=== PATIENT | male | born 1970 | race Caucasian/White ===

== ENCOUNTER 2016-11-10 06:59 | Emergency (ER) | payer MEDICAID | END 2016-11-10 10:42 | disposition home or self-care (01) | DX: F32.9 Major depressive disorder, single episode, unspecified (principal); R45.851 Suicidal ideations; I10 Essential (primary) hypertension; E11.9 Type 2 diabetes mellitus without complications; Z79.4 Long term (current) use of insulin ==

== ENCOUNTER 2016-11-11 06:53 | Emergency (ER) | payer MEDICAID | END 2016-11-11 11:19 | disposition home or self-care (01) | DX: R45.851 Suicidal ideations (principal); F32.9 Major depressive disorder, single episode, unspecified; I10 Essential (primary) hypertension; E11.9 Type 2 diabetes mellitus without complications; Z79.4 Long term (current) use of insulin ==

== ENCOUNTER 2016-12-12 08:14 | Outpatient (CLI) | payer MEDICAID | END 2016-12-12 08:15 | disposition home or self-care (01) | DX: F32.9 Major depressive disorder, single episode, unspecified (principal); R35.8 Other polyuria ==

== ENCOUNTER 2017-04-01 08:27 | Outpatient (CLI) | payer MEDICAID | END 2017-04-01 08:28 | disposition EMS.NT | LOC: EMS 08:27 | PROVIDERS: ATTEND Surgery | DX: R45.851 Suicidal ideations (principal) ==

== ENCOUNTER 2017-04-01 08:59 | Emergency (ER) | payer MEDICAID ==
--- NOTE | 2017-04-01 10:21 | ED Physician Documentation ---
PD HPI MHE - Stated complaint Stated Complaint: SI - Chief complaint Chief Complaint: MHE - History obtained from History obtained from: Patient - History of Present Illness Primary symptom: Suicidal ideation Timing - onset: Today Contributing factors: Other (self) Similar symptoms before: Diagnosis (depression) Recently seen: Clinic (The patient has been started on humalog and he is adjusting his dosing.) Review of Systems Constitutional: denies: Fever Eyes: denies: Decreased vision Ears: denies: Ear pain Nose: denies: Rhinorrhea / runny nose, Congestion Throat: denies: Sore throat Cardiac: denies: Chest pain / pressure, Palpitations Respiratory: denies: Dyspnea, Cough GI: denies: Abdominal Pain, Nausea, Vomiting : denies: Dysuria, Frequency Skin: denies: Rash Musculoskeletal: denies: Neck pain, Back pain, Extremity pain Neurologic: denies: Generalized weakness, Focal weakness Psychiatric: reports: Depressed, Suicidal Endocrine: denies: Polydypsia, Polyuria PD PAST MEDICAL HISTORY - Past Medical History Past Medical History: Yes Cardiovascular: Hypertension, High cholesterol Respiratory: None Neuro: None Endocrine/Autoimmune: Type 2 diabetes GI: None : None HEENT: None Psych: Depression Musculoskeletal: None Derm: None - Past Surgical History Past Surgical History: Yes - Present Medications Home Medications: Ambulatory Orders Medication Instructions Recorded Confirmed Aripiprazole [Abilify] 2 mg PO DAILY 04/12/13 04/01/17 Clonazepam 1 mg PO DAILY PRN 04/12/13 04/01/17 Insulin Glargine,Hum.rec.anlog 30 unit SQ BID 03/07/14 04/01/17 [Lantus] Atorvastatin [Lipitor] 40 mg ORAL DAILY 03/06/15 04/01/17 DULoxetine [Cymbalta] 40 mg ORAL DAILY 11/10/16 04/01/17 metFORMIN [Glucophage] 1,000 mg ORAL BID 11/10/16 04/01/17 Cholecalciferol (Vitamin D3) 3,000 unit PO DAILY 03/08/17 04/01/17 [Vitamin D3] Ibuprofen [Advil] 200 mg PO BID PRN 03/08/17 04/01/17 Insulin Lispro [Humalog] 30 unit SQ TIDWM 03/08/17 04/01/17 - Allergies Allergies/Adverse Reactions: Allergies Allergy/AdvReac Type Severity Reaction Status Date / Time Penicillins Allergy Rash Verified 11/11/16 07:10 sertraline HCl * Allergy bladder Verified 11/11/16 07:10 [From Zoloft] infection lorazepam [From Ativan] AdvReac Anxiety Verified 11/11/16 07:10 - Social History Does the pt smoke?: No Smoking Status: Never smoker Does the pt drink ETOH?: No Does the pt have substance abuse?: No - Immunizations Immunizations are current?: Yes - POLST Patient has POLST: No PD ED PE NORMAL - Vitals Vital signs reviewed: Yes (hypertensive ) - General General: Alert and oriented X 3, No acute distress - HEENT HEENT: Atraumatic, PERRL, EOMI - Neck Neck: Supple, no meningeal sign, No bony TTP - Cardiac Cardiac: RRR, No murmur - Respiratory Respiratory: No respiratory distress, Clear bilaterally - Abdomen Abdomen: Soft, Non tender - Back Back: No CVA TTP, No spinal TTP - Derm Derm: Normal color, Warm and dry, No rash - Extremities Extremities: No deformity, No edema - Neuro Neuro: Alert and oriented X 3, No motor deficit, No sensory deficit, Normal speech - Psych Psych: Normal mood, Normal affect Results - Vitals Vitals: Vital Signs - 24 hr 04/01/17 04/01/17 09:04 13:14 Temperature 35.4 C L Heart Rate 76 65 Respiratory 16 14 Rate Blood Pressure 144/95 H 149/81 H O2 Saturation 100 100 Oxygen O2 Source Room air - Labs Labs: Laboratory Tests 04/01/17 04/01/17 04/01/17 09:10 09:10 10:40 WBC 7.8 RBC 5.06 Hgb 14.9 Hct 44.0 MCV 86.9 MCH 29.5 MCHC 34.0 RDW 14.8 Plt Count 225 MPV 8.2 Neut # 5.5 Lymph # 1.5 [place] # 0.5 Eos # 0.2 Baso # 0.1 Absolute Nucleated RBC 0.00 Nucleated RBCs 0.0 Sodium Potassium Chloride Carbon Dioxide Anion Gap BUN Creatinine Estimated GFR (MDRD) Glucose Calcium Total Bilirubin AST ALT Alkaline Phosphatase Total Protein Albumin Globulin Albumin/Globulin Ratio Lipase Urine Color YELLOW Urine Clarity CLEAR Urine pH 6.0 Ur Specific [place] <=1.005 Urine Protein NEGATIVE Urine Glucose (UA) NEGATIVE Urine Ketones NEGATIVE Urine Occult Blood NEGATIVE Urine Nitrite NEGATIVE Urine Bilirubin NEGATIVE Urine Urobilinogen 0.2 (NORMAL) Ur Leukocyte Esterase NEGATIVE Ur Microscopic Review NOT INDICATED Urine Culture Comments NOT INDICATED Urine Opiates Screen NEGATIVE Ur Oxycodone Screen NEGATIVE Urine Methadone Screen NEGATIVE Ur Propoxyphene Screen NEGATIVE Ur Barbiturates Screen NEGATIVE Ur Tricyclics Screen NEGATIVE Ur Phencyclidine Scrn NEGATIVE Ur Amphetamine Screen NEGATIVE U Methamphetamines Scrn NEGATIVE U Benzodiazepines Scrn NEGATIVE Urine Cocaine Screen NEGATIVE U Cannabinoids Screen NEGATIVE Ethyl Alcohol 04/01/17 04/01/17 10:40 12:55 WBC RBC Hgb Hct MCV MCH MCHC RDW Plt Count MPV Neut # Lymph # [place] # Eos # Baso # Absolute Nucleated RBC Nucleated RBCs Sodium 136 133 L Potassium 5.8 H 5.4 H Chloride 101 98 L Carbon Dioxide 25 26 Anion Gap 10.0 9.0 BUN 25 H 24 H Creatinine 1.0 1.0 Estimated GFR (MDRD) 80 L 80 L Glucose 113 H 140 H Calcium 10.1 9.6 Total Bilirubin 0.7 AST 23 ALT 40 Alkaline Phosphatase 83 Total Protein 8.4 H Albumin 4.9 Globulin 3.5 Albumin/Globulin Ratio 1.4 Lipase 37 Urine Color Urine Clarity Urine pH Ur Specific [place] Urine Protein Urine Glucose (UA) Urine Ketones Urine Occult Blood Urine Nitrite Urine Bilirubin Urine Urobilinogen Ur Leukocyte Esterase Ur Microscopic Review Urine Culture Comments Urine Opiates Screen Ur Oxycodone Screen Urine Methadone Screen Ur Propoxyphene Screen Ur Barbiturates Screen Ur Tricyclics Screen Ur Phencyclidine Scrn Ur Amphetamine Screen U Methamphetamines Scrn U Benzodiazepines Scrn Urine Cocaine Screen U Cannabinoids Screen Ethyl Alcohol < 5.0 PD MEDICAL DECISION MAKING - ED course Complexity details: reviewed results, re-evaluated patient, considered differential, d/w patient, d/w family ED course: 46 y/o male with a history of depression has developed acute SI that is now resolved. He has support and good insight and social media director is consulted in the case and have arranged next day follow up. Departure - Departure Disposition: 01 Home, Self Care Clinical Impression: Suicidal ideation Condition: Stable Instructions: ED Depression Follow-Up: Valencia Munroe ARNP [Primary Care Provider] - Comments: Today in the Emergency Department your blood pressure was elevated. This can happen from the stress of the visit itself, from a current illness or circumstance or from uncontrolled hypertension. If you take blood pressure medications take your usual mediations, have your blood pressure re-checked in an appropriate setting and follow up any elevation with your primary care doctor. Discharge Date/Time: 04/01/17 13:40
[2017-04-01 10:55] LABS: BASOPHILS # (AUTO) 0.1 10^3/uL (0.0-0.1); BASOPHILS % (AUTO) 0.9 %; EOSINOPHILS # (AUTO) 0.2 10^3/uL (0.0-0.7); EOSINOPHILS % (AUTO) 2.9 %; HGB - HEMOGLOBIN 14.9 g/dL (14.0-18.0); LYMPHOCYTES # (AUTO) 1.5 10^3/uL (1.5-3.5); LYMPHOCYTES % (AUTO) 18.9 %; MEAN CORPUSCULAR HEMOGLOBIN 29.5 pg (27.0-31.0); MEAN CORPUSCULAR VOLUME 86.9 fL (80.0-94.0); MEAN PLATELET VOLUME 8.2 fL (7.4-11.4); MONOCYTES # (AUTO) 0.5 10^3/uL (0.0-1.0); NEUTROPHILS # (AUTO) 5.5 10^3/uL (1.5-6.6); NEUTROPHILS % (AUTO) 70.3 %; RED BLOOD COUNT 5.06 10^6/uL (4.70-6.10); RED CELL DISTRIBUTION WIDTH 14.8 % (12.0-15.0); UNCORRECTED WHITE BLOOD COUNT 7.8 x10^3/uL; WHITE BLOOD COUNT 7.8 x10^3/uL (4.8-10.8)
[2017-04-01 10:55] LABS: BILIRUBIN,URINE NEGATIVE (NEGATIVE); UA CHARGE (STRIP ONLY) YES; UR CULTURE IF IND NOT INDICATED
[2017-04-01 11:05] LABS: ALBUMIN/GLOBULIN RATIO 1.4 (1.0-2.2); BILIRUBIN,TOTAL 0.7 mg/dL (0.2-1.0); BUN - BLOOD UREA NITROGEN 25 mg/dL (6-20); CALCIUM 10.1 mg/dL (8.5-10.3); CARBON DIOXIDE - CO2 25 mmol/L (21-32); CHLORIDE 101 mmol/L (101-111); GFR - MDRD 80 (>89); GLUCOSE 113 mg/dL (70-100); LIPASE 37 U/L (22-51); POTASSIUM 5.8 mmol/L (3.5-5.0); SODIUM 136 mmol/L (135-145); TOTAL PROTEIN 8.4 g/dL (6.7-8.2)
[2017-04-01 13:14] VITALS: BP 149/81
[2017-04-01 13:21] LABS: CALCIUM 9.6 mg/dL (8.5-10.3); POTASSIUM 5.4 mmol/L (3.5-5.0)
== END 2017-04-01 13:40 | disposition home or self-care (01) ==
LOC: ED 08:59
DX: F32.9 Major depressive disorder, single episode, unspecified (principal); R45.851 Suicidal ideations; I10 Essential (primary) hypertension; E78.00 Pure hypercholesterolemia, unspecified; E11.9 Type 2 diabetes mellitus without complications; Z79.4 Long term (current) use of insulin; Z79.84 Long term (current) use of oral hypoglycemic drugs
CPT/HCPCS: 36415; 80048; 80053; 80306; 80320; 81001; 81003; 83690; 85025; 87086; 99283

== ENCOUNTER 2017-04-22 07:27 | Outpatient (CLI) | payer MEDICAID ==
[2017-04-22 08:39] LABS: BASOPHILS % (AUTO) 0.5 %; EOSINOPHILS # (AUTO) 0.2 10^3/uL (0.0-0.7); EOSINOPHILS % (AUTO) 2.6 %; HCT - HEMATOCRIT 41.3 % (42.0-52.0); LYMPHOCYTES # (AUTO) 1.2 10^3/uL (1.5-3.5); LYMPHOCYTES % (AUTO) 16.7 %; MEAN CORPUSCULAR HEMOGLOBIN 29.5 pg (27.0-31.0); MEAN CORPUSCULAR HGB CONC 33.9 g/dL (32.0-36.0); MEAN CORPUSCULAR VOLUME 86.9 fL (80.0-94.0); MEAN PLATELET VOLUME 7.8 fL (7.4-11.4); MONOCYTES # (AUTO) 0.6 10^3/uL (0.0-1.0); NEUTROPHILS % (AUTO) 72.2 %; RED BLOOD COUNT 4.76 10^6/uL (4.70-6.10); RED CELL DISTRIBUTION WIDTH 14.4 % (12.0-15.0); UNCORRECTED WHITE BLOOD COUNT 6.9 x10^3/uL; WHITE BLOOD COUNT 6.9 x10^3/uL (4.8-10.8)
[2017-04-22 08:45] LABS: HEMOGLOBIN A1C 1.14 g/dL
[2017-04-22 08:48] LABS: CHOL/HDL RATIO 4.4 (<5.0); CHOLESTEROL 145 mg/dL; HDL CHOLESTEROL 33 mg/dL; LDL/HDL RATIO 2.4 (<3.6); TRIGLYCERIDES 168 mg/dL; VLDL CHOLESTEROL 34 mg/dL
== END 2017-04-22 07:28 | disposition home or self-care (01) ==
LOC: LAB 07:27
PROVIDERS: ATTEND Nurse Practitioner Family
DX: D64.9 Anemia, unspecified (principal)
CPT/HCPCS: 36415; 80061; 82043; 83036; 85025

== ENCOUNTER 2017-05-27 08:00 | Outpatient (CLI) | payer MEDICAID | END 2017-05-27 23:59 | disposition home or self-care (01) | LOC: LAB.R 08:00 | PROVIDERS: ATTEND Dentist Oral and Maxillofacial Surgery | DX: K12.2 Cellulitis and abscess of mouth (principal) | CPT/HCPCS: 87070; 87205 ==

== ENCOUNTER 2017-06-05 09:07 | Inpatient (IN) | payer MEDICAID ==
--- NOTE | 2017-06-05 09:23 | ED Physician Documentation ---
History of Present Illness - Stated complaint Stated Complaint: JAW PX - Chief complaint Chief Complaint: Heent - Additonal information Additional information: hx from pt an oral/maxillofacial surgeon 46 male type 2 DM seen by oral surgery for dental abscess had infected tooth #32 removed and also submandibular abscess drained and rachel drain placed on May 27 pt on clinda pt still with continued purulent drainage maxillofacial surgeon called to discuss with me and he rec pt be admitted for IV antibiotic and after discussion of services available / not available at he felt appropriate for as pt does not need any further surgical intervention as this was already managed in the surgical office pt states no fever no mouth dc just from submandibular incision states blood sugars have been OK Review of Systems Constitutional: denies: Fever Throat: reports: Dental pain / toothache Cardiac: denies: Chest pain / pressure Respiratory: denies: Dyspnea, Cough GI: denies: Abdominal Pain, Nausea, Vomiting Immunocompromised: denies: Immunocompromised PD PAST MEDICAL HISTORY - Past Medical History Cardiovascular: Hypertension, High cholesterol Respiratory: None Neuro: None Endocrine/Autoimmune: Type 2 diabetes GI: None : None HEENT: None Psych: Depression Musculoskeletal: None Derm: None - Past Surgical History Past Surgical History: Yes - Present Medications Home Medications: Ambulatory Orders Medication Instructions Recorded Confirmed Aripiprazole [Abilify] 2 mg PO DAILY 04/12/13 06/05/17 Clonazepam 1 mg PO DAILY PRN 04/12/13 06/05/17 Insulin Glargine,Hum.rec.anlog 30 unit SQ BID 03/07/14 06/05/17 [Lantus] Atorvastatin [Lipitor] 40 mg ORAL DAILY 03/06/15 06/05/17 DULoxetine [Cymbalta] 40 mg ORAL DAILY 11/10/16 06/05/17 metFORMIN [Glucophage] 1,000 mg ORAL BID 11/10/16 06/05/17 Cholecalciferol (Vitamin D3) 3,000 unit PO DAILY 03/08/17 06/05/17 [Vitamin D3] Ibuprofen [Advil] 200 mg PO BID PRN 03/08/17 06/05/17 Insulin Lispro [Humalog] 30 unit SQ TIDWM 03/08/17 06/05/17 Lisinopril 5 mg DAILY 06/05/17 06/05/17 - Allergies Allergies/Adverse Reactions: Allergies Allergy/AdvReac Type Severity Reaction Status Date / Time Penicillins Allergy Rash Verified 06/05/17 09:17 sertraline HCl * Allergy bladder Verified 06/05/17 09:17 [From Zoloft] infection lorazepam [From Ativan] AdvReac Anxiety Verified 06/05/17 09:17 - Social History Does the pt smoke?: No Smoking Status: Never smoker Does the pt drink ETOH?: No Does the pt have substance abuse?: No - Immunizations Immunizations are current?: Yes - POLST Patient has POLST: No PD ED PE NORMAL - Vitals Vital signs reviewed: Yes - General General: Alert and oriented X 3 - HEENT HEENT: Other (no trismus, nor swelling, no oral drainaage. Submandiblar and mandible swelling on the left, surgical incision still open and draining but the rachel is out, no ludwigs, no pain with tracheal manipulation) - Cardiac Cardiac: RRR - Respiratory Respiratory: No respiratory distress, Clear bilaterally - Derm Derm: Normal color - Extremities Extremities: Normal ROM s pain - Neuro Neuro: Alert and oriented X 3 Results - Vitals Vitals: Vital Signs - 24 hr 06/05/17 06/05/17 06/05/17 09:14 11:00 11:30 Temperature 36.9 C Heart Rate 94 94 95 Respiratory 20 20 20 Rate Blood Pressure 143/86 H 136/76 H O2 Saturation 100 06/05/17 13:40 Temperature Heart Rate 98 Respiratory 20 Rate Blood Pressure 148/78 H O2 Saturation Oxygen O2 Source Room air - EKG (time done) 1044 Rate: Rate (enter#) Rhythm: NSR [place]: Normal Intervals: Normal [place] Ischemia: Normal ST segments - Labs Labs: Microbiology 06/05/17 10:30 Wound Culture - Preliminary Abscess Laboratory Tests 06/05/17 06/05/17 06/05/17 09:45 09:45 11:37 WBC 12.1 H RBC 4.69 L Hgb 13.8 L Hct 41.6 L MCV 88.7 MCH 29.5 MCHC 33.3 RDW 14.0 Plt Count 288 MPV 7.8 Neut # 9.7 H Lymph # 1.2 L [place] # 1.0 Eos # 0.1 Baso # 0.1 Absolute Nucleated RBC 0.01 Nucleated RBCs 0.0 Sodium 126 L Potassium 6.4 H* Chloride 94 L Carbon Dioxide 20 L Anion Gap 12.0 BUN 52 H Creatinine 1.8 H Estimated GFR (MDRD) 40 L Glucose 470 H POC Whole Bld Glucose 483 H Calcium 9.9 06/05/17 06/05/17 12:35 13:44 WBC RBC Hgb Hct MCV MCH MCHC RDW Plt Count MPV Neut # Lymph # [place] # Eos # Baso # Absolute Nucleated RBC Nucleated RBCs Sodium Potassium 5.4 H Chloride Carbon Dioxide Anion Gap BUN Creatinine Estimated GFR (MDRD) Glucose POC Whole Bld Glucose 385 H Calcium - Rads (name of study) CT ST neck Radiology: See rad report (inflamamtory change posterior R buccal space extends inf and posteriorly and into R sublingual space into floor of mouth, no discreet fluid collection seen on non cont CT, tract from skin of neck to playsma could be surgical (it is), cellulitis of R lower face and neck, reactive lymph nodes, s/p molar extraction) PD MEDICAL DECISION MAKING - ED course ED course: dental abscess s/p surgical drainage but failing outpt oral clinda sent for IV ab but also out of control diabetes, new renal insuff with hyperkalemia K elev but no EKG changes - so gave IVF insulin albuterol and will recheck ( came down) ordered non con CT (2/2 GFR) to assess for extent of any residual pocket of abscess etiology of renal insuff unclear - rare but possible side effect of clinda, or pt could have had poor PO intake s/p extensive dental surgery, making urine so feel can keep at [facility] given clinda failed and also may have contributed to renal insuff, will change ab, pt pencillin allergy, will try cefoxitin, if does not tolerate that will have to go to cipro/flagyl discussed CT results with Dr Msoes and he feels all this is inflammatory tissue secondary to infection, no new focal abscess seen, he says he has seen pt QOD for > 1wk and swelling has not progressed and he does not feel airway is a concern at this time, he gave his cell phone for the hospitalist to call with any further questions or concerns spoke to hospitalist and they will admit Departure - Departure Disposition: 66 [facility] DC/Xfer Clinical Impression: Dental abscess, Hyperkalemia, Acute renal insufficiency Hyperglycemia due to type 2 diabetes mellitus 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
[2017-06-05 09:52] LABS: BASOPHILS # (AUTO) 0.1 10^3/uL (0.0-0.1); BASOPHILS % (AUTO) 0.7 %; EOSINOPHILS # (AUTO) 0.1 10^3/uL (0.0-0.7); EOSINOPHILS % (AUTO) 0.7 %; HCT - HEMATOCRIT 41.6 % (42.0-52.0); HGB - HEMOGLOBIN 13.8 g/dL (14.0-18.0); LYMPHOCYTES # (AUTO) 1.2 10^3/uL (1.5-3.5); LYMPHOCYTES % (AUTO) 9.7 %; MEAN CORPUSCULAR HEMOGLOBIN 29.5 pg (27.0-31.0); MEAN CORPUSCULAR HGB CONC 33.3 g/dL (32.0-36.0); MEAN CORPUSCULAR VOLUME 88.7 fL (80.0-94.0); MEAN PLATELET VOLUME 7.8 fL (7.4-11.4); MONOCYTES % (AUTO) 8.5 %; NEUTROPHILS # (AUTO) 9.7 10^3/uL (1.5-6.6); NEUTROPHILS % (AUTO) 80.4 %; RED BLOOD COUNT 4.69 10^6/uL (4.70-6.10); UNCORRECTED WHITE BLOOD COUNT 12.1 x10^3/uL; WHITE BLOOD COUNT 12.1 x10^3/uL (4.8-10.8)
[2017-06-05 10:06] LABS: CALCIUM 9.9 mg/dL (8.5-10.3); CREATININE 1.8 mg/dL (0.6-1.2)
[2017-06-05 10:07] LABS: POTASSIUM 6.4 mmol/L (3.5-5.0)
[2017-06-05] MEDS ORDERED: SODIUM CHLORIDE FLUSH 0.9% 10 ML SYRINGE IVP ONE ×3 (10:14→12:55)
[2017-06-05] MEDS ORDERED: INSULIN REGULAR HUMAN 100 UNIT/1 ML 10 ML MDV IVP STA ×2 (10:30→12:20)
[2017-06-05] MEDS ORDERED: ALBUTEROL NEB 2.5 MG/3 ML INH STA (10:30)
[2017-06-05] MEDS ORDERED: SODIUM CHLORIDE 0.9% 1,000 ML IV ONE ×3 (10:30→12:29)
[2017-06-05] MEDS ORDERED: INSULIN REGULAR HUMAN 100 UNIT/1 ML 10 ML MDV ONE ×2 (10:57→12:52)
[2017-06-05] MEDS ORDERED: ALBUTEROL NEB 2.5 MG/3 ML INH ONE (11:18)
[2017-06-05] MEDS ORDERED: cefOXitin 2 GM in SODIUM CHLORIDE 0.9% MINIBAG 100 ML IV STA (12:26)
--- NOTE | 2017-06-05 13:17 | CT Preliminary Report ---
Exam: CT Neck Soft Tissue W/O IMPRESSION: 1. There is inflammatory change seen in the posterior right lower buccal space. This extends inferior ly and posteriorly into the right submandibular space and into the right sublingual space into the fl oor of mouth. A discrete fluid collection is not identified by noncontrast CT. The lack of intravenou s contrast limits assessment for abscess. 2. There is a tract that extends from the skin of the right neck down to the platysma muscle. This co uld reflect a surgical tract or could reflect a fistula that has extended to the skin. 3. Cellulitis is seen involving the right lower face and upper neck. 4. Reactive lymph nodes are seen in the submandibular gland on the right. 5. Evidence of a molar extraction is seen involving the right lower mandible [facility] SITE ID: [id number]
--- NOTE | 2017-06-05 13:28 | CT Report ---
EXAM: CT SOFT TISSUE NECK EXAM DATE: 06/05/2017 12:23 PM. HISTORY: Right submandibular abscess. Recent right tooth removal and abscess drainage. COMPARISONS: None. TECHNIQUE: Routine soft tissue neck CT protocol. IV contrast: None. A noncontrast study was requested by the ER physician due to reported decreased renal function. Reconstructions: Coronal and sagittal. In accordance with CT protocol optimization, one or more of the following dose reduction techniques w ere utilized for this exam: automated exposure control, adjustment of mA and/or KV based on patient s ize, or use of iterative reconstructive technique. FINDINGS: There is a thickened appearance of the soft tissues of the posterior right lower buccal space. There is thickening of the overlying platysma muscle that down to the level of the cricoid. There is ill-de fined inflammatory change in the subcutaneous fat lateral to the right buccal space and inferior to t he right buccal space. These inflammatory changes extend into the anterior aspect of the submandibula r space. On the coronal images, these inflammatory changes extend into the sublingual space. There is mass effect on the anterior belly of the right digastric muscle. There is a linear focus of soft tis evens, which extends from the platysma muscle anterior to the inferior submandibular gland to the skin surface suspicious for a tract. Prominent lymph nodes are seen adjacent to the right submandibular gland. No calcifications are seen in the floor of mouth. No inflammatory changes seen in the right parapharyngeal fat. No inflammatory changes seen in the left submandibular space or in the left submental region. No mass is seen in the nasopharynx. Parapharyngeal fat is symmetric. No inflammatory change is presen t in the parapharyngeal fat. Epiglottis is not thickened. Aryepiglottic folds are not thickened Asymmetric soft tissue in the left breast might well reflect gynecomastia. This is seen on the edge o f the film on the last images of the exam. Atherosclerotic calcification is seen in the left and right coronary arterial tree. No bulky lymphadenopathy is seen in the upper mediastinum. The thyroid gland is not enlarged. No mass is present in either orbit. No suspicious lytic or blastic region is seen in the cervical vertebral bodies. There is leftward cur vature involving the lower cervical and upper thoracic spine. No suspicious spiculated mass is present in either lung apex. Lucency is seen in the posterior right mandible consistent with a recent molar extraction. IMPRESSION: 1. There is inflammatory change seen in the posterior right lower buccal space. This extends inferior ly and posteriorly into the right submandibular space and into the right sublingual space and the aaliyah or of mouth. A discrete fluid collection is not identified by noncontrast CT. The lack of intravenous contrast limits assessment for abscess. 2. There is a tract that extends from the skin of the right neck down to the platysma muscle. This co uld reflect a surgical tract or could reflect a fistula that has extended to the skin. 3. Cellulitis is seen involving the right lower face and upper neck. 4. Reactive lymph nodes are seen near the submandibular gland on the right. 5. Evidence of a molar extraction is seen involving the right lower mandible. Report phoned to Dr. Farias at roughly 1:15 PM on 06/05/2017 [facility] Referring Provider Line: [phone] SITE ID: [id number]
[2017-06-05] MEDS ORDERED: clonazePAM 0.5 MG TABLET PO PRN ×2 (15:17→16:34)
[2017-06-05] MEDS ORDERED: IBUPROFEN 400 MG TABLET PO PRN (15:19)
[2017-06-05] MEDS ORDERED: SODIUM CHLORIDE 0.9% 1,000 ML IV SCH (16:00)
[2017-06-05 16:12] LABS: HEMOGLOBIN A1C 1.22 g/dL
[2017-06-05 16:20] LABS: CALCIUM 9.3 mg/dL (8.5-10.3); CREATININE 1.6 mg/dL (0.6-1.2)
[2017-06-05 16:22] LABS: POTASSIUM 5.8 mmol/L (3.5-5.0)
[2017-06-05] MEDS ORDERED: INSULIN ASPART 300 UNIT/3 ML PEN SUBQ SCH (17:00)
[2017-06-05] MEDS ORDERED: INSULIN LISPRO 100 UNIT/1 ML 10 ML MDV SUBQ SCH (17:00)
[2017-06-05] MEDS ORDERED: metFORMIN 500 MG TABLET PO SCH (17:00)
[2017-06-05] MEDS: oxyCOD/ACETAMIN 5 MG/325 MG TABLET PO PRN (17:26)
[2017-06-05] MEDS: INSULIN ASPART 300 UNIT/3 ML PEN SUBQ SCH ×3 (17:35→21:03)
[2017-06-05] MEDS: metFORMIN 500 MG TABLET PO SCH (17:57)
--- NOTE | 2017-06-05 18:17 | HISTORY & PHYSICAL EXAMINATION ---
DATE OF ADMISSION: 06/05/2017 HISTORY OF THE PRESENT ILLNESS: This is a 46-year-old white male with a history of diabetes, requiring insulin, and psychiatric disorder, on Abilify. The patient developed a dental abscess that has been treated with oral antibiotics and most recently surgical care with an abscess drained and a Harjeet drain put in on May 27, 2017. The patient developed diarrhea 2 days ago and has had poor p.o. intake because of his dental abscess. He has been seen by his dental surgeon every other day and today was noted to have no improvement on over 1 week of daily antibiotic orally. The patient was advised admission for further IV treatment, continued drainage of the wound, and when he was found to have hyperkalemia and glucose elevation out of control, as well as new acute renal failure. The patient complains of fullness, mild pain in the right cheek area. There has not been a fever. He denies any shortness of breath or intraoral secretions that are not manageable. He has been compliant with his medications as described for this dental abscess. PAST MEDICAL HISTORY: Diabetes, hypertension, psychiatric disorder with mainly depression, congenital deformity with an imperforate anus at . PAST SURGERIES: Dental Stokes drain placed 2 weeks ago and rectal surgery as a . ALLERGIES 1. PENICILLIN, WHICH CAUSED A RASH. 2. ZOLOFT, WHICH CAUSED A BLADDER INFECTION. 3. ATIVAN, WHICH CAUSED ANXIETY. MEDICATIONS AT HOME 1. Abilify 2 mg p.o. daily. 2. Clonazepam 1 mg p.o. daily p.r.n. anxiety. 3. Lipitor 40 mg p.o. at bedtime. 4. Cymbalta 40 mg p.o. daily. 5. Vitamin D 3000 units p.o. daily. 6. Ibuprofen 200 mg p.o. b.i.d. p.r.n. pain. 7. Lisinopril 5 mg p.o. daily. 8. Lantus insulin 30 units subcutaneous b.i.d. 9. Humalog insulin 30 units subcu t.i.d. with meals. 10. Metformin 1000 mg p.o. b.i.d. REVIEW OF SYSTEMS: He denies any cardiac history, neurology complaints, respiratory problems, urologic problems or extremity trouble. He does describe a remote history of alcohol abuse and states he has not been an abuser for 3 years. He describes current loose stools for the last 48 hours, which he thinks is from his oral antibiotic of clindamycin. He does admit that he is poor about checking his fingerstick glucoses and does not follow a strict diabetic diet. SOCIAL HISTORY: He never smoked. He has stopped drinking alcohol 3 years ago. He denies any drug abuse. FAMILY HISTORY: Unremarkable. 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 He is alert and oriented and in no distress. There is a foul odor noted, coming from the wound site which covered with a gauze bandage which over the right cheek. HEAD, EYES, EARS, NOSE, AND THROAT: Shows the right cheek to be swollen out of proportion to the left and there is a wound covered by gauze bandage in the right mid cheek area. The oral mucosa is moist. The dentition was not examined. NECK: No JVD, carotid bruits or lymphadenopathy. LUNGS: Clear. HEART: Sounds are normal. There is no audible murmur. ABDOMEN: Obese, soft, nontender. EXTREMITIES: No clubbing, cyanosis or edema. NEUROLOGIC: Intact grossly. VITAL SIGNS: He has a low-grade temperature of 36.9, heart rate of 95 and sinus rhythm, respiratory rate 20, blood pressure 143/86. Oxygen saturation is not known. LABORATORY DATA: Sodium 126, potassium 6.4, BUN 52, creatinine 1.8, estimated GFR 40, glucose 470 and on repeat 483. White blood count 12.2 with a left shift , hemoglobin 13.8, hematocrit 41.6, platelet count normal. No INR was done. No magnesium was done. EKG: Normal sinus rhythm and within normal limits. There was a soft tissue imaging of the neck. CT scan showed inflammation in the posterior right lower buccal space, which extended inferiorly and posteriorly into the right submandibular space and into the right sublingual space and the floor of the mouth. There is no discrete air fluid level seen on noncontrast CT. There is a tract that extends from the skin of the right neck down to the platysma muscle. This is probably a surgical tract or fistula since it extends to the skin. There is cellulitis of the right lower face and upper neck. There are reactive lymph nodes seen near the submandibular gland on the right. There was evidence of a molar extraction in the right lower mandible. IMPRESSION/DIAGNOSES 1. Dental abscess with poss. soft tissue cellulitis. 2. Hyperkalemia. 3. Acute renal insufficiency. 4. Diabetes with hyperglycemia (diabetes out of control). 5. Tooth extraction. 6. Depression. 7. Remote history of alcohol abuse. PLAN: The patient will have sliding-scale insulin coverage for his diabetes and be kept on his long-acting insulin coverage. He will be put on a diabetic diet and have glucose fingersticks. IV antibiotics will be initiated using Mefoxin per recommendations of his dental surgeon, and the dose will be based on his renal function, which is depressed. Wound care to the external wound per the dental surgeon will include dressing changes daily. Pain control for the site will continue as he has been having at home or stronger narcotic pain control if needed. We will follow his CBC and differential and watch for fever spikes. Cultures have already been obtained of the wound and blood to watch for positive cultures. If these are identified, then antibiotics will be changed based on sensitivities. The oral surgeon also recommends Peridex mouth wash b.i.d. IV saline will be initiated for hydration as the patient has prerenal azotemia, which likely on the basis of fluid loss and diarrhea, as well as poor p.o. intake because of his mouth pain. His antipsychotic medications will be continued. JOB #: [id number] EXT JOB #:[id number] BROOKS
[2017-06-05] MEDS: SODIUM CHLORIDE 0.9% 1,000 ML IV SCH (19:30)
[2017-06-05] MEDS: IBUPROFEN 400 MG TABLET PO PRN (20:48)
[2017-06-05] MEDS: ATORVASTATIN 40 MG TABLET PO SCH (20:48)
[2017-06-05] MEDS: cefOXitin 2 GM in SODIUM CHLORIDE 0.9% MINIBAG 100 ML IV SCH (20:49)
[2017-06-05] MEDS ORDERED: ATORVASTATIN 10 MG TABLET PO SCH (21:00)
[2017-06-05] MEDS ORDERED: INSULIN GLARGINE 300 UNIT/3 ML PEN SUBQ SCH (21:00)
[2017-06-05] MEDS ORDERED: cefOXitin 2 GM in SODIUM CHLORIDE 0.9% MINIBAG 100 ML IV SCH (21:00)
[2017-06-05] MEDS ORDERED: CHLORHEXIDINE GLUCONATE 15 ML UDC PO SCH (21:00)
[2017-06-05] MEDS: INSULIN GLARGINE 300 UNIT/3 ML PEN SUBQ SCH (21:04)
[2017-06-05] MEDS: CHLORHEXIDINE GLUCONATE 15 ML UDC PO SCH (21:05)
[2017-06-06] MEDS: SODIUM CHLORIDE 0.9% 1,000 ML IV SCH ×3 (02:40→19:12)
[2017-06-06] MEDS: oxyCOD/ACETAMIN 5 MG/325 MG TABLET PO PRN ×3 (03:37→17:53)
[2017-06-06] MEDS: cefOXitin 2 GM in SODIUM CHLORIDE 0.9% MINIBAG 100 ML IV SCH ×3 (06:36→21:32)
[2017-06-06 06:48] LABS: BASOPHILS # (AUTO) 0.1 10^3/uL (0.0-0.1); BASOPHILS % (AUTO) 0.5 %; EOSINOPHILS # (AUTO) 0.1 10^3/uL (0.0-0.7); HCT - HEMATOCRIT 38.5 % (42.0-52.0); HGB - HEMOGLOBIN 12.6 g/dL (14.0-18.0); LYMPHOCYTES # (AUTO) 1.6 10^3/uL (1.5-3.5); LYMPHOCYTES % (AUTO) 14.3 %; MEAN CORPUSCULAR HEMOGLOBIN 29.9 pg (27.0-31.0); MEAN CORPUSCULAR HGB CONC 32.8 g/dL (32.0-36.0); MEAN CORPUSCULAR VOLUME 91.3 fL (80.0-94.0); MEAN PLATELET VOLUME 8.2 fL (7.4-11.4); MONOCYTES # (AUTO) 0.8 10^3/uL (0.0-1.0); MONOCYTES % (AUTO) 7.1 %; NEUTROPHILS # (AUTO) 8.4 10^3/uL (1.5-6.6); NEUTROPHILS % (AUTO) 77.1 %; NUCLEATED RED BLOOD CELLS AUTO 0.1 /100WBC; RED BLOOD COUNT 4.21 10^6/uL (4.70-6.10); RED CELL DISTRIBUTION WIDTH 14.2 % (12.0-15.0); UNCORRECTED WHITE BLOOD COUNT 11.7 x10^3/uL; WHITE BLOOD COUNT 10.9 x10^3/uL (4.8-10.8)
[2017-06-06 06:54] LABS: CALCIUM 8.9 mg/dL (8.5-10.3); CREATININE 1.3 mg/dL (0.6-1.2); MAGNESIUM 1.6 mg/dL (1.7-2.8); POTASSIUM 5.2 mmol/L (3.5-5.0)
[2017-06-06 07:02] LABS: CHOL/HDL RATIO 6.9 (<5.0); CHOLESTEROL 192 mg/dL; HDL CHOLESTEROL 28 mg/dL; LDL/HDL RATIO 3.8 (<3.6); TRIGLYCERIDES 294 mg/dL; VLDL CHOLESTEROL 59 mg/dL
[2017-06-06 07:36] LABS: HEMOGLOBIN A1C 1.14 g/dL
[2017-06-06] MEDS: INSULIN ASPART 300 UNIT/3 ML PEN SUBQ SCH ×7 (08:31→21:34)
[2017-06-06] MEDS: INSULIN GLARGINE 300 UNIT/3 ML PEN SUBQ SCH ×2 (08:31→21:34)
[2017-06-06] MEDS: metFORMIN 500 MG TABLET PO SCH ×2 (08:33→17:01)
[2017-06-06] MEDS: CHOLECALCIFEROL 1,000 UNIT TABLET PO SCH (08:34)
[2017-06-06] MEDS: DULoxetine 20 MG CAPSULE PO SCH (08:37)
[2017-06-06] MEDS: ARIPiprazole 5 MG TABLET PO SCH (08:38)
[2017-06-06] MEDS ORDERED: CHOLECALCIFEROL 1,000 UNIT TABLET PO SCH (09:00)
[2017-06-06] MEDS ORDERED: ARIPiprazole 5 MG TABLET PO SCH (09:00)
[2017-06-06] MEDS ORDERED: DULoxetine 20 MG CAPSULE PO SCH (09:00)
[2017-06-06] MEDS: CHLORHEXIDINE GLUCONATE 15 ML UDC PO SCH ×2 (09:36→21:29)
[2017-06-06] MEDS: IBUPROFEN 400 MG TABLET PO PRN ×2 (12:21→21:29)
--- NOTE | 2017-06-06 13:54 | PROVIDER PROGRESS NOTE ---
Assessment/Plan - Problem List (1) Dental abscess Assessment/Plan: WBC lower and no fever spikes. Pt notices less swelling, but still difficult to eat. Continue with iv Mefoxin, drainage via tube, bandage changes and mouth rinse. I will check with Dr Moses if he needs to do any further surgical management. (2) Hyperglycemia due to type 2 diabetes mellitus Qualifiers: Diabetes mellitus senior care insulin use: with senior care use Qualified Code( s): E11.65 - Type 2 diabetes mellitus with hyperglycemia; Z79.4 - [facility] ( current) use of insulin Assessment/Plan: Improved glu control slowly. Continue Insulin, diet and fingerstick monitoring. (3) Acute renal insufficiency Assessment/Plan: BUN/creat are improving with iv hydration Continue rehydration. (4) Hyperkalemia Assessment/Plan: minimally elvated today. Continue to monitor and should decline as glu is controlled (5) Depression Qualifiers: Depression Type: unspecified Qualified Code(s): F32.9 - Major depressive disorder, single episode, unspecified Assessment/Plan: Pt has normal affect and stable mood with present management. (6) Hyperlipidemia associated with type 2 diabetes mellitus Assessment/Plan: LDL goal is 100 and needs better Trig control. Will continue to treat hyperglycemia for improved Triglycerides, no Fenofibtrate or omega-3 treatment yet. - Current Meds Current Meds: Current Medications Generic Name Dose Route Start Last Admin Trade Name Freq PRN Reason Stop Dose Admin Aripiprazole 2.5 mg 06/06/17 09:00 06/06/17 08:38 Abilify PO 2.5 mg DAILY BONNIE Administration Atorvastatin Calcium 40 mg 06/05/17 21:00 06/05/17 20:48 Lipitor PO 40 mg QPM BONNIE Administration Chlorhexidine Gluconate 15 ml 06/05/17 21:00 06/06/17 09:36 Peridex PO 15 ml BID OBNNIE Administration Cholecalciferol 3,000 unit 06/06/17 09:00 06/06/17 08:34 Vitamin D3 PO 3,000 unit DAILY BONNIE Administration Clonazepam 1 mg 06/05/17 16:34 06/05/17 21:48 Klonopin PO 1 mg BID PRN Administration Anxiety Duloxetine HCl 40 mg 06/06/17 09:00 06/06/17 08:37 Cymbalta PO 40 mg DAILY BONNIE Administration Sodium Chloride 1,000 mls @ 125 mls/hr 06/05/17 18:00 06/06/17 11:23 Normal Saline 0.9% IV 125 mls/hr .Q8H BONNIE Administration Cefoxitin Sodium 2 gm/ Sodium 100 mls @ 200 mls/hr 06/05/17 21:00 06/06/17 06: 36 Chloride IV 200 mls/hr Q8H BONNIE Administration Ibuprofen 200 mg 06/05/17 16:34 06/06/17 12:21 Motrin PO 200 mg BID PRN Administration PAIN Insulin Aspart 1 - 9 unit 06/05/17 18:00 06/06/17 12:18 Novolog SUBQ 5 unit 0800,1200,1700,2100 BONNIE Administration Protocol Insulin Aspart 30 unit 06/05/17 18:00 06/06/17 12:19 Novolog SUBQ 30 unit TIDWM BONNIE Administration Insulin Glargine 30 unit 06/05/17 21:00 06/06/17 08:31 Lantus Solostar SUBQ 30 unit BID BONNIE Administration Metformin HCl 1,000 mg 06/05/17 18:00 06/06/17 08:33 Glucophage PO 1,000 mg BIDWM BONNIE Administration Oxycodone/Acetaminophen 1 tab 06/05/17 17:03 06/06/17 10:34 Percocet 5 Mg/325 Mg PO 1 tab Q6HR PRN Administration PAIN - Lab Result Fish Bone Diagrams: 06/06/17 06:36 06/06/17 06:36 - Additional Planning My Orders: My Active Orders 06/05/17 15:05 Initiate Hypoglycemia Protocol [RC] .protocol 06/05/17 15:10 Activity Orders [RC] QSHIFT 06/05/17 15:14 Blood Glucose Checks - Eating [RC] 0800,1200,1700,2100 Initiate Hypoglycemia Protocol [RC] .protocol 06/05/17 15:15 Blood Glucose Checks - Eating [RC] 0800,1200,1700,2100 Initiate Hypoglycemia Protocol [RC] .protocol 06/05/17 16:34 Ibuprofen [Motrin] 200 mg PO BID PRN clonazePAM [KlonoPIN] 1 mg PO BID PRN 06/05/17 17:03 oxyCODONE/ACET 5/325 [Percocet 5 mg/325 mg] 1 tab PO Q6HR PRN 06/05/17 18:00 Insulin Aspart [NovoLOG] 1 - 9 unit SUBQ 0800,1200,1700,2100 Insulin Aspart [NovoLOG] 30 unit SUBQ TIDWM Sodium Chloride 0.9% [Normal Saline 0.9%] 1,000 ml IV 125 mls/hr metFORMIN [Glucophage] 1,000 mg PO BIDWM 06/05/17 21:00 Atorvastatin [Lipitor] 40 mg PO QPM Chlorhexidine [Peridex] 15 ml PO BID Insulin Glargine [Lantus Solostar] 30 unit SUBQ BID cefOXitin [Mefoxin] 2 gm Sodium Chloride 0.9% Minibag [Normal Saline 0.9% Minibag] 100 ml IV Q8H 06/05/17 Dinner DIET [Carb-controlled Diet] [DIET] 06/06/17 Diabetes Outpatient Education MAC [MAC] Routine 06/06/17 09:00 ARIPiprazole [Abilify] 2.5 mg PO DAILY Cholecalciferol [Vitamin D3] 3,000 unit PO DAILY DULoxetine [Cymbalta] 40 mg PO DAILY Subjective - Subjective Patient Reports: Feeling Better ("Less swelling".) Objective Vital Signs: Vital Signs - 24 hr 06/05/17 06/05/17 06/06/17 15:30 21:39 00:06 Temperature 36.6 C 36.4 C L Heart Rate 90 Heart Rate [ 75 72 Brachial] Respiratory 18 22 20 Rate Blood Pressure 134/88 H Blood Pressure 141/74 H 125/64 [Right Brachial artery] O2 Saturation 97 94 06/06/17 06/06/17 04:32 08:07 Temperature 36.5 C 36.6 C Heart Rate Heart Rate [ 77 79 Brachial] Respiratory 18 20 Rate Blood Pressure Blood Pressure 139/77 H 156/79 H [Right Brachial artery] O2 Saturation 99 99 Oxygen O2 Source Room air I&O (Last 24 Hrs): Intake and Output Totals x24h 06/04/17 06/05/17 06/06/17 23:59 23:59 23:59 Intake Total 1607 2124 Balance 1607 2124 General: Alert, Other (Less gross swelling of left chhek. Large gauze bandage, draining yellow fould smelling discharge.) Neuro: Alert Cardiovascular: Regular rate Respiratory: No respiratory distress Abdomen: Soft Extremities: No edema - Results Results: Laboratory Results WBC 10.9 x10^3/uL (4.8-10.8) H 06/06/17 06:36 RBC 4.21 10^6/uL (4.70-6.10) L 06/06/17 06:36 Hgb 12.6 g/dL (14.0-18.0) L 06/06/17 06:36 Hct 38.5 % (42.0-52.0) L 06/06/17 06:36 MCV 91.3 fL (80.0-94.0) 06/06/17 06:36 MCH 29.9 pg (27.0-31.0) 06/06/17 06:36 MCHC 32.8 g/dL (32.0-36.0) 06/06/17 06:36 RDW 14.2 % (12.0-15.0) 06/06/17 06:36 Plt Count 261 10^3/uL (130-450) 06/06/17 06:36 MPV 8.2 fL (7.4-11.4) 06/06/17 06:36 Neut # 8.4 10^3/uL (1.5-6.6) H 06/06/17 06:36 Lymph # 1.6 10^3/uL (1.5-3.5) 06/06/17 06:36 [place] # 0.8 10^3/uL (0.0-1.0) 06/06/17 06:36 Eos # 0.1 10^3/uL (0.0-0.7) 06/06/17 06:36 Baso # 0.1 10^3/uL (0.0-0.1) 06/06/17 06:36 Absolute Nucleated RBC 0.01 x10^3/uL 06/06/17 06:36 Nucleated RBCs 0.1 /100WBC 06/06/17 06:36 Sodium 134 mmol/L (135-145) L 06/06/17 06:36 Potassium 5.2 mmol/L (3.5-5.0) H 06/06/17 06:36 Chloride 105 mmol/L (101-111) 06/06/17 06:36 Carbon Dioxide 20 mmol/L (21-32) L 06/06/17 06:36 Anion Gap 9.0 (6-13) 06/06/17 06:36 BUN 34 mg/dL (6-20) H 06/06/17 06:36 Creatinine 1.3 mg/dL (0.6-1.2) H 06/06/17 06:36 Estimated GFR (MDRD) 59 (>89) L 06/06/17 06:36 Glucose 238 mg/dL (70-100) H 06/06/17 06:36 POC Whole Bld Glucose 248 mg/dL (70 - 100) H 06/06/17 11:43 Glycated Hemoglobin 9.8 % (4.6-6.2) H 06/06/17 06:36 Estim Average Glucose 235 (70-100) H 06/06/17 06:36 Calcium 8.9 mg/dL (8.5-10.3) 06/06/17 06:36 Magnesium 1.6 mg/dL (1.7-2.8) L 06/06/17 06:36 Triglycerides 294 mg/dL (-149) H 06/06/17 06:36 Cholesterol 192 mg/dL (-199) 06/06/17 06:36 LDL Cholesterol, Calc 105 mg/dL (-129) 06/06/17 06:36 VLDL Cholesterol 59 mg/dL 06/06/17 06:36 HDL Cholesterol 28 mg/dL (60-) L 06/06/17 06:36 LDL/HDL Ratio 3.8 (<3.6) 06/06/17 06:36 Cholesterol/HDL Ratio 6.9 (<5.0) 06/06/17 06:36
[2017-06-06] MEDS: ATORVASTATIN 40 MG TABLET PO SCH (21:28)
[2017-06-07] MEDS: oxyCOD/ACETAMIN 5 MG/325 MG TABLET PO PRN ×2 (01:37→23:39)
[2017-06-07] MEDS: SODIUM CHLORIDE 0.9% 1,000 ML IV SCH ×3 (01:37→19:40)
[2017-06-07] MEDS: IBUPROFEN 400 MG TABLET PO PRN (03:43)
[2017-06-07] MEDS: cefOXitin 2 GM in SODIUM CHLORIDE 0.9% MINIBAG 100 ML IV SCH ×3 (05:32→21:23)
[2017-06-07] MEDS: INSULIN ASPART 300 UNIT/3 ML PEN SUBQ SCH ×7 (08:47→23:05)
[2017-06-07] MEDS: INSULIN GLARGINE 300 UNIT/3 ML PEN SUBQ SCH ×2 (08:48→23:06)
[2017-06-07] MEDS: metFORMIN 500 MG TABLET PO SCH ×2 (08:49→18:56)
[2017-06-07] MEDS: ARIPiprazole 5 MG TABLET PO SCH (08:49)
[2017-06-07] MEDS: DULoxetine 20 MG CAPSULE PO SCH (08:50)
[2017-06-07] MEDS: CHOLECALCIFEROL 1,000 UNIT TABLET PO SCH (08:50)
[2017-06-07] MEDS: CHLORHEXIDINE GLUCONATE 15 ML UDC PO SCH ×2 (08:50→21:26)
[2017-06-07 12:05] LABS: CALCIUM 8.5 mg/dL (8.5-10.3); POTASSIUM 4.1 mmol/L (3.5-5.0)
--- NOTE | 2017-06-07 15:32 | PROVIDER PROGRESS NOTE ---
Assessment/Plan - Problem List (1) Dental abscess Assessment/Plan: Pt continues to improve with less swelling, improved po intake Continue with iv Mefoxin, drainage via tube, bandage changes and mouth rinse. I have called Dr Moses twice and left messages, as to whether he needs to do any further surgical management. (2) Hyperglycemia due to type 2 diabetes mellitus Qualifiers: Diabetes mellitus instrument designer insulin use: with instrument designer use Qualified Code( s): E11.65 - Type 2 diabetes mellitus with hyperglycemia; Z79.4 - [facility] ( current) use of insulin Assessment/Plan: Improved glu control slowly. Continue Insulin, diet and fingerstick monitoring. (3) Acute renal insufficiency Assessment/Plan: Resolved with hydration. Will DC iv fluids (4) Hyperkalemia Assessment/Plan: Resolved with treatment (5) Depression Qualifiers: Depression Type: unspecified Qualified Code(s): F32.9 - Major depressive disorder, single episode, unspecified Assessment/Plan: Stable on current management (6) Hyperlipidemia associated with type 2 diabetes mellitus Assessment/Plan: On treatment - Current Meds Current Meds: Current Medications Generic Name Dose Route Start Last Admin Trade Name Freq PRN Reason Stop Dose Admin Aripiprazole 2.5 mg 06/06/17 09:00 06/07/17 08:49 Abilify PO 2.5 mg DAILY BONNIE Administration Atorvastatin Calcium 40 mg 06/05/17 21:00 06/06/17 21:28 Lipitor PO 40 mg QPM BONNIE Administration Chlorhexidine Gluconate 15 ml 06/05/17 21:00 06/07/17 08:50 Peridex PO 15 ml BID BONNIE Administration Cholecalciferol 3,000 unit 06/06/17 09:00 06/07/17 08:50 Vitamin D3 PO 3,000 unit DAILY BONNIE Administration Clonazepam 1 mg 06/05/17 16:34 06/05/17 21:48 Klonopin PO 1 mg BID PRN Administration Anxiety Duloxetine HCl 40 mg 06/06/17 09:00 06/07/17 08:50 Cymbalta PO 40 mg DAILY BONNIE Administration Sodium Chloride 1,000 mls @ 125 mls/hr 06/05/17 18:00 06/07/17 10:31 Normal Saline 0.9% IV 125 mls/hr .Q8H BONNIE Administration Cefoxitin Sodium 2 gm/ Sodium 100 mls @ 200 mls/hr 06/06/17 14:15 06/07/17 13: 16 Chloride IV 200 mls/hr Q8HR BONNIE Administration Ibuprofen 200 mg 06/05/17 16:34 06/07/17 03:43 Motrin PO 200 mg BID PRN Administration PAIN Insulin Aspart 1 - 9 unit 06/05/17 18:00 06/07/17 12:29 Novolog SUBQ Not Given 0800,1200,1700,2100 [facility] Protocol Insulin Aspart 30 unit 06/05/17 18:00 06/07/17 12:30 Novolog SUBQ 30 unit TIDWM BONNIE Administration Insulin Glargine 30 unit 06/05/17 21:00 06/07/17 08:48 Lantus Solostar SUBQ 30 unit BID BONNIE Administration Metformin HCl 1,000 mg 06/05/17 18:00 06/07/17 08:49 Glucophage PO 1,000 mg BIDWM BONNIE Administration Oxycodone/Acetaminophen 1 tab 06/05/17 17:03 06/07/17 01:37 Percocet 5 Mg/325 Mg PO 1 tab Q6HR PRN Administration PAIN - Lab Result Fish Bone Diagrams: 06/06/17 06:36 06/07/17 11:50 Subjective - Subjective Patient Reports: Feeling Better ("What other surgical management is planned by Dr Moses?") Nursing Reports: Other (Pt now eating 75% of each meal.) Objective Vital Signs: Vital Signs - 24 hr 06/06/17 06/06/17 06/07/17 16:38 20:43 00:59 Temperature 36.6 C 36.3 C L Heart Rate [ 81 70 70 Brachial] Respiratory 18 18 18 Rate Blood Pressure 147/83 H 155/87 H 132/75 H [Right Brachial artery] O2 Saturation 100 99 99 06/07/17 06/07/17 06/07/17 03:47 08:46 13:21 Temperature 36.2 C L 36.4 C L 36.6 C Heart Rate [ 63 64 74 Brachial] Respiratory 18 18 16 Rate Blood Pressure 149/77 H 135/66 H 159/79 H [Right Brachial artery] O2 Saturation 99 100 100 Oxygen O2 Source Room air I&O (Last 24 Hrs): Intake and Output Totals x24h 06/05/17 06/06/17 06/07/17 23:59 23:59 23:59 Intake Total 2844 8993 7324 Output Total 500 Balance 5391 2258 1159 General: Alert HEENT: Other (Less swollen R cheek, similar in size visually to L cheek.) - Results Results: Laboratory Results WBC 10.9 x10^3/uL (4.8-10.8) H 06/06/17 06:36 RBC 4.21 10^6/uL (4.70-6.10) L 06/06/17 06:36 Hgb 12.6 g/dL (14.0-18.0) L 06/06/17 06:36 Hct 38.5 % (42.0-52.0) L 06/06/17 06:36 MCV 91.3 fL (80.0-94.0) 06/06/17 06:36 MCH 29.9 pg (27.0-31.0) 06/06/17 06:36 MCHC 32.8 g/dL (32.0-36.0) 06/06/17 06:36 RDW 14.2 % (12.0-15.0) 06/06/17 06:36 Plt Count 261 10^3/uL (130-450) 06/06/17 06:36 MPV 8.2 fL (7.4-11.4) 06/06/17 06:36 Neut # 8.4 10^3/uL (1.5-6.6) H 06/06/17 06:36 Lymph # 1.6 10^3/uL (1.5-3.5) 06/06/17 06:36 [place] # 0.8 10^3/uL (0.0-1.0) 06/06/17 06:36 Eos # 0.1 10^3/uL (0.0-0.7) 06/06/17 06:36 Baso # 0.1 10^3/uL (0.0-0.1) 06/06/17 06:36 Absolute Nucleated RBC 0.01 x10^3/uL 06/06/17 06:36 Nucleated RBCs 0.1 /100WBC 06/06/17 06:36 Sodium 137 mmol/L (135-145) 06/07/17 11:50 Potassium 4.1 mmol/L (3.5-5.0) 06/07/17 11:50 Chloride 108 mmol/L (101-111) 06/07/17 11:50 Carbon Dioxide 21 mmol/L (21-32) 06/07/17 11:50 Anion Gap 8.0 (6-13) 06/07/17 11:50 BUN 19 mg/dL (6-20) 06/07/17 11:50 Creatinine 1.0 mg/dL (0.6-1.2) 06/07/17 11:50 Estimated GFR (MDRD) 80 (>89) L 06/07/17 11:50 Glucose 125 mg/dL (70-100) H 06/07/17 11:50 POC Whole Bld Glucose 126 mg/dL (70 - 100) H 06/07/17 11:50 Glycated Hemoglobin 9.8 % (4.6-6.2) H 06/06/17 06:36 Estim Average Glucose 235 (70-100) H 06/06/17 06:36 Calcium 8.5 mg/dL (8.5-10.3) 06/07/17 11:50 Magnesium 1.6 mg/dL (1.7-2.8) L 06/06/17 06:36 Triglycerides 294 mg/dL (-149) H 06/06/17 06:36 Cholesterol 192 mg/dL (-199) 06/06/17 06:36 LDL Cholesterol, Calc 105 mg/dL (-129) 06/06/17 06:36 VLDL Cholesterol 59 mg/dL 06/06/17 06:36 HDL Cholesterol 28 mg/dL (60-) L 06/06/17 06:36 LDL/HDL Ratio 3.8 (<3.6) 06/06/17 06:36 Cholesterol/HDL Ratio 6.9 (<5.0) 06/06/17 06:36
[2017-06-07] MEDS: ATORVASTATIN 40 MG TABLET PO SCH (21:23)
[2017-06-08] MEDS: SODIUM CHLORIDE 0.9% 1,000 ML IV SCH ×2 (01:41→03:59)
[2017-06-08] MEDS: cefOXitin 2 GM in SODIUM CHLORIDE 0.9% MINIBAG 100 ML IV SCH (05:41)
[2017-06-08] MEDS: INSULIN ASPART 300 UNIT/3 ML PEN SUBQ SCH ×3 (08:56→12:04)
[2017-06-08] MEDS: INSULIN GLARGINE 300 UNIT/3 ML PEN SUBQ SCH (09:08)
[2017-06-08] MEDS: DULoxetine 20 MG CAPSULE PO SCH (09:09)
[2017-06-08] MEDS: ARIPiprazole 5 MG TABLET PO SCH (09:09)
[2017-06-08] MEDS: CHOLECALCIFEROL 1,000 UNIT TABLET PO SCH (09:09)
[2017-06-08] MEDS: metFORMIN 500 MG TABLET PO SCH (09:10)
[2017-06-08] MEDS: CHLORHEXIDINE GLUCONATE 15 ML UDC PO SCH (09:11)
[2017-06-08] MEDS ORDERED: metFORMIN 500 MG TABLET PO SCH (11:15)
[2017-06-08] MEDS ORDERED: INSULIN ASPART 300 UNIT/3 ML PEN SUBQ SCH (11:16)
[2017-06-08] MEDS ORDERED: INSULIN GLARGINE 300 UNIT/3 ML PEN SUBQ SCH (11:18)
--- NOTE | 2017-06-08 12:16 | Discharge Plan ---
Discharge Plan Disposition: 01 Home, Self Care Diet: Diabetic Activity Restrictions: No Restrictions Shower Restrictions: No Driving Restrictions: No Weight Bearing: Full Weight No Smoking: If you smoke, Please STOP! Call for help.
[2017-06-08 14:06] VITALS: BP 165/80
--- NOTE | 2017-06-08 17:08 | DISCHARGE SUMMARY ---
DATE OF ADMISSION: 06/05/2017 DATE OF DISCHARGE: 06/08/2017 HISTORY: This is a 46-year-old white male with a history of diabetes on insulin, psychiatric disorde r on Abilify, and obesity. The patient presented after having developed a dental abscess that was not improving with p.o. antibiotics for several weeks. The patient had been seen by his dental surgeon e very other day. There was even insertion of a [place] drain put in on 05/27/2017 which was continuing to drain purulent foul odor fluid but his swelling and abscess were not improving. He had been takin g clindamycin and was developing diarrhea. He presented with complaints of pain and swelling over th e right cheek and drainage through the [place] drain in the cheek as well as poorly controlled diabet es. ALLERGIES: 1. PENICILLIN. 2. ZOLOFT. 3. ATIVAN. MEDICATIONS AT HOME: 1. Abilify. 2. Clonazepam. 3. Lipitor. 4. Cymbalta. 5. Vitamin D. 6. Ibuprofen. 7. Lisinopril. 8. Lantus insulin. 9. Humulog insulin. 10. Metformin. 11. Clindamycin. SOCIAL HISTORY: The patient stopped drinking alcohol 3 years ago and never smoked cigarettes. He christine ed drug abuse. FAMILY HISTORY: Not contributory. PHYSICAL EXAMINATION ON PRESENTATION: VITAL SIGNS: Showed a low-grade fever, fullness of the right lower mandibular area with a bandage ov er a draining wound, the [place] drain was visible. The rest of his physical exam was unremarkable. LABS: Sodium 126, potassium 6.4, BUN 52, creatinine 1.8. Glucose 470. White blood count 12.2 with a left shift, hemoglobin 13.8. IMAGING: Of the dental abscess area showed inflammation in the posterior right lower buccal space whi ch extended inferiorly and posteriorly into the right submandibular space and into the right sublingu al space and the floor of the mouth. There were no discrete air-fluid levels seen on noncontrast CT. There was a tract that extended from the skin over the right neck down to the platysma muscle. There was cellulitis of the right lower face and upper neck and reactive lymph nodes seen near the submandi bular gland on the right. HOSPITAL COURSE: The patient was started on IV Cefepime as well as daily or as-needed bandage change s for the draining wound and oral mouth rinses with Peridex b.i.d. The patient's pain and swelling de creased. His white blood count improved and left shift resolved. He was able to take increased nutrit ion every day with less discomfort as the treatment progressed. By day 3 he had nearly no drainage th rough the Harje[place] site and there was nearly no swelling visible. He received IV fluid hydration for the elevated sugar and elevated creatinine as well as sliding scal e insulin dose for the hypoglycemia. By day 2 he had 2 episodes of low sugar in the 50 to 80 range. B ecause of his diabetic control was decreased down on the 3rd day. Hyperkalemia resolved with fluids. The renal failure resolved with fluids. The elevated sugars resolved with treatment as described abo ve. DISCHARGE DIAGNOSIS: 1. Dental abscess treated with IV Cefepime for a 3-day course and a plan to continue with clindamyci n 450 mg p.o. t.i.d. for an additional 11 days to complete a 2-week course. Follow up with his prima care doctor as well as the dental surgeon regarding management of the wound. 2. Diabetes. He was discharged on lower doses of long-acting insulin from 30 units to 20 units daily and short-acting insulin from 30 units with meals to 20 units with meals, but his metformin dose of 1000 p.o. b.i.d. continued. 3. His psychiatric medications were unchanged and continued as before admission. All other medicatio ns were continued as before admission. JOB #: [id number] EXT JOB #:[id number]
== END 2017-06-08 13:20 | disposition home or self-care (01) | DRG 603 ==
LOC: ED 09:07 → MS2 15:01 → ED 15:44
PROVIDERS: ADMIT Internal Medicine; ATTEND Internal Medicine
DX: L03.211 Cellulitis of face (principal); N17.9 Acute kidney failure, unspecified; E87.5 Hyperkalemia; E11.65 Type 2 diabetes mellitus with hyperglycemia; I10 Essential (primary) hypertension; E78.5 Hyperlipidemia, unspecified; F32.9 Major depressive disorder, single episode, unspecified; E66.9 Obesity, unspecified; Z68.35 Body mass index [BMI] 35.0-35.9, adult; Z79.4 Long term (current) use of insulin; Z79.899 Other long term (current) drug therapy; Z87.898 Personal history of other specified conditions
CPT/HCPCS: 36415; 70490; 80048; 80061; 82947; 83036; 83735; 84132; 85025; 87040; 87070; 87205; 87640; 93005; 94640; 96361; 96374; 99284

== ENCOUNTER 2017-09-30 07:55 | Outpatient (CLI) | payer MEDICAID ==
[2017-09-30 08:47] LABS: BASOPHILS % (AUTO) 1.2 %; EOSINOPHILS % (AUTO) 2.4 %; HCT - HEMATOCRIT 39.4 % (42.0-52.0); HGB - HEMOGLOBIN 13.5 g/dL (14.0-18.0); MEAN CORPUSCULAR HEMOGLOBIN 30.1 pg (27.0-31.0); MEAN CORPUSCULAR HGB CONC 34.4 g/dL (32.0-36.0); MEAN CORPUSCULAR VOLUME 87.5 fL (80.0-94.0); MEAN PLATELET VOLUME 8.1 fL (7.4-11.4); MONOCYTES % (AUTO) 7.7 %; NEUTROPHILS % (AUTO) 72.7 %; RED CELL DISTRIBUTION WIDTH 13.8 % (12.0-15.0); UNCORRECTED WHITE BLOOD COUNT 7.5 x10^3/uL; WHITE BLOOD COUNT 7.5 x10^3/uL (4.8-10.8)
[2017-09-30 08:48] LABS: HEMOGLOBIN A1C 1.12 g/dL
[2017-09-30 08:51] LABS: ALBUMIN/GLOBULIN RATIO 1.3 (1.0-2.2); BILIRUBIN,TOTAL 0.4 mg/dL (0.2-1.0); BUN - BLOOD UREA NITROGEN 24 mg/dL (6-20); CALCIUM 9.5 mg/dL (8.5-10.3); CARBON DIOXIDE - CO2 25 mmol/L (21-32); CHLORIDE 99 mmol/L (101-111); CREATININE 1.2 mg/dL (0.6-1.2); GFR - MDRD 64 (>89); GLUCOSE 138 mg/dL (70-100); POTASSIUM 5.2 mmol/L (3.5-5.0); SODIUM 134 mmol/L (135-145); TOTAL PROTEIN 7.6 g/dL (6.7-8.2)
[2017-09-30 09:02] LABS: BAND NEUTROPHILS % (MANUAL) 0 %
[2017-09-30 09:35] LABS: THYROID STIMULATING HORMONE 3.43 uIU/mL (0.34-5.60)
[2017-09-30 09:51] LABS: EOSINOPHILS % (MANUAL) 3 %; LYMPHOCYTES % (MANUAL) 19 %; NEUTROPHILS % (MANUAL) 68 %; NP AUTO DIFFERENTIAL? YES; NP MAN DIFFERENTIAL? NO; TOTAL CELLS COUNTED 100
== END 2017-09-30 07:56 | disposition home or self-care (01) ==
LOC: LAB 07:55
PROVIDERS: ATTEND Nurse Practitioner Family
DX: E11.9 Type 2 diabetes mellitus without complications (principal); F32.9 Major depressive disorder, single episode, unspecified; G47.00 Insomnia, unspecified
CPT/HCPCS: 36415; 80050; 82043; 82607; 83036

== ENCOUNTER 2017-10-23 09:35 | Outpatient (CLI) | payer MEDICAID | END 2017-10-23 09:36 | disposition home or self-care (01) | LOC: LAB 09:35 | PROVIDERS: ATTEND Nurse Practitioner Family | DX: E87.5 Hyperkalemia (principal) | CPT/HCPCS: 36415; 84132 ==

== ENCOUNTER 2018-01-30 08:33 | Outpatient (CLI) | payer MEDICAID ==
[2018-01-30 09:01] LABS: BASOPHILS % (AUTO) 0.8 %; EOSINOPHILS # (AUTO) 0.2 10^3/uL (0.0-0.7); EOSINOPHILS % (AUTO) 2.7 %; HGB - HEMOGLOBIN 13.1 g/dL (14.0-18.0); LYMPHOCYTES # (AUTO) 0.9 10^3/uL (1.5-3.5); LYMPHOCYTES % (AUTO) 14.5 %; MEAN CORPUSCULAR HEMOGLOBIN 30.1 pg (27.0-31.0); MEAN CORPUSCULAR HGB CONC 34.3 g/dL (32.0-36.0); MEAN CORPUSCULAR VOLUME 87.8 fL (80.0-94.0); MEAN PLATELET VOLUME 7.5 fL (7.4-11.4); MONOCYTES # (AUTO) 0.4 10^3/uL (0.0-1.0); MONOCYTES % (AUTO) 6.6 %; NEUTROPHILS # (AUTO) 4.9 10^3/uL (1.5-6.6); NEUTROPHILS % (AUTO) 75.4 %; PLT - PLATELET COUNT 213 10^3/uL (130-450); RED BLOOD COUNT 4.34 10^6/uL (4.70-6.10); RED CELL DISTRIBUTION WIDTH 14.1 % (12.0-15.0); WHITE BLOOD COUNT 6.5 x10^3/uL (4.8-10.8)
[2018-01-30 09:21] LABS: ALBUMIN 4.3 g/dL (3.2-5.5); ALBUMIN/GLOBULIN RATIO 1.3 (1.0-2.2); BILIRUBIN,TOTAL 0.6 mg/dL (0.2-1.0); CALCIUM 9.2 mg/dL (8.5-10.3); CREATININE 1.1 mg/dL (0.6-1.2); TOTAL PROTEIN 7.5 g/dL (6.7-8.2)
[2018-01-30 09:26] LABS: HB2 TOTAL 14.1 g/dL; HEMOGLOBIN A1C 1.29 g/dL; HEMOGLOBIN A1C % 10.5 % (4.6-6.2)
== END 2018-01-30 08:34 | disposition home or self-care (01) ==
LOC: LAB 08:33
PROVIDERS: ATTEND Nurse Practitioner Family
DX: E11.9 Type 2 diabetes mellitus without complications (principal); D64.9 Anemia, unspecified
CPT/HCPCS: 36415; 80053; 83036; 85025

== ENCOUNTER 2018-05-26 04:55 | Emergency (ER) | payer MEDICAID ==
[2018-05-26 05:03] VITALS: BP 165/78
--- NOTE | 2018-05-26 05:15 | ED Physician Documentation ---
PD HPI HEENT - Stated complaint Stated Complaint: LT EAR PAIN - Chief complaint Chief Complaint: Heent - History obtained from History obtained from: Patient - History of Present Illness Timing - onset: Yesterday Timing - duration: Other (Continuous) Timing - details: Constant Severity Comments: Mild Location: Left ear Improves: Nothing Worsens: Other (nothing) Associated symptoms: No: Fever, Congestion, Rhinorrhea, Trismus Similar symptoms before: Has not had sx before Recently seen: Not recently seen Review of Systems Constitutional: denies: Chills Eyes: denies: Loss of vision Ears: reports: Ear pain. denies: Loss of hearing Nose: denies: Rhinorrhea / runny nose, Congestion Throat: reports: Dental pain / toothache. denies: Oral lesions / sores Skin: denies: Rash Musculoskeletal: denies: Neck pain Immunocompromised: denies: Chemotherapy PD PAST MEDICAL HISTORY - Past Medical History Cardiovascular: Hypertension, High cholesterol Respiratory: None Endocrine/Autoimmune: Type 2 diabetes GI: None : None HEENT: None Psych: Depression Musculoskeletal: None Derm: None - Past Surgical History Past Surgical History: Yes - Present Medications Home Medications: Ambulatory Orders Medication Instructions Recorded Confirmed Aripiprazole [Abilify] 2 mg PO DAILY 04/12/13 05/26/18 Clonazepam 1 mg PO DAILY PRN 04/12/13 05/26/18 Insulin Glargine,Hum.rec.anlog 65 unit SQ DAILY 03/07/14 05/26/18 [Lantus] metFORMIN [Glucophage] 1,000 mg ORAL BID 11/10/16 05/26/18 Cholecalciferol (Vitamin D3) 3,000 unit PO DAILY 03/08/17 05/26/18 [Vitamin D3] Ibuprofen [Advil] 200 mg PO BID PRN 03/08/17 05/26/18 Insulin Lispro [Humalog] 30 unit SQ TIDWM 03/08/17 05/26/18 Lisinopril 5 mg DAILY 06/05/17 05/26/18 Atorvastatin [Lipitor] 40 mg PO QPM tablet 06/08/17 05/26/18 DULoxetine [Cymbalta] 40 mg PO DAILY capsule 06/08/17 05/26/18 - Allergies Allergies/Adverse Reactions: Allergies Allergy/AdvReac Type Severity Reaction Status Date / Time Penicillins Allergy Rash Verified 05/26/18 05:03 sertraline HCl * Allergy bladder Verified 05/26/18 05:03 [From Zoloft] infection lorazepam [From Ativan] AdvReac Anxiety Verified 05/26/18 05:03 - Social History Does the pt smoke?: No Smoking Status: Never smoker Does the pt drink ETOH?: No Does the pt have substance abuse?: No - Immunizations Immunizations are current?: Yes - POLST Patient has POLST: No PD ED PE NORMAL - General General: Alert and oriented X 3, No acute distress - HEENT HEENT: Atraumatic, PERRL, EOMI, Ears normal, Other (The patient has no erythema or swelling of either mastoid, the external ears are normal bilaterally, the external canals are normal bilaterally, there is no evidence of middle ear effusion bilaterally, both tympanic membranes are normal.) - Neck Neck: Supple, no meningeal sign - Derm Derm: Normal color - Neuro Neuro: Alert and oriented X 3, Normal speech - Psych Psych: Normal mood Results - Vitals Vitals: Vital Signs - 24 hr 05/26/18 05:02 Temperature 36.4 C L Heart Rate 87 Respiratory 16 Rate Blood Pressure 165/78 H O2 Saturation 99 Oxygen O2 Source Room air PD MEDICAL DECISION MAKING - ED course ED course: The patient's ear shows no abnormality to explain his pain, on the dental exam there is no evidence of a dental abscess or injured tooth to explain the pain. Currently, on physical examination there is no evidence of abscess or acute infection that would necessitate urgent management. The patient appears appropriate for discharge in ongoing outpatient management. I discussed warning signs and recommended returning to the emergency department for any worsening or any concerns - Sepsis Event Vital Signs: Vital Signs - 24 hr 05/26/18 05:02 Temperature 36.4 C L Heart Rate 87 Respiratory 16 Rate Blood Pressure 165/78 H O2 Saturation 99 Oxygen O2 Source Room air Departure - Departure Disposition: 01 Home, Self Care Clinical Impression: Ear pain Qualifiers: Laterality: unspecified laterality Qualified Code(s): H92.09 - Otalgia, unspecified ear Condition: Good Instructions: ANTI-INFLAMMATORY, General, ED Acute Pain [facility] Follow-Up: Valencia Munroe ARNP [Primary Care Provider] - Within 1 week Comments: Please return to the ED for worsening symptoms or any concerns
[2018-05-26] MEDS: ACETAMINOPHEN 500 MG TABLET PO STA (05:26)
== END 2018-05-26 05:30 | disposition home or self-care (01) ==
LOC: ED 04:55
DX: H92.02 Otalgia, left ear (principal); K08.89 Other specified disorders of teeth and supporting structures; I10 Essential (primary) hypertension; E11.9 Type 2 diabetes mellitus without complications; Z79.4 Long term (current) use of insulin
CPT/HCPCS: 99282; A9270

== ENCOUNTER 2018-05-27 07:43 | Emergency (ER) | payer MEDICAID ==
[2018-05-27 07:55] VITALS: BP 156/87
[2018-05-27] MEDS ORDERED: SULFAMETH/TRIMETH DS 800/160 MG TABLET PO STA (08:01)
--- NOTE | 2018-05-27 08:04 | ED Physician Documentation ---
PD HPI HEENT - Stated complaint Stated Complaint: EAR PX - Chief complaint Chief Complaint: General - History obtained from History obtained from: Patient - History of Present Illness Timing - onset: Yesterday Timing - details: Still present Location: Left ear Associated symptoms: Headache (mild), Other (Chills last night.) Similar symptoms before: Diagnosis (History of MRSA ear infection in 2006.) Recently seen: Emergency Dept (Was seen here yesterday for same, and physical exam at that time was unremarkable.) - Additional information Additional information: The patient is a 47-year-old male who presents with left ear pain. The pain started yesterday morning and has continued today. He was seen here yesterday morning and his physical exam was reportedly normal at that time. He has been using Tylenol for discomfort. He noticed chills last night and reports very mild, low-grade frontal headache. He denies cough, sore throat, abdominal pain , or vomiting. He does report low energy. Past medical history is significant for MRSA ear infection in 2006. Review of Systems Constitutional: reports: Chills, Fatigue Eyes: denies: Irritation Ears: reports: Ear pain (left) Nose: denies: Congestion Throat: denies: Sore throat Cardiac: denies: Chest pain / pressure Respiratory: denies: Dyspnea, Cough GI: reports: Nausea. denies: Abdominal Pain, Vomiting : denies: Dysuria Skin: denies: Rash Musculoskeletal: denies: Neck pain Neurologic: reports: Headache (mild) PD PAST MEDICAL HISTORY - Past Medical History Cardiovascular: Hypertension, High cholesterol Respiratory: None Endocrine/Autoimmune: Type 2 diabetes GI: None : None HEENT: None Psych: Depression Musculoskeletal: None Derm: None - Past Surgical History Past Surgical History: Yes - Present Medications Home Medications: Ambulatory Orders Medication Instructions Recorded Confirmed Aripiprazole [Abilify] 2 mg PO DAILY 04/12/13 05/26/18 Clonazepam 1 mg PO DAILY PRN 04/12/13 05/26/18 Insulin Glargine,Hum.rec.anlog 65 unit SQ DAILY 03/07/14 05/26/18 [Lantus] metFORMIN [Glucophage] 1,000 mg ORAL BID 11/10/16 05/26/18 Cholecalciferol (Vitamin D3) 3,000 unit PO DAILY 03/08/17 05/26/18 [Vitamin D3] Ibuprofen [Advil] 200 mg PO BID PRN 03/08/17 05/26/18 Insulin Lispro [Humalog] 30 unit SQ TIDWM 03/08/17 05/26/18 Lisinopril 5 mg DAILY 06/05/17 05/26/18 Atorvastatin [Lipitor] 40 mg PO QPM tablet 06/08/17 05/26/18 DULoxetine [Cymbalta] 40 mg PO DAILY capsule 06/08/17 05/26/18 Sulfamethox/Trimeth 800/160 1 each PO BID #14 tablet 05/27/18 [Bactrim Ds 800/160] - Allergies Allergies/Adverse Reactions: Allergies Allergy/AdvReac Type Severity Reaction Status Date / Time Penicillins Allergy Rash Verified 05/27/18 07:47 sertraline HCl * Allergy bladder Verified 05/27/18 07:47 [From Zoloft] infection lorazepam [From Ativan] AdvReac Anxiety Verified 05/27/18 07:47 - Social History Does the pt smoke?: No Smoking Status: Never smoker Does the pt drink ETOH?: No Does the pt have substance abuse?: No - Immunizations Immunizations are current?: Yes - POLST Patient has POLST: No PD ED PE NORMAL - Vitals Vital signs reviewed: Yes (hypertensive) - General General: Alert and oriented X 3, Well developed/nourished - HEENT HEENT: Atraumatic, EOMI, Pharynx benign, Other (The left auricle is erythematous with soft tissue swelling, with minimal tenderness to palpation, and no evidence of abscess. Tympanic membranes are nonerythematous bilaterally. ) - Neck Neck: Supple, no meningeal sign, No adenopathy - Cardiac Cardiac: RRR, No murmur - Respiratory Respiratory: No respiratory distress, Clear bilaterally - Abdomen Abdomen: Soft, Non tender - Derm Derm: Other (Erythematous left auricle as stated above.) - Neuro Neuro: Alert and oriented X 3, No motor deficit, Normal speech Results - Vitals Vitals: Vital Signs - 24 hr 05/27/18 07:52 Temperature 36.9 C Heart Rate 96 Respiratory 18 Rate Blood Pressure 156/87 H O2 Saturation 98 Oxygen O2 Source Room air PD MEDICAL DECISION MAKING - ED course Complexity details: reviewed old records, considered differential, d/w patient ED course: The patient's presentation is most consistent with cellulitis of the left auricle. Given his past history of MRSA, antibiotic coverage will be geared toward treatment of potential MRSA infection. The examination does not suggest otitis media, meningitis, or mastoiditis. Treatment in the emergency department included administration of Bactrim DS 1 tablet orally. He is being discharged with prescription for Bactrim DS. I discussed with him the diagnosis, antibiotic treatment and outpatient follow-up , as well as potentially worrisome signs or symptoms that should prompt reevaluation in the emergency department. 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 Continue using Tylenol or ibuprofen if needed for fever, chills, or discomfort. Follow up with your primary physician within 1 week. Call to schedule appointment. Return to the emergency department if you develop increasing redness, swelling, pain, or otherwise worsening symptoms.
== END 2018-05-27 08:12 | disposition home or self-care (01) ==
LOC: ED 07:43
DX: L03.818 Cellulitis of other sites (principal); E11.628 Type 2 diabetes mellitus with other skin complications; I10 Essential (primary) hypertension; E78.00 Pure hypercholesterolemia, unspecified; Z79.4 Long term (current) use of insulin
CPT/HCPCS: 99283; A9270

== ENCOUNTER 2018-08-02 10:45 | Emergency (ER) | payer MEDICAID ==
--- NOTE | 2018-08-02 11:56 | ED Physician Documentation ---
PD HPI MHE - Stated complaint Stated Complaint: SI - Chief complaint Chief Complaint: MHE - History obtained from History obtained from: Patient - History of Present Illness Primary symptom: Suicidal ideation, Depression. No: Suicide attempt, Anxiety Timing - onset: How many days ago (few) Contributing factors: Work Similar symptoms before: Diagnosis (has suicidal ideation often and gets counseling weekly and has called Crisis lines in the past. No plan thought out.) Recently seen: Not recently seen Review of Systems Constitutional: denies: Fever, Chills Nose: denies: Rhinorrhea / runny nose, Congestion Throat: denies: Sore throat Cardiac: denies: Chest pain / pressure, Palpitations Respiratory: denies: Cough GI: reports: Diarrhea. denies: Abdominal Pain, Abdominal Swelling, Nausea, Vomiting Skin: denies: Rash, Lesions Neurologic: denies: Generalized weakness, Focal weakness, Numbness, Altered mental status, Headache, Head injury, LOC PD PAST MEDICAL HISTORY - Past Medical History Past Medical History: Yes Cardiovascular: Hypertension, High cholesterol Respiratory: None Endocrine/Autoimmune: Type 2 diabetes GI: None : None HEENT: None Psych: Depression Musculoskeletal: None Derm: None - Past Surgical History Past Surgical History: Yes - Present Medications Home Medications: Ambulatory Orders Medication Instructions Recorded Confirmed Aripiprazole [Abilify] 2 mg PO DAILY 04/12/13 05/26/18 Clonazepam 1 mg PO DAILY PRN 04/12/13 05/26/18 Insulin Glargine,Hum.rec.anlog 65 unit SQ DAILY 03/07/14 05/26/18 [Lantus] metFORMIN [Glucophage] 1,000 mg ORAL BID 11/10/16 05/26/18 Cholecalciferol (Vitamin D3) 3,000 unit PO DAILY 03/08/17 05/26/18 [Vitamin D3] Ibuprofen [Advil] 200 mg PO BID PRN 03/08/17 05/26/18 Insulin Lispro [Humalog] 30 unit SQ TIDWM 03/08/17 05/26/18 Lisinopril 5 mg DAILY 06/05/17 05/26/18 Atorvastatin [Lipitor] 40 mg PO QPM tablet 06/08/17 05/26/18 DULoxetine [Cymbalta] 40 mg PO DAILY capsule 06/08/17 05/26/18 - Allergies Allergies/Adverse Reactions: Allergies Allergy/AdvReac Type Severity Reaction Status Date / Time Penicillins Allergy Rash Verified 08/02/18 10:54 sertraline HCl * Allergy bladder Verified 08/02/18 10:54 [From Zoloft] infection lorazepam [From Ativan] AdvReac Anxiety Verified 08/02/18 10:54 - Social History Does the pt smoke?: No Smoking Status: Never smoker Does the pt drink ETOH?: No Does the pt have substance abuse?: No - Immunizations Immunizations are current?: Yes - POLST Patient has POLST: No PD ED PE NORMAL - Vitals Vital signs reviewed: Yes - General General: Alert and oriented X 3, No acute distress, Well developed/nourished - HEENT HEENT: Moist mucous membranes, Pharynx benign - Neck Neck: Supple, no meningeal sign, No adenopathy - Cardiac Cardiac: RRR, No murmur - Respiratory Respiratory: Clear bilaterally - Abdomen Abdomen: Soft, Non tender - Male Male : Medical Practice Manager present - Back Back: No CVA TTP - Derm Derm: Warm and dry - Extremities Extremities: No edema, No calf tenderness / cord - Neuro Neuro: Alert and oriented X 3, No motor deficit, Normal speech - Psych Psych: Normal mood, Normal affect (he is interacting well, talkative. Forward thinking with upcoming appts this week. ) Results - Vitals Vitals: Oxygen O2 Source Room air PD MEDICAL DECISION MAKING - ED course Complexity details: considered differential (he has forward thinking with appts this week, says he does not have plan on hurting self. ), d/w patient, d/w managed services consultant (manager forensic Ashely talked with him and felt he was not at risk of self harm at this time. I agree.) - Sepsis Event Vital Signs: Oxygen O2 Source Room air Departure - Departure Disposition: Home, Self Care Clinical Impression: Suicidal ideation Depressed Qualifiers: Depression Type: major depressive disorder Major depression recurrence: recurrent Active/Remission status: currently active Major depression episode severity: moderate Qualified Code(s): F33.1 - Major depressive disorder, recurrent, moderate Condition: Stable Record reviewed to determine appropriate education?: Yes Instructions: ED Depression Follow-Up: Valencia Munroe ARNP [Primary Care Provider] - Comments: The crisis line will call you later today at 4 and again tomorrow morning as arranged by the Planetarium Technician. Follow-up with your counseling Saturday as planned. Call the crisis line additionally as needed and return to the ER if needed. Discharge Date/Time: 08/02/18 13:12
[2018-08-02 13:13] VITALS: BP 155/94
== END 2018-08-02 13:12 | disposition home or self-care (01) ==
LOC: ED 10:45
DX: R45.851 Suicidal ideations (principal); F33.1 Major depressive disorder, recurrent, moderate; I10 Essential (primary) hypertension; E78.00 Pure hypercholesterolemia, unspecified; E11.9 Type 2 diabetes mellitus without complications; Z79.84 Long term (current) use of oral hypoglycemic drugs
CPT/HCPCS: 80053; 80307; 80320; 80329; 83690; 84443; 85025; 99283

== ENCOUNTER 2018-08-04 16:14 | Emergency (ER) | payer MEDICAID ==
[2018-08-04 16:33] LABS: MUDS CUTOFF CONCENTRATIONS CUTOFF CONC BELOW:
[2018-08-04 16:46] LABS: BASOPHILS % (AUTO) 1.1 %; EOSINOPHILS % (AUTO) 2.2 %; LYMPHOCYTES % (AUTO) 17.6 %; MEAN CORPUSCULAR HEMOGLOBIN 30.3 pg (27.0-31.0); MEAN CORPUSCULAR HGB CONC 35.1 g/dL (32.0-36.0); MEAN CORPUSCULAR VOLUME 86.2 fL (80.0-94.0); MEAN PLATELET VOLUME 7.6 fL (7.4-11.4); NEUTROPHILS % (AUTO) 73.1 %; PLT - PLATELET COUNT 311 10^3/uL (130-450); RED BLOOD COUNT 4.61 10^6/uL (4.70-6.10); RED CELL DISTRIBUTION WIDTH 14.9 % (12.0-15.0); WHITE BLOOD COUNT 8.5 x10^3/uL (4.8-10.8)
[2018-08-04 16:47] LABS: ABNORMAL LYMPHS % (MANUAL) 0 %
[2018-08-04 16:48] LABS: AMPHETAMINE SCREEN,URINE NEGATIVE (NEGATIVE); BENZODIAZEPINES SCREEN, URINE NEGATIVE (NEGATIVE); COCAINE SCREEN URINE NEGATIVE (NEGATIVE); METHADONE SCREEN, URINE NEGATIVE (NEGATIVE); METHAMPHETAMINES SCREEN, URINE NEGATIVE (NEGATIVE); OPIATE SCREEN, URINE NEGATIVE (NEGATIVE); OXYCODONE SCREEN, URINE NEGATIVE (NEGATIVE); PROPOXYPHENE SCREEN, URINE NEGATIVE (NEGATIVE); TRICYCLIC ANTIDEPRESSANT,URINE NEGATIVE (NEGATIVE)
[2018-08-04 16:48] LABS: BUN - BLOOD UREA NITROGEN 22 mg/dL (6-20); CALCIUM 9.4 mg/dL (8.5-10.3); CARBON DIOXIDE - CO2 25 mmol/L (21-32); CHLORIDE 99 mmol/L (101-111); CREATININE 1.3 mg/dL (0.6-1.2); GFR - MDRD 59 (>89); GLUCOSE 150 mg/dL (70-100); SODIUM 135 mmol/L (135-145)
[2018-08-04 17:00] LABS: BAND NEUTROPHILS % (MANUAL) 1 %; EOSINOPHILS # (MANUAL) 0.3 10^3/uL (0-0.7); LYMPHOCYTES # (MANUAL) 1.6 10^3/uL (1.5-3.5); LYMPHOCYTES % (MANUAL) 19 %; MONOCYTES # (MANUAL) 0.4 10^3/uL (0.0-1.0); NEUTROPHILS # (MANUAL) 6.2 10^3/uL (1.5-6.6); NEUTROPHILS % (MANUAL) 72 %; PLATELET ESTIMATE, MANUAL NORMAL (130-450,000) (NORMAL); PLATELET MORPHOLOGY NORMAL APPEARANCE (NORMAL); RBC MORPHOLOGY (MULTIPLE) NORMAL APPEARANCE (NORMAL)
[2018-08-04 17:01] LABS: DIFFERENTIAL COMMENT MANUAL DIFFERENTIAL
--- NOTE | 2018-08-04 17:03 | ED Physician Documentation ---
History of Present Illness - Stated complaint Stated Complaint: MHE - Chief complaint Chief Complaint: MHE - Additonal information Additional information: hx from pt 47 male hx depression to ED brought in vol by gauedncio with suicidal ideations no self harm no HI no hallucinations just wanted to "reach out" for help before got more serious no recent illness fever cough NVD Review of Systems Constitutional: denies: Fever Throat: denies: Sore throat Cardiac: denies: Chest pain / pressure Respiratory: denies: Dyspnea, Cough GI: denies: Nausea, Vomiting, Diarrhea Psychiatric: reports: Depressed. denies: Suicidal, Homicidal, Hallucinations Endocrine: denies: Easy bruising / bleeding Immunocompromised: denies: Immunocompromised PD PAST MEDICAL HISTORY - Past Medical History Past Medical History: Yes Cardiovascular: Hypertension, High cholesterol Respiratory: None Endocrine/Autoimmune: Type 2 diabetes GI: None : None HEENT: None Psych: Depression, Anxiety Musculoskeletal: None Derm: None - Past Surgical History Past Surgical History: Yes - Present Medications Home Medications: Ambulatory Orders Medication Instructions Recorded Confirmed Aripiprazole [Abilify] 2 mg PO DAILY 04/12/13 05/26/18 Clonazepam 1 mg PO DAILY PRN 04/12/13 05/26/18 Insulin Glargine,Hum.rec.anlog 65 unit SQ DAILY 03/07/14 05/26/18 [Lantus] metFORMIN [Glucophage] 1,000 mg ORAL BID 11/10/16 05/26/18 Cholecalciferol (Vitamin D3) 3,000 unit PO DAILY 03/08/17 05/26/18 [Vitamin D3] Ibuprofen [Advil] 200 mg PO BID PRN 03/08/17 05/26/18 Insulin Lispro [Humalog] 30 unit SQ TIDWM 03/08/17 05/26/18 Lisinopril 5 mg DAILY 06/05/17 05/26/18 Atorvastatin [Lipitor] 40 mg PO QPM tablet 06/08/17 05/26/18 DULoxetine [Cymbalta] 40 mg PO DAILY capsule 06/08/17 05/26/18 - Allergies Allergies/Adverse Reactions: Allergies Allergy/AdvReac Type Severity Reaction Status Date / Time Penicillins Allergy Rash Verified 08/02/18 10:54 sertraline HCl * Allergy bladder Verified 08/02/18 10:54 [From Zoloft] infection lorazepam [From Ativan] AdvReac Anxiety Verified 08/02/18 10:54 - Social History Does the pt smoke?: No Smoking Status: Never smoker Does the pt drink ETOH?: No Does the pt have substance abuse?: No - Immunizations Immunizations are current?: Yes - POLST Patient has POLST: No PD ED PE NORMAL - Vitals Vital signs reviewed: Yes - General General: Alert and oriented X 3 - HEENT HEENT: Atraumatic, PERRL - Cardiac Cardiac: RRR - Respiratory Respiratory: No respiratory distress - Psych Psych: Other (denie HI psychosis, admits SI) Results - Vitals Vitals: Vital Signs - 24 hr 08/04/18 16:15 Temperature 36.2 C L Heart Rate 89 Respiratory 16 Rate Blood Pressure 138/81 H O2 Saturation 99 Oxygen O2 Source Room air - Labs Labs: Laboratory Tests 08/04/18 08/04/18 08/04/18 16:25 16:35 16:35 WBC 8.5 RBC 4.61 L Hgb 14.0 Hct 39.7 L MCV 86.2 MCH 30.3 MCHC 35.1 RDW 14.9 Plt Count 311 MPV 7.6 Neut # (Auto) Not Reportable Lymph # (Auto) Not Reportable [place] # (Auto) Not Reportable Eos # (Auto) Not Reportable Baso # (Auto) Not Reportable Absolute Nucleated RBC Not Reportable Total Counted 100 Band Neuts % (Manual) 1 Abnorm Lymph % (Manual) 0 Nucleated RBC % Not Reportable Neutrophils # (Manual) 6.2 Lymphocytes # (Manual) 1.6 Monocytes # (Manual) 0.4 Eosinophils # (Manual) 0.3 Basophils # (Manual) 0.0 Differential Comment MANUAL DIFFERENTIAL Manual Slide Review Indicated WBC Morphology NORMAL APPEARANCE Platelet Estimate NORMAL (130-450,000) Platelet Morphology NORMAL APPEARANCE RBC Morph Micro Appear NORMAL APPEARANCE Sodium 135 Potassium 4.1 Chloride 99 L Carbon Dioxide 25 Anion Gap 11.0 BUN 22 H Creatinine 1.3 H Estimated GFR (MDRD) 59 L Glucose 150 H Calcium 9.4 Urine Opiates Screen NEGATIVE Ur Oxycodone Screen NEGATIVE Urine Methadone Screen NEGATIVE Ur Propoxyphene Screen NEGATIVE Ur Barbiturates Screen NEGATIVE Ur Tricyclics Screen NEGATIVE Ur Phencyclidine Scrn NEGATIVE Ur Amphetamine Screen NEGATIVE U Methamphetamines Scrn NEGATIVE U Benzodiazepines Scrn NEGATIVE Urine Cocaine Screen NEGATIVE U Cannabinoids Screen NEGATIVE Ethyl Alcohol < 5.0 PD MEDICAL DECISION MAKING - ED course ED course: seen by SW and felt safe for dc - see SW notes labs reviewed - renal insuff and DM not new - Sepsis Event Vital Signs: Vital Signs - 24 hr 08/04/18 16:15 Temperature 36.2 C L Heart Rate 89 Respiratory 16 Rate Blood Pressure 138/81 H O2 Saturation 99 Oxygen O2 Source Room air Departure - Departure Disposition: Home, Self Care Clinical Impression: Depression Qualifiers: Depression Type: unspecified Qualified Code(s): F32.9 - Major depressive disorder, single episode, unspecified Condition: Good Instructions: ED Depression Follow-Up: Valencia Munroe ARNP [Primary Care Provider] - Comments: You met with our social worker psychiatric for a mental health evaluation She feels it is safe for you to go home Please follow up with your counselor as scheduled Call crisis line or return if worse
[2018-08-04 17:59] VITALS: BP 134/81
== END 2018-08-04 18:15 | disposition home or self-care (01) ==
LOC: EDUNIT# → ED 16:14
DX: F32.9 Major depressive disorder, single episode, unspecified (principal); I10 Essential (primary) hypertension; E78.00 Pure hypercholesterolemia, unspecified; E11.9 Type 2 diabetes mellitus without complications; Z79.4 Long term (current) use of insulin
CPT/HCPCS: 36415; 80048; 80306; 80320; 85025; 99283

== ENCOUNTER 2018-08-14 07:56 | Outpatient (CLI) | payer MEDICAID ==
[2018-08-14 08:49] LABS: HEMOGLOBIN A1C 1.06 g/dL; HEMOGLOBIN A1C % 9.1 % (4.6-6.2)
[2018-08-14 08:52] LABS: CHOLESTEROL 159 mg/dL; HDL CHOLESTEROL 32 mg/dL; LDL CHOLESTEROL,CALCULATED 71 mg/dL; LDL/HDL RATIO 2.2 (<3.6); VLDL CHOLESTEROL 56 mg/dL
== END 2018-08-14 07:57 | disposition home or self-care (01) ==
LOC: LAB 07:56
PROVIDERS: ATTEND Nurse Practitioner Family
DX: E11.65 Type 2 diabetes mellitus with hyperglycemia (principal)
CPT/HCPCS: 36415; 80061; 82043; 83036; 83721; 84443

== ENCOUNTER 2018-09-22 08:40 | Emergency (ER) | payer MEDICAID ==
--- NOTE | 2018-09-22 09:23 | ED Physician Documentation ---
PD HPI URI - Stated complaint Stated Complaint: BOTH EARS PX - Chief complaint Chief Complaint: Heent - History obtained from History obtained from: Patient - History of Present Illness Timing - onset: How many weeks ago (1 week of URI symptoms and sinus pressure, now ears hurting, guy right.) Timing duration: Weeks (1) Timing details: Gradual onset, Still present (with ear pain now today) Associated symptoms: Ear pain (today), Nasal congestion, Rhinorrhea. No: Fever, Dry cough, Dyspnea, NVD Contributing factors: No: Sick contact, Travel, COPD / asthma Similar symptoms before: Has not had sx before Review of Systems Constitutional: reports: Myalgias. denies: Fever, Chills Ears: reports: Ear pain. denies: Loss of hearing, Drainage/discharge, Tinnitus/ringing Nose: reports: Rhinorrhea / runny nose, Congestion Throat: denies: Sore throat Respiratory: denies: Cough PD PAST MEDICAL HISTORY - Past Medical History Past Medical History: Yes Cardiovascular: Hypertension, High cholesterol Respiratory: None Endocrine/Autoimmune: Type 2 diabetes GI: None : None HEENT: None Psych: Depression, Anxiety Musculoskeletal: None Derm: None - Past Surgical History Past Surgical History: Yes - Present Medications Home Medications: Ambulatory Orders Medication Instructions Recorded Confirmed Aripiprazole [Abilify] 2 mg PO DAILY 04/12/13 09/22/18 Clonazepam 1 mg PO DAILY PRN 04/12/13 09/22/18 Insulin Glargine,Hum.rec.anlog 65 unit SQ DAILY 03/07/14 09/22/18 [Lantus] metFORMIN [Glucophage] 1,000 mg ORAL BID 11/10/16 09/22/18 Cholecalciferol (Vitamin D3) 3,000 unit PO DAILY 03/08/17 09/22/18 [Vitamin D3] Ibuprofen [Advil] 200 mg PO BID PRN 03/08/17 09/22/18 Insulin Lispro [Humalog] 30 unit SQ TIDWM 03/08/17 09/22/18 Lisinopril 5 mg DAILY 06/05/17 09/22/18 Atorvastatin [Lipitor] 40 mg PO QPM tablet 06/08/17 09/22/18 DULoxetine [Cymbalta] 40 mg PO DAILY capsule 06/08/17 09/22/18 Azithromycin [Zithromax] 0 mg PO DAILY #6 tablet 09/22/18 Cetirizine [ZyrTEC] 10 mg PO DAILY #15 tablet 09/22/18 Dexamethasone [Decadron] 4 mg PO DAILY #5 tablet 09/22/18 - Allergies Allergies/Adverse Reactions: Allergies Allergy/AdvReac Type Severity Reaction Status Date / Time Penicillins Allergy Rash Verified 08/02/18 10:54 sertraline HCl * Allergy bladder Verified 08/02/18 10:54 [From Zoloft] infection lorazepam [From Ativan] AdvReac Anxiety Verified 08/02/18 10:54 - Social History Does the pt smoke?: No Smoking Status: Never smoker Does the pt drink ETOH?: No Does the pt have substance abuse?: No - Immunizations Immunizations are current?: Yes - POLST Patient has POLST: No PD ED PE NORMAL - Vitals Vital signs reviewed: Yes - General General: Alert and oriented X 3, No acute distress, Well developed/nourished - HEENT HEENT: Pharynx benign. No: Ears normal (left is okay with just some fluid behind TM; right with redness of TM along with fluid. ) - Neck Neck: Supple, no meningeal sign, No adenopathy - Cardiac Cardiac: RRR, No murmur - Respiratory Respiratory: Clear bilaterally Results - Vitals Vitals: Oxygen O2 Source Room air PD MEDICAL DECISION MAKING - ED course Complexity details: considered differential, d/w patient Departure - Departure Disposition: 01 Home, Self Care Clinical Impression: Otitis media Qualifiers: Otitis media type: suppurative Chronicity: acute Laterality: right Recurrence: not specified as recurrent Spontaneous tympanic membrane rupture: without spontaneous rupture Qualified Code(s): H66.001 - Acute suppurative otitis media without spontaneous rupture of ear drum, right ear Upper respiratory infection Qualifiers: URI type: unspecified URI Qualified Code(s): J06.9 - Acute upper respiratory infection, unspecified Condition: Stable Record reviewed to determine appropriate education?: Yes Instructions: ED Otitis Media Acute Adult Follow-Up: Valencia Munroe ARNP [Primary Care Provider] - Prescriptions: Azithromycin [Zithromax] 0 mg PO DAILY #6 tablet Cetirizine [ZyrTEC] 10 mg PO DAILY #15 tablet Dexamethasone [Decadron] 4 mg PO DAILY #5 tablet Comments: Drink lots of fluids. Use the cetirizine antihistamine daily for the next week to 10 days. Decadron steroid for inflammation of the sinuses and eustachian tube and promote better drainage. Take that daily for 5 days. Zithromax antibiotic for potential bacterial component to the ear infection. Recheck if not improving over the next few days. Discharge Date/Time: 09/22/18 09:58
[2018-09-22] MEDS ORDERED: CHERRY SYRUP 10 ML UDC PO ONE (09:50)
[2018-09-22] MEDS: CETIRIZINE 10 MG TABLET PO STA (09:51)
[2018-09-22] MEDS: DEXAMETHASONE 10 MG/ML VIAL PO STA (09:51)
[2018-09-22 09:59] VITALS: BP 140/87
== END 2018-09-22 09:58 | disposition home or self-care (01) ==
LOC: ED 08:40
DX: J06.9 Acute upper respiratory infection, unspecified (principal); E11.9 Type 2 diabetes mellitus without complications; I10 Essential (primary) hypertension; E78.00 Pure hypercholesterolemia, unspecified; Z79.4 Long term (current) use of insulin
CPT/HCPCS: 99283

== ENCOUNTER 2018-12-24 08:09 | Outpatient (CLI) | payer MEDICAID ==
[2018-12-24 08:26] LABS: BASOPHILS # (AUTO) 0.1 10^3/uL (0.0-0.1); BASOPHILS % (AUTO) 0.8 %; EOSINOPHILS # (AUTO) 0.2 10^3/uL (0.0-0.7); EOSINOPHILS % (AUTO) 2.8 %; HGB - HEMOGLOBIN 13.8 g/dL (14.0-18.0); LYMPHOCYTES # (AUTO) 1.1 10^3/uL (1.5-3.5); LYMPHOCYTES % (AUTO) 15.4 %; MEAN CORPUSCULAR HEMOGLOBIN 29.7 pg (27.0-31.0); MEAN CORPUSCULAR HGB CONC 33.7 g/dL (32.0-36.0); MEAN CORPUSCULAR VOLUME 87.9 fL (80.0-94.0); MEAN PLATELET VOLUME 7.7 fL (7.4-11.4); MONOCYTES # (AUTO) 0.6 10^3/uL (0.0-1.0); MONOCYTES % (AUTO) 8.4 %; NEUTROPHILS # (AUTO) 5.3 10^3/uL (1.5-6.6); NEUTROPHILS % (AUTO) 72.6 %; PLT - PLATELET COUNT 220 10^3/uL (130-450); RED BLOOD COUNT 4.65 10^6/uL (4.70-6.10); RED CELL DISTRIBUTION WIDTH 14.5 % (12.0-15.0); WHITE BLOOD COUNT 7.3 x10^3/uL (4.8-10.8)
[2018-12-24 08:35] LABS: CALCIUM 9.3 mg/dL (8.5-10.3)
[2018-12-24 08:51] LABS: HB2 TOTAL 15.2 g/dL; HEMOGLOBIN A1C 1.14 g/dL
== END 2018-12-24 08:10 | disposition home or self-care (01) ==
LOC: LAB 08:09
PROVIDERS: ATTEND Nurse Practitioner Family
DX: E11.8 Type 2 diabetes mellitus with unspecified complications (principal); D64.9 Anemia, unspecified
CPT/HCPCS: 36415; 80048; 83036; 85025

== ENCOUNTER 2019-02-06 02:33 | Emergency (ER) | payer MEDICAID ==
[2019-02-06 02:43] VITALS: BP 161/86
--- NOTE | 2019-02-06 02:45 | ED Physician Documentation ---
History of Present Illness - Stated complaint Stated Complaint: L KNEE PAIN - Chief complaint Chief Complaint: Ext Problem - History obtained from History obtained from: Patient - History of Present Illness Timing: How many days ago (2-3 days) Pain level now: 5 Improved by: rest Worsened by: weight-bearing, ambulating - Additonal information Additional information: c/o gradual onset left knee swelling and pain. Symptoms began 2-3 days ago, and this was 1-2 days after taking a CPR class which involved periods of kneeling. Denies specific injury, denies fever. Review of Systems Constitutional: denies: Fever Skin: denies: Rash Musculoskeletal: reports: Joint pain, Joint swelling, Pain with weight bearing Neurologic: denies: Focal weakness, Numbness PD PAST MEDICAL HISTORY - Past Medical History Cardiovascular: Hypertension, High cholesterol Respiratory: None Endocrine/Autoimmune: Type 2 diabetes GI: None : None HEENT: None Psych: Depression, Anxiety Musculoskeletal: None Derm: None - Past Surgical History Past Surgical History: Yes - Present Medications Home Medications: Ambulatory Orders Medication Instructions Recorded Confirmed Aripiprazole [Abilify] 2 mg PO DAILY 04/12/13 02/06/19 Clonazepam 1 mg PO DAILY PRN 04/12/13 02/06/19 Insulin Glargine,Hum.rec.anlog 65 unit SQ DAILY 03/07/14 02/06/19 [Lantus] metFORMIN [Glucophage] 1,000 mg ORAL BID 11/10/16 02/06/19 Cholecalciferol (Vitamin D3) 3,000 unit PO DAILY 03/08/17 02/06/19 [Vitamin D3] Ibuprofen [Advil] 200 mg PO BID PRN 03/08/17 02/06/19 Insulin Lispro [Humalog] 30 unit SQ TIDWM 03/08/17 02/06/19 Lisinopril 5 mg DAILY 06/05/17 02/06/19 Atorvastatin [Lipitor] 40 mg PO QPM tablet 06/08/17 02/06/19 DULoxetine [Cymbalta] 40 mg PO DAILY capsule 06/08/17 02/06/19 Oxycodone HCl/Acetaminophen 1 - 2 each PO Q6H PRN #14 tablet 02/06/19 [Percocet 5-325 mg Tablet] - Allergies Allergies/Adverse Reactions: Allergies Allergy/AdvReac Type Severity Reaction Status Date / Time Penicillins Allergy Rash Verified 02/06/19 02:43 sertraline HCl * Allergy bladder Verified 02/06/19 02:43 [From Zoloft] infection lorazepam [From Ativan] AdvReac Anxiety Verified 02/06/19 02:43 - Social History Does the pt smoke?: No Smoking Status: Never smoker Does the pt drink ETOH?: No Does the pt have substance abuse?: No - Immunizations Immunizations are current?: Yes - POLST Patient has POLST: No PD ED PE NORMAL - Vitals Vital signs reviewed: Yes - General General: Alert and oriented X 3, No acute distress, Well developed/nourished - Derm Derm: Normal color, No rash PD ED PE EXPANDED - Extremities Extremities: Joint effusion (mild left knee effusion), Other (mild left knee joint effusion. no erythema. there is mild increased warmth to touch (compared t o other knee). ROM is intact, with increased pain in extreme of flexion). No: Tenderness, Red warm joint Results - Vitals Vitals: Vital Signs - 24 hr 02/06/19 02:35 Temperature 36.0 C L Heart Rate 82 Respiratory 18 Rate Blood Pressure 161/86 H O2 Saturation 100 Oxygen O2 Source Room air PD MEDICAL DECISION MAKING - ED course Complexity details: considered differential, d/w patient Departure - Departure Disposition: 01 Home, Self Care Clinical Impression: Knee effusion, left Condition: Good Instructions: ED Effusion Knee Follow-Up: Ana Maria Smith DNP [Primary Care Provider] - (3-5 days) Prescriptions: Oxycodone HCl/Acetaminophen [Percocet 5-325 mg Tablet] 1 - 2 each PO Q6H PRN #14 tablet PRN Reason: pain Discharge Date/Time: 02/06/19 03:15
[2019-02-06] MEDS ORDERED: oxyCODONE/ACET 5/325 Prepack 4 PO STA (03:07)
== END 2019-02-06 03:15 | disposition home or self-care (01) ==
LOC: ED 02:33
DX: M25.462 Effusion, left knee (principal); I10 Essential (primary) hypertension; E11.9 Type 2 diabetes mellitus without complications; Z79.84 Long term (current) use of oral hypoglycemic drugs
CPT/HCPCS: 99283

== ENCOUNTER 2019-04-23 09:14 | Outpatient (CLI) | payer MEDICAID ==
[2019-04-23 10:01] LABS: HB2 TOTAL 13.8 g/dL; HEMOGLOBIN A1C 1.3 g/dL; HEMOGLOBIN A1C % 10.8 % (4.6-6.2)
== END 2019-04-23 23:59 | disposition home or self-care (01) ==
LOC: LAB 09:14
PROVIDERS: ATTEND Nurse Practitioner
DX: E11.8 Type 2 diabetes mellitus with unspecified complications (principal)
CPT/HCPCS: 36415; 83036

== ENCOUNTER 2019-08-25 07:23 | Outpatient (CLI) | payer MEDICAID ==
[2019-08-25 07:38] LABS: BASOPHILS % (AUTO) 0.6 %; EOSINOPHILS # (AUTO) 0.2 10^3/uL (0.0-0.7); HGB - HEMOGLOBIN 12.2 g/dL (14.0-18.0); LYMPHOCYTES # (AUTO) 1.1 10^3/uL (1.5-3.5); LYMPHOCYTES % (AUTO) 15.5 %; MEAN CORPUSCULAR HEMOGLOBIN 29.3 pg (27.0-31.0); MEAN CORPUSCULAR HGB CONC 32.9 g/dL (32.0-36.0); MEAN CORPUSCULAR VOLUME 89.2 fL (80.0-94.0); MEAN PLATELET VOLUME 8.8 fL (7.4-11.4); MONOCYTES # (AUTO) 0.6 10^3/uL (0.0-1.0); MONOCYTES % (AUTO) 8.8 %; NEUTROPHILS % (AUTO) 71.4 %; PLT - PLATELET COUNT 243 10^3/uL (130-450); RED BLOOD COUNT 4.16 10^6/uL (4.70-6.10)
[2019-08-25 07:53] LABS: HEMOGLOBIN A1C 0.75 g/dL; HEMOGLOBIN A1C % 7.4 % (4.6-6.2)
[2019-08-25 08:19] LABS: ALBUMIN 4.1 g/dL (3.2-5.5); ALBUMIN/GLOBULIN RATIO 1.2 (1.0-2.2); ALKALINE PHOSPHATASE 81 IU/L (42-121); ALT ALANINE AMINOTRANSFERASE 23 IU/L (10-60); AST ASPARTATE AMINOTRANSFERASE 16 IU/L (10-42); BILIRUBIN,TOTAL 0.5 mg/dL (0.2-1.0); BUN - BLOOD UREA NITROGEN 19 mg/dL (6-20); CALCIUM 8.9 mg/dL (8.5-10.3); CARBON DIOXIDE - CO2 24 mmol/L (21-32); CHLORIDE 101 mmol/L (101-111); CHOL/HDL RATIO 4.1 (<5.0); CHOLESTEROL 139 mg/dL; GFR - MDRD 79 (>89); GLUCOSE 85 mg/dL (70-100); HDL CHOLESTEROL 34 mg/dL; LDL CHOLESTEROL,CALCULATED 78 mg/dL; LDL/HDL RATIO 2.3 (<3.6); SODIUM 136 mmol/L (135-145); TOTAL PROTEIN 7.4 g/dL (6.7-8.2); URIC ACID 9.6 mg/dL (2.6-7.2); VLDL CHOLESTEROL 27 mg/dL
== END 2019-08-25 07:24 | disposition home or self-care (01) ==
LOC: LAB 07:23
PROVIDERS: ATTEND Registered Nurse
DX: E66.9 Obesity, unspecified (principal); E11.65 Type 2 diabetes mellitus with hyperglycemia; E87.5 Hyperkalemia; I10 Essential (primary) hypertension; E78.1 Pure hyperglyceridemia; M10.9 Gout, unspecified; D64.9 Anemia, unspecified
CPT/HCPCS: 36415; 80050; 80061; 83036; 83721; 84550

== ENCOUNTER 2020-01-02 08:30 | Emergency (ER) | payer MEDICAID ==
--- NOTE | 2020-01-02 08:42 | ED Physician Documentation ---
PD HPI MHE - Stated complaint Stated Complaint: MHE - History obtained from History obtained from: Patient - History of Present Illness Primary symptom: Suicidal ideation, Depression. No: Suicide attempt, Homicidal ideation, Manic, Off meds Timing - onset: How many weeks ago (He has had a week or 2 of increasing depression. He sees a counselor weekly on Mondays. He does take an antidepressant. He denies any change in those. He is undergoing evaluation for chronic disability and as been having some delays or setbacks related to the legal system of that. He states he does go through cycles of worse depression over the years. Last episode was 2017. 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 He denies any drug use. He has been feeling more depressed with suicidal ideation but no particular plan but vague ideas of cutting his wrists. He had not made any gestures towards that. He called 911 for assistance being brought to the hospital. He has caused crisis lines in the past with lesser symptoms.) Contributing factors: Money, Legal. No: Substance abuse - ETOH, Substance abuse - drugs Similar symptoms before: Diagnosis (Chronic major depression) Recently seen: Clinic (Sees a counselor every Saturday. He saw his primary care for general health and his diabetes last in August. He has an appointment com ing up in the next week or so) Review of Systems Constitutional: denies: Fever, Chills Nose: denies: Rhinorrhea / runny nose, Congestion Throat: denies: Sore throat Cardiac: denies: Chest pain / pressure Respiratory: denies: Cough GI: denies: Nausea, Vomiting, Diarrhea Skin: denies: Rash Neurologic: denies: Generalized weakness, Altered mental status, Headache PD PAST MEDICAL HISTORY - Past Medical History Cardiovascular: Hypertension, High cholesterol Respiratory: None Endocrine/Autoimmune: Type 2 diabetes GI: None : None HEENT: None Psych: Depression, Anxiety Musculoskeletal: None Derm: None - Past Surgical History Past Surgical History: Yes - Present Medications Home Medications: Ambulatory Orders Medication Instructions Recorded Confirmed Aripiprazole [Abilify] 2 mg PO DAILY 04/12/13 10/20/19 Clonazepam 1 - 2 mg PO DAILY PRN 04/12/13 10/20/19 Insulin Glargine,Hum.rec.anlog 55 unit SQ DAILY 03/07/14 10/20/19 [Lantus] metFORMIN [Glucophage] 1,000 mg ORAL BID 11/10/16 10/20/19 Cholecalciferol (Vitamin D3) 6,000 unit PO DAILY 03/08/17 10/20/19 [Vitamin D3] Ibuprofen [Advil] 200 mg PO BID PRN 03/08/17 10/20/19 Insulin Lispro [Humalog] 30 unit SQ TIDWM 03/08/17 10/20/19 lisinopriL [Lisinopril] 5 mg DAILY 06/05/17 10/20/19 Atorvastatin [Lipitor] 40 mg PO QPM tablet 06/08/17 10/20/19 DULoxetine [Cymbalta] 40 mg PO DAILY capsule 06/08/17 10/20/19 allopurinoL [Allopurinol] 200 mg PO DAILY 10/20/19 10/20/19 - Allergies Allergies/Adverse Reactions: Allergies Allergy/AdvReac Type Severity Reaction Status Date / Time Penicillins Allergy Rash Verified 02/06/19 02:43 sertraline HCl * Allergy bladder Verified 02/06/19 02:43 [From Zoloft] infection lorazepam [From Ativan] AdvReac Anxiety Verified 02/06/19 02:43 - Living Situation Living Situation: reports: With family Living Arrangement: reports: At home - Social History Does the pt smoke?: No Smoking Status: Never smoker Does the pt drink ETOH?: No Does the pt have substance abuse?: No - Family History Family history: reports: Other (depression) - Immunizations Immunizations are current?: Yes - POLST Patient has POLST: No PD ED PE NORMAL - Vitals Vital signs reviewed: Yes - General General: Alert and oriented X 3, No acute distress, Well developed/nourished - HEENT HEENT: Moist mucous membranes, Pharynx benign - Neck Neck: Supple, no meningeal sign, No adenopathy - Cardiac Cardiac: RRR, No murmur - Respiratory Respiratory: Clear bilaterally - Abdomen Abdomen: Soft, Non tender - Derm Derm: Normal color, Warm and dry - Neuro Neuro: Alert and oriented X 3, No motor deficit, Normal speech Eye Opening: Spontaneous Motor: Obeys Commands Verbal: Oriented GCS Score: 15 Results - Vitals Vitals: Vital Signs - 24 hr 02/29/20 02/29/20 08:52 11:10 Temperature 36.5 C 36.6 C Heart Rate 79 72 Respiratory 20 16 Rate Blood Pressure 162/93 H 146/85 H O2 Saturation 100 978 H Oxygen O2 Source Room air - Labs Labs: Laboratory Tests 01/02/20 01/02/20 01/02/20 09:14 09:14 09:14 WBC 7.3 RBC 4.25 L Hgb 12.7 L Hct 38.3 L MCV 90.1 MCH 29.9 MCHC 33.2 RDW 13.1 Plt Count 236 MPV 8.8 Neut # (Auto) 5.2 Lymph # (Auto) 1.2 L [place] # (Auto) 0.5 Eos # (Auto) 0.3 Baso # (Auto) 0.0 Absolute Nucleated RBC 0.00 Nucleated RBC % 0.0 Sodium 133 L Potassium 4.8 Chloride 97 L Carbon Dioxide 25 Anion Gap 11.0 BUN 20 Creatinine 1.1 Estimated GFR (MDRD) 71 L Glucose 208 H Glycated Hemoglobin Estim Average Glucose Calcium 9.3 Magnesium 1.6 L Total Bilirubin 0.3 AST 16 ALT 25 Alkaline Phosphatase 94 Total Protein 8.0 Albumin 4.2 Globulin 3.8 Albumin/Globulin Ratio 1.1 Lipase 39 TSH 4.16 Urine Color Urine Clarity Urine pH Ur Specific [place] Urine Protein Urine Glucose (UA) Urine Ketones Urine Occult Blood Urine Nitrite Urine Bilirubin Urine Urobilinogen Ur Leukocyte Esterase Urine RBC Urine WBC Ur Squamous Epith Cells Urine Bacteria Urine Casts Ur Microscopic Review Urine Culture Comments Salicylates < 6.0 Urine Opiates Screen Ur Oxycodone Screen Urine Methadone Screen Ur Propoxyphene Screen Acetaminophen < 10 L Ur Barbiturates Screen Ur Tricyclics Screen Ur Phencyclidine Scrn Ur Amphetamine Screen U Methamphetamines Scrn U Benzodiazepines Scrn Urine Cocaine Screen U Cannabinoids Screen Ethyl Alcohol < 5.0 01/02/20 01/02/20 09:14 09:24 WBC RBC Hgb Hct MCV MCH MCHC RDW Plt Count MPV Neut # (Auto) Lymph # (Auto) [place] # (Auto) Eos # (Auto) Baso # (Auto) Absolute Nucleated RBC Nucleated RBC % Sodium Potassium Chloride Carbon Dioxide Anion Gap BUN Creatinine Estimated GFR (MDRD) Glucose Glycated Hemoglobin 9.0 H Estim Average Glucose 212 H Calcium Magnesium Total Bilirubin AST ALT Alkaline Phosphatase Total Protein Albumin Globulin Albumin/Globulin Ratio Lipase TSH Urine Color YELLOW Urine Clarity HAZY Urine pH 6.0 Ur Specific [place] 1.020 Urine Protein 100 H Urine Glucose (UA) NEGATIVE Urine Ketones NEGATIVE Urine Occult Blood NEGATIVE Urine Nitrite NEGATIVE Urine Bilirubin NEGATIVE Urine Urobilinogen 0.2 (NORMAL) Ur Leukocyte Esterase NEGATIVE Urine RBC 0-5 Urine WBC 0-3 Ur Squamous Epith Cells NONE SEEN Urine Bacteria Rare Urine Casts 0-2 Granular Casts Ur Microscopic Review INDICATED Urine Culture Comments NOT INDICATED Salicylates Urine Opiates Screen NEGATIVE Ur Oxycodone Screen NEGATIVE Urine Methadone Screen NEGATIVE Ur Propoxyphene Screen NEGATIVE Acetaminophen Ur Barbiturates Screen NEGATIVE Ur Tricyclics Screen NEGATIVE Ur Phencyclidine Scrn NEGATIVE Ur Amphetamine Screen NEGATIVE U Methamphetamines Scrn NEGATIVE U Benzodiazepines Scrn NEGATIVE Urine Cocaine Screen NEGATIVE U Cannabinoids Screen NEGATIVE Ethyl Alcohol PD MEDICAL DECISION MAKING - ED course Complexity details: considered differential (Depression with suicidal ideation. He may just need some extra counseling or some crisis line intervention over the weekend until his normal counseling on Saturday. Alternatives could be respite or crisis house. Less likely to need hospitalization but that could be a possibility based on his level of comfort for impulse control and any thought of medication adjustment. 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 She helped arrange appointments for phone counseling with the [facility]/crisis line at scheduled times this afternoon and tomorrow. He then has his counseling appointment on Saturday. 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 Little bit of exercise daily can be helpful. Eat well. You are scheduled for counseling by phone with the [facility]/crisis line later today and tomorrow. You would have your normal counseling on Saturday. Return to the ER if feeling worse and depression or suicidal ideation.
[2020-01-02 09:19] LABS: BASOPHILS % (AUTO) 0.4 %; EOSINOPHILS # (AUTO) 0.3 10^3/uL (0.0-0.7); EOSINOPHILS % (AUTO) 3.4 %; HGB - HEMOGLOBIN 12.7 g/dL (14.0-18.0); LYMPHOCYTES # (AUTO) 1.2 10^3/uL (1.5-3.5); MEAN CORPUSCULAR HEMOGLOBIN 29.9 pg (27.0-31.0); MEAN CORPUSCULAR HGB CONC 33.2 g/dL (32.0-36.0); MEAN CORPUSCULAR VOLUME 90.1 fL (80.0-94.0); MEAN PLATELET VOLUME 8.8 fL (7.4-11.4); MONOCYTES # (AUTO) 0.5 10^3/uL (0.0-1.0); MONOCYTES % (AUTO) 6.5 %; NEUTROPHILS # (AUTO) 5.2 10^3/uL (1.5-6.6); NEUTROPHILS % (AUTO) 72.3 %; PLT - PLATELET COUNT 236 10^3/uL (130-450); RED BLOOD COUNT 4.25 10^6/uL (4.70-6.10); RED CELL DISTRIBUTION WIDTH 13.1 % (12.0-15.0); WHITE BLOOD COUNT 7.3 x10^3/uL (4.8-10.8)
[2020-01-02 09:32] LABS: MUDS CUTOFF CONCENTRATIONS CUTOFF CONC BELOW:
[2020-01-02 09:34] LABS: BILIRUBIN,URINE NEGATIVE (NEGATIVE); GLUCOSE, URINE (UA) NEGATIVE (NEGATIVE); KETONES,URINE (UA) NEGATIVE (NEGATIVE); LEUKOCYTE ESTERASE, URINE NEGATIVE (NEGATIVE); NITRITE,URINE NEGATIVE (NEGATIVE); OCCULT BLOOD,URINE NEGATIVE (NEGATIVE); PROTEIN,URINE 100 mg/dL (NEGATIVE); UROBILINOGEN,URINE 0.2 (NORMAL) E.U./dL (NORMAL)
[2020-01-02 09:34] LABS: ACETAMINOPHEN < 10 ug/mL (10-30); ALBUMIN 4.2 g/dL (3.2-5.5); ALBUMIN/GLOBULIN RATIO 1.1 (1.0-2.2); ALKALINE PHOSPHATASE 94 IU/L (42-121); ALT ALANINE AMINOTRANSFERASE 25 IU/L (10-60); AST ASPARTATE AMINOTRANSFERASE 16 IU/L (10-42); BILIRUBIN,TOTAL 0.3 mg/dL (0.2-1.0); BUN - BLOOD UREA NITROGEN 20 mg/dL (6-20); CALCIUM 9.3 mg/dL (8.5-10.3); CARBON DIOXIDE - CO2 25 mmol/L (21-32); CHLORIDE 97 mmol/L (101-111); CREATININE 1.1 mg/dL (0.6-1.2); GFR - MDRD 71 (>89); GLUCOSE 208 mg/dL (70-100); LIPASE 39 U/L (22-51); MAGNESIUM 1.6 mg/dL (1.7-2.8); SALICYLATE < 6.0 mg/dL; SODIUM 133 mmol/L (135-145)
[2020-01-02 09:39] LABS: CLARITY,URINE HAZY (CLEAR)
[2020-01-02 09:50] LABS: HB2 TOTAL 13.4 g/dL; HEMOGLOBIN A1C 1.01 g/dL
[2020-01-02 09:54] LABS: AMPHETAMINE SCREEN,URINE NEGATIVE (NEGATIVE); BENZODIAZEPINES SCREEN, URINE NEGATIVE (NEGATIVE); COCAINE SCREEN URINE NEGATIVE (NEGATIVE); METHADONE SCREEN, URINE NEGATIVE (NEGATIVE); METHAMPHETAMINES SCREEN, URINE NEGATIVE (NEGATIVE); OPIATE SCREEN, URINE NEGATIVE (NEGATIVE); OXYCODONE SCREEN, URINE NEGATIVE (NEGATIVE); PROPOXYPHENE SCREEN, URINE NEGATIVE (NEGATIVE); TRICYCLIC ANTIDEPRESSANT,URINE NEGATIVE (NEGATIVE)
[2020-01-02 10:00] LABS: BACTERIA,URINE Rare /HPF (None Seen); CASTS, URINE 0-2 Granular Casts /LPF; RBC,URINE 0-5 /HPF (0-5); SQUAMOUS EPITHELIAL CELL,UR NONE SEEN (<= Few)
[2020-01-02 11:57] VITALS: BP 139/77
== END 2020-01-02 12:04 | disposition home or self-care (01) ==
LOC: ED 08:30
DX: F33.9 Major depressive disorder, recurrent, unspecified (principal); R45.851 Suicidal ideations; E11.65 Type 2 diabetes mellitus with hyperglycemia; Z79.4 Long term (current) use of insulin; I10 Essential (primary) hypertension
CPT/HCPCS: 36415; 80053; 80306; 80307; 80320; 80329; 81001; 81003; 83036; 83690; 83735; 84443; 85025; 87086; 99283; 99284

== ENCOUNTER 2020-03-26 10:12 | Emergency (ER) | payer MEDICAID ==
[2020-03-26 10:24] VITALS: BP 181/90
--- NOTE | 2020-03-26 10:32 | ED Physician Documentation ---
PD HPI MHE - Stated complaint Stated Complaint: SI - Chief complaint Chief Complaint: MHE - History obtained from History obtained from: Patient, Police - History of Present Illness Primary symptom: Suicidal ideation (This is a very sweet gentleman who lives with his parents and has long-term depression with intermittent exacerbations. He will get some suicidal ideation. He has never made an attempt. He had some ideas of cutting his wrist today. He had talked with the crisis line who called the police to have him evaluated. 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 denies: Delusions, Anxiety, Insomnia PD PAST MEDICAL HISTORY - Past Medical History Past Medical History: Yes Cardiovascular: Hypertension, High cholesterol Respiratory: None Neuro: None Endocrine/Autoimmune: Type 2 diabetes GI: None : None HEENT: None Psych: Depression, Anxiety Musculoskeletal: None Derm: None - Past Surgical History Past Surgical History: Yes - Present Medications Home Medications: Ambulatory Orders Medication Instructions Recorded Confirmed Aripiprazole [Abilify] 2 mg PO DAILY 04/12/13 10/20/19 Clonazepam 1 - 2 mg PO DAILY PRN 04/12/13 10/20/19 Insulin Glargine,Hum.rec.anlog 55 unit SQ DAILY 03/07/14 10/20/19 [Lantus] metFORMIN [Glucophage] 1,000 mg ORAL BID 11/10/16 10/20/19 Cholecalciferol (Vitamin D3) 6,000 unit PO DAILY 03/08/17 10/20/19 [Vitamin D3] Ibuprofen [Advil] 200 mg PO BID PRN 03/08/17 10/20/19 Insulin Lispro [Humalog] 30 unit SQ TIDWM 03/08/17 10/20/19 lisinopriL [Lisinopril] 5 mg DAILY 06/05/17 10/20/19 Atorvastatin [Lipitor] 40 mg PO QPM tablet 06/08/17 10/20/19 DULoxetine [Cymbalta] 40 mg PO DAILY capsule 06/08/17 10/20/19 allopurinoL [Allopurinol] 200 mg PO DAILY 10/20/19 10/20/19 - Allergies Allergies/Adverse Reactions: Allergies Allergy/AdvReac Type Severity Reaction Status Date / Time Penicillins Allergy Rash Verified 02/06/19 02:43 sertraline HCl * Allergy bladder Verified 02/06/19 02:43 [From Zoloft] infection lorazepam [From Ativan] AdvReac Anxiety Verified 02/06/19 02:43 - Living Situation Living Situation: reports: With family (lives with his 80 and 81 year old parents. ) Living Arrangement: reports: At home - Social History Does the pt smoke?: No Smoking Status: Never smoker Does the pt drink ETOH?: No Does the pt have substance abuse?: No - Immunizations Immunizations are current?: Yes - POLST Patient has POLST: No PD ED PE NORMAL - Vitals Vital signs reviewed: Yes - General General: Alert and oriented X 3, No acute distress, Well developed/nourished - HEENT HEENT: Pharynx benign - Neck Neck: Supple, no meningeal sign, No adenopathy - Cardiac Cardiac: RRR, No murmur - Respiratory Respiratory: Clear bilaterally - Derm Derm: Normal color, Warm and dry - Neuro Neuro: Alert and oriented X 3, No motor deficit, Normal speech - Psych Psych: Normal mood, Normal affect Results - Vitals Vitals: Vital Signs - 24 hr 03/26/20 10:13 Temperature 37.2 C Heart Rate 85 Respiratory 20 Rate Blood Pressure 181/90 H O2 Saturation 99 Oxygen O2 Source Room air - Labs Labs: Laboratory Tests 03/26/20 03/26/20 03/26/20 10:57 10:57 10:57 WBC 8.7 RBC 3.95 L Hgb 12.3 L Hct 36.6 L MCV 92.7 MCH 31.1 H MCHC 33.6 RDW 13.4 Plt Count 201 MPV 9.6 Neut # (Auto) 6.4 Lymph # (Auto) 1.3 L [place] # (Auto) 0.7 Eos # (Auto) 0.3 Baso # (Auto) 0.0 Absolute Nucleated RBC 0.00 Nucleated RBC % 0.0 Sodium 130 L Potassium 5.2 H Chloride 97 L Carbon Dioxide 21 Anion Gap 12.0 BUN 25 H Creatinine 1.2 Estimated GFR (MDRD) 64 L Glucose 296 H Calcium 8.6 Total Bilirubin 0.4 AST 19 ALT 26 Alkaline Phosphatase 77 Total Protein 7.0 Albumin 4.0 Globulin 3.0 Albumin/Globulin Ratio 1.3 Lipase 45 TSH 3.39 Urine Color Urine Clarity Urine pH Ur Specific [place] Urine Protein Urine Glucose (UA) Urine Ketones Urine Occult Blood Urine Nitrite Urine Bilirubin Urine Urobilinogen Ur Leukocyte Esterase Urine RBC Urine WBC Ur Squamous Epith Cells Urine Bacteria Ur Microscopic Review Urine Culture Comments Salicylates < 6.0 Urine Opiates Screen Ur Oxycodone Screen Urine Methadone Screen Ur Propoxyphene Screen Acetaminophen < 10 L Ur Barbiturates Screen Ur Tricyclics Screen Ur Phencyclidine Scrn Ur Amphetamine Screen U Methamphetamines Scrn U Benzodiazepines Scrn Urine Cocaine Screen U Cannabinoids Screen Ethyl Alcohol < 5.0 03/26/20 11:22 WBC RBC Hgb Hct MCV MCH MCHC RDW Plt Count MPV Neut # (Auto) Lymph # (Auto) [place] # (Auto) Eos # (Auto) Baso # (Auto) Absolute Nucleated RBC Nucleated RBC % Sodium Potassium Chloride Carbon Dioxide Anion Gap BUN Creatinine Estimated GFR (MDRD) Glucose Calcium Total Bilirubin AST ALT Alkaline Phosphatase Total Protein Albumin Globulin Albumin/Globulin Ratio Lipase TSH Urine Color YELLOW Urine Clarity CLEAR Urine pH 6.0 Ur Specific [place] 1.020 Urine Protein 100 H Urine Glucose (UA) 500 H Urine Ketones NEGATIVE Urine Occult Blood NEGATIVE Urine Nitrite NEGATIVE Urine Bilirubin NEGATIVE Urine Urobilinogen 0.2 (NORMAL) Ur Leukocyte Esterase NEGATIVE Urine RBC 0-5 Urine WBC 6-10 H Ur Squamous Epith Cells NONE SEEN Urine Bacteria Rare Ur Microscopic Review INDICATED Urine Culture Comments INDICATED Salicylates Urine Opiates Screen NEGATIVE Ur Oxycodone Screen NEGATIVE Urine Methadone Screen NEGATIVE Ur Propoxyphene Screen NEGATIVE Acetaminophen Ur Barbiturates Screen NEGATIVE Ur Tricyclics Screen NEGATIVE Ur Phencyclidine Scrn NEGATIVE Ur Amphetamine Screen NEGATIVE U Methamphetamines Scrn NEGATIVE U Benzodiazepines Scrn NEGATIVE Urine Cocaine Screen NEGATIVE U Cannabinoids Screen NEGATIVE Ethyl Alcohol PD MEDICAL DECISION MAKING - ED course Complexity details: considered differential, d/w patient, d/w natural remedy consultant (Social [employer], who met with him and talked with him and contracted a safety plan with him. ) Departure - Departure Disposition: 01 Home, Self Care Clinical Impression: Suicidal ideation Depression Qualifiers: Depression Type: major depressive disorder Major depression recurrence: recurrent Active/Remission status: currently active Major depression episode severity: moderate Qualified Code(s): F33.1 - Major depressive disorder, recurrent, moderate Condition: Stable Record reviewed to determine appropriate education?: Yes Instructions: ED Depression Follow-Up: Alysia Hernandez ARNP, [employer] [Primary Care Provider] - Comments: Continue usual medications. Stay well-hydrated. Call the crisis line if needed for someone to talk to regarding stress and depression. Follow-up with your counselor this coming week. Return if worsening symptoms. Discharge Date/Time: 03/26/20 12:52
[2020-03-26 11:02] LABS: BASOPHILS % (AUTO) 0.5 %; EOSINOPHILS # (AUTO) 0.3 10^3/uL (0.0-0.7); EOSINOPHILS % (AUTO) 3.9 %; HGB - HEMOGLOBIN 12.3 g/dL (14.0-18.0); LYMPHOCYTES # (AUTO) 1.3 10^3/uL (1.5-3.5); LYMPHOCYTES % (AUTO) 14.3 %; MEAN CORPUSCULAR HEMOGLOBIN 31.1 pg (27.0-31.0); MEAN CORPUSCULAR HGB CONC 33.6 g/dL (32.0-36.0); MEAN CORPUSCULAR VOLUME 92.7 fL (80.0-94.0); MEAN PLATELET VOLUME 9.6 fL (7.4-11.4); MONOCYTES # (AUTO) 0.7 10^3/uL (0.0-1.0); MONOCYTES % (AUTO) 7.8 %; NEUTROPHILS # (AUTO) 6.4 10^3/uL (1.5-6.6); NEUTROPHILS % (AUTO) 73.2 %; PLT - PLATELET COUNT 201 10^3/uL (130-450); RED BLOOD COUNT 3.95 10^6/uL (4.70-6.10); RED CELL DISTRIBUTION WIDTH 13.4 % (12.0-15.0); WHITE BLOOD COUNT 8.7 x10^3/uL (4.8-10.8)
[2020-03-26 11:26] LABS: MUDS CUTOFF CONCENTRATIONS CUTOFF CONC BELOW:
[2020-03-26 11:29] LABS: ACETAMINOPHEN < 10 ug/mL (10-30); ALBUMIN/GLOBULIN RATIO 1.3 (1.0-2.2); ALKALINE PHOSPHATASE 77 IU/L (42-121); ALT ALANINE AMINOTRANSFERASE 26 IU/L (10-60); AST ASPARTATE AMINOTRANSFERASE 19 IU/L (10-42); BILIRUBIN,TOTAL 0.4 mg/dL (0.2-1.0); BUN - BLOOD UREA NITROGEN 25 mg/dL (6-20); CALCIUM 8.6 mg/dL (8.5-10.3); CARBON DIOXIDE - CO2 21 mmol/L (21-32); CHLORIDE 97 mmol/L (101-111); CREATININE 1.2 mg/dL (0.6-1.2); GLUCOSE 296 mg/dL (70-100); LIPASE 45 U/L (22-51); SALICYLATE < 6.0 mg/dL; SODIUM 130 mmol/L (135-145)
[2020-03-26 11:39] LABS: BILIRUBIN,URINE NEGATIVE (NEGATIVE); GLUCOSE, URINE (UA) 500 mg/dL (NEGATIVE); KETONES,URINE (UA) NEGATIVE (NEGATIVE); LEUKOCYTE ESTERASE, URINE NEGATIVE (NEGATIVE); NITRITE,URINE NEGATIVE (NEGATIVE); OCCULT BLOOD,URINE NEGATIVE (NEGATIVE); PROTEIN,URINE 100 mg/dL (NEGATIVE); UROBILINOGEN,URINE 0.2 (NORMAL) E.U./dL (NORMAL)
[2020-03-26 11:49] LABS: AMPHETAMINE SCREEN,URINE NEGATIVE (NEGATIVE); BENZODIAZEPINES SCREEN, URINE NEGATIVE (NEGATIVE); CLARITY,URINE CLEAR (CLEAR); COCAINE SCREEN URINE NEGATIVE (NEGATIVE); METHADONE SCREEN, URINE NEGATIVE (NEGATIVE); METHAMPHETAMINES SCREEN, URINE NEGATIVE (NEGATIVE); OPIATE SCREEN, URINE NEGATIVE (NEGATIVE); OXYCODONE SCREEN, URINE NEGATIVE (NEGATIVE); PROPOXYPHENE SCREEN, URINE NEGATIVE (NEGATIVE); TRICYCLIC ANTIDEPRESSANT,URINE NEGATIVE (NEGATIVE)
[2020-03-26 12:09] LABS: BACTERIA,URINE Rare /HPF (None Seen); RBC,URINE 0-5 /HPF (0-5); SQUAMOUS EPITHELIAL CELL,UR NONE SEEN (<= Few)
== END 2020-03-26 12:52 | disposition home or self-care (01) ==
LOC: ED 10:12
DX: R45.851 Suicidal ideations (principal); F33.1 Major depressive disorder, recurrent, moderate; I10 Essential (primary) hypertension; E11.9 Type 2 diabetes mellitus without complications; Z79.4 Long term (current) use of insulin
CPT/HCPCS: 36415; 80053; 80306; 80307; 80320; 80329; 81001; 81003; 83690; 84443; 85025; 87086; 87181; 99283; 99284

== ENCOUNTER 2020-04-19 07:55 | Outpatient (CLI) | payer MEDICAID ==
[2020-04-19 08:25] LABS: ALBUMIN/GLOBULIN RATIO 1.3 (1.0-2.2); BILIRUBIN,TOTAL 0.6 mg/dL (0.2-1.0); CALCIUM 8.9 mg/dL (8.5-10.3); TOTAL PROTEIN 7.1 g/dL (6.7-8.2)
[2020-04-19 08:30] LABS: HB2 TOTAL 12.7 g/dL; HEMOGLOBIN A1C 1.02 g/dL; HEMOGLOBIN A1C % 9.5 % (4.6-6.2)
== END 2020-04-19 07:56 | disposition home or self-care (01) ==
LOC: LAB 07:55
PROVIDERS: ATTEND Nurse Practitioner
DX: E11.9 Type 2 diabetes mellitus without complications (principal)
CPT/HCPCS: 36415; 80053; 82043; 82570; 83036

== ENCOUNTER 2020-05-10 09:30 | Outpatient (CLI) | payer MEDICAID | END 2020-05-10 23:59 | disposition home or self-care (01) | LOC: LAB.R 09:30 | PROVIDERS: ATTEND Nurse Practitioner Family | DX: R19.7 Diarrhea, unspecified (principal) | CPT/HCPCS: 82270 ==

== ENCOUNTER 2020-06-25 12:47 | Emergency (ER) | payer MEDICAID ==
--- NOTE | 2020-06-25 13:08 | ED Physician Documentation ---
PD HPI FOCAL NEURO - Stated complaint Stated Complaint: POSSIBLE STROKE - Chief complaint Chief Complaint: Neuro - History obtained from History obtained from: Patient - Additional information Additional information: 49-year-old gentleman with history of diabetes, mild hypertension, hypercholesterolemia has had right-sided arm numbness for the last 2 days. Also may be some right facial numbness. It spares the leg. No associated headache. No weakness. No trouble walking. No history of stroke. Does not take aspirin at baseline. Review of Systems Ten Systems: 10 systems reviewed and negative Constitutional: reports: Reviewed and negative Throat: reports: Reviewed and negative Cardiac: reports: Reviewed and negative PD PAST MEDICAL HISTORY - Past Medical History Past Medical History: Yes Cardiovascular: Hypertension, High cholesterol Respiratory: None Neuro: None Endocrine/Autoimmune: Type 2 diabetes GI: None : None HEENT: None Psych: Depression, Anxiety Musculoskeletal: None Derm: None - Past Surgical History Past Surgical History: Yes - Present Medications Home Medications: Ambulatory Orders Medication Instructions Recorded Confirmed Aripiprazole [Abilify] 2 mg PO DAILY 04/12/13 10/20/19 Clonazepam 1 - 2 mg PO DAILY PRN 04/12/13 10/20/19 Insulin Glargine,Hum.rec.anlog 55 unit SQ DAILY 03/07/14 10/20/19 [Lantus] metFORMIN [Glucophage] 1,000 mg ORAL BID 11/10/16 10/20/19 Cholecalciferol (Vitamin D3) 6,000 unit PO DAILY 03/08/17 10/20/19 [Vitamin D3] Ibuprofen [Advil] 200 mg PO BID PRN 03/08/17 10/20/19 Insulin Lispro [Humalog] 30 unit SQ TIDWM 03/08/17 10/20/19 lisinopriL [Lisinopril] 5 mg DAILY 06/05/17 10/20/19 Atorvastatin [Lipitor] 40 mg PO QPM tablet 06/08/17 10/20/19 DULoxetine [Cymbalta] 40 mg PO DAILY capsule 06/08/17 10/20/19 allopurinoL [Allopurinol] 200 mg PO DAILY 10/20/19 10/20/19 - Allergies Allergies/Adverse Reactions: Allergies Allergy/AdvReac Type Severity Reaction Status Date / Time Penicillins Allergy Rash Verified 05/05/20 16:40 sertraline HCl * Allergy bladder Verified 05/05/20 16:40 [From Zoloft] infection lorazepam [From Ativan] AdvReac Anxiety Verified 05/05/20 16:40 - Social History Does the pt smoke?: No Smoking Status: Never smoker Does the pt drink ETOH?: No Does the pt have substance abuse?: No - Family History Family history: reports: Non contributory - Immunizations Immunizations are current?: Yes - POLST Patient has POLST: No PD ED PE NORMAL - Vitals Vital signs reviewed: Yes - General General: Alert and oriented X 3, No acute distress - HEENT HEENT: PERRL, EOMI - Neck Neck: Supple, no meningeal sign, No bony TTP - Cardiac Cardiac: RRR, No murmur - Respiratory Respiratory: No respiratory distress, Clear bilaterally - Abdomen Abdomen: Soft, Non tender - Back Back: No CVA TTP, No spinal TTP - Derm Derm: Normal color, Warm and dry - Extremities Extremities: No edema, No calf tenderness / cord - Neuro Neuro: Alert and oriented X 3, Normal speech NIHSS - Time Time: 13:02 - Level of Consciousness Level of consciousness: (0) Alert, Keenly responsive LOC Questions: (0) Answers both Q's correct LOC Commands: (0) Performs both correctly - Gaze Best Gaze: (0) Normal - Visual Visual: (0) No loss - Facial Palsy Facial Palsy: (0) Normal, symmetrical movement - Motor Arms (both separate) Motor Arm (right): (0) No drift Motor Arm (left): (0) No drift - Motor Legs (both separate) Motor Leg (right): (0) No drift Motor Leg (left): (0) No drift - Limb Ataxia Limb Ataxia: (0) Absent - Sensory Sensory: (1) [id number] loss (Right arm, right face, not the right leg) - Best Language Best Language: (0) No aphasia - Dysarthria Dysarthria: (0) Normal - Extinction and Inattention (formally neg Extinction and inattention: (0) No abnormality - Total Score/Results Total Score/Result: 1 Results - Vitals Vitals: Vital Signs - 24 hr 06/25/20 06/25/20 06/25/20 12:51 13:21 13:30 Temperature 37.2 C Heart Rate 83 86 80 Respiratory 18 24 16 Rate Blood Pressure 176/84 H 180/103 H 177/96 H O2 Saturation 99 100 95 06/25/20 06/25/20 06/25/20 14:00 14:30 15:00 Temperature Heart Rate 79 81 77 Respiratory 16 16 16 Rate Blood Pressure 182/93 H 165/85 H 165/85 H O2 Saturation 99 100 100 06/25/20 06/25/20 06/25/20 15:30 16:00 16:21 Temperature Heart Rate 80 92 99 Respiratory 17 24 18 Rate Blood Pressure 160/79 H 166/84 H 166/84 H O2 Saturation 100 97 99 06/25/20 06/25/20 16:30 18:30 Temperature 36.9 C Heart Rate 84 72 Respiratory 18 16 Rate Blood Pressure 155/86 H 145/88 H O2 Saturation 99 67 L Oxygen O2 Source Room air - EKG (time done) 1313 Rate: Rate (enter#) (77) Rhythm: NSR [place]: Normal Intervals: Normal [place] QRS: Normal Ischemia: Normal ST segments Computer interpretation: Agree with computer - Labs Labs: Laboratory Tests 06/25/20 06/25/20 13:23 13:23 WBC 7.8 RBC 4.19 L Hgb 12.6 L Hct 38.8 L MCV 92.6 MCH 30.1 MCHC 32.5 RDW 13.4 Plt Count 227 MPV 9.6 Neut # (Auto) 5.5 Lymph # (Auto) 1.4 L [place] # (Auto) 0.6 Eos # (Auto) 0.2 Baso # (Auto) 0.1 Absolute Nucleated RBC 0.00 Nucleated RBC % 0.0 Sodium 131 L Potassium 4.5 Chloride 95 L Carbon Dioxide 25 Anion Gap 11.0 BUN 24 H Creatinine 1.1 Estimated GFR (MDRD) 71 L Glucose 236 H Calcium 9.6 Total Bilirubin 0.6 AST 19 ALT 27 Alkaline Phosphatase 110 Total Protein 7.7 Albumin 4.2 Globulin 3.5 Albumin/Globulin Ratio 1.2 Lipase 44 - Rads (name of study) MRI of the brain Radiology: Final report received (No acute findings) Carotid Dopplers Radiology: EMP read contemporaneously (Atherosclerosis but no stenosis) Procedures - General procedure General procedure: He was difficult for IV access, I personally placed a long 22-gauge IV in the right antecubital fossa using real-time ultrasound guidance and blood was drawn. PD MEDICAL DECISION MAKING - ED course ED course: 49-year-old gentleman with multiple comorbidities presents with 2 days of right- sided numbness without weakness or other neurologic symptoms or findings. MRI was done without acute finding and carotid Doppler was without significant stenosis. Advised to start baby aspirin pending follow-up. Departure - Departure Disposition: Home, Self Care Clinical Impression: Hyperlipidemia associated with type 2 diabetes mellitus, Stroke-like episode Type II diabetes mellitus Qualifiers: Diabetes mellitus terminal supervisor insulin use: with terminal supervisor use Diabetes mellitus complication status: with hyperglycemia Qualified Code(s): E11.65 - Type 2 diabetes mellitus with hyperglycemia Condition: Good Record reviewed to determine appropriate education?: Yes Instructions: ED Paraesthesias Comments: No evidence of stroke on your MRI. I would start taking a baby aspirin a day, return for new or worsening symptoms. Follow-up with your primary care physician, next available appointment. Discharge Date/Time: 06/25/20 18:34
[2020-06-25 13:37] LABS: BASOPHILS # (AUTO) 0.1 10^3/uL (0.0-0.1); BASOPHILS % (AUTO) 0.6 %; EOSINOPHILS # (AUTO) 0.2 10^3/uL (0.0-0.7); EOSINOPHILS % (AUTO) 2.4 %; HGB - HEMOGLOBIN 12.6 g/dL (14.0-18.0); LYMPHOCYTES # (AUTO) 1.4 10^3/uL (1.5-3.5); MEAN CORPUSCULAR HEMOGLOBIN 30.1 pg (27.0-31.0); MEAN CORPUSCULAR HGB CONC 32.5 g/dL (32.0-36.0); MEAN CORPUSCULAR VOLUME 92.6 fL (80.0-94.0); MEAN PLATELET VOLUME 9.6 fL (7.4-11.4); MONOCYTES # (AUTO) 0.6 10^3/uL (0.0-1.0); MONOCYTES % (AUTO) 7.3 %; NEUTROPHILS # (AUTO) 5.5 10^3/uL (1.5-6.6); NEUTROPHILS % (AUTO) 71.3 %; PLT - PLATELET COUNT 227 10^3/uL (130-450); RED BLOOD COUNT 4.19 10^6/uL (4.70-6.10); RED CELL DISTRIBUTION WIDTH 13.4 % (12.0-15.0); WHITE BLOOD COUNT 7.8 x10^3/uL (4.8-10.8)
[2020-06-25 13:50] LABS: ALBUMIN 4.2 g/dL (3.2-5.5); ALBUMIN/GLOBULIN RATIO 1.2 (1.0-2.2); BILIRUBIN,TOTAL 0.6 mg/dL (0.2-1.0); CALCIUM 9.6 mg/dL (8.5-10.3); CREATININE 1.1 mg/dL (0.6-1.2); TOTAL PROTEIN 7.7 g/dL (6.7-8.2)
--- NOTE | 2020-06-25 14:45 | Ultrasound Report ---
PROCEDURE: Carotid Doppler Complete INDICATIONS: R hand/face numb TECHNIQUE: Color and pulse Doppler interrogation was performed of both carotid systems, with image documentation and velocity measurements. COMPARISON: None available at the time of this dictation. FINDINGS: The common carotid arteries are patent and demonstrate normal flow velocities. By velocity criteria, no hemodynamically significant stenosis can be seen within the internal carotid arteries. Normal appearing waveforms are seen. Atherosclerotic change can be seen. Antegrade flow seen within both vertebral arteries. IMPRESSION: No hemodynamically significant stenosis is seen. Atherosclerotic changes are noted. The estimate of stenosis included in the report of the imaging study was calculated using the NASCET method Reviewed by: Omi Munoz MD on 06/25/2020 1:44 PM [facility] Approved by: Omi Munoz MD on 06/25/2020 1:44 PM [facility]NOR Station ID: [id number]
--- NOTE | 2020-06-25 18:04 | MRI Report ---
PROCEDURE: Brain W/O INDICATIONS: R hand/face numb TECHNIQUE: Noncontrast axial T1 spin echo, axial T2 fast spin echo, sagittal and axial FLAIR, coronal T2 fast sp in echo, axial gradient echo, axial diffusion and ADC through the brain. COMPARISON: Correlation is made with carotid Doppler ultrasound, 06/25/2020 FINDINGS: Image quality: Excellent. CSF Spaces: Basal cisterns are patent. No extra-axial fluid collections. The ventricles demonstrate symmetric prominence. No findings of acute hydrocephalus can be seen. Brain: Brain parenchymal volume loss is seen. Minimal T2 hyperintense subependymal nodularity can be seen, as on series 601 image 16. No intracranial hemorrhage. Diamond/white matter interface is normal . Brainstem appears normal. Diffusion-weighted images demonstrate no acute ischemic insult. No chr onic ischemic insults. Normal intravascular flow voids are present. Skull and face: Calvarium has normal marrow signal. Orbits appear normal. Sinuses: Sinuses and mastoids are clear. IMPRESSION: No findings of acute or subacute infarction are seen. No significant, acute intracranial abnormality is seen. Brain parenchymal volume loss is seen and there is symmetric prominence of the ventricles. This is mo re prominent than would be expected for a patient of this age. Please correlate with known patient hi story, including toxic exposures (including ethanol). Minimal subependymal nodularity is seen. Although nonspecific, please consider tuberous sclerosis. Reviewed by: Omi Munoz MD on 06/25/2020 5:03 PM [facility] Approved by: Omi Munoz MD on 06/25/2020 5:03 PM OHHARRIETT Station ID: [id number]
[2020-06-25 18:34] VITALS: BP 145/88
== END 2020-06-25 18:34 | disposition home or self-care (01) ==
LOC: ED 12:47
DX: R20.0 Anesthesia of skin (principal); E11.65 Type 2 diabetes mellitus with hyperglycemia; E78.5 Hyperlipidemia, unspecified; I10 Essential (primary) hypertension; Z79.4 Long term (current) use of insulin
CPT/HCPCS: 36415; 70551; 80053; 83690; 85025; 93005; 93880; 99284; 99285

== ENCOUNTER 2020-06-30 11:20 | Outpatient (CLI) | payer MEDICAID ==
[2020-06-30 12:27] LABS: FOLATE 18.9 ng/mL (5.90 - >24.8)
== END 2020-06-30 11:21 | disposition home or self-care (01) ==
LOC: LAB 11:20
PROVIDERS: ATTEND Family Medicine
DX: R20.2 Paresthesia of skin (principal)
CPT/HCPCS: 36415; 82306; 82607; 82746

== ENCOUNTER 2020-08-27 14:45 | Emergency (ER) | payer MEDICAID ==
[2020-08-27 15:11] LABS: MUDS CUTOFF CONCENTRATIONS CUTOFF CONC BELOW:
[2020-08-27 15:15] LABS: BASOPHILS % (AUTO) 0.4 %; EOSINOPHILS # (AUTO) 0.1 10^3/uL (0.0-0.7); EOSINOPHILS % (AUTO) 1.2 %; HGB - HEMOGLOBIN 12.9 g/dL (14.0-18.0); LYMPHOCYTES # (AUTO) 1.4 10^3/uL (1.5-3.5); LYMPHOCYTES % (AUTO) 15.7 %; MEAN CORPUSCULAR HEMOGLOBIN 30.2 pg (27.0-31.0); MEAN CORPUSCULAR HGB CONC 33.5 g/dL (32.0-36.0); MEAN CORPUSCULAR VOLUME 90.2 fL (80.0-94.0); MEAN PLATELET VOLUME 9.3 fL (7.4-11.4); MONOCYTES # (AUTO) 0.6 10^3/uL (0.0-1.0); MONOCYTES % (AUTO) 6.4 %; NEUTROPHILS # (AUTO) 6.8 10^3/uL (1.5-6.6); NEUTROPHILS % (AUTO) 75.9 %; PLT - PLATELET COUNT 273 10^3/uL (130-450); RED BLOOD COUNT 4.27 10^6/uL (4.70-6.10); RED CELL DISTRIBUTION WIDTH 13.2 % (12.0-15.0); WHITE BLOOD COUNT 8.9 x10^3/uL (4.8-10.8)
[2020-08-27 15:19] LABS: BILIRUBIN,URINE NEGATIVE (NEGATIVE); GLUCOSE, URINE (UA) 500 mg/dL (NEGATIVE); KETONES,URINE (UA) NEGATIVE (NEGATIVE); LEUKOCYTE ESTERASE, URINE NEGATIVE (NEGATIVE); NITRITE,URINE NEGATIVE (NEGATIVE); OCCULT BLOOD,URINE TRACE-LYSE (NEGATIVE); PROTEIN,URINE 100 mg/dL (NEGATIVE); UROBILINOGEN,URINE 0.2 (NORMAL) E.U./dL (NORMAL)
[2020-08-27 15:21] LABS: CLARITY,URINE CLEAR (CLEAR)
--- NOTE | 2020-08-27 15:26 | ED Physician Documentation ---
PD HPI MHE - Stated complaint Stated Complaint: SI - Chief complaint Chief Complaint: MHE - History obtained from History obtained from: Patient - History of Present Illness Primary symptom: Suicidal ideation Timing - onset: Chronic Pain level max: 0 Pain level now: 0 Contributing factors: Other (states started online dating and the other person "flattened me") Similar symptoms before: Diagnosis (depression, SI) Recently seen: Not recently seen Review of Systems Constitutional: denies: Fever, Chills GI: denies: Vomiting, Diarrhea Skin: denies: Rash Musculoskeletal: denies: Neck pain, Back pain Neurologic: denies: Headache PD PAST MEDICAL HISTORY - Past Medical History Past Medical History: Yes Cardiovascular: Hypertension, High cholesterol Respiratory: None Neuro: None Endocrine/Autoimmune: Type 2 diabetes GI: None : None HEENT: None Psych: Depression, Anxiety Musculoskeletal: None Derm: None - Past Surgical History Past Surgical History: Yes - Present Medications Home Medications: Ambulatory Orders Medication Instructions Recorded Confirmed Aripiprazole [Abilify] 2 mg PO DAILY 04/12/13 10/20/19 Clonazepam 1 - 2 mg PO DAILY PRN 04/12/13 10/20/19 Insulin Glargine,Hum.rec.anlog 55 unit SQ DAILY 03/07/14 10/20/19 [Lantus] metFORMIN [Glucophage] 1,000 mg ORAL BID 11/10/16 10/20/19 Cholecalciferol (Vitamin D3) 6,000 unit PO DAILY 03/08/17 10/20/19 [Vitamin D3] Ibuprofen [Advil] 200 mg PO BID PRN 03/08/17 10/20/19 Insulin Lispro [Humalog] 30 unit SQ TIDWM 03/08/17 10/20/19 lisinopriL [Lisinopril] 5 mg DAILY 06/05/17 10/20/19 Atorvastatin [Lipitor] 40 mg PO QPM tablet 06/08/17 10/20/19 DULoxetine [Cymbalta] 40 mg PO DAILY capsule 06/08/17 10/20/19 allopurinoL [Allopurinol] 200 mg PO DAILY 10/20/19 10/20/19 - Allergies Allergies/Adverse Reactions: Allergies Allergy/AdvReac Type Severity Reaction Status Date / Time Penicillins Allergy Rash Verified 08/27/20 14:54 sertraline HCl * Allergy bladder Verified 08/27/20 14:54 [From Zoloft] infection lorazepam [From Ativan] AdvReac Anxiety Verified 08/27/20 14:54 - Social History Does the pt smoke?: No Smoking Status: Never smoker Does the pt drink ETOH?: No Does the pt have substance abuse?: No - Immunizations Immunizations are current?: Yes - POLST Patient has POLST: No PD ED PE NORMAL - Vitals Vital signs reviewed: Yes - General General: Alert and oriented X 3, No acute distress, Well developed/nourished - HEENT HEENT: Moist mucous membranes - Neck Neck: Supple, no meningeal sign - Cardiac Cardiac: RRR, Strong equal pulses - Respiratory Respiratory: No respiratory distress, Clear bilaterally - Abdomen Abdomen: Soft, Non tender, Non distended - Derm Derm: Warm and dry - Extremities Extremities: No edema - Neuro Neuro: Alert and oriented X 3 - Psych Psych: Normal mood, Normal affect Results - Vitals Vitals: Vital Signs - 24 hr 08/27/20 08/27/20 14:47 15:12 Temperature 37.1 C 37.1 C Heart Rate 92 92 Respiratory 20 20 Rate Blood Pressure 168/99 H 168/99 H O2 Saturation 99 99 Oxygen O2 Source Room air - Labs Labs: Laboratory Tests 08/27/20 08/27/20 08/27/20 15:02 15:09 15:09 WBC 8.9 RBC 4.27 L Hgb 12.9 L Hct 38.5 L MCV 90.2 MCH 30.2 MCHC 33.5 RDW 13.2 Plt Count 273 MPV 9.3 Neut # (Auto) 6.8 H Lymph # (Auto) 1.4 L [place] # (Auto) 0.6 Eos # (Auto) 0.1 Baso # (Auto) 0.0 Absolute Nucleated RBC 0.00 Nucleated RBC % 0.0 Sodium 131 L Potassium 4.8 Chloride 96 L Carbon Dioxide 21 Anion Gap 14.0 H BUN 19 Creatinine 1.1 Estimated GFR (MDRD) 70 L Glucose 191 H Calcium 9.9 Total Bilirubin 0.5 AST 18 ALT 26 Alkaline Phosphatase 86 Total Protein 7.6 Albumin 4.2 Globulin 3.4 Albumin/Globulin Ratio 1.2 Lipase 39 TSH Urine Color YELLOW Urine Clarity CLEAR Urine pH 6.0 Ur Specific [place] 1.010 Urine Protein 100 H Urine Glucose (UA) 500 H Urine Ketones NEGATIVE Urine Occult Blood TRACE-LYSE Urine Nitrite NEGATIVE Urine Bilirubin NEGATIVE Urine Urobilinogen 0.2 (NORMAL) Ur Leukocyte Esterase NEGATIVE Urine RBC 0-5 Urine WBC 0-3 Ur Squamous Epith Cells RARE Squamous Urine Bacteria None Seen Ur Microscopic Review INDICATED Urine Culture Comments NOT INDICATED Salicylates < 6.0 Urine Opiates Screen NEGATIVE Ur Oxycodone Screen NEGATIVE Urine Methadone Screen NEGATIVE Ur Propoxyphene Screen NEGATIVE Acetaminophen < 10 L Ur Barbiturates Screen NEGATIVE Ur Tricyclics Screen NEGATIVE Ur Phencyclidine Scrn NEGATIVE Ur Amphetamine Screen NEGATIVE U Methamphetamines Scrn NEGATIVE U Benzodiazepines Scrn NEGATIVE Urine Cocaine Screen NEGATIVE U Cannabinoids Screen NEGATIVE Ethyl Alcohol < 5.0 08/27/20 15:09 WBC RBC Hgb Hct MCV MCH MCHC RDW Plt Count MPV Neut # (Auto) Lymph # (Auto) [place] # (Auto) Eos # (Auto) Baso # (Auto) Absolute Nucleated RBC Nucleated RBC % Sodium Potassium Chloride Carbon Dioxide Anion Gap BUN Creatinine Estimated GFR (MDRD) Glucose Calcium Total Bilirubin AST ALT Alkaline Phosphatase Total Protein Albumin Globulin Albumin/Globulin Ratio Lipase TSH 6.27 H Urine Color Urine Clarity Urine pH Ur Specific [place] Urine Protein Urine Glucose (UA) Urine Ketones Urine Occult Blood Urine Nitrite Urine Bilirubin Urine Urobilinogen Ur Leukocyte Esterase Urine RBC Urine WBC Ur Squamous Epith Cells Urine Bacteria Ur Microscopic Review Urine Culture Comments Salicylates Urine Opiates Screen Ur Oxycodone Screen Urine Methadone Screen Ur Propoxyphene Screen Acetaminophen Ur Barbiturates Screen Ur Tricyclics Screen Ur Phencyclidine Scrn Ur Amphetamine Screen U Methamphetamines Scrn U Benzodiazepines Scrn Urine Cocaine Screen U Cannabinoids Screen Ethyl Alcohol PD MEDICAL DECISION MAKING - ED course Complexity details: reviewed old records, reviewed results, considered differential, d/w patient, d/w gift consultant ED course: Patient with chronic depression, feeling increasing suicidal thoughts today. Medically clear for psychiatric care. Social work consulted. Social work was able to safety plan with the patient. He is able to contract for safety. He has an appointment with his counselor on Saturday. He will return if he worsens. Patient counseled regarding signs and symptoms for which I believe and urgent re-evaluation would be necessary. Patient with good understanding of and agreement to plan and is comfortable going home at this time This document was made in part using voice recognition software. While efforts are made to proofread this document, sound alike and grammatical errors may occur. Departure - Departure Disposition: Home, Self Care Clinical Impression: Depression Qualifiers: Depression Type: unspecified Qualified Code(s): F32.9 - Major depressive disorder, single episode, unspecified Condition: Good Instructions: ED Depression Follow-Up: Alysia Hernandez ARNP, RV REPAIR TECHNICIAN-C [Primary Care Provider] - Within 1 week Comments: Follow-up with your counselor on Saturday. Return if you worsen. Crisis Line and is available to talk to someone [email or web address] is also available to chat with someone online if you prefer. There are also many resources on this website and apps for your phone to help with your mental health You can also text the word START to [phone] to chat with someome via text.
[2020-08-27 15:30] LABS: ACETAMINOPHEN < 10 ug/mL (10-30); ALBUMIN 4.2 g/dL (3.2-5.5); ALBUMIN/GLOBULIN RATIO 1.2 (1.0-2.2); ALKALINE PHOSPHATASE 86 IU/L (42-121); ALT ALANINE AMINOTRANSFERASE 26 IU/L (10-60); AST ASPARTATE AMINOTRANSFERASE 18 IU/L (10-42); BILIRUBIN,TOTAL 0.5 mg/dL (0.2-1.0); BUN - BLOOD UREA NITROGEN 19 mg/dL (6-20); CALCIUM 9.9 mg/dL (8.5-10.3); CARBON DIOXIDE - CO2 21 mmol/L (21-32); CHLORIDE 96 mmol/L (101-111); CREATININE 1.1 mg/dL (0.6-1.2); GLUCOSE 191 mg/dL (70-100); LIPASE 39 U/L (22-51); SALICYLATE < 6.0 mg/dL; SODIUM 131 mmol/L (135-145); TOTAL PROTEIN 7.6 g/dL (6.7-8.2)
[2020-08-27 15:37] LABS: AMPHETAMINE SCREEN,URINE NEGATIVE (NEGATIVE); BACTERIA,URINE None Seen /HPF (None Seen); BENZODIAZEPINES SCREEN, URINE NEGATIVE (NEGATIVE); COCAINE SCREEN URINE NEGATIVE (NEGATIVE); METHADONE SCREEN, URINE NEGATIVE (NEGATIVE); METHAMPHETAMINES SCREEN, URINE NEGATIVE (NEGATIVE); OXYCODONE SCREEN, URINE NEGATIVE (NEGATIVE); PROPOXYPHENE SCREEN, URINE NEGATIVE (NEGATIVE); RBC,URINE 0-5 /HPF (0-5); SQUAMOUS EPITHELIAL CELL,UR RARE Squamous (<= Few); TRICYCLIC ANTIDEPRESSANT,URINE NEGATIVE (NEGATIVE)
[2020-08-27 15:38] LABS: OPIATE SCREEN, URINE NEGATIVE (NEGATIVE)
[2020-08-27 16:37] VITALS: BP 150/88
== END 2020-08-27 17:01 | disposition home or self-care (01) ==
LOC: ED 14:45
DX: F32.9 Major depressive disorder, single episode, unspecified (principal); R45.851 Suicidal ideations; I10 Essential (primary) hypertension; E11.9 Type 2 diabetes mellitus without complications; Z79.4 Long term (current) use of insulin
CPT/HCPCS: 36415; 80053; 80306; 80307; 80320; 80329; 81001; 81003; 83690; 84443; 85025; 87086; 99283; 99284

== ENCOUNTER 2020-09-10 02:58 | Outpatient (CLI) | payer MEDICAID | END 2020-09-10 02:59 | disposition critical access hospital (66) | LOC: EMS 02:58 | PROVIDERS: ATTEND Surgery | DX: R45.851 Suicidal ideations (principal) | CPT/HCPCS: A0425; A0429; A0999 ==

== ENCOUNTER 2020-09-10 03:07 | Emergency (ER) | payer MEDICAID ==
[2020-09-10 03:49] LABS: BASOPHILS % (AUTO) 0.5 %; EOSINOPHILS # (AUTO) 0.2 10^3/uL (0.0-0.7); EOSINOPHILS % (AUTO) 2.2 %; HGB - HEMOGLOBIN 12.6 g/dL (14.0-18.0); LYMPHOCYTES # (AUTO) 1.2 10^3/uL (1.5-3.5); LYMPHOCYTES % (AUTO) 15.3 %; MEAN CORPUSCULAR HEMOGLOBIN 30.6 pg (27.0-31.0); MEAN CORPUSCULAR HGB CONC 33.3 g/dL (32.0-36.0); MEAN CORPUSCULAR VOLUME 91.7 fL (80.0-94.0); MEAN PLATELET VOLUME 9.6 fL (7.4-11.4); MONOCYTES # (AUTO) 0.5 10^3/uL (0.0-1.0); MONOCYTES % (AUTO) 6.7 %; NEUTROPHILS # (AUTO) 5.7 10^3/uL (1.5-6.6); NEUTROPHILS % (AUTO) 74.9 %; PLT - PLATELET COUNT 213 10^3/uL (130-450); RED BLOOD COUNT 4.12 10^6/uL (4.70-6.10); WHITE BLOOD COUNT 7.6 x10^3/uL (4.8-10.8)
[2020-09-10 04:03] LABS: MUDS CUTOFF CONCENTRATIONS CUTOFF CONC BELOW:
[2020-09-10 04:03] LABS: ACETAMINOPHEN < 10 ug/mL (10-30); ALBUMIN/GLOBULIN RATIO 1.3 (1.0-2.2); ALKALINE PHOSPHATASE 80 IU/L (42-121); ALT ALANINE AMINOTRANSFERASE 25 IU/L (10-60); AST ASPARTATE AMINOTRANSFERASE 17 IU/L (10-42); BILIRUBIN,TOTAL 0.4 mg/dL (0.2-1.0); BUN - BLOOD UREA NITROGEN 24 mg/dL (6-20); CARBON DIOXIDE - CO2 21 mmol/L (21-32); CHLORIDE 101 mmol/L (101-111); CREATININE 1.1 mg/dL (0.6-1.2); GLUCOSE 314 mg/dL (70-100); LIPASE 37 U/L (22-51); SALICYLATE < 6.0 mg/dL; SODIUM 132 mmol/L (135-145); TOTAL PROTEIN 7.2 g/dL (6.7-8.2)
[2020-09-10 04:06] LABS: BILIRUBIN,URINE NEGATIVE (NEGATIVE); GLUCOSE, URINE (UA) >=1000 mg/dL (NEGATIVE); KETONES,URINE (UA) NEGATIVE (NEGATIVE); LEUKOCYTE ESTERASE, URINE NEGATIVE (NEGATIVE); NITRITE,URINE NEGATIVE (NEGATIVE); OCCULT BLOOD,URINE TRACE-INTA (NEGATIVE); PROTEIN,URINE 100 mg/dL (NEGATIVE); UROBILINOGEN,URINE 0.2 (NORMAL) E.U./dL (NORMAL)
[2020-09-10 04:07] LABS: CLARITY,URINE CLEAR (CLEAR)
[2020-09-10 04:14] LABS: BACTERIA,URINE None Seen /HPF (None Seen); RBC,URINE 0-5 /HPF (0-5); SQUAMOUS EPITHELIAL CELL,UR NONE SEEN (<= Few)
[2020-09-10 04:16] LABS: AMPHETAMINE SCREEN,URINE NEGATIVE (NEGATIVE); BENZODIAZEPINES SCREEN, URINE NEGATIVE (NEGATIVE); COCAINE SCREEN URINE NEGATIVE (NEGATIVE); METHADONE SCREEN, URINE NEGATIVE (NEGATIVE); METHAMPHETAMINES SCREEN, URINE NEGATIVE (NEGATIVE); OPIATE SCREEN, URINE NEGATIVE (NEGATIVE); OXYCODONE SCREEN, URINE NEGATIVE (NEGATIVE); PROPOXYPHENE SCREEN, URINE NEGATIVE (NEGATIVE); TRICYCLIC ANTIDEPRESSANT,URINE NEGATIVE (NEGATIVE)
--- NOTE | 2020-09-10 09:12 | ED Physician Documentation ---
PD HPI MHE - Stated complaint Stated Complaint: SI - Chief complaint Chief Complaint: MHE - History obtained from History obtained from: Patient - Additional information Additional information: 50-year-old man with past medical history of depression on duloxetine, aripiprazole, clonazepam, also with diabetes type 2 presents with depression over the past several months, worsening today. Patient denies SI HI AVH at this time. Review of Systems Ten Systems: 10 systems reviewed and negative Constitutional: denies: Fever, Chills Psychiatric: reports: Depressed, Insomnia. denies: Suicidal, Homicidal, Hallucinations PD PAST MEDICAL HISTORY - Past Medical History Cardiovascular: Hypertension, High cholesterol Respiratory: None Neuro: None Endocrine/Autoimmune: Type 2 diabetes GI: None : None HEENT: None Psych: Depression, Anxiety Musculoskeletal: None Derm: None - Past Surgical History Past Surgical History: Yes - Present Medications Home Medications: Ambulatory Orders Medication Instructions Recorded Confirmed Aripiprazole [Abilify] 2 mg PO DAILY 04/12/13 10/20/19 Clonazepam 1 - 2 mg PO DAILY PRN 04/12/13 10/20/19 Insulin Glargine,Hum.rec.anlog 55 unit SQ DAILY 03/07/14 10/20/19 [Lantus] metFORMIN [Glucophage] 1,000 mg ORAL BID 11/10/16 10/20/19 Cholecalciferol (Vitamin D3) 6,000 unit PO DAILY 03/08/17 10/20/19 [Vitamin D3] Ibuprofen [Advil] 200 mg PO BID PRN 03/08/17 10/20/19 Insulin Lispro [Humalog] 30 unit SQ TIDWM 03/08/17 10/20/19 lisinopriL [Lisinopril] 5 mg DAILY 06/05/17 10/20/19 Atorvastatin [Lipitor] 40 mg PO QPM tablet 06/08/17 10/20/19 DULoxetine [Cymbalta] 40 mg PO DAILY capsule 06/08/17 10/20/19 allopurinoL [Allopurinol] 200 mg PO DAILY 10/20/19 10/20/19 - Allergies Allergies/Adverse Reactions: Allergies Allergy/AdvReac Type Severity Reaction Status Date / Time Penicillins Allergy Rash Verified 09/10/20 03:22 sertraline HCl * Allergy bladder Verified 09/10/20 03:22 [From Zoloft] infection lorazepam [From Ativan] AdvReac Anxiety Verified 09/10/20 03:22 - Social History Does the pt smoke?: No Smoking Status: Never smoker Does the pt drink ETOH?: No Does the pt have substance abuse?: No - Immunizations Immunizations are current?: Yes - POLST Patient has POLST: No PD ED PE NORMAL - Vitals Vital signs reviewed: Yes - General General: Alert and oriented X 3 - HEENT HEENT: Atraumatic - Neck Neck: Supple, no meningeal sign - Cardiac Cardiac: RRR - Respiratory Respiratory: No respiratory distress - Abdomen Abdomen: Non tender, Non distended - Male Male : Deferred - Rectal Rectal: Deferred - Back Back: No CVA TTP - Derm Derm: Normal color - Extremities Extremities: No deformity - Neuro Neuro: Alert and oriented X 3 - Psych Psych: Other (depressed mood and affect) Results - Vitals Vitals: Vital Signs - 24 hr 09/10/20 09/10/20 09/10/20 03:15 03:25 09:01 Temperature 36.6 C 36.6 C 36.9 C Heart Rate 81 81 84 Respiratory 18 18 16 Rate Blood Pressure 186/91 H 186/91 H 163/88 H O2 Saturation 100 100 97 Oxygen O2 Source Room air - Labs Labs: Laboratory Tests 09/10/20 09/10/20 09/10/20 03:35 03:35 03:35 WBC 7.6 RBC 4.12 L Hgb 12.6 L Hct 37.8 L MCV 91.7 MCH 30.6 MCHC 33.3 RDW 13.0 Plt Count 213 MPV 9.6 Neut # (Auto) 5.7 Lymph # (Auto) 1.2 L Person # (Auto) 0.5 Eos # (Auto) 0.2 Baso # (Auto) 0.0 Absolute Nucleated RBC 0.00 Nucleated RBC % 0.0 Sodium 132 L Potassium 4.5 Chloride 101 Carbon Dioxide 21 Anion Gap 10.0 BUN 24 H Creatinine 1.1 Estimated GFR (MDRD) 70 L Glucose 314 H Calcium 9.0 Total Bilirubin 0.4 AST 17 ALT 25 Alkaline Phosphatase 80 Total Protein 7.2 Albumin 4.0 Globulin 3.2 Albumin/Globulin Ratio 1.3 Lipase 37 TSH 4.24 Urine Color Urine Clarity Urine pH Ur Specific [place] Urine Protein Urine Glucose (UA) Urine Ketones Urine Occult Blood Urine Nitrite Urine Bilirubin Urine Urobilinogen Ur Leukocyte Esterase Urine RBC Urine WBC Ur Squamous Epith Cells Urine Bacteria Ur Microscopic Review Urine Culture Comments Salicylates < 6.0 Urine Opiates Screen Ur Oxycodone Screen Urine Methadone Screen Ur Propoxyphene Screen Acetaminophen < 10 L Ur Barbiturates Screen Ur Tricyclics Screen Ur Phencyclidine Scrn Ur Amphetamine Screen U Methamphetamines Scrn U Benzodiazepines Scrn Urine Cocaine Screen U Cannabinoids Screen Ethyl Alcohol < 5.0 09/10/20 04:00 WBC RBC Hgb Hct MCV MCH MCHC RDW Plt Count MPV Neut # (Auto) Lymph # (Auto) Person # (Auto) Eos # (Auto) Baso # (Auto) Absolute Nucleated RBC Nucleated RBC % Sodium Potassium Chloride Carbon Dioxide Anion Gap BUN Creatinine Estimated GFR (MDRD) Glucose Calcium Total Bilirubin AST ALT Alkaline Phosphatase Total Protein Albumin Globulin Albumin/Globulin Ratio Lipase TSH Urine Color YELLOW Urine Clarity CLEAR Urine pH 6.0 Ur Specific [place] 1.015 Urine Protein 100 H Urine Glucose (UA) >=1000 H Urine Ketones NEGATIVE Urine Occult Blood TRACE-INTA Urine Nitrite NEGATIVE Urine Bilirubin NEGATIVE Urine Urobilinogen 0.2 (NORMAL) Ur Leukocyte Esterase NEGATIVE Urine RBC 0-5 Urine WBC 0-3 Ur Squamous Epith Cells NONE SEEN Urine Bacteria None Seen Ur Microscopic Review INDICATED Urine Culture Comments NOT INDICATED Salicylates Urine Opiates Screen NEGATIVE Ur Oxycodone Screen NEGATIVE Urine Methadone Screen NEGATIVE Ur Propoxyphene Screen NEGATIVE Acetaminophen Ur Barbiturates Screen NEGATIVE Ur Tricyclics Screen NEGATIVE Ur Phencyclidine Scrn NEGATIVE Ur Amphetamine Screen NEGATIVE U Methamphetamines Scrn NEGATIVE U Benzodiazepines Scrn NEGATIVE Urine Cocaine Screen NEGATIVE U Cannabinoids Screen NEGATIVE Ethyl Alcohol PD MEDICAL DECISION MAKING - ED course ED course: 50-year-old man presents voluntarily with depression for the past several months. Initial work-up ordered in the emergency department. Patient signed out to Dr. Alas for further evaluation.
--- NOTE | 2020-09-10 11:44 | ED Physician Documentation ---
ED Addendum - Addendum Addendum: 09/10/20 11:44 Patient with ongoing depression. Social work was consulted and spoke with the patient at length. Patient would like to go home. He feels safe doing so. Given crisis line and crisis bed information. Patient counseled regarding signs and symptoms for which I believe and urgent re-evaluation would be necessary. Patient with good understanding of and agreement to plan and is comfortable going home at this time This document was made in part using voice recognition software. While efforts are made to proofread this document, sound alike and grammatical errors may occur. Departure - Departure Disposition: Home, Self Care Clinical Impression: Depression Qualifiers: Depression Type: unspecified Qualified Code(s): F32.9 - Major depressive disorder, single episode, unspecified Condition: Good Instructions: ED Depression Follow-Up: Alysia Hernandez ARNP, OUT PATIENT THERAPIST-C [Primary Care Provider] - Within 1 week Comments: Return if you worsen. Follow-up as directed by social work today. Crisis Line and is available to talk to someone [email or web address] is also available to chat with someone online if you prefer. There are also many resources on this website and apps for your phone to help with your mental health You can also text the word START to [phone] to chat with someome via text.
[2020-09-10 11:50] VITALS: BP 172/87
== END 2020-09-10 12:02 | disposition home or self-care (01) ==
LOC: EDUNIT# → ED 03:07
DX: F32.9 Major depressive disorder, single episode, unspecified (principal); I10 Essential (primary) hypertension; E11.9 Type 2 diabetes mellitus without complications; Z79.4 Long term (current) use of insulin
CPT/HCPCS: 36415; 80053; 80306; 80307; 80320; 80329; 81001; 81003; 83690; 84443; 85025; 87086; 99283

== ENCOUNTER 2021-01-18 08:00 | Outpatient (CLI) | payer MEDICARE, MEDICAID ==
[2021-01-18 18:13] LABS: BASOPHILS % (AUTO) 0.6 %; EOSINOPHILS # (AUTO) 0.1 10^3/uL (0.0-0.7); EOSINOPHILS % (AUTO) 1.9 %; HCT - HEMATOCRIT 39.3 % (42.0-52.0); HGB - HEMOGLOBIN 12.9 g/dL (14.0-18.0); LYMPHOCYTES # (AUTO) 1.3 10^3/uL (1.5-3.5); LYMPHOCYTES % (AUTO) 18.1 %; MEAN CORPUSCULAR HEMOGLOBIN 30.5 pg (27.0-31.0); MEAN CORPUSCULAR HGB CONC 32.8 g/dL (32.0-36.0); MEAN CORPUSCULAR VOLUME 92.9 fL (80.0-94.0); MEAN PLATELET VOLUME 10.3 fL (7.4-11.4); MONOCYTES # (AUTO) 0.4 10^3/uL (0.0-1.0); MONOCYTES % (AUTO) 6.4 %; NEUTROPHILS % (AUTO) 72.6 %; PLT - PLATELET COUNT 235 10^3/uL (130-450); RED BLOOD COUNT 4.23 10^6/uL (4.70-6.10); RED CELL DISTRIBUTION WIDTH 13.2 % (12.0-15.0); WHITE BLOOD COUNT 6.9 x10^3/uL (4.8-10.8)
[2021-01-18 18:46] LABS: ALBUMIN 4.4 g/dL (3.2-5.5); ALBUMIN/GLOBULIN RATIO 1.3 (1.0-2.2); ALKALINE PHOSPHATASE 88 IU/L (42-121); ALT ALANINE AMINOTRANSFERASE 35 IU/L (10-60); AST ASPARTATE AMINOTRANSFERASE 22 IU/L (10-42); BILIRUBIN,TOTAL 0.5 mg/dL (0.2-1.0); BUN - BLOOD UREA NITROGEN 23 mg/dL (6-20); CALCIUM 9.2 mg/dL (8.5-10.3); CARBON DIOXIDE - CO2 21 mmol/L (21-32); CHLORIDE 101 mmol/L (101-111); CHOLESTEROL 206 mg/dL; CREATININE 1.3 mg/dL (0.6-1.2); GFR - MDRD 58 (>89); GLUCOSE 286 mg/dL (70-100); HDL CHOLESTEROL 41 mg/dL; POTASSIUM 5.2 mmol/L (3.5-5.0); SODIUM 131 mmol/L (135-145); TOTAL PROTEIN 7.8 g/dL (6.7-8.2); TRIGLYCERIDES 403 mg/dL
[2021-01-18 18:47] LABS: THYROID STIMULATING HORMONE 6.16 uIU/mL (0.34-5.60)
[2021-01-18 19:41] LABS: LDL CHOLESTEROL,DIRECT 110 mg/dL; LDLD/HDL RATIO 2.7 (<3.6)
[2021-01-18 19:44] LABS: FREE T4 (FREE THYROXINE) 0.83 ng/dL (0.58-1.64)
[2021-01-18 19:52] LABS: ESTIMATED AVERAGE GLUCOSE 278 mg/dL (70-100); HEMOGLOBIN A1c% 11.3 % (4.27-6.07)
== END 2021-01-18 23:59 | disposition home or self-care (01) ==
LOC: LAB.WCP 08:00
PROVIDERS: ATTEND Nurse Practitioner Family
DX: E11.9 Type 2 diabetes mellitus without complications (principal)
CPT/HCPCS: 36415; 80050; 80061; 83036; 83721; 84439

== ENCOUNTER 2021-04-05 18:09 | Emergency (ER) | payer MEDICARE, MEDICAID ==
--- NOTE | 2021-04-05 18:28 | ED Physician Documentation ---
History of Present Illness - Stated complaint Stated Complaint: low blood sugar, vomiting - Chief complaint Chief Complaint: Neuro - History obtained from History obtained from: Patient - History of Present Illness Pain level now: 1 (mild generalized headache) Improved by: rest Worsened by: ambulation - Additonal information Additional information: c/o generalized weakness, lightheadedness, difficulty focussing thoughts, generalized HUMPHREYS. Symptoms began 3:30 PM today, gradual onset. intermittent nausea, vomiting. thought he might have low blood sugar, but at home his FS was in the mid 80s and in ED it is 115. Review of Systems Constitutional: reports: Fatigue. denies: Fever, Chills, Sweats Eyes: denies: Loss of vision, Decreased vision, Photophobia Cardiac: reports: Reviewed and negative Respiratory: reports: Reviewed and negative GI: reports: Nausea, Vomiting. denies: Abdominal Pain, Constipation, Diarrhea : denies: Dysuria, Frequency Skin: denies: Rash Musculoskeletal: reports: Reviewed and negative Neurologic: reports: Generalized weakness, Headache. denies: Focal weakness, Numbness, Confused, Altered mental status PD PAST MEDICAL HISTORY - Past Medical History Cardiovascular: Hypertension, High cholesterol Respiratory: None Neuro: None Endocrine/Autoimmune: Type 2 diabetes GI: None : None HEENT: None Psych: Depression, Anxiety Musculoskeletal: None Derm: None - Past Surgical History Past Surgical History: Yes - Present Medications Home Medications: Ambulatory Orders Medication Instructions Recorded Confirmed Aripiprazole [Abilify] 2 mg PO DAILY 04/12/13 10/20/19 Clonazepam 1 - 2 mg PO DAILY PRN 04/12/13 10/20/19 Insulin Glargine,Hum.rec.anlog 55 unit SQ DAILY 03/07/14 10/20/19 [Lantus] metFORMIN [Glucophage] 1,000 mg ORAL BID 11/10/16 10/20/19 Cholecalciferol (Vitamin D3) 6,000 unit PO DAILY 03/08/17 10/20/19 [Vitamin D3] Ibuprofen [Advil] 200 mg PO BID PRN 03/08/17 10/20/19 Insulin Lispro [Humalog] 30 unit SQ TIDWM 03/08/17 10/20/19 lisinopriL [Lisinopril] 5 mg DAILY 06/05/17 10/20/19 Atorvastatin [Lipitor] 40 mg PO QPM tablet 06/08/17 10/20/19 DULoxetine [Cymbalta] 40 mg PO DAILY capsule 06/08/17 10/20/19 allopurinoL [Allopurinol] 200 mg PO DAILY 10/20/19 10/20/19 - Allergies Allergies/Adverse Reactions: Allergies Allergy/AdvReac Type Severity Reaction Status Date / Time Penicillins Allergy Rash Verified 04/05/21 18:18 sertraline HCl * Allergy bladder Verified 04/05/21 18:18 [From Zoloft] infection lorazepam [From Ativan] AdvReac Anxiety Verified 04/05/21 18:18 - Social History Does the pt smoke?: No Smoking Status: Never smoker Does the pt drink ETOH?: No Does the pt have substance abuse?: No - Immunizations Immunizations are current?: Yes - POLST Patient has POLST: No PD ED PE NORMAL - Vitals Vital signs reviewed: Yes - General General: Alert and oriented X 3, No acute distress, Well developed/nourished - HEENT HEENT: Atraumatic, PERRL, EOMI, Moist mucous membranes - Neck Neck: Supple, no meningeal sign - Cardiac Cardiac: RRR, No murmur, No gallop, No rub - Respiratory Respiratory: No respiratory distress, Clear bilaterally - Abdomen Abdomen: Soft, Non tender - Back Back: No CVA TTP - Derm Derm: Normal color, Warm and dry - Extremities Extremities: No edema - Neuro Neuro: Alert and oriented X 3, editor publications 2-12 intact, No motor deficit, No sensory deficit, Normal speech Eye Opening: Spontaneous Motor: Obeys Commands Verbal: Oriented GCS Score: 15 - Psych Psych: Normal mood, Normal affect Results - Vitals Vitals: Vital Signs - 24 hr 04/05/21 04/05/21 04/05/21 18:13 20:14 21:55 Temperature 97.5 C H 36.1 C L 36.8 C Heart Rate 86 72 75 Respiratory 14 21 24 Rate Blood Pressure 195/99 H 160/85 H 160/97 H O2 Saturation 95 96 97 Oxygen O2 Source Room air - EKG (time done) No standard instances Rate: Rate (enter#) (80) Rhythm: NSR [place]: Normal Intervals: Normal NE QRS: Normal Ischemia: ST elevation c/w repol Compare to prior EKG: Unchanged from prior EKG - Labs Labs: Laboratory Tests 04/05/21 04/05/21 04/05/21 18:22 18:52 18:52 WBC 12.2 H RBC 3.97 L Hgb 12.1 L Hct 35.8 L MCV 90.2 MCH 30.5 MCHC 33.8 RDW 12.8 Plt Count 255 MPV 9.4 Neut # (Auto) 10.0 H Lymph # (Auto) 1.2 L [place] # (Auto) 0.7 Eos # (Auto) 0.2 Baso # (Auto) 0.1 Absolute Nucleated RBC 0.00 Nucleated RBC % 0.0 Sodium 131 L Potassium 4.0 Chloride 98 L Carbon Dioxide 21 Anion Gap 12.0 BUN 19 Creatinine 1.2 Estimated GFR (MDRD) 64 L Glucose 133 H POC Whole Bld Glucose 115 H Calcium 8.8 Total Bilirubin 0.5 AST 29 ALT 36 Alkaline Phosphatase 103 Total Protein 7.5 Albumin 4.1 Globulin 3.4 Albumin/Globulin Ratio 1.2 Lipase 30 TSH 04/05/21 18:52 WBC RBC Hgb Hct MCV MCH MCHC RDW Plt Count MPV Neut # (Auto) Lymph # (Auto) [place] # (Auto) Eos # (Auto) Baso # (Auto) Absolute Nucleated RBC Nucleated RBC % Sodium Potassium Chloride Carbon Dioxide Anion Gap BUN Creatinine Estimated GFR (MDRD) Glucose POC Whole Bld Glucose Calcium Total Bilirubin AST ALT Alkaline Phosphatase Total Protein Albumin Globulin Albumin/Globulin Ratio Lipase TSH 5.13 PD MEDICAL DECISION MAKING - ED course Complexity details: reviewed results, re-evaluated patient, considered differential, d/w patient ED course: reassuring blood test results without diagnostic findings. On reevaluation after IV fluids and IV zofran, patient reports feeling much better Results d/w patient and he is comfortable with d/c home. Departure - Departure Disposition: 01 Home, Self Care Clinical Impression: Dizziness Condition: Good Instructions: ED Dizziness [facility] Follow-Up: Dalton Adam MD [Primary Care Provider] - Within 3 Days Discharge Date/Time: 04/05/21 22:22
[2021-04-05] MEDS ORDERED: ONDANSETRON 4 MG/2 ML VIAL IVP STA (18:55)
[2021-04-05] MEDS ORDERED: SODIUM CHLORIDE 0.9% 1,000 ML IV STA (18:55)
[2021-04-05 19:01] LABS: BASOPHILS # (AUTO) 0.1 10^3/uL (0.0-0.1); BASOPHILS % (AUTO) 0.5 %; EOSINOPHILS # (AUTO) 0.2 10^3/uL (0.0-0.7); EOSINOPHILS % (AUTO) 1.3 %; HCT - HEMATOCRIT 35.8 % (42.0-52.0); HGB - HEMOGLOBIN 12.1 g/dL (14.0-18.0); LYMPHOCYTES # (AUTO) 1.2 10^3/uL (1.5-3.5); LYMPHOCYTES % (AUTO) 9.7 %; MEAN CORPUSCULAR HEMOGLOBIN 30.5 pg (27.0-31.0); MEAN CORPUSCULAR HGB CONC 33.8 g/dL (32.0-36.0); MEAN CORPUSCULAR VOLUME 90.2 fL (80.0-94.0); MEAN PLATELET VOLUME 9.4 fL (7.4-11.4); MONOCYTES # (AUTO) 0.7 10^3/uL (0.0-1.0); MONOCYTES % (AUTO) 5.9 %; NEUTROPHILS % (AUTO) 82.1 %; PLT - PLATELET COUNT 255 10^3/uL (130-450); RED BLOOD COUNT 3.97 10^6/uL (4.70-6.10); RED CELL DISTRIBUTION WIDTH 12.8 % (12.0-15.0); WHITE BLOOD COUNT 12.2 x10^3/uL (4.8-10.8)
[2021-04-05 19:19] LABS: ALBUMIN 4.1 g/dL (3.2-5.5); ALBUMIN/GLOBULIN RATIO 1.2 (1.0-2.2); BILIRUBIN,TOTAL 0.5 mg/dL (0.2-1.0); CALCIUM 8.8 mg/dL (8.5-10.3); CREATININE 1.2 mg/dL (0.6-1.2); TOTAL PROTEIN 7.5 g/dL (6.7-8.2)
[2021-04-05 21:56] VITALS: BP 160/97
== END 2021-04-05 22:22 | disposition home or self-care (01) ==
LOC: ED 18:09
DX: R42 Dizziness and giddiness (principal); I10 Essential (primary) hypertension; E11.9 Type 2 diabetes mellitus without complications; Z79.4 Long term (current) use of insulin
CPT/HCPCS: 36415; 80053; 83690; 84443; 85025; 93005; 96374; 99284

== ENCOUNTER 2021-04-13 14:03 | Emergency (ER) | payer MEDICAID, MEDICARE ==
[2021-04-13 14:52] LABS: ACETAMINOPHEN < 10 ug/mL (10-30); ALBUMIN/GLOBULIN RATIO 1.1 (1.0-2.2); ALKALINE PHOSPHATASE 97 IU/L (42-121); ALT ALANINE AMINOTRANSFERASE 30 IU/L (10-60); AST ASPARTATE AMINOTRANSFERASE 19 IU/L (10-42); BASOPHILS % (AUTO) 0.5 %; BILIRUBIN,TOTAL 0.4 mg/dL (0.2-1.0); BUN - BLOOD UREA NITROGEN 17 mg/dL (6-20); CALCIUM 9.2 mg/dL (8.5-10.3); CARBON DIOXIDE - CO2 23 mmol/L (21-32); CHLORIDE 102 mmol/L (101-111); CREATININE 1.2 mg/dL (0.6-1.2); EOSINOPHILS # (AUTO) 0.2 10^3/uL (0.0-0.7); EOSINOPHILS % (AUTO) 2.8 %; ETOH - ETHANOL < 5.0 mg/dL; GFR - MDRD 64 (>89); GLUCOSE 192 mg/dL (70-100); HCT - HEMATOCRIT 37.5 % (42.0-52.0); HGB - HEMOGLOBIN 12.4 g/dL (14.0-18.0); LIPASE 67 U/L (22-51); LYMPHOCYTES # (AUTO) 1.5 10^3/uL (1.5-3.5); LYMPHOCYTES % (AUTO) 17.5 %; MEAN CORPUSCULAR HEMOGLOBIN 30.2 pg (27.0-31.0); MEAN CORPUSCULAR HGB CONC 33.1 g/dL (32.0-36.0); MEAN CORPUSCULAR VOLUME 91.2 fL (80.0-94.0); MEAN PLATELET VOLUME 9.3 fL (7.4-11.4); MONOCYTES # (AUTO) 0.6 10^3/uL (0.0-1.0); MONOCYTES % (AUTO) 7.1 %; NEUTROPHILS # (AUTO) 6.2 10^3/uL (1.5-6.6); NEUTROPHILS % (AUTO) 71.6 %; PLT - PLATELET COUNT 259 10^3/uL (130-450); POTASSIUM 4.4 mmol/L (3.5-5.0); RED BLOOD COUNT 4.11 10^6/uL (4.70-6.10); RED CELL DISTRIBUTION WIDTH 12.8 % (12.0-15.0); SALICYLATE < 6.0 mg/dL; SODIUM 136 mmol/L (135-145); TOTAL PROTEIN 7.5 g/dL (6.7-8.2); WHITE BLOOD COUNT 8.6 x10^3/uL (4.8-10.8)
[2021-04-13 15:11] LABS: MUDS CUTOFF CONCENTRATIONS CUTOFF CONC BELOW:
--- NOTE | 2021-04-13 15:12 | ED Physician Documentation ---
PD HPI MHE - Stated complaint Stated Complaint: MHE - Chief complaint Chief Complaint: MHE - History obtained from History obtained from: Patient - History of Present Illness Primary symptom: Depression Timing - onset: Chronic Pain level max: 0 Pain level now: 0 - Additional information Additional information: 50-year-old male presents to the emergency department the longstanding history of depression. He states that he was having "a rough day today". He does not feel actively suicidal at this point but he wanted to be somewhere safe and talk to someone. He states that he is on Cymbalta and was recently increased and was feeling well, he is wondering if he may need another increase and will talk to his psychiatrist about this. He also states his blood pressure has been higher than usual for the past few weeks and this was causing him anxiety as well. No chest pain. No shortness of breath. No visual changes. No numbness or tingling. Nothing makes it better or worse. He is currently on lisinopril for hypertension. He states that his doctor has been considering adding a second medication. Review of Systems Constitutional: denies: Fever, Chills Throat: denies: Sore throat Cardiac: denies: Chest pain / pressure, Palpitations Respiratory: denies: Dyspnea, Cough GI: denies: Abdominal Pain, Nausea, Vomiting Skin: denies: Rash Musculoskeletal: denies: Neck pain, Back pain Neurologic: denies: Focal weakness, Numbness, Headache PD PAST MEDICAL HISTORY - Past Medical History Past Medical History: Yes Cardiovascular: Hypertension, High cholesterol Respiratory: None Neuro: None Endocrine/Autoimmune: Type 2 diabetes GI: None : None HEENT: None Psych: Depression, Anxiety Musculoskeletal: None Derm: None - Past Surgical History Past Surgical History: Yes - Present Medications Home Medications: Ambulatory Orders Medication Instructions Recorded Confirmed Aripiprazole [Abilify] 2 mg PO DAILY 04/12/13 10/20/19 Clonazepam 1 - 2 mg PO DAILY PRN 04/12/13 10/20/19 Insulin Glargine,Hum.rec.anlog 55 unit SQ DAILY 03/07/14 10/20/19 [Lantus] metFORMIN [Glucophage] 1,000 mg ORAL BID 11/10/16 10/20/19 Cholecalciferol (Vitamin D3) 6,000 unit PO DAILY 03/08/17 10/20/19 [Vitamin D3] Ibuprofen [Advil] 200 mg PO BID PRN 03/08/17 10/20/19 Insulin Lispro [Humalog] 30 unit SQ TIDWM 03/08/17 10/20/19 lisinopriL [Lisinopril] 5 mg DAILY 06/05/17 10/20/19 Atorvastatin [Lipitor] 40 mg PO QPM tablet 06/08/17 10/20/19 DULoxetine [Cymbalta] 40 mg PO DAILY capsule 06/08/17 10/20/19 allopurinoL [Allopurinol] 200 mg PO DAILY 10/20/19 10/20/19 - Allergies Allergies/Adverse Reactions: Allergies Allergy/AdvReac Type Severity Reaction Status Date / Time Penicillins Allergy Rash Verified 04/05/21 18:18 sertraline HCl * Allergy bladder Verified 04/05/21 18:18 [From Zoloft] infection lorazepam [From Ativan] AdvReac Anxiety Verified 04/05/21 18:18 - Social History Does the pt smoke?: No Smoking Status: Never smoker Does the pt drink ETOH?: No Does the pt have substance abuse?: No - Immunizations Immunizations are current?: Yes - POLST Patient has POLST: No PD ED PE NORMAL - Vitals Vital signs reviewed: Yes - General General: Alert and oriented X 3, No acute distress, Well developed/nourished - HEENT HEENT: PERRL, Moist mucous membranes - Neck Neck: Supple, no meningeal sign - Cardiac Cardiac: RRR, Strong equal pulses - Respiratory Respiratory: No respiratory distress, Clear bilaterally - Abdomen Abdomen: Soft, Non tender, Non distended - Derm Derm: Warm and dry - Extremities Extremities: No edema, No calf tenderness / cord - Neuro Neuro: Alert and oriented X 3 - Psych Psych: Normal mood, Normal affect Results - Vitals Vitals: Vital Signs - 24 hr 04/13/21 04/13/21 14:05 16:35 Temperature 36.9 C 37.2 C Heart Rate 88 85 Respiratory 16 16 Rate Blood Pressure 186/97 H 158/86 H O2 Saturation 100 99 Oxygen O2 Source Room air - Labs Labs: Laboratory Tests 04/13/21 04/13/21 04/13/21 14:27 14:27 14:27 WBC 8.6 RBC 4.11 L Hgb 12.4 L Hct 37.5 L MCV 91.2 MCH 30.2 MCHC 33.1 RDW 12.8 Plt Count 259 MPV 9.3 Neut # (Auto) 6.2 Lymph # (Auto) 1.5 [place] # (Auto) 0.6 Eos # (Auto) 0.2 Baso # (Auto) 0.0 Absolute Nucleated RBC 0.00 Nucleated RBC % 0.0 Sodium 136 Potassium 4.4 Chloride 102 Carbon Dioxide 23 Anion Gap 11.0 BUN 17 Creatinine 1.2 Estimated GFR (MDRD) 64 L Glucose 192 H Calcium 9.2 Total Bilirubin 0.4 AST 19 ALT 30 Alkaline Phosphatase 97 Total Protein 7.5 Albumin 4.0 Globulin 3.5 Albumin/Globulin Ratio 1.1 Lipase 67 H TSH 5.75 H Urine Color Urine Clarity Urine pH Ur Specific [place] Urine Protein Urine Glucose (UA) Urine Ketones Urine Occult Blood Urine Nitrite Urine Bilirubin Urine Urobilinogen Ur Leukocyte Esterase Urine RBC Urine WBC Ur Squamous Epith Cells Urine Bacteria Ur Microscopic Review Urine Culture Comments Salicylates < 6.0 Urine Opiates Screen Ur Oxycodone Screen Urine Methadone Screen Ur Propoxyphene Screen Acetaminophen < 10 L Ur Barbiturates Screen Ur Tricyclics Screen Ur Phencyclidine Scrn Ur Amphetamine Screen U Methamphetamines Scrn U Benzodiazepines Scrn Urine Cocaine Screen U Cannabinoids Screen Ethyl Alcohol < 5.0 04/13/21 14:55 WBC RBC Hgb Hct MCV MCH MCHC RDW Plt Count MPV Neut # (Auto) Lymph # (Auto) [place] # (Auto) Eos # (Auto) Baso # (Auto) Absolute Nucleated RBC Nucleated RBC % Sodium Potassium Chloride Carbon Dioxide Anion Gap BUN Creatinine Estimated GFR (MDRD) Glucose Calcium Total Bilirubin AST ALT Alkaline Phosphatase Total Protein Albumin Globulin Albumin/Globulin Ratio Lipase TSH Urine Color YELLOW Urine Clarity CLEAR Urine pH 6.0 Ur Specific [place] 1.020 Urine Protein >=300 H Urine Glucose (UA) 100 H Urine Ketones NEGATIVE Urine Occult Blood TRACE-INTA Urine Nitrite NEGATIVE Urine Bilirubin NEGATIVE Urine Urobilinogen 0.2 (NORMAL) Ur Leukocyte Esterase NEGATIVE Urine RBC 0-5 Urine WBC 0-3 Ur Squamous Epith Cells NONE SEEN Urine Bacteria Rare Ur Microscopic Review INDICATED Urine Culture Comments NOT INDICATED Salicylates Urine Opiates Screen NEGATIVE Ur Oxycodone Screen NEGATIVE Urine Methadone Screen NEGATIVE Ur Propoxyphene Screen NEGATIVE Acetaminophen Ur Barbiturates Screen NEGATIVE Ur Tricyclics Screen NEGATIVE Ur Phencyclidine Scrn NEGATIVE Ur Amphetamine Screen NEGATIVE U Methamphetamines Scrn NEGATIVE U Benzodiazepines Scrn NEGATIVE Urine Cocaine Screen NEGATIVE U Cannabinoids Screen NEGATIVE Ethyl Alcohol PD MEDICAL DECISION MAKING - ED course Complexity details: reviewed results, re-evaluated patient, considered differential, d/w patient, d/w [employer] ax consultant ED course: Social work was consulted. Patient feels much better after speaking with social work and request to go home. I think this is reasonable. He contracts for safety. Patient counseled regarding signs and symptoms for which I believe and urgent re-evaluation would be necessary. Patient with good understanding of and agreement to plan and is comfortable going home at this time This document was made in part using voice recognition software. While efforts are made to proofread this document, sound alike and grammatical errors may occur. Departure - Departure Disposition: 01 Home, Self Care Clinical Impression: Depression Qualifiers: Depression Type: major depressive disorder Major depression recurrence: recurrent Active/Remission status: currently active Major depression episode severity: unspecified Qualified Code(s): F33.9 - Major depressive disorder, recurrent, unspecified Hypertension Qualifiers: Hypertension type: unspecified Qualified Code(s): I10 - Essential (primary) hypertension Condition: Good Instructions: ED Depression, ED HTN Established Follow-Up: Dalton Adam MD [Primary Care Provider] - Within 1 week Comments: Continue your current medications at home. Please follow-up with your doctor for adjustment of your blood pressure medications. Follow-up with your psychiatrist to see if your medications need to be adjusted for your depression as well. Return if you worsen Discharge Date/Time: 04/13/21 16:32
[2021-04-13 15:13] LABS: BILIRUBIN,URINE NEGATIVE (NEGATIVE); GLUCOSE, URINE (UA) 100 mg/dL (NEGATIVE); KETONES,URINE (UA) NEGATIVE (NEGATIVE); LEUKOCYTE ESTERASE, URINE NEGATIVE (NEGATIVE); NITRITE,URINE NEGATIVE (NEGATIVE); OCCULT BLOOD,URINE TRACE-INTA (NEGATIVE); PROTEIN,URINE >=300 mg/dL (NEGATIVE); UROBILINOGEN,URINE 0.2 (NORMAL) E.U./dL (NORMAL)
[2021-04-13 15:14] LABS: CLARITY,URINE CLEAR (CLEAR)
[2021-04-13 15:29] LABS: WBC,URINE 0-3 /HPF (0-3)
[2021-04-13 15:30] LABS: AMPHETAMINE SCREEN,URINE NEGATIVE (NEGATIVE); BACTERIA,URINE Rare /HPF (None Seen); BARBITURATE SCREEN,UR NEGATIVE (NEGATIVE); BENZODIAZEPINES SCREEN, URINE NEGATIVE (NEGATIVE); COCAINE SCREEN URINE NEGATIVE (NEGATIVE); METHADONE SCREEN, URINE NEGATIVE (NEGATIVE); METHAMPHETAMINES SCREEN, URINE NEGATIVE (NEGATIVE); OPIATE SCREEN, URINE NEGATIVE (NEGATIVE); OXYCODONE SCREEN, URINE NEGATIVE (NEGATIVE); PROPOXYPHENE SCREEN, URINE NEGATIVE (NEGATIVE); RBC,URINE 0-5 /HPF (0-5); SQUAMOUS EPITHELIAL CELL,UR NONE SEEN (<= Few); THC CANNABINOID SCREEN, URINE NEGATIVE (NEGATIVE); TRICYCLIC ANTIDEPRESSANT,URINE NEGATIVE (NEGATIVE)
[2021-04-13 16:35] VITALS: BP 158/86
== END 2021-04-13 16:32 | disposition home or self-care (01) ==
LOC: ED 14:03
DX: F33.9 Major depressive disorder, recurrent, unspecified (principal); F41.9 Anxiety disorder, unspecified; I10 Essential (primary) hypertension; E11.9 Type 2 diabetes mellitus without complications; Z79.4 Long term (current) use of insulin
CPT/HCPCS: 36415; 80053; 80306; 80307; 81001; 83690; 84443; 85025; 99283; G0480; 80320; 80329; 81003; 87086

== ENCOUNTER 2021-04-18 04:04 | Outpatient (CLI) | payer MEDICAID, MEDICARE | END 2021-04-18 04:05 | disposition critical access hospital (66) | LOC: EMS 04:04 | DX: R45.851 Suicidal ideations (principal) | CPT/HCPCS: A0425; A0429 ==

== ENCOUNTER 2021-04-18 04:18 | Emergency (ER) | payer MEDICARE ==
[2021-04-18 05:06] LABS: MUDS CUTOFF CONCENTRATIONS CUTOFF CONC BELOW:
[2021-04-18 05:10] LABS: BILIRUBIN,URINE NEGATIVE (NEGATIVE); GLUCOSE, URINE (UA) 500 mg/dL (NEGATIVE); KETONES,URINE (UA) NEGATIVE (NEGATIVE); LEUKOCYTE ESTERASE, URINE NEGATIVE (NEGATIVE); NITRITE,URINE NEGATIVE (NEGATIVE); OCCULT BLOOD,URINE NEGATIVE (NEGATIVE); PROTEIN,URINE >=300 mg/dL (NEGATIVE); UROBILINOGEN,URINE 0.2 (NORMAL) E.U./dL (NORMAL)
[2021-04-18 05:11] LABS: CLARITY,URINE CLEAR (CLEAR)
[2021-04-18 05:13] LABS: BASOPHILS % (AUTO) 0.5 %; EOSINOPHILS # (AUTO) 0.2 10^3/uL (0.0-0.7); HCT - HEMATOCRIT 38.2 % (42.0-52.0); HGB - HEMOGLOBIN 12.9 g/dL (14.0-18.0); LYMPHOCYTES # (AUTO) 1.2 10^3/uL (1.5-3.5); LYMPHOCYTES % (AUTO) 16.2 %; MEAN CORPUSCULAR HEMOGLOBIN 30.9 pg (27.0-31.0); MEAN CORPUSCULAR HGB CONC 33.8 g/dL (32.0-36.0); MEAN CORPUSCULAR VOLUME 91.4 fL (80.0-94.0); MEAN PLATELET VOLUME 9.4 fL (7.4-11.4); MONOCYTES # (AUTO) 0.6 10^3/uL (0.0-1.0); MONOCYTES % (AUTO) 7.9 %; NEUTROPHILS # (AUTO) 5.3 10^3/uL (1.5-6.6); PLT - PLATELET COUNT 256 10^3/uL (130-450); RED BLOOD COUNT 4.18 10^6/uL (4.70-6.10); RED CELL DISTRIBUTION WIDTH 12.8 % (12.0-15.0); WHITE BLOOD COUNT 7.4 x10^3/uL (4.8-10.8)
[2021-04-18 05:17] LABS: BACTERIA,URINE Rare /HPF (None Seen); MUCUS,URINE Moderate Strands; RBC,URINE None Seen /HPF (0-5); SQUAMOUS EPITHELIAL CELL,UR MOD Squamous (<= Few); WBC,URINE 0-3 /HPF (0-3)
[2021-04-18 05:18] LABS: AMPHETAMINE SCREEN,URINE NEGATIVE (NEGATIVE); BARBITURATE SCREEN,UR NEGATIVE (NEGATIVE); BENZODIAZEPINES SCREEN, URINE NEGATIVE (NEGATIVE); COCAINE SCREEN URINE NEGATIVE (NEGATIVE); METHADONE SCREEN, URINE NEGATIVE (NEGATIVE); METHAMPHETAMINES SCREEN, URINE NEGATIVE (NEGATIVE); OPIATE SCREEN, URINE NEGATIVE (NEGATIVE); OXYCODONE SCREEN, URINE NEGATIVE (NEGATIVE); PROPOXYPHENE SCREEN, URINE NEGATIVE (NEGATIVE); THC CANNABINOID SCREEN, URINE NEGATIVE (NEGATIVE); TRICYCLIC ANTIDEPRESSANT,URINE NEGATIVE (NEGATIVE)
--- NOTE | 2021-04-18 05:21 | ED Physician Documentation ---
PD HPI MHE - Stated complaint Stated Complaint: MHE - Chief complaint Chief Complaint: MHE - History obtained from History obtained from: Patient - History of Present Illness Primary symptom: Suicidal ideation, Depression Timing - onset: How many weeks ago (3) Contributing factors: Family Similar symptoms before: Diagnosis (depression) Recently seen: Emergency Dept - Additional information Additional information: 50-year-old male who suffers from depression has developed suicidal ideation again and he indicates that as soon as he arrived to the emergency department he began to feel improved and no longer feels suicidal. He has been having issues with increased depression he is not sleeping well at night and he is having intrusive thoughts of suicide. He has a plan to slit his wrist and states that he believes this would be messy and would leave the other people in his life at a loss. He would not like that to happen and he is even acknowledging that he would not like us to experience that if he were to do something. He did have good luck with psychiatric caregiving at the [facility]. He would consider going back to the [place] for psychiatric inpatient care and he would like to try to have his psychiatrist increase his d ose of his Cymbalta or make some other recommendation for medication. He feels that he will be able to contract for a safety plan. Review of Systems Constitutional: denies: Fever Eyes: denies: Decreased vision Ears: denies: Ear pain Nose: denies: Congestion Throat: denies: Sore throat Cardiac: denies: Chest pain / pressure, Palpitations Respiratory: denies: Dyspnea, Cough GI: denies: Abdominal Pain, Nausea, Vomiting, Constipation, Diarrhea : denies: Dysuria, Frequency Skin: denies: Rash Musculoskeletal: denies: Neck pain, Back pain, Extremity pain Neurologic: denies: Generalized weakness, Focal weakness, Numbness, Difficulty speaking Psychiatric: reports: Depressed, Suicidal, Insomnia PD PAST MEDICAL HISTORY - Past Medical History Past Medical History: Yes Cardiovascular: Hypertension, High cholesterol Respiratory: None Neuro: None Endocrine/Autoimmune: Type 2 diabetes GI: None : None HEENT: None Psych: Depression, Anxiety Musculoskeletal: None Derm: None - Past Surgical History Past Surgical History: Yes - Present Medications Home Medications: Ambulatory Orders Medication Instructions Recorded Confirmed Aripiprazole [Abilify] 2 mg PO DAILY 04/12/13 04/18/21 Clonazepam 1 - 2 mg PO DAILY PRN 04/12/13 04/18/21 Insulin Glargine,Hum.rec.anlog 55 unit SQ DAILY 03/07/14 04/18/21 [Lantus] metFORMIN [Glucophage] 1,000 mg ORAL BID 11/10/16 04/18/21 Cholecalciferol (Vitamin D3) 6,000 unit PO DAILY 03/08/17 04/18/21 [Vitamin D3] Ibuprofen [Advil] 200 mg PO BID PRN 03/08/17 04/18/21 Insulin Lispro [Humalog] 30 unit SQ TIDWM 03/08/17 04/18/21 lisinopriL [Lisinopril] 5 mg DAILY 06/05/17 04/18/21 Atorvastatin [Lipitor] 40 mg PO QPM tablet 06/08/17 04/18/21 DULoxetine [Cymbalta] 40 mg PO DAILY capsule 06/08/17 04/18/21 allopurinoL [Allopurinol] 200 mg PO DAILY 10/20/19 04/18/21 - Allergies Allergies/Adverse Reactions: Allergies Allergy/AdvReac Type Severity Reaction Status Date / Time Penicillins Allergy Rash Verified 04/18/21 04:26 sertraline HCl * Allergy bladder Verified 04/18/21 04:26 [From Zoloft] infection lorazepam [From Ativan] AdvReac Anxiety Verified 04/18/21 04:26 - Social History Does the pt smoke?: No Smoking Status: Never smoker Does the pt drink ETOH?: No Does the pt have substance abuse?: No - Immunizations Immunizations are current?: Yes - POLST Patient has POLST: No PD ED PE NORMAL - Vitals Vital signs reviewed: Yes (hypertensive ) - General General: Alert and oriented X 3, No acute distress, Well developed/nourished - HEENT HEENT: Atraumatic, PERRL, EOMI - Neck Neck: Supple, no meningeal sign, No bony TTP - Cardiac Cardiac: RRR, No murmur - Respiratory Respiratory: No respiratory distress, Clear bilaterally - Abdomen Abdomen: Soft, Non tender - Back Back: No CVA TTP, No spinal TTP - Derm Derm: Normal color, Warm and dry, No rash - Extremities Extremities: No deformity, No edema - Neuro Neuro: Alert and oriented X 3, 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, No motor deficit, No sensory deficit, Normal speech Eye Opening: Spontaneous Motor: Obeys Commands Verbal: Oriented GCS Score: 15 - Psych Psych: Normal mood, Normal affect Results - Vitals Vitals: Vital Signs - 24 hr 04/18/21 04/18/21 04:26 04:33 Temperature 36.8 C 36.8 C Heart Rate 78 78 Respiratory 15 16 Rate Blood Pressure 170/90 H 158/88 H O2 Saturation 98 99 Oxygen O2 Source Room air - Labs Labs: Laboratory Tests 04/18/21 04/18/21 04/18/21 05:00 05:04 05:04 WBC 7.4 RBC 4.18 L Hgb 12.9 L Hct 38.2 L MCV 91.4 MCH 30.9 MCHC 33.8 RDW 12.8 Plt Count 256 MPV 9.4 Neut # (Auto) 5.3 Lymph # (Auto) 1.2 L [place] # (Auto) 0.6 Eos # (Auto) 0.2 Baso # (Auto) 0.0 Absolute Nucleated RBC 0.00 Nucleated RBC % 0.0 Sodium 136 Potassium 4.1 Chloride 104 Carbon Dioxide 21 Anion Gap 11.0 BUN 20 Creatinine 1.2 Estimated GFR (MDRD) 64 L Glucose 179 H Calcium 9.4 Total Bilirubin 0.3 AST 18 ALT 29 Alkaline Phosphatase 102 Total Protein 7.4 Albumin 4.2 Globulin 3.2 Albumin/Globulin Ratio 1.3 Lipase 48 TSH Urine Color YELLOW Urine Clarity CLEAR Urine pH 6.0 Ur Specific [place] 1.025 Urine Protein >=300 H Urine Glucose (UA) 500 H Urine Ketones NEGATIVE Urine Occult Blood NEGATIVE Urine Nitrite NEGATIVE Urine Bilirubin NEGATIVE Urine Urobilinogen 0.2 (NORMAL) Ur Leukocyte Esterase NEGATIVE Urine RBC None Seen Urine WBC 0-3 Ur Squamous Epith Cells MOD Squamous H Urine Bacteria Rare Urine Mucus Moderate Strands Ur Microscopic Review INDICATED Urine Culture Comments NOT INDICATED Salicylates < 6.0 Urine Opiates Screen NEGATIVE Ur Oxycodone Screen NEGATIVE Urine Methadone Screen NEGATIVE Ur Propoxyphene Screen NEGATIVE Acetaminophen < 10 L Ur Barbiturates Screen NEGATIVE Ur Tricyclics Screen NEGATIVE Ur Phencyclidine Scrn NEGATIVE Ur Amphetamine Screen NEGATIVE U Methamphetamines Scrn NEGATIVE U Benzodiazepines Scrn NEGATIVE Urine Cocaine Screen NEGATIVE U Cannabinoids Screen NEGATIVE Ethyl Alcohol < 5.0 04/18/21 05:04 WBC RBC Hgb Hct MCV MCH MCHC RDW Plt Count MPV Neut # (Auto) Lymph # (Auto) [place] # (Auto) Eos # (Auto) Baso # (Auto) Absolute Nucleated RBC Nucleated RBC % Sodium Potassium Chloride Carbon Dioxide Anion Gap BUN Creatinine Estimated GFR (MDRD) Glucose Calcium Total Bilirubin AST ALT Alkaline Phosphatase Total Protein Albumin Globulin Albumin/Globulin Ratio Lipase TSH 6.14 H Urine Color Urine Clarity Urine pH Ur Specific [place] Urine Protein Urine Glucose (UA) Urine Ketones Urine Occult Blood Urine Nitrite Urine Bilirubin Urine Urobilinogen Ur Leukocyte Esterase Urine RBC Urine WBC Ur Squamous Epith Cells Urine Bacteria Urine Mucus Ur Microscopic Review Urine Culture Comments Salicylates Urine Opiates Screen Ur Oxycodone Screen Urine Methadone Screen Ur Propoxyphene Screen Acetaminophen Ur Barbiturates Screen Ur Tricyclics Screen Ur Phencyclidine Scrn Ur Amphetamine Screen U Methamphetamines Scrn U Benzodiazepines Scrn Urine Cocaine Screen U Cannabinoids Screen Ethyl Alcohol PD MEDICAL DECISION MAKING - ED course Complexity details: reviewed results, re-evaluated patient, considered differential, d/w patient ED course: 50-year-old male presents to the emergency department with suicidal ideation that improves on arrival and he would like to talk to social media community manager to consider ruslan for safety and he would like to talk to a psychiatrist to consider medication changes. He feels safe in the emergency department currently. Jacki edwin is cleared for evaluation by social work and at shift change care is turned over to Dr. Shahab Hampton.
[2021-04-18 05:28] LABS: ACETAMINOPHEN < 10 ug/mL (10-30); ALBUMIN 4.2 g/dL (3.2-5.5); ALBUMIN/GLOBULIN RATIO 1.3 (1.0-2.2); ALKALINE PHOSPHATASE 102 IU/L (42-121); ALT ALANINE AMINOTRANSFERASE 29 IU/L (10-60); AST ASPARTATE AMINOTRANSFERASE 18 IU/L (10-42); BILIRUBIN,TOTAL 0.3 mg/dL (0.2-1.0); BUN - BLOOD UREA NITROGEN 20 mg/dL (6-20); CALCIUM 9.4 mg/dL (8.5-10.3); CARBON DIOXIDE - CO2 21 mmol/L (21-32); CHLORIDE 104 mmol/L (101-111); CREATININE 1.2 mg/dL (0.6-1.2); ETOH - ETHANOL < 5.0 mg/dL; GFR - MDRD 64 (>89); GLUCOSE 179 mg/dL (70-100); LIPASE 48 U/L (22-51); POTASSIUM 4.1 mmol/L (3.5-5.0); SALICYLATE < 6.0 mg/dL; SODIUM 136 mmol/L (135-145); TOTAL PROTEIN 7.4 g/dL (6.7-8.2)
[2021-04-18 11:52] VITALS: BP 160/95
--- NOTE | 2021-04-23 10:16 | ED Physician Documentation ---
ED Addendum - Addendum Addendum: Care from Dr Rosas on change of shift. Patient talked with social services designee and also was connected with his counselor, with whome he spoke in ER. Patient feeling that he can contract for safety. Has counseling appt for tomorrow. He feels okay with going home. Diagnosis: depression, suicical ideation Disposition: discharged home in stable condition 04/23/21 10:14
== END 2021-04-18 11:51 | disposition home or self-care (01) ==
LOC: ED 04:18
DX: R45.851 Suicidal ideations (principal); F32.9 Major depressive disorder, single episode, unspecified; I10 Essential (primary) hypertension; E11.9 Type 2 diabetes mellitus without complications; Z79.4 Long term (current) use of insulin
CPT/HCPCS: 36415; 80053; 80306; 80307; 81001; 83690; 84443; 85025; 99283; G0480; 80320; 80329; 81003; 87086

== ENCOUNTER 2021-04-25 08:08 | Outpatient (CLI) | payer MEDICAID, MEDICARE ==
[2021-04-25 08:47] LABS: ALBUMIN 3.9 g/dL (3.2-5.5); ALBUMIN/GLOBULIN RATIO 1.2 (1.0-2.2); BILIRUBIN,TOTAL 0.7 mg/dL (0.2-1.0); CALCIUM 9.3 mg/dL (8.5-10.3); CREATININE 1.2 mg/dL (0.6-1.2); POTASSIUM 4.6 mmol/L (3.5-5.0); TOTAL PROTEIN 7.2 g/dL (6.7-8.2)
== END 2021-04-25 08:09 | disposition home or self-care (01) ==
LOC: LAB 08:08
PROVIDERS: ATTEND Internal Medicine
DX: E87.5 Hyperkalemia (principal); E11.8 Type 2 diabetes mellitus with unspecified complications
CPT/HCPCS: 36415; 80053; 82985

== ENCOUNTER 2021-08-08 08:03 | Outpatient (CLI) | payer MEDICARE ==
[2021-08-08 08:25] LABS: BILIRUBIN,URINE NEGATIVE (NEGATIVE); GLUCOSE, URINE (UA) NEGATIVE (NEGATIVE); KETONES,URINE (UA) NEGATIVE (NEGATIVE); LEUKOCYTE ESTERASE, URINE NEGATIVE (NEGATIVE); NITRITE,URINE NEGATIVE (NEGATIVE); OCCULT BLOOD,URINE TRACE-INTA (NEGATIVE); PROTEIN,URINE 100 mg/dL (NEGATIVE); UROBILINOGEN,URINE 0.2 (NORMAL) E.U./dL (NORMAL)
[2021-08-08 08:35] LABS: ALBUMIN 4.1 g/dL (3.2-5.5); ALBUMIN/GLOBULIN RATIO 1.4 (1.0-2.2); BILIRUBIN,TOTAL 0.4 mg/dL (0.2-1.0); CREATININE 1.3 mg/dL (0.6-1.2); POTASSIUM 4.6 mmol/L (3.5-5.0); TOTAL PROTEIN 7.1 g/dL (6.7-8.2)
[2021-08-08 08:36] LABS: BACTERIA,URINE None Seen /HPF (None Seen); CLARITY,URINE CLEAR (CLEAR); RBC,URINE None Seen /HPF (0-5); SQUAMOUS EPITHELIAL CELL,UR NONE SEEN (<= Few); WBC,URINE 0-3 /HPF (0-3)
[2021-08-08 08:37] LABS: ESTIMATED AVERAGE GLUCOSE 183 mg/dL (70-100)
== END 2021-08-08 08:04 | disposition home or self-care (01) ==
LOC: LAB 08:03
PROVIDERS: ATTEND Internal Medicine
DX: E87.1 Hypo-osmolality and hyponatremia (principal); R80.9 Proteinuria, unspecified; E11.8 Type 2 diabetes mellitus with unspecified complications
CPT/HCPCS: 36415; 80053; 81001; 82985; 83036

== ENCOUNTER 2021-09-08 11:59 | Outpatient (CLI) | payer MEDICARE | END 2021-09-08 12:00 | disposition EMS.NT | LOC: EMS 11:59 | DX: R29.898 Other symptoms and signs involving the musculoskeletal system (principal) ==

== ENCOUNTER 2021-09-08 12:06 | Emergency (ER) | payer MEDICARE ==
--- NOTE | 2021-09-08 13:34 | XRAY Report ---
PROCEDURE: Chest 1 View X-Ray INDICATIONS: Chest Pain TECHNIQUE: One view of the chest was acquired. COMPARISON: Chest x-ray report 04/12/2013, images are not available for comparison. FINDINGS: Surgical changes and devices: None. Lungs and pleura: No pleural effusions or pneumothorax. Lungs are clear. Mediastinum: Mediastinal contours appear normal. Heart size is normal. Bones and chest wall: No suspicious bony lesions. Overlying soft tissues appear unremarkable. IMPRESSION: No acute pulmonary process. Reviewed by: Gayle Jason MD on 09/08/2021 1:32 PM PDT Approved by: Gayle Jason MD on 09/08/2021 1:32 PM PDT Station ID: [id number]
[2021-09-08 13:45] LABS: BASOPHILS % (AUTO) 0.4 %; EOSINOPHILS # (AUTO) 0.2 10^3/uL (0.0-0.7); EOSINOPHILS % (AUTO) 2.4 %; HCT - HEMATOCRIT 36.8 % (42.0-52.0); HGB - HEMOGLOBIN 12.6 g/dL (14.0-18.0); LYMPHOCYTES # (AUTO) 1.7 10^3/uL (1.5-3.5); LYMPHOCYTES % (AUTO) 17.9 %; MEAN CORPUSCULAR HEMOGLOBIN 31.5 pg (27.0-31.0); MEAN CORPUSCULAR HGB CONC 34.2 g/dL (32.0-36.0); MEAN PLATELET VOLUME 9.8 fL (7.4-11.4); MONOCYTES # (AUTO) 0.8 10^3/uL (0.0-1.0); MONOCYTES % (AUTO) 8.5 %; NEUTROPHILS # (AUTO) 6.6 10^3/uL (1.5-6.6); NEUTROPHILS % (AUTO) 70.5 %; PLT - PLATELET COUNT 259 10^3/uL (130-450); RED CELL DISTRIBUTION WIDTH 13.4 % (12.0-15.0); WHITE BLOOD COUNT 9.3 x10^3/uL (4.8-10.8)
[2021-09-08 14:03] LABS: ALBUMIN 4.2 g/dL (3.2-5.5); ALBUMIN/GLOBULIN RATIO 1.3 (1.0-2.2); BILIRUBIN,TOTAL 0.5 mg/dL (0.2-1.0); CALCIUM 9.2 mg/dL (8.5-10.3); CREATININE 1.4 mg/dL (0.6-1.2); POTASSIUM 4.5 mmol/L (3.5-5.0); TOTAL PROTEIN 7.4 g/dL (6.7-8.2)
[2021-09-08] MEDS ORDERED: SODIUM CHLORIDE 0.9% 1,000 ML IV STA (16:59)
[2021-09-08] MEDS ORDERED: IOVERSOL 320 100 ML VIAL IVP ONE (17:10)
--- NOTE | 2021-09-08 17:35 | ED Physician Documentation ---
History of Present Illness - Stated complaint Stated Complaint: FACIAL/ARM NUMBNESS - Chief complaint Chief Complaint: Neuro - Additonal information Additional information: 51-year-old male who is a diabetic presents to the emergency department for evaluation of tingling in his lips and tongue as well as tingling in his right arm. He reports that the symptoms began about 1 week ago. He has constant tingling in his right arm but the tingling in his lips and tongue is intermittent. He denies any fevers. No neck pain. No falls or trauma. No slurred speech or focal weakness. He reports his last A1c of 8. He is insulin-dependent. Review of Systems Constitutional: denies: Fever Eyes: reports: Reviewed and negative Nose: reports: Reviewed and negative Throat: reports: Reviewed and negative Cardiac: reports: Reviewed and negative Respiratory: reports: Reviewed and negative GI: reports: Reviewed and negative : reports: Reviewed and negative Skin: reports: Reviewed and negative Musculoskeletal: denies: Neck pain Neurologic: reports: Other (Perioral tingling as well as right arm numbness and tingling.) PD PAST MEDICAL HISTORY - Past Medical History Cardiovascular: Hypertension, High cholesterol Respiratory: None Neuro: None Endocrine/Autoimmune: Type 2 diabetes GI: None : None HEENT: None Psych: Depression, Anxiety Musculoskeletal: None Derm: None - Past Surgical History Past Surgical History: Yes - Present Medications Home Medications: Ambulatory Orders Medication Instructions Recorded Confirmed Aripiprazole [Abilify] 2 mg PO DAILY 04/12/13 04/18/21 Clonazepam 1 - 2 mg PO DAILY PRN 04/12/13 04/18/21 Insulin Glargine,Hum.rec.anlog 55 unit SQ DAILY 03/07/14 04/18/21 [Lantus] metFORMIN [Glucophage] 1,000 mg ORAL BID 11/10/16 04/18/21 Cholecalciferol (Vitamin D3) 6,000 unit PO DAILY 03/08/17 04/18/21 [Vitamin D3] Ibuprofen [Advil] 200 mg PO BID PRN 03/08/17 04/18/21 Insulin Lispro [Humalog] 30 unit SQ TIDWM 03/08/17 04/18/21 lisinopriL [Lisinopril] 5 mg DAILY 06/05/17 04/18/21 Atorvastatin [Lipitor] 40 mg PO QPM tablet 06/08/17 04/18/21 DULoxetine [Cymbalta] 40 mg PO DAILY capsule 06/08/17 04/18/21 allopurinoL [Allopurinol] 200 mg PO DAILY 10/20/19 04/18/21 - Allergies Allergies/Adverse Reactions: Allergies Allergy/AdvReac Type Severity Reaction Status Date / Time Penicillins Allergy Rash Verified 09/08/21 12:17 sertraline HCl * Allergy bladder Verified 09/08/21 12:17 [From Zoloft] infection lorazepam [From Ativan] AdvReac Anxiety Verified 09/08/21 12:17 - Social History Does the pt smoke?: No Smoking Status: Never smoker Does the pt drink ETOH?: No Does the pt have substance abuse?: No - Immunizations Immunizations are current?: Yes - POLST Patient has POLST: No PD ED PE NORMAL - General General: Alert and oriented X 3, No acute distress - HEENT HEENT: PERRL - Neck Neck: Supple, no meningeal sign - Cardiac Cardiac: RRR, No murmur - Respiratory Respiratory: Clear bilaterally - Abdomen Abdomen: Normal bowel sounds, Soft, Non tender, Non distended - Back Back: No CVA TTP - Derm Derm: Normal color, Warm and dry, No rash - Extremities Extremities: No deformity, No tenderness to palpate, Normal ROM s pain - Neuro Neuro: Alert and oriented X 3, 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, No motor deficit, No sensory deficit, Normal speech, Other Eye Opening: Spontaneous Motor: Obeys Commands Verbal: Oriented GCS Score: 15 Results - Vitals Vitals: Vital Signs - 24 hr 09/08/21 09/08/21 09/08/21 12:12 15:45 20:03 Temperature 36.6 C 36.3 C L Heart Rate 79 76 72 Respiratory 16 16 17 Rate Blood Pressure 159/81 H 149/81 H 158/88 H O2 Saturation 96 99 98 Oxygen O2 Source Room air - EKG (time done) 2007 Rate: Rate (enter#) (65) Rhythm: NSR [place]: Normal Intervals: Normal IA QRS: Normal Ischemia: Normal ST segments Compare to prior EKG: Old EKG unavailable Computer interpretation: Agree with computer - Labs Labs: Laboratory Tests 09/08/21 09/08/21 09/08/21 13:39 13:39 13:39 WBC 9.3 RBC 4.00 L Hgb 12.6 L Hct 36.8 L MCV 92.0 MCH 31.5 H MCHC 34.2 RDW 13.4 Plt Count 259 MPV 9.8 Neut # (Auto) 6.6 Lymph # (Auto) 1.7 [place] # (Auto) 0.8 Eos # (Auto) 0.2 Baso # (Auto) 0.0 Absolute Nucleated RBC 0.00 Nucleated RBC % 0.0 Sodium 137 Potassium 4.5 Chloride 104 Carbon Dioxide 23 Anion Gap 10.0 BUN 30 H Creatinine 1.4 H Estimated GFR (MDRD) 53 L Glucose 172 H Calcium 9.2 Total Bilirubin 0.5 AST 20 ALT 28 Alkaline Phosphatase 100 Troponin I High Sens 6.1 Total Protein 7.4 Albumin 4.2 Globulin 3.2 Albumin/Globulin Ratio 1.3 Lipase 69 H - Rads (name of study) CT head Radiology: Final report received (No evidence of acute intracranial abnormality. Prominence of the ventricles likely refract central cerebral volume loss the differential includes possible normal pressure hydrocephalus.) PD MEDICAL DECISION MAKING - ED course Complexity details: reviewed results, re-evaluated patient, d/w patient ED course: 51-year-old male presents emergency department for evaluation of intermittent perioral tingling and numbness that began about 1 week ago. He also has associated symptoms in the right arm and left leg. However his neurological exam is unremarkable. Negative fast NIHSS score of 0. He is a type I diabetic with a last A1c of 8. Screening labs today show a likely mild dehydrated with a BUN and creatinine that are just mildly elevated. EKG is nonischemic. High-sensitivity troponin is negative. We did do a noncontrast CT that suggest cerebral volume loss however ventricle size may also be seen in setting such as normal pressure hydrocephalus. This finding was discussed with the patient at the bedside. He follows up with his PCP next week. I did recommend neurology evaluation or an MRI. Emergent worrisome return precautions were discussed. Departure - Departure Disposition: 01 Home, Self Care Clinical Impression: Perioral numbness, Ventricular enlargement due to brain atrophy Condition: Stable Record reviewed to determine appropriate education?: Yes Comments: James you were seen in the emergency department today for intermittent numbness and tingling in your mouth and lip area. You also had some similar symptoms in your right arm and left leg. Your neuro and cerebellar exam are normal today. Your screening labs also did not show any worrisome findings. You may be somewhat dehydrated I encourage you to drink more water over the next few days. We did do a noncontrast CT of the head. It does suggest that the ventricles may be mildly large. This could be due to a condition called normal pressure hydrocephalus or can be due to a shrinking brain. Would like you to discuss this finding with your primary care provider. Further evaluation with an MRI may be indicated. You may also benefit from referral to a neurologist. There are other things that can cause numbness and tingling in the extremities besides problems with the brain such as vitamin deficiencies. Discussed this with your primary care provider as well.
--- NOTE | 2021-09-08 19:46 | CT Report ---
PROCEDURE: HEAD WO INDICATIONS: perioral tingling TECHNIQUE: Noncontrast 4.5 mm thick angled axial sections acquired from the foramen magnum to the vertex. For r adiation dose reduction, the following was used: automated exposure control, adjustment of mA and/or kV according to patient size. COMPARISON: MR brain. FINDINGS: Image quality: Excellent. CSF spaces: Basal cisterns are patent. No extra-axial fluid collections. Ventricles are mildly pro minent in size suggestive of central cerebral volume loss. Brain: No definite intracranial hemorrhage, mass, or mass effect. Slight linear cortical hyperattenua tion along the bilateral frontal lobes as seen on series 4 images 16 and 17 likely represent beam radhika dening artifact. Diamond-white matter interface appears preserved. Skull and face: Calvarium and visualized facial bones are intact, without suspicious lesions. Sinuses: Visualized sinuses and mastoids are clear. IMPRESSION: 1. No definite acute intracranial abnormality. 2. Prominence of the ventricles likely reflect central cerebral volume loss. The differential include s possible normal pressure hydrocephalus. Correlation is recommended clinically. 3. Bilateral linear areas of cortical high attenuation along the frontal lobes are likely artifactual . Reviewed by: Anish Montiel MD on 09/08/2021 7:45 PM PDT Approved by: Anish Montiel MD on 09/08/2021 7:45 PM PDT Station ID: [id number]
[2021-09-08 20:03] VITALS: BP 158/88
== END 2021-09-08 20:34 | disposition home or self-care (01) ==
LOC: ED 12:06
DX: R19.8 Other specified symptoms and signs involving the digestive system and abdomen (principal); R20.0 Anesthesia of skin; R20.2 Paresthesia of skin; G31.9 Degenerative disease of nervous system, unspecified; G93.89 Other specified disorders of brain; E10.9 Type 1 diabetes mellitus without complications; Z79.4 Long term (current) use of insulin; Z79.84 Long term (current) use of oral hypoglycemic drugs; I10 Essential (primary) hypertension
CPT/HCPCS: 36415; 80053; 83690; 84484; 85025; 93005; 99284

== ENCOUNTER 2021-09-18 07:10 | Outpatient (CLI) | payer MEDICARE ==
--- NOTE | 2021-09-18 09:23 | MRI Report ---
PROCEDURE: Brain W/O INDICATIONS: RIGHT FACE AND ARM TINGLING, HYDROCEPHALUS TECHNIQUE: Noncontrast axial T1 spin echo, axial T2 fast spin echo, sagittal and axial FLAIR, coronal T2 fast sp in echo, axial gradient echo, axial diffusion and ADC through the brain. COMPARISON: Head CT dated 09/08/2021 FINDINGS: Image quality: Excellent. CSF Spaces: Basal cisterns are patent. No extra-axial fluid collections. Ventricles are normal in size and shape. Brain: No intracranial masses or hemorrhage. There is moderate diffuse cerebral volume loss. There i s a mild degree of patchy high FLAIR signal within the periventricular and subcortical white matter, as well as the an, consistent with small vessel ischemic disease. Diamond/white matter interface is no rmal. Brainstem otherwise appears normal. Diffusion-weighted images demonstrate no acute ischemic i nsult. No chronic ischemic insults. Normal intravascular flow voids are present. Skull and face: Calvarium has normal marrow signal. Orbits appear normal. Sinuses: Sinuses and mastoids are clear. IMPRESSION: 1. Volume loss and small vessel ischemic disease. 2. No acute process. No recent infarct. Reviewed by: Marti Wilson MD on 09/18/2021 9:22 AM PST Approved by: Marti Wilson MD on 09/18/2021 9:22 AM PST Station ID: [id number]
== END 2021-09-18 07:11 | disposition home or self-care (01) ==
LOC: DI 07:10
PROVIDERS: ATTEND Internal Medicine
DX: R20.2 Paresthesia of skin (principal); I67.82 Cerebral ischemia

== ENCOUNTER 2021-09-25 07:42 | Outpatient (CLI) | payer MEDICARE ==
[2021-09-25 08:03] LABS: BASOPHILS % (AUTO) 0.5 %; EOSINOPHILS # (AUTO) 0.2 10^3/uL (0.0-0.7); EOSINOPHILS % (AUTO) 2.6 %; HCT - HEMATOCRIT 36.3 % (42.0-52.0); HGB - HEMOGLOBIN 12.4 g/dL (14.0-18.0); LYMPHOCYTES # (AUTO) 1.2 10^3/uL (1.5-3.5); LYMPHOCYTES % (AUTO) 14.9 %; MEAN CORPUSCULAR HEMOGLOBIN 31.2 pg (27.0-31.0); MEAN CORPUSCULAR HGB CONC 34.2 g/dL (32.0-36.0); MEAN CORPUSCULAR VOLUME 91.4 fL (80.0-94.0); MEAN PLATELET VOLUME 9.6 fL (7.4-11.4); MONOCYTES # (AUTO) 0.5 10^3/uL (0.0-1.0); MONOCYTES % (AUTO) 6.7 %; NEUTROPHILS # (AUTO) 5.8 10^3/uL (1.5-6.6); NEUTROPHILS % (AUTO) 74.9 %; PLT - PLATELET COUNT 218 10^3/uL (130-450); RED BLOOD COUNT 3.97 10^6/uL (4.70-6.10); RED CELL DISTRIBUTION WIDTH 13.2 % (12.0-15.0); WHITE BLOOD COUNT 7.7 x10^3/uL (4.8-10.8)
[2021-09-25 08:18] LABS: ALBUMIN 4.1 g/dL (3.2-5.5); ALBUMIN/GLOBULIN RATIO 1.3 (1.0-2.2); BILIRUBIN,TOTAL 0.6 mg/dL (0.2-1.0); CREATININE 1.5 mg/dL (0.6-1.2); POTASSIUM 4.7 mmol/L (3.5-5.0); TOTAL PROTEIN 7.3 g/dL (6.7-8.2)
[2021-09-25 08:35] LABS: THYROID STIMULATING HORMONE 3.49 uIU/mL (0.34-5.60)
[2021-09-25 10:51] LABS: ESTIMATED AVERAGE GLUCOSE 180 mg/dL (70-100); HEMOGLOBIN A1c% 7.9 % (4.27-6.07)
== END 2021-09-25 07:43 | disposition home or self-care (01) ==
LOC: LAB 07:42
PROVIDERS: ATTEND Internal Medicine
DX: E11.9 Type 2 diabetes mellitus without complications (principal); R53.83 Other fatigue; R20.2 Paresthesia of skin
CPT/HCPCS: 36415; 80053; 82043; 82570; 82607; 83036; 84443; 85025

== ENCOUNTER 2021-11-29 06:14 | Day surgery (SDC) | payer MEDICAID, MEDICARE ==
[2021-11-29] MEDS ORDERED: LACTATED RINGERS 1,000 ML IV ONE ×2 (06:23→08:25)
[2021-11-29] MEDS ORDERED: MIDAZOLAM 2 MG/2 ML VIAL ONE (07:01)
[2021-11-29] MEDS ORDERED: PROPOFOL 500 MG/50 ML 500 MG/50 ML VIAL ONE (07:02)
--- NOTE | 2021-11-29 07:25 | ANESTHESIA ---
Pre-Anesthesia VS, & Labs - Diagnosis screening - Procedure colonoscopy Vital Signs: Temp Pulse Resp BP Pulse Ox 36 C L 95 16 166/95 H 98 11/29/21 06:30 11/29/21 06:30 11/29/21 06:30 11/29/21 06:30 11/29/21 06:30 Height: 5 ft 6 in Weight (kg): 103 kg Body Mass Index: 36.6 BMI Classification: Obese - NPO >8 hours - Lab Results Current Lab Results: Laboratory Tests 11/29/21 06:34: POC Whole Bld Glucose 214 H Home Medications and Allergies Aripiprazole [Abilify] 2 mg PO DAILY 04/12/13 Clonazepam 1 - 2 mg PO DAILY PRN 04/12/13 Insulin Glargine,Hum.rec.anlog [Lantus] 55 unit SQ DAILY 03/07/14 metFORMIN [Glucophage] 1,000 mg ORAL BID 11/10/16 Cholecalciferol (Vitamin D3) [Vitamin D3] 6,000 unit PO DAILY 03/08/17 Ibuprofen [Advil] 200 mg PO BID PRN 03/08/17 Insulin Lispro [Humalog] 30 unit SQ TIDWM 03/08/17 lisinopriL [Lisinopril] 5 mg DAILY 06/05/17 allopurinoL [Allopurinol] 200 mg PO DAILY 10/20/19 Allergies/Adverse Reactions: Allergies Allergy/AdvReac Type Severity Reaction Status Date / Time Penicillins Allergy Rash Verified 09/08/21 12:17 sertraline HCl * Allergy bladder Verified 09/08/21 12:17 [From Zoloft] infection lorazepam [From Ativan] AdvReac Anxiety Verified 09/08/21 12:17 Anes History & Medical History - Anesthetic History Anesthesia Complications: reports: No previous complications Family history of Anesthesia Complications: Denies Family history of Malignant Hyperthermia: Denies - Medical History Cardiovascular: reports: Hypertension, High cholesterol Pulmonary: reports: None Gastrointestinal: reports: None Urinary: reports: None Neuro: reports: None Musculoskeletal: reports: None Endocrine/Autoimmune: reports: Type 2 diabetes Blood Disorders: reports: None Skin: reports: None Smoking Status: Never smoker Exam General: Alert, Oriented x3, Cooperative Dental: WNL Mouth Openin Fingerbreadth Neck Mobility: Normal Mallampati classification: II Thyromental Distance: 4-6 cm Respiratory: Lungs clear, Normal breath sounds, No respiratory distress Cardiovascular: Regular rate Neurological: Normal speech Mental/Cognitive Status: Alert/Oriented X3, Normal for patient Cognitive Status: Within normal limits Plan Anesthesia Type: Total IV Consent for Procedure(s) Verified and Reviewed: Yes Code Status: Attempt Resuscitation ASA classification: 2-Mild systemic disease Is this case an emergency?: No
[2021-11-29] MEDS ORDERED: PROPOFOL 200 MG/20 ML VIAL IVP ONE ×2 (07:56→08:12)
[2021-11-29 08:47] VITALS: BP 160/93
--- NOTE | 2021-11-29 13:05 | ANESTHESIA POST OP EVALUATION ---
Anesthesia Post Eval - Post Anesthesia Eval Vitals: Last Vital Signs Temp 36.8 C 11/29/21 08:25 Pulse 82 11/29/21 08:45 Resp 24 11/29/21 08:45 BP 160/93 H 11/29/21 08:45 Pulse Ox 99 11/29/21 08:45 CV Function Including HR & BP: Stable Pain Control: Satisfactory Nausea & Vomiting: Negative Mental Status: Baseline Respiratory Status: Airway Patent Hydration Status: Satisfactory Anesthesia Complications: None
== END 2021-11-29 06:15 | disposition home or self-care (01) ==
LOC: SDS 06:14
PROVIDERS: ATTEND Surgery
DX: Z12.11 Encounter for screening for malignant neoplasm of colon (principal); K57.30 Diverticulosis of large intestine without perforation or abscess without bleeding; E66.9 Obesity, unspecified; I10 Essential (primary) hypertension; E11.22 Type 2 diabetes mellitus with diabetic chronic kidney disease; N18.31 Chronic kidney disease, stage 3a; Z68.39 Body mass index [BMI] 39.0-39.9, adult; Z79.4 Long term (current) use of insulin; Z79.84 Long term (current) use of oral hypoglycemic drugs; Z79.899 Other long term (current) drug therapy; Z90.49 Acquired absence of other specified parts of digestive tract
CPT/HCPCS: G0121; J7120

== ENCOUNTER 2022-01-19 03:59 | Outpatient (CLI) | payer MEDICARE | END 2022-01-19 04:00 | disposition critical access hospital (66) | LOC: EMS 03:59 | DX: R45.851 Suicidal ideations (principal) | CPT/HCPCS: A0425; A0429 ==

== ENCOUNTER 2022-01-19 04:06 | Emergency (ER) | payer MEDICARE ==
--- NOTE | 2022-01-19 04:06 | ED Physician Documentation ---
PD HPI MHE - Stated complaint Stated Complaint: SI/ANXIETY - History obtained from History obtained from: Patient - History of Present Illness Primary symptom: Suicidal ideation Timing - onset: Enter time (01:00), Today Pain level now: 0 Contributing factors: Other (no specific inciting event) Similar symptoms before: Diagnosis (depression) - Additional information Additional information: c/o vague suicidal thoughts without specific plan. He says he has been dealing with depression for many years and has developed a sense for when his depression and feelings of guilt and worthlessness can wait until one of his mental health providers can evaluate him versus when he needs to come to the ED due to feeling overwhelmed by these feelings. He has no recent changes in his medication regimen nor missed doses. Denies HI/AH/VH. Does not want inpatient treatment Review of Systems Cardiac: reports: Reviewed and negative Respiratory: reports: Reviewed and negative GI: reports: Reviewed and negative Psychiatric: reports: Depressed, Suicidal (vague thoughts of self-harm without specific plan). denies: Homicidal, Hallucinations, Delusions PD PAST MEDICAL HISTORY - Past Medical History Past Medical History: Yes Psych: Depression - Present Medications Home Medications: Ambulatory Orders Medication Instructions Recorded Confirmed Aripiprazole [Abilify] 2 mg PO DAILY 04/12/13 01/19/22 Clonazepam 1 - 2 mg PO DAILY PRN 04/12/13 01/19/22 Insulin Glargine,Hum.rec.anlog 80 unit SQ DAILY 03/07/14 01/19/22 [Lantus] metFORMIN [Glucophage] 1,000 mg ORAL BID 11/10/16 01/19/22 Cholecalciferol (Vitamin D3) 6,000 unit PO DAILY 03/08/17 01/19/22 [Vitamin D3] Insulin Lispro [Humalog] 30 unit SQ TIDWM 03/08/17 01/19/22 lisinopriL [Lisinopril] 5 mg DAILY 06/05/17 01/19/22 Atorvastatin [Lipitor] 40 mg PO QPM tablet 06/08/17 01/19/22 DULoxetine [Cymbalta] 40 mg PO DAILY capsule 06/08/17 01/19/22 allopurinoL [Allopurinol] 200 mg PO DAILY 10/20/19 01/19/22 Aspirin [[place] Aspirin] 81 mg PO DAILY 01/19/22 01/19/22 Cholecalciferol (Vitamin D3) 1,250 mcg PO DAILY 01/19/22 01/19/22 [Vitamin D3] - Allergies Allergies/Adverse Reactions: Allergies Allergy/AdvReac Type Severity Reaction Status Date / Time Penicillins Allergy Rash Verified 01/19/22 04:31 sertraline HCl * Allergy bladder Verified 01/19/22 04:31 [From Zoloft] infection lorazepam [From Ativan] AdvReac Anxiety Verified 01/19/22 04:31 PD ED PE NORMAL - Vitals Vital signs reviewed: Yes - General General: Alert and oriented X 3, No acute distress, Well developed/nourished - Cardiac Cardiac: RRR, No murmur - Respiratory Respiratory: No respiratory distress, Clear bilaterally - Abdomen Abdomen: Soft, Non tender - Neuro Neuro: Alert and oriented X 3, Normal speech Eye Opening: Spontaneous Motor: Obeys Commands Verbal: Oriented GCS Score: 15 - Psych Psych: Normal mood, Normal affect Results - Vitals Vitals: Oxygen O2 Source Room air - Labs Labs: Laboratory Tests 01/19/22 01/19/22 01/19/22 04:30 04:55 04:55 WBC 8.1 RBC 3.81 L Hgb 11.9 L Hct 35.1 L MCV 92.1 MCH 31.2 H MCHC 33.9 RDW 13.4 Plt Count 224 MPV 9.3 Neut # (Auto) 5.7 Lymph # (Auto) 1.4 L [place] # (Auto) 0.7 Eos # (Auto) 0.3 Baso # (Auto) 0.0 Absolute Nucleated RBC 0.00 Nucleated RBC % 0.0 Sodium 135 Potassium 5.1 H Chloride 102 Carbon Dioxide 21 Anion Gap 12.0 BUN 26 H Creatinine 1.4 H Estimated GFR (MDRD) 53 L Glucose 143 H Calcium 9.0 Total Bilirubin 0.2 AST 17 ALT 20 Alkaline Phosphatase 95 Total Protein 6.8 Albumin 3.9 Globulin 2.9 Albumin/Globulin Ratio 1.3 Lipase 78 H TSH Urine Color YELLOW Urine Clarity CLEAR Urine pH 6.0 Ur Specific [place] 1.025 Urine Protein >=300 H Urine Glucose (UA) 100 H Urine Ketones NEGATIVE Urine Occult Blood TRACE-INTA Urine Nitrite NEGATIVE Urine Bilirubin NEGATIVE Urine Urobilinogen 0.2 (NORMAL) Ur Leukocyte Esterase NEGATIVE Urine RBC 0-5 Urine WBC 4-5 Ur Squamous Epith Cells RARE Squamous Urine Bacteria Rare Urine Casts 0-2 Hyaline Casts Ur Microscopic Review INDICATED Urine Culture Comments NOT INDICATED Salicylates < 6.0 Urine Opiates Screen NEGATIVE Ur Oxycodone Screen NEGATIVE Urine Methadone Screen NEGATIVE Ur Propoxyphene Screen NEGATIVE Acetaminophen < 10 L Ur Barbiturates Screen NEGATIVE Ur Tricyclics Screen NEGATIVE Ur Phencyclidine Scrn NEGATIVE Ur Amphetamine Screen NEGATIVE U Methamphetamines Scrn NEGATIVE U Benzodiazepines Scrn NEGATIVE Urine Cocaine Screen NEGATIVE U Cannabinoids Screen NEGATIVE Ethyl Alcohol < 5.0 01/19/22 04:55 WBC RBC Hgb Hct MCV MCH MCHC RDW Plt Count MPV Neut # (Auto) Lymph # (Auto) [place] # (Auto) Eos # (Auto) Baso # (Auto) Absolute Nucleated RBC Nucleated RBC % Sodium Potassium Chloride Carbon Dioxide Anion Gap BUN Creatinine Estimated GFR (MDRD) Glucose Calcium Total Bilirubin AST ALT Alkaline Phosphatase Total Protein Albumin Globulin Albumin/Globulin Ratio Lipase TSH 8.08 H Urine Color Urine Clarity Urine pH Ur Specific [place] Urine Protein Urine Glucose (UA) Urine Ketones Urine Occult Blood Urine Nitrite Urine Bilirubin Urine Urobilinogen Ur Leukocyte Esterase Urine RBC Urine WBC Ur Squamous Epith Cells Urine Bacteria Urine Casts Ur Microscopic Review Urine Culture Comments Salicylates Urine Opiates Screen Ur Oxycodone Screen Urine Methadone Screen Ur Propoxyphene Screen Acetaminophen Ur Barbiturates Screen Ur Tricyclics Screen Ur Phencyclidine Scrn Ur Amphetamine Screen U Methamphetamines Scrn U Benzodiazepines Scrn Urine Cocaine Screen U Cannabinoids Screen Ethyl Alcohol PD MEDICAL DECISION MAKING - ED course Complexity details: reviewed old records, re-evaluated patient, considered differential, d/w patient ED course: Held until AM pending evaluation. He endorses feeling more depressed than his baseline with vague thoughts of suicide without specific plan. Does not describe any intent to self-harm but he says he tries to seek help when he feels he is heading towards darker thoughts before he gets to a point when he would be more likely to act on thought of these thoughts rather than seek help for them. Care of patient turned over to Dr. Rosas pending consult in AM Departure - Departure Disposition: 01 Home, Self Care Clinical Impression: Depressive disorder Condition: Stable Instructions: ED Stress React, ED Depression Follow-Up: Dalton Adam MD [Credentialed Staff Provider] - Comments: James, today it looks like you have an episode of depression again, and it looks like we have been able to make contact with your psychiatrist for an urgent appointment. Follow your safety plan as you always have in the past. We are here 24 hours a day. Discharge Date/Time: 01/19/22 11:19
[2022-01-19 04:34] LABS: MUDS CUTOFF CONCENTRATIONS CUTOFF CONC BELOW:
[2022-01-19 04:35] LABS: BILIRUBIN,URINE NEGATIVE (NEGATIVE); GLUCOSE, URINE (UA) 100 mg/dL (NEGATIVE); KETONES,URINE (UA) NEGATIVE (NEGATIVE); LEUKOCYTE ESTERASE, URINE NEGATIVE (NEGATIVE); NITRITE,URINE NEGATIVE (NEGATIVE); OCCULT BLOOD,URINE TRACE-INTA (NEGATIVE); PROTEIN,URINE >=300 mg/dL (NEGATIVE); UROBILINOGEN,URINE 0.2 (NORMAL) E.U./dL (NORMAL)
[2022-01-19 04:36] LABS: CLARITY,URINE CLEAR (CLEAR)
[2022-01-19 04:44] LABS: BACTERIA,URINE Rare /HPF (None Seen); RBC,URINE 0-5 /HPF (0-5); SQUAMOUS EPITHELIAL CELL,UR RARE Squamous (<= Few)
[2022-01-19 04:45] LABS: CASTS, URINE 0-2 Hyaline Casts /LPF
[2022-01-19 04:46] LABS: AMPHETAMINE SCREEN,URINE NEGATIVE (NEGATIVE); BARBITURATE SCREEN,UR NEGATIVE (NEGATIVE); BENZODIAZEPINES SCREEN, URINE NEGATIVE (NEGATIVE); COCAINE SCREEN URINE NEGATIVE (NEGATIVE); METHADONE SCREEN, URINE NEGATIVE (NEGATIVE); METHAMPHETAMINES SCREEN, URINE NEGATIVE (NEGATIVE); OPIATE SCREEN, URINE NEGATIVE (NEGATIVE); OXYCODONE SCREEN, URINE NEGATIVE (NEGATIVE); PROPOXYPHENE SCREEN, URINE NEGATIVE (NEGATIVE); THC CANNABINOID SCREEN, URINE NEGATIVE (NEGATIVE); TRICYCLIC ANTIDEPRESSANT,URINE NEGATIVE (NEGATIVE)
[2022-01-19 04:59] LABS: BASOPHILS % (AUTO) 0.5 %; EOSINOPHILS # (AUTO) 0.3 10^3/uL (0.0-0.7); EOSINOPHILS % (AUTO) 3.4 %; HCT - HEMATOCRIT 35.1 % (42.0-52.0); HGB - HEMOGLOBIN 11.9 g/dL (14.0-18.0); LYMPHOCYTES # (AUTO) 1.4 10^3/uL (1.5-3.5); LYMPHOCYTES % (AUTO) 17.1 %; MEAN CORPUSCULAR HEMOGLOBIN 31.2 pg (27.0-31.0); MEAN CORPUSCULAR HGB CONC 33.9 g/dL (32.0-36.0); MEAN CORPUSCULAR VOLUME 92.1 fL (80.0-94.0); MEAN PLATELET VOLUME 9.3 fL (7.4-11.4); MONOCYTES # (AUTO) 0.7 10^3/uL (0.0-1.0); MONOCYTES % (AUTO) 8.9 %; NEUTROPHILS # (AUTO) 5.7 10^3/uL (1.5-6.6); NEUTROPHILS % (AUTO) 69.9 %; PLT - PLATELET COUNT 224 10^3/uL (130-450); RED BLOOD COUNT 3.81 10^6/uL (4.70-6.10); RED CELL DISTRIBUTION WIDTH 13.4 % (12.0-15.0); WHITE BLOOD COUNT 8.1 x10^3/uL (4.8-10.8)
[2022-01-19 05:18] LABS: ACETAMINOPHEN < 10 ug/mL (10-30); ALBUMIN 3.9 g/dL (3.2-5.5); ALBUMIN/GLOBULIN RATIO 1.3 (1.0-2.2); ALKALINE PHOSPHATASE 95 IU/L (42-121); ALT ALANINE AMINOTRANSFERASE 20 IU/L (10-60); AST ASPARTATE AMINOTRANSFERASE 17 IU/L (10-42); BILIRUBIN,TOTAL 0.2 mg/dL (0.2-1.0); BUN - BLOOD UREA NITROGEN 26 mg/dL (6-20); CARBON DIOXIDE - CO2 21 mmol/L (21-32); CHLORIDE 102 mmol/L (101-111); CREATININE 1.4 mg/dL (0.6-1.2); ETOH - ETHANOL < 5.0 mg/dL; GFR - MDRD 53 (>89); GLUCOSE 143 mg/dL (70-100); LIPASE 78 U/L (22-51); POTASSIUM 5.1 mmol/L (3.5-5.0); SALICYLATE < 6.0 mg/dL; SODIUM 135 mmol/L (135-145); TOTAL PROTEIN 6.8 g/dL (6.7-8.2)
--- NOTE | 2022-01-19 10:59 | ED Physician Documentation ---
ED Addendum - Addendum Addendum: 01/19/22 10:59 51-year-old male with a history of depression and anxiety was feeling anxious and suicidal last night he is coming to the emergency department as he has a number of times previously as part of his safety plan. He does have an appointment to see his counselor and psychiatrist acutely tomorrow morning and he has made contact today. Our aids social worker was able to assist in the evaluation of the patient and he currently feels she is ready to go home. 01/19/22 15:57 Impression: depression with anxiety and SI Disposition: Home with followup with counsellor tomorrow.
[2022-01-19 11:15] VITALS: BP 158/83
== END 2022-01-19 11:19 | disposition home or self-care (01) ==
LOC: EDUNIT# → ED 04:06
DX: F32.A Depression, unspecified (principal)
CPT/HCPCS: 36415; 80053; 80306; 80307; 81001; 83690; 84443; 85025; 99283; G0480; 80320; 80329; 81003; 87086

== ENCOUNTER 2022-01-20 18:20 | Outpatient (CLI) | payer MEDICARE | END 2022-01-20 18:21 | disposition critical access hospital (66) | LOC: EMS 18:20 | DX: F32.A Depression, unspecified (principal) | CPT/HCPCS: A0425; A0429 ==

== ENCOUNTER 2022-01-20 18:40 | Emergency (ER) | payer MEDICARE ==
[2022-01-20 19:17] LABS: BASOPHILS % (AUTO) 0.5 %; EOSINOPHILS # (AUTO) 0.2 10^3/uL (0.0-0.7); EOSINOPHILS % (AUTO) 2.8 %; HCT - HEMATOCRIT 33.8 % (42.0-52.0); HGB - HEMOGLOBIN 11.3 g/dL (14.0-18.0); LYMPHOCYTES # (AUTO) 1.6 10^3/uL (1.5-3.5); LYMPHOCYTES % (AUTO) 20.3 %; MEAN CORPUSCULAR HEMOGLOBIN 30.9 pg (27.0-31.0); MEAN CORPUSCULAR HGB CONC 33.4 g/dL (32.0-36.0); MEAN CORPUSCULAR VOLUME 92.3 fL (80.0-94.0); MEAN PLATELET VOLUME 9.7 fL (7.4-11.4); MONOCYTES # (AUTO) 0.6 10^3/uL (0.0-1.0); MONOCYTES % (AUTO) 8.1 %; NEUTROPHILS # (AUTO) 5.3 10^3/uL (1.5-6.6); PLT - PLATELET COUNT 224 10^3/uL (130-450); RED BLOOD COUNT 3.66 10^6/uL (4.70-6.10); RED CELL DISTRIBUTION WIDTH 13.4 % (12.0-15.0); WHITE BLOOD COUNT 7.8 x10^3/uL (4.8-10.8)
[2022-01-20] MEDS ORDERED: KETAMINE 40 MG in SODIUM CHLORIDE 0.9% 100ML 100 ML IV STA (19:19)
[2022-01-20 19:36] LABS: ACETAMINOPHEN < 10 ug/mL (10-30); BUN - BLOOD UREA NITROGEN 32 mg/dL (6-20); CARBON DIOXIDE - CO2 23 mmol/L (21-32); CHLORIDE 106 mmol/L (101-111); CREATININE 1.5 mg/dL (0.6-1.2); ETOH - ETHANOL < 5.0 mg/dL; GFR - MDRD 49 (>89); GLUCOSE 105 mg/dL (70-100); POTASSIUM 4.6 mmol/L (3.5-5.0); SALICYLATE < 6.0 mg/dL; SODIUM 140 mmol/L (135-145)
[2022-01-20] MEDS ORDERED: KETAMINE 500 MG/10 ML VIAL ONE (19:46)
--- NOTE | 2022-01-20 20:48 | ED Physician Documentation ---
PD HPI MHE - Stated complaint Stated Complaint: SI, DEPRESSION - Chief complaint Chief Complaint: MHE - History obtained from History obtained from: Patient - History of Present Illness Primary symptom: Depression Timing - onset: How many days ago (5) Contributing factors: Other Similar symptoms before: Diagnosis (depression) Recently seen: Emergency Dept - Additional information Additional information: 51-year-old male with chronic depression has a worsening of his depression symptoms and he was seen in the emerge department yesterday evaluated and had an appointment today with his psychiatrist. He indicates that today things did not go quite well with his psychiatrist and that they were butting heads and he feels his symptoms again.He does not have plans for suicide he is here for help. Review of Systems Constitutional: denies: Fever Eyes: denies: Decreased vision Ears: denies: Ear pain Nose: denies: Congestion Throat: denies: Sore throat Cardiac: denies: Chest pain / pressure, Palpitations Respiratory: denies: Dyspnea, Cough GI: denies: Abdominal Pain, Nausea, Vomiting, Constipation, Diarrhea : denies: Dysuria, Frequency Skin: denies: Rash Musculoskeletal: denies: Neck pain, Back pain, Extremity pain Neurologic: denies: Generalized weakness, Focal weakness, Numbness Psychiatric: reports: Depressed, Anxiety, Insomnia. denies: Suicidal PD PAST MEDICAL HISTORY - Past Medical History Cardiovascular: Hypertension, High cholesterol Respiratory: None Neuro: None Endocrine/Autoimmune: Type 2 diabetes GI: None : None HEENT: None Psych: Depression, Anxiety Musculoskeletal: None, Gout Derm: None - Past Surgical History Past Surgical History: Yes - Present Medications Home Medications: Ambulatory Orders Medication Instructions Recorded Confirmed Aripiprazole [Abilify] 2 mg PO DAILY 04/12/13 01/19/22 Clonazepam 1 - 2 mg PO DAILY PRN 04/12/13 01/19/22 Insulin Glargine,Hum.rec.anlog 80 unit SQ DAILY 03/07/14 01/19/22 [Lantus] metFORMIN [Glucophage] 1,000 mg ORAL BID 11/10/16 01/19/22 Cholecalciferol (Vitamin D3) 6,000 unit PO DAILY 03/08/17 01/19/22 [Vitamin D3] Insulin Lispro [Humalog] 30 unit SQ TIDWM 03/08/17 01/19/22 lisinopriL [Lisinopril] 5 mg DAILY 06/05/17 01/19/22 Atorvastatin [Lipitor] 40 mg PO QPM tablet 06/08/17 01/19/22 DULoxetine [Cymbalta] 40 mg PO DAILY capsule 06/08/17 01/19/22 allopurinoL [Allopurinol] 200 mg PO DAILY 10/20/19 01/19/22 Aspirin [[place] Aspirin] 81 mg PO DAILY 01/19/22 01/19/22 Cholecalciferol (Vitamin D3) 1,250 mcg PO DAILY 01/19/22 01/19/22 [Vitamin D3] - Allergies Allergies/Adverse Reactions: Allergies Allergy/AdvReac Type Severity Reaction Status Date / Time Penicillins Allergy Rash Verified 01/19/22 04:31 sertraline HCl * Allergy bladder Verified 01/19/22 04:31 [From Zoloft] infection lorazepam [From Ativan] AdvReac Anxiety Verified 01/19/22 04:31 - Social History Does the pt smoke?: No Smoking Status: Never smoker Does the pt drink ETOH?: No Does the pt have substance abuse?: No - Immunizations Immunizations are current?: Yes - POLST Patient has POLST: No PD ED PE NORMAL - Vitals Vital signs reviewed: Yes (hypertensive) - General General: Alert and oriented X 3, No acute distress, Well developed/nourished - HEENT HEENT: Atraumatic, PERRL, EOMI - Neck Neck: Supple, no meningeal sign, No bony TTP - Cardiac Cardiac: RRR, No murmur - Respiratory Respiratory: No respiratory distress, Clear bilaterally - Abdomen Abdomen: Normal bowel sounds, Soft, Non tender, Non distended, No organomegaly - Back Back: No CVA TTP, No spinal TTP - Derm Derm: Normal color, Warm and dry, No rash - Extremities Extremities: No deformity, No edema - Neuro Neuro: Alert and oriented X 3, nuclear officer 2-12 intact, No motor deficit, No sensory deficit, Normal speech Eye Opening: Spontaneous Motor: Obeys Commands Verbal: Oriented GCS Score: 15 - Psych Psych: Normal mood, Normal affect Results - Vitals Vitals: Vital Signs - 24 hr 01/20/22 01/20/22 01/20/22 18:46 19:50 19:55 Temperature 36.6 C Heart Rate 76 60 64 Respiratory 16 18 16 Rate Blood Pressure 166/78 H 152/80 H 147/79 H O2 Saturation 98 98 98 01/20/22 01/20/22 01/20/22 20:00 20:15 20:28 Temperature Heart Rate 61 64 67 Respiratory 18 16 18 Rate Blood Pressure 150/81 H 145/80 H 156/82 H O2 Saturation 97 100 96 01/20/22 21:24 Temperature Heart Rate 64 Respiratory 16 Rate Blood Pressure 150/80 H O2 Saturation 98 Oxygen O2 Source Room air - Labs Labs: Laboratory Tests 01/20/22 01/20/22 19:06 19:06 WBC 7.8 RBC 3.66 L Hgb 11.3 L Hct 33.8 L MCV 92.3 MCH 30.9 MCHC 33.4 RDW 13.4 Plt Count 224 MPV 9.7 Neut # (Auto) 5.3 Lymph # (Auto) 1.6 [place] # (Auto) 0.6 Eos # (Auto) 0.2 Baso # (Auto) 0.0 Absolute Nucleated RBC 0.00 Nucleated RBC % 0.0 Sodium 140 Potassium 4.6 Chloride 106 Carbon Dioxide 23 Anion Gap 11.0 BUN 32 H Creatinine 1.5 H Estimated GFR (MDRD) 49 L Glucose 105 H Calcium 9.0 Salicylates < 6.0 Acetaminophen < 10 L Ethyl Alcohol < 5.0 PD MEDICAL DECISION MAKING - ED course Complexity details: reviewed old records, reviewed results, re-evaluated patient, considered differential, d/w patient ED course: 51-year-old male with history of chronic depression presents to the emergency department again tonight with depressive symptoms. Despite talking to his psychiatrist today he did not get relief of his symptoms as he usually does. I have offered the patient a ketamine infusion which he readily accepted after discussion. He was administered an infusion of 40 mg over 40 minutes. The patient described the infusion as bringing hope and he feels so much better. He is very excited about this treatment and he has an appointment to see his psychiatrist again in 4 days. He would like to go home now and I believe this is the correct disposition for this patient. Departure - Departure Disposition: Home, Self Care Clinical Impression: Depressive disorder Condition: Stable Instructions: ED Stress React, ED Depression Follow-Up: Dalton Adam MD [Primary Care Provider] - Comments: James, today you were given an infusion of ketamine. We gave you 40 mg over 40 minutes. This appears to have been successful and this often leads to improvement for 1 to 3 weeks. Sometimes longer. Follow-up with your p sychiatrist. We did find that you had very little side effect at this dose and it appeared to be quite effective.
[2022-01-20 21:32] VITALS: BP 150/80
== END 2022-01-20 21:41 | disposition home or self-care (01) ==
LOC: EDUNIT# → ED 18:40
DX: F32.A Depression, unspecified (principal)
CPT/HCPCS: 36415; 80048; 80307; 85025; 96365; 99282; 99284; G0480; 80320; 80329

== ENCOUNTER 2022-04-19 08:14 | Outpatient (CLI) | payer MEDICARE | END 2022-04-19 08:15 | disposition home or self-care (01) | LOC: LAB.S 08:14 | PROVIDERS: ATTEND Nurse Practitioner Family | DX: E11.9 Type 2 diabetes mellitus without complications (principal); D64.9 Anemia, unspecified; E03.9 Hypothyroidism, unspecified | CPT/HCPCS: 36415; 82043; 82570; 82728; 83036; 83540; 84443; 84466; 85025 ==

== ENCOUNTER 2022-04-20 07:58 | Outpatient (CLI) | payer MEDICARE ==
[2022-04-20 08:18] LABS: BASOPHILS % (AUTO) 0.5 %; EOSINOPHILS # (AUTO) 0.2 10^3/uL (0.0-0.7); EOSINOPHILS % (AUTO) 2.3 %; HCT - HEMATOCRIT 35.8 % (42.0-52.0); HGB - HEMOGLOBIN 11.8 g/dL (14.0-18.0); LYMPHOCYTES % (AUTO) 13.7 %; MEAN CORPUSCULAR HEMOGLOBIN 30.8 pg (27.0-31.0); MEAN CORPUSCULAR VOLUME 93.5 fL (80.0-94.0); MEAN PLATELET VOLUME 9.5 fL (7.4-11.4); MONOCYTES # (AUTO) 0.4 10^3/uL (0.0-1.0); MONOCYTES % (AUTO) 5.9 %; NEUTROPHILS # (AUTO) 5.7 10^3/uL (1.5-6.6); NEUTROPHILS % (AUTO) 77.2 %; PLT - PLATELET COUNT 250 10^3/uL (130-450); RED BLOOD COUNT 3.83 10^6/uL (4.70-6.10); RED CELL DISTRIBUTION WIDTH 13.2 % (12.0-15.0); WHITE BLOOD COUNT 7.4 x10^3/uL (4.8-10.8)
[2022-04-20 08:41] LABS: % IRON SATURATION 21 % (20-50); IRON 76 ug/dL (45-182); TOTAL IRON BINDING CAPACITY 356 ug/dL (250-450); TRANSFERRIN 254 mg/dL (180-329)
[2022-04-20 08:49] LABS: THYROID STIMULATING HORMONE 4.51 uIU/mL (0.34-5.60)
[2022-04-20 08:54] LABS: FERRITIN 122.1 ng/mL (23.9-336.2)
[2022-04-20 08:59] LABS: CREATININE,URINE 89.9 mg/dL; MICROALBUM/CREATININE RATIO,UR 2493.9 ug/mg (<30.0); MICROALBUMIN,URINE 224.2 mg/dL (0-300.0)
[2022-04-20 11:56] LABS: ESTIMATED AVERAGE GLUCOSE 180 mg/dL (70-100); HEMOGLOBIN A1c% 7.9 % (4.27-6.07)
== END 2022-04-20 07:59 | disposition home or self-care (01) ==
LOC: LAB 07:58
PROVIDERS: ATTEND Nurse Practitioner Family
DX: E11.9 Type 2 diabetes mellitus without complications (principal); D64.9 Anemia, unspecified; E03.9 Hypothyroidism, unspecified
CPT/HCPCS: 36415; 82043; 82570; 82728; 83036; 83540; 84443; 84466; 85025

== ENCOUNTER 2022-04-22 05:07 | Emergency (ER) | payer MEDICARE ==
[2022-04-22] MEDS ORDERED: SODIUM CHLORIDE 0.9% 1,000 ML IV STA (06:42)
[2022-04-22] MEDS ORDERED: KETAMINE 40 MG in SODIUM CHLORIDE 0.9% 100ML 100 ML IV STA (06:42)
--- NOTE | 2022-04-22 06:45 | ED Physician Documentation ---
PD HPI MHE - Stated complaint Stated Complaint: HBP/DEPRESSION - Chief complaint Chief Complaint: General - History obtained from History obtained from: Patient - History of Present Illness Primary symptom: Depression, Anxiety, Other (also noted his BP has been elevated recently with new job. Blood sugar has been lower.). No: Suicidal ideation, Suicide attempt Timing - onset: How many days ago (He does have history of chronic depression. No current suicidal ideation. He started a new job and states its been physically exhausting for him. This has made him feel little bit more depressed. He had good benefit from a ketamine infusion 3 months ago and requests that again.) Contributing factors: Work. No: Substance abuse - ETOH, Substance abuse - drugs Similar symptoms before: Diagnosis (depression and anxiety in the past.) Recently seen: Clinic (3 days ago regarding fatigue. Had labs done 2 days ago: CBC, A1C, TSH.) Review of Systems Constitutional: denies: Fever, Chills Nose: denies: Rhinorrhea / runny nose, Congestion Throat: denies: Sore throat Respiratory: denies: Cough GI: denies: Nausea, Vomiting, Diarrhea Endocrine: denies: Weight loss, Weight gain PD PAST MEDICAL HISTORY - Past Medical History Past Medical History: Yes Cardiovascular: Hypertension, High cholesterol Respiratory: None Neuro: None Endocrine/Autoimmune: Type 2 diabetes GI: None : None HEENT: None Psych: Depression, Anxiety Musculoskeletal: None, Gout Derm: None - Past Surgical History Past Surgical History: Yes - Present Medications Home Medications: Ambulatory Orders Medication Instructions Recorded Confirmed Aripiprazole [Abilify] 2 mg PO DAILY 04/12/13 01/19/22 Clonazepam 1 - 2 mg PO DAILY PRN 04/12/13 01/19/22 Insulin Glargine,Hum.rec.anlog 80 unit SQ DAILY 03/07/14 01/19/22 [Lantus] metFORMIN [Glucophage] 1,000 mg ORAL BID 11/10/16 01/19/22 Cholecalciferol (Vitamin D3) 6,000 unit PO DAILY 03/08/17 01/19/22 [Vitamin D3] Insulin Lispro [Humalog] 30 unit SQ TIDWM 03/08/17 01/19/22 lisinopriL [Lisinopril] 5 mg DAILY 06/05/17 01/19/22 Atorvastatin [Lipitor] 40 mg PO QPM tablet 06/08/17 01/19/22 DULoxetine [Cymbalta] 40 mg PO DAILY capsule 06/08/17 01/19/22 allopurinoL [Allopurinol] 200 mg PO DAILY 10/20/19 01/19/22 Aspirin [[place] Aspirin] 81 mg PO DAILY 01/19/22 01/19/22 Cholecalciferol (Vitamin D3) 1,250 mcg PO DAILY 01/19/22 01/19/22 [Vitamin D3] - Allergies Allergies/Adverse Reactions: Allergies Allergy/AdvReac Type Severity Reaction Status Date / Time Penicillins Allergy Rash Verified 04/22/22 05:25 sertraline HCl * Allergy bladder Verified 04/22/22 05:25 [From Zoloft] infection lorazepam [From Ativan] AdvReac Anxiety Verified 04/22/22 05:25 - Social History Does the pt smoke?: No Smoking Status: Never smoker Does the pt drink ETOH?: No Does the pt have substance abuse?: No - Immunizations Immunizations are current?: Yes - POLST Patient has POLST: No PD ED PE NORMAL - Vitals Vital signs reviewed: Yes - General General: Alert and oriented X 3, No acute distress, Well developed/nourished - Neck Neck: Supple, no meningeal sign, No adenopathy, Thyroid normal - Cardiac Cardiac: RRR, No murmur - Respiratory Respiratory: Clear bilaterally - Derm Derm: Normal color, Warm and dry - Extremities Extremities: Normal ROM s pain, No edema - Neuro Neuro: Alert and oriented X 3, No motor deficit, Normal speech Results - Vitals Vitals: Vital Signs - 24 hr 04/22/22 04/22/22 04/22/22 05:25 05:27 07:45 Temperature 36.5 C 36.5 C Heart Rate 68 68 65 Respiratory 16 16 18 Rate Blood Pressure 150/80 H 150/80 H 165/82 H O2 Saturation 98 98 99 04/22/22 04/22/22 04/22/22 08:21 08:42 09:49 Temperature Heart Rate 64 62 70 Respiratory 24 16 14 Rate Blood Pressure 162/86 H 163/84 H 154/88 H O2 Saturation 99 100 97 Oxygen O2 Source Room air - Labs Labs: Laboratory Tests 04/22/22 07:20 Sodium 136 Potassium 5.0 Chloride 106 Carbon Dioxide 21 Anion Gap 9.0 BUN 33 H Creatinine 1.5 H Estimated GFR (MDRD) 49 L Glucose 188 H Calcium 8.9 PD MEDICAL DECISION MAKING - ED course Complexity details: considered differential (He states blood sugar and blood pressure have been a little off with her new job recently. Mostly concerned of some increased depression and is requesting a IV dose of ketamine like he had 3 months ago that gave him improvement in his depression for over 2 months.), d/w patient Departure - Departure Disposition: 01 Home, Self Care Clinical Impression: Anxiety Depression Qualifiers: Depression Type: unspecified Qualified Code(s): F32.A - Depression, unspecified Condition: Stable Record reviewed to determine appropriate education?: Yes Follow-Up: Edna Edwards ARNP [Primary Care Provider] - Comments: Continue with usual medications. Eat well. Light exercise daily. Follow-up with your primary care. Return to the ER if worsening symptoms or any suicidal ideation with a plan. Discharge Date/Time: 04/22/22 09:56
[2022-04-22 07:38] LABS: CALCIUM 8.9 mg/dL (8.5-10.3); CREATININE 1.5 mg/dL (0.6-1.2)
[2022-04-22 09:50] VITALS: BP 154/88
== END 2022-04-22 09:56 | disposition home or self-care (01) ==
LOC: ED 05:07
DX: F32.A Depression, unspecified (principal); F41.9 Anxiety disorder, unspecified; I10 Essential (primary) hypertension; E11.9 Type 2 diabetes mellitus without complications; Z79.4 Long term (current) use of insulin
CPT/HCPCS: 36415; 80048; 96365; 99283

== ENCOUNTER 2022-07-15 18:21 | Outpatient (CLI) | payer MEDICARE | END 2022-07-15 18:22 | disposition critical access hospital (66) | LOC: EMS 18:21 | DX: R45.851 Suicidal ideations (principal); F32.A Depression, unspecified | CPT/HCPCS: A0425; A0429 ==

== ENCOUNTER 2022-07-15 18:33 | Emergency (ER) | payer MEDICARE ==
[2022-07-15] MEDS ORDERED: KETAMINE 40 MG in SODIUM CHLORIDE 0.9% 100ML 100 ML IV STA (20:03)
--- NOTE | 2022-07-15 20:03 | ED Physician Documentation ---
PD HPI MHE - Stated complaint Stated Complaint: SI - Chief complaint Chief Complaint: MHE - History obtained from History obtained from: Patient - Additional information Additional information: 51-year-old gentleman with chronic depression requests ketamine infusion. States that he has had increased and suicidal ideation over the last week or so which was exacerbated by a large crowd today. He has had thoughts of cutting himself but has never attempted suicide. He is on duloxetine and Abilify currently. He states that the ketamine infusions in the past of been quite helpful and give him several months of relief from his depression and hopelessness. Review of Systems Ten Systems: 10 systems reviewed and negative Constitutional: reports: Reviewed and negative Cardiac: reports: Reviewed and negative Respiratory: reports: Reviewed and negative PD PAST MEDICAL HISTORY - Past Medical History Cardiovascular: Hypertension, High cholesterol Respiratory: None Neuro: None Endocrine/Autoimmune: Type 2 diabetes GI: None : None HEENT: None Psych: Depression, Anxiety Musculoskeletal: None, Gout Derm: None - Past Surgical History Past Surgical History: Yes - Present Medications Home Medications: Ambulatory Orders Medication Instructions Recorded Confirmed Aripiprazole [Abilify] 2 mg PO DAILY 04/12/13 01/19/22 Clonazepam 1 - 2 mg PO DAILY PRN 04/12/13 01/19/22 Insulin Glargine,Hum.rec.anlog 80 unit SQ DAILY 03/07/14 01/19/22 [Lantus] metFORMIN [Glucophage] 1,000 mg ORAL BID 11/10/16 01/19/22 Cholecalciferol (Vitamin D3) 6,000 unit PO DAILY 03/08/17 01/19/22 [Vitamin D3] Insulin Lispro [Humalog] 30 unit SQ TIDWM 03/08/17 01/19/22 lisinopriL [Lisinopril] 5 mg DAILY 06/05/17 01/19/22 Atorvastatin [Lipitor] 40 mg PO QPM tablet 06/08/17 01/19/22 DULoxetine [Cymbalta] 40 mg PO DAILY capsule 06/08/17 01/19/22 allopurinoL [Allopurinol] 200 mg PO DAILY 10/20/19 01/19/22 Aspirin [[place] Aspirin] 81 mg PO DAILY 01/19/22 01/19/22 Cholecalciferol (Vitamin D3) 1,250 mcg PO DAILY 01/19/22 01/19/22 [Vitamin D3] - Allergies Allergies/Adverse Reactions: Allergies Allergy/AdvReac Type Severity Reaction Status Date / Time Penicillins Allergy Rash Verified 07/15/22 18:52 sertraline HCl * Allergy bladder Verified 07/15/22 18:52 [From Zoloft] infection lorazepam [From Ativan] AdvReac Anxiety Verified 07/15/22 18:52 - Social History Does the pt smoke?: No Smoking Status: Never smoker Does the pt drink ETOH?: No Does the pt have substance abuse?: No - Immunizations Immunizations are current?: Yes - POLST Patient has POLST: No PD ED PE NORMAL - Vitals Vital signs reviewed: Yes - General General: Alert and oriented X 3, No acute distress - Abdomen Abdomen: Normal bowel sounds, Soft, Non tender - Neuro Neuro: Alert and oriented X 3, Normal speech - Psych Psych: Normal mood, Normal affect Results - Vitals Vitals: Vital Signs - 24 hr 07/15/22 07/15/22 18:47 21:59 Temperature 36 C L 36.3 C L Heart Rate 63 62 Respiratory 14 15 Rate Blood Pressure 177/90 H 144/81 H O2 Saturation 97 98 Oxygen O2 Source Room air - EKG (time done) 1917 Rate: Rate (enter#) (63) Rhythm: NSR [place]: Normal Intervals: Normal [place] QRS: Normal Ischemia: Normal ST segments - Labs Labs: Laboratory Tests 07/15/22 07/15/22 07/15/22 19:06 20:30 20:30 WBC 8.2 RBC 4.02 L Hgb 12.3 L Hct 36.7 L MCV 91.3 MCH 30.6 MCHC 33.5 RDW 13.2 Plt Count 231 MPV 9.6 Neut # (Auto) 5.6 Lymph # (Auto) 1.7 [place] # (Auto) 0.6 Eos # (Auto) 0.3 Baso # (Auto) 0.0 Absolute Nucleated RBC 0.00 Nucleated RBC % 0.0 Sodium 133 L Potassium 5.7 H Chloride 107 Carbon Dioxide 19 L Anion Gap 7.0 BUN 32 H Creatinine 1.6 H Estimated GFR (MDRD) 45 L Glucose 118 H Calcium 8.8 Total Bilirubin 0.4 AST 16 ALT 20 Alkaline Phosphatase 100 Total Protein 7.1 Albumin 3.9 Globulin 3.2 Albumin/Globulin Ratio 1.2 Lipase 43 TSH Urine Color Urine Clarity Urine pH Ur Specific [place] Urine Protein Urine Glucose (UA) Urine Ketones Urine Occult Blood Urine Nitrite Urine Bilirubin Urine Urobilinogen Ur Leukocyte Esterase Urine RBC Urine WBC Ur Squamous Epith Cells Urine Bacteria Ur Microscopic Review Urine Culture Comments Salicylates < 6.0 Urine Opiates Screen Ur Oxycodone Screen Urine Methadone Screen Ur Propoxyphene Screen Acetaminophen < 10 L Ur Barbiturates Screen Ur Tricyclics Screen Ur Phencyclidine Scrn Ur Amphetamine Screen U Methamphetamines Scrn U Benzodiazepines Scrn Urine Cocaine Screen U Cannabinoids Screen Ethyl Alcohol < 5.0 SARS-CoV-2 (PCR) NOT DETECTED 07/15/22 07/15/22 20:30 20:46 WBC RBC Hgb Hct MCV MCH MCHC RDW Plt Count MPV Neut # (Auto) Lymph # (Auto) Stevens # (Auto) Eos # (Auto) Baso # (Auto) Absolute Nucleated RBC Nucleated RBC % Sodium Potassium Chloride Carbon Dioxide Anion Gap BUN Creatinine Estimated GFR (MDRD) Glucose Calcium Total Bilirubin AST ALT Alkaline Phosphatase Total Protein Albumin Globulin Albumin/Globulin Ratio Lipase TSH 5.59 Urine Color YELLOW Urine Clarity CLEAR Urine pH 6.0 Ur Specific [place] >=1.030 H Urine Protein 100 H Urine Glucose (UA) NEGATIVE Urine Ketones NEGATIVE Urine Occult Blood TRACE-INTA Urine Nitrite NEGATIVE Urine Bilirubin NEGATIVE Urine Urobilinogen 0.2 (NORMAL) Ur Leukocyte Esterase NEGATIVE Urine RBC 0-5 Urine WBC 0-3 Ur Squamous Epith Cells RARE Squamous Urine Bacteria None Seen Ur Microscopic Review INDICATED Urine Culture Comments NOT INDICATED Salicylates Urine Opiates Screen NEGATIVE Ur Oxycodone Screen NEGATIVE Urine Methadone Screen NEGATIVE Ur Propoxyphene Screen NEGATIVE Acetaminophen Ur Barbiturates Screen NEGATIVE Ur Tricyclics Screen NEGATIVE Ur Phencyclidine Scrn NEGATIVE Ur Amphetamine Screen NEGATIVE U Methamphetamines Scrn NEGATIVE U Benzodiazepines Scrn NEGATIVE Urine Cocaine Screen NEGATIVE U Cannabinoids Screen NEGATIVE Ethyl Alcohol SARS-CoV-2 (PCR) PD MEDICAL DECISION MAKING - ED course ED course: Ketamine infusion done as req by pt, 40mg over 40 min. On reeval after that feeling much better. SI was gone. Departure - Departure Disposition: 01 Home, Self Care Clinical Impression: Depression Qualifiers: Depression Type: major depressive disorder Major depression recurrence: recurrent Active/Remission status: currently active Major depression episode severity: moderate Qualified Code(s): F33.1 - Major depressive disorder, recurrent, moderate Condition: Good Record reviewed to determine appropriate education?: Yes Instructions: ED Depression Comments: You were seen tonight for depression and requested a shot of ketamine. You were given ketamine 40 mg over 40 minutes as we have done in the past and you have had good relief of your depressive symptoms with this. Do not drink or drive tonight. Return if you worsen, Follow-up with your psychiatrist, next available appointment. Discharge Date/Time: 07/15/22 22:09
[2022-07-15 20:35] LABS: BASOPHILS % (AUTO) 0.5 %; EOSINOPHILS # (AUTO) 0.3 10^3/uL (0.0-0.7); EOSINOPHILS % (AUTO) 3.2 %; HCT - HEMATOCRIT 36.7 % (42.0-52.0); HGB - HEMOGLOBIN 12.3 g/dL (14.0-18.0); LYMPHOCYTES # (AUTO) 1.7 10^3/uL (1.5-3.5); LYMPHOCYTES % (AUTO) 20.8 %; MEAN CORPUSCULAR HEMOGLOBIN 30.6 pg (27.0-31.0); MEAN CORPUSCULAR HGB CONC 33.5 g/dL (32.0-36.0); MEAN CORPUSCULAR VOLUME 91.3 fL (80.0-94.0); MEAN PLATELET VOLUME 9.6 fL (7.4-11.4); MONOCYTES # (AUTO) 0.6 10^3/uL (0.0-1.0); MONOCYTES % (AUTO) 6.7 %; NEUTROPHILS # (AUTO) 5.6 10^3/uL (1.5-6.6); NEUTROPHILS % (AUTO) 68.6 %; PLT - PLATELET COUNT 231 10^3/uL (130-450); RED BLOOD COUNT 4.02 10^6/uL (4.70-6.10); RED CELL DISTRIBUTION WIDTH 13.2 % (12.0-15.0); WHITE BLOOD COUNT 8.2 x10^3/uL (4.8-10.8)
[2022-07-15] MEDS ORDERED: KETAMINE 500 MG/10 ML VIAL ONE (20:48)
[2022-07-15 20:49] LABS: MUDS CUTOFF CONCENTRATIONS CUTOFF CONC BELOW:
[2022-07-15 20:49] LABS: ACETAMINOPHEN < 10 ug/mL (10-30); ALBUMIN 3.9 g/dL (3.2-5.5); ALBUMIN/GLOBULIN RATIO 1.2 (1.0-2.2); ALKALINE PHOSPHATASE 100 IU/L (42-121); ALT ALANINE AMINOTRANSFERASE 20 IU/L (10-60); AST ASPARTATE AMINOTRANSFERASE 16 IU/L (10-42); BILIRUBIN,TOTAL 0.4 mg/dL (0.2-1.0); BUN - BLOOD UREA NITROGEN 32 mg/dL (6-20); CALCIUM 8.8 mg/dL (8.5-10.3); CARBON DIOXIDE - CO2 19 mmol/L (21-32); CHLORIDE 107 mmol/L (101-111); CREATININE 1.6 mg/dL (0.6-1.2); ETOH - ETHANOL < 5.0 mg/dL; GFR - MDRD 45 (>89); GLUCOSE 118 mg/dL (70-100); LIPASE 43 U/L (22-51); POTASSIUM 5.7 mmol/L (3.5-5.0); SALICYLATE < 6.0 mg/dL; SODIUM 133 mmol/L (135-145); TOTAL PROTEIN 7.1 g/dL (6.7-8.2)
[2022-07-15 20:53] LABS: BILIRUBIN,URINE NEGATIVE (NEGATIVE); GLUCOSE, URINE (UA) NEGATIVE (NEGATIVE); KETONES,URINE (UA) NEGATIVE (NEGATIVE); LEUKOCYTE ESTERASE, URINE NEGATIVE (NEGATIVE); NITRITE,URINE NEGATIVE (NEGATIVE); OCCULT BLOOD,URINE TRACE-INTA (NEGATIVE); PROTEIN,URINE 100 mg/dL (NEGATIVE); UROBILINOGEN,URINE 0.2 (NORMAL) E.U./dL (NORMAL)
[2022-07-15 21:06] LABS: CLARITY,URINE CLEAR (CLEAR)
[2022-07-15 21:07] LABS: AMPHETAMINE SCREEN,URINE NEGATIVE (NEGATIVE); BARBITURATE SCREEN,UR NEGATIVE (NEGATIVE); BENZODIAZEPINES SCREEN, URINE NEGATIVE (NEGATIVE); COCAINE SCREEN URINE NEGATIVE (NEGATIVE); METHADONE SCREEN, URINE NEGATIVE (NEGATIVE); METHAMPHETAMINES SCREEN, URINE NEGATIVE (NEGATIVE); OPIATE SCREEN, URINE NEGATIVE (NEGATIVE); OXYCODONE SCREEN, URINE NEGATIVE (NEGATIVE); PROPOXYPHENE SCREEN, URINE NEGATIVE (NEGATIVE); THC CANNABINOID SCREEN, URINE NEGATIVE (NEGATIVE); TRICYCLIC ANTIDEPRESSANT,URINE NEGATIVE (NEGATIVE)
[2022-07-15 21:11] LABS: BACTERIA,URINE None Seen /HPF (None Seen); RBC,URINE 0-5 /HPF (0-5); SQUAMOUS EPITHELIAL CELL,UR RARE Squamous (<= Few); WBC,URINE 0-3 /HPF (0-3)
[2022-07-15 22:00] VITALS: BP 144/81
== END 2022-07-15 22:09 | disposition home or self-care (01) ==
LOC: EDUNIT# → ED 18:33
DX: F33.1 Major depressive disorder, recurrent, moderate (principal); Z20.822 Contact with and (suspected) exposure to COVID-19
CPT/HCPCS: 36415; 80053; 80306; 80307; 81001; 83690; 84443; 85025; 87635; 93005; 96365; 99283; 99284; G0480; 80320; 80329; 81003; 87086

== ENCOUNTER 2022-11-10 13:29 | Emergency (ER) | payer MEDICARE ==
[2022-11-10 14:17] LABS: MUDS CUTOFF CONCENTRATIONS CUTOFF CONC BELOW:
[2022-11-10 14:19] LABS: BILIRUBIN,URINE NEGATIVE (NEGATIVE); GLUCOSE, URINE (UA) 100 mg/dL (NEGATIVE); KETONES,URINE (UA) NEGATIVE (NEGATIVE); LEUKOCYTE ESTERASE, URINE NEGATIVE (NEGATIVE); NITRITE,URINE NEGATIVE (NEGATIVE); OCCULT BLOOD,URINE TRACE-INTA (NEGATIVE); PROTEIN,URINE 100 mg/dL (NEGATIVE); UROBILINOGEN,URINE 0.2 (NORMAL) E.U./dL (NORMAL)
[2022-11-10 14:21] LABS: CLARITY,URINE CLEAR (CLEAR)
[2022-11-10 14:26] LABS: BASOPHILS # (AUTO) 0.1 10^3/uL (0.0-0.1); BASOPHILS % (AUTO) 0.5 %; EOSINOPHILS # (AUTO) 0.2 10^3/uL (0.0-0.7); EOSINOPHILS % (AUTO) 2.2 %; HCT - HEMATOCRIT 36.9 % (42.0-52.0); HGB - HEMOGLOBIN 12.2 g/dL (14.0-18.0); LYMPHOCYTES # (AUTO) 1.7 10^3/uL (1.5-3.5); MEAN CORPUSCULAR HEMOGLOBIN 30.5 pg (27.0-31.0); MEAN CORPUSCULAR HGB CONC 33.1 g/dL (32.0-36.0); MEAN CORPUSCULAR VOLUME 92.3 fL (80.0-94.0); MEAN PLATELET VOLUME 9.2 fL (7.4-11.4); MONOCYTES # (AUTO) 0.7 10^3/uL (0.0-1.0); MONOCYTES % (AUTO) 7.1 %; NEUTROPHILS # (AUTO) 7.1 10^3/uL (1.5-6.6); NEUTROPHILS % (AUTO) 72.8 %; PLT - PLATELET COUNT 266 10^3/uL (130-450); RED CELL DISTRIBUTION WIDTH 13.6 % (12.0-15.0); WHITE BLOOD COUNT 9.7 x10^3/uL (4.8-10.8)
[2022-11-10 14:35] LABS: AMPHETAMINE SCREEN,URINE NEGATIVE (NEGATIVE); BACTERIA,URINE None Seen /HPF (None Seen); BARBITURATE SCREEN,UR NEGATIVE (NEGATIVE); BENZODIAZEPINES SCREEN, URINE NEGATIVE (NEGATIVE); COCAINE SCREEN URINE NEGATIVE (NEGATIVE); METHADONE SCREEN, URINE NEGATIVE (NEGATIVE); METHAMPHETAMINES SCREEN, URINE NEGATIVE (NEGATIVE); OPIATE SCREEN, URINE NEGATIVE (NEGATIVE); OXYCODONE SCREEN, URINE NEGATIVE (NEGATIVE); PROPOXYPHENE SCREEN, URINE NEGATIVE (NEGATIVE); RBC,URINE None Seen /HPF (0-5); SQUAMOUS EPITHELIAL CELL,UR NONE SEEN (<= Few); THC CANNABINOID SCREEN, URINE NEGATIVE (NEGATIVE); TRICYCLIC ANTIDEPRESSANT,URINE NEGATIVE (NEGATIVE); WBC,URINE 0-3 /HPF (0-3)
[2022-11-10 14:41] LABS: ACETAMINOPHEN < 10 ug/mL (10-30); ALBUMIN 3.6 g/dL (3.2-5.5); ALKALINE PHOSPHATASE 98 IU/L (42-121); ALT ALANINE AMINOTRANSFERASE 19 IU/L (10-60); AST ASPARTATE AMINOTRANSFERASE 20 IU/L (10-42); BILIRUBIN,TOTAL 0.3 mg/dL (0.2-1.0); BUN - BLOOD UREA NITROGEN 35 mg/dL (6-20); CALCIUM 9.4 mg/dL (8.5-10.3); CARBON DIOXIDE - CO2 21 mmol/L (21-32); CHLORIDE 103 mmol/L (101-111); CREATININE 1.8 mg/dL (0.6-1.2); ETOH - ETHANOL < 5.0 mg/dL; GFR - MDRD 40 (>89); GLUCOSE 77 mg/dL (70-100); LIPASE 54 U/L (22-51); POTASSIUM 4.6 mmol/L (3.5-5.0); SALICYLATE < 6.0 mg/dL; SODIUM 135 mmol/L (135-145); TOTAL PROTEIN 7.3 g/dL (6.7-8.2)
--- NOTE | 2022-11-10 14:42 | ED Physician Documentation ---
History of Present Illness - Stated complaint Stated Complaint: MHE - Chief complaint Chief Complaint: MHE - Additonal information Additional information: History obtained from patient. Reliable historian. Additional history obtained by chart review through medical records here 52-year-old male who has a longstanding history of depression presents to the emergency department requesting a tuneup and an injection of ketamine. He states he is received this in the ER 3 or 4 times previously. He has had depression since his early 20s currently maintained on duloxetine and Abilify. He does use as needed clonazepam. Denies any illicit drug use. He does have fleeting passive thoughts of suicide but no active plan or intent. He states is often a night and day difference between his symptoms when he receives the ketamine and after. He has started the search with his primary provider looking for an outside ketamine clinic as he finds this most useful to help with his symptoms. Review of Systems Constitutional: reports: Reviewed and negative Cardiac: reports: Reviewed and negative Respiratory: reports: Reviewed and negative GI: reports: Reviewed and negative Neurologic: reports: Reviewed and negative Psychiatric: reports: Depressed, Anxiety. denies: Suicidal, Homicidal, Hallucinations, Delusions, Insomnia, Reviewed and negative PD PAST MEDICAL HISTORY - Past Medical History Cardiovascular: Hypertension, High cholesterol Respiratory: None Neuro: None Endocrine/Autoimmune: Type 2 diabetes GI: None : None HEENT: None Psych: Depression, Anxiety Musculoskeletal: None, Gout Derm: None - Past Surgical History Past Surgical History: Yes - Present Medications Home Medications: Ambulatory Orders Medication Instructions Recorded Confirmed Aripiprazole [Abilify] 2 mg PO DAILY 04/12/13 11/10/22 Clonazepam 1 - 2 mg PO DAILY PRN 04/12/13 11/10/22 Insulin Glargine,Hum.rec.anlog 80 unit SQ DAILY 03/07/14 11/10/22 [Lantus] metFORMIN [Glucophage] 1,000 mg ORAL BID 11/10/16 11/10/22 Insulin Lispro [Humalog] 30 unit SQ TIDWM 03/08/17 11/10/22 lisinopriL [Lisinopril] 20 mg DAILY 06/05/17 11/10/22 Atorvastatin [Lipitor] 40 mg PO QPM tablet 06/08/17 11/10/22 DULoxetine [Cymbalta] 40 mg PO DAILY capsule 06/08/17 11/10/22 allopurinoL [Allopurinol] 200 mg PO DAILY 10/20/19 11/10/22 Aspirin [[place] Aspirin] 81 mg PO DAILY 01/19/22 11/10/22 Cholecalciferol (Vitamin D3) 1,250 mcg PO DAILY 01/19/22 11/10/22 [Vitamin D3] Levothyroxine [Synthroid] 50 mcg PO QPM 11/10/22 11/10/22 - Allergies Allergies/Adverse Reactions: Allergies Allergy/AdvReac Type Severity Reaction Status Date / Time Penicillins Allergy Rash Verified 07/15/22 18:52 sertraline HCl * Allergy bladder Verified 07/15/22 18:52 [From Zoloft] infection lorazepam [From Ativan] AdvReac Anxiety Verified 07/15/22 18:52 - Social History Does the pt smoke?: No Smoking Status: Never smoker Does the pt drink ETOH?: No Does the pt have substance abuse?: No - Immunizations Immunizations are current?: Yes - POLST Patient has POLST: No PD ED PE NORMAL - General General: Alert and oriented X 3, No acute distress - HEENT HEENT: PERRL - Cardiac Cardiac: RRR, No murmur - Neuro Neuro: Alert and oriented X 3 Eye Opening: Spontaneous Motor: Obeys Commands Verbal: Oriented GCS Score: 15 - Psych Psych: Normal affect (Well-groomed pleasant gentleman. Normal affect. Denies SI SD, VH.) Results - Vitals Vitals: Vital Signs - 24 hr 11/10/22 13:35 Temperature 37.1 C Heart Rate 83 Respiratory 18 Rate Blood Pressure 174/81 H O2 Saturation 99 Oxygen O2 Source Room air - Labs Labs: Laboratory Tests 11/10/22 11/10/22 11/10/22 14:11 14:22 14:22 WBC 9.7 RBC 4.00 L Hgb 12.2 L Hct 36.9 L MCV 92.3 MCH 30.5 MCHC 33.1 RDW 13.6 Plt Count 266 MPV 9.2 Neut # (Auto) 7.1 H Lymph # (Auto) 1.7 [place] # (Auto) 0.7 Eos # (Auto) 0.2 Baso # (Auto) 0.1 Absolute Nucleated RBC 0.00 Nucleated RBC % 0.0 Sodium 135 Potassium 4.6 Chloride 103 Carbon Dioxide 21 Anion Gap 11.0 BUN 35 H Creatinine 1.8 H Estimated GFR (MDRD) 40 L Glucose 77 Calcium 9.4 Total Bilirubin 0.3 AST 20 ALT 19 Alkaline Phosphatase 98 Total Protein 7.3 Albumin 3.6 Globulin 3.7 Albumin/Globulin Ratio 1.0 Lipase 54 H TSH Urine Color YELLOW Urine Clarity CLEAR Urine pH 6.0 Ur Specific [place] 1.020 Urine Protein 100 H Urine Glucose (UA) 100 H Urine Ketones NEGATIVE Urine Occult Blood TRACE-INTA Urine Nitrite NEGATIVE Urine Bilirubin NEGATIVE Urine Urobilinogen 0.2 (NORMAL) Ur Leukocyte Esterase NEGATIVE Urine RBC None Seen Urine WBC 0-3 Ur Squamous Epith Cells NONE SEEN Urine Bacteria None Seen Ur Microscopic Review INDICATED Urine Culture Comments NOT INDICATED Salicylates < 6.0 Urine Opiates Screen NEGATIVE Ur Oxycodone Screen NEGATIVE Urine Methadone Screen NEGATIVE Ur Propoxyphene Screen NEGATIVE Acetaminophen < 10 L Ur Barbiturates Screen NEGATIVE Ur Tricyclics Screen NEGATIVE Ur Phencyclidine Scrn NEGATIVE Ur Amphetamine Screen NEGATIVE U Methamphetamines Scrn NEGATIVE U Benzodiazepines Scrn NEGATIVE Urine Cocaine Screen NEGATIVE U Cannabinoids Screen NEGATIVE Ethyl Alcohol < 5.0 11/10/22 14:22 WBC RBC Hgb Hct MCV MCH MCHC RDW Plt Count MPV Neut # (Auto) Lymph # (Auto) [place] # (Auto) Eos # (Auto) Baso # (Auto) Absolute Nucleated RBC Nucleated RBC % Sodium Potassium Chloride Carbon Dioxide Anion Gap BUN Creatinine Estimated GFR (MDRD) Glucose Calcium Total Bilirubin AST ALT Alkaline Phosphatase Total Protein Albumin Globulin Albumin/Globulin Ratio Lipase TSH 8.97 H Urine Color Urine Clarity Urine pH Ur Specific [place] Urine Protein Urine Glucose (UA) Urine Ketones Urine Occult Blood Urine Nitrite Urine Bilirubin Urine Urobilinogen Ur Leukocyte Esterase Urine RBC Urine WBC Ur Squamous Epith Cells Urine Bacteria Ur Microscopic Review Urine Culture Comments Salicylates Urine Opiates Screen Ur Oxycodone Screen Urine Methadone Screen Ur Propoxyphene Screen Acetaminophen Ur Barbiturates Screen Ur Tricyclics Screen Ur Phencyclidine Scrn Ur Amphetamine Screen U Methamphetamines Scrn U Benzodiazepines Scrn Urine Cocaine Screen U Cannabinoids Screen Ethyl Alcohol PD Medical Decision Making - ED course Complexity details: reviewed results, considered differential, d/w patient ED course: This is a 52-year-old gentleman who has a longstanding history of depression but no SI HI who presents to the emergency department with depression requesting a ketamine infusion. He is received this in the ER previously 3-4 times in the p ast. He finds a marked difference in his symptoms shortly after receiving ketamine. We did obtain routine mental health screening labs today including a CBC, electrolytes and urine drug screen with no acute worrisome findings. I do note modest BUN Cr elevation of 35 and 1.8. not markedly different from baseline however. Given pmh of htn/diabetes, I have asked pt to f/u closely with pcp, may benefit from nephrology referral. This patient was administered 40 mg of ketamine over 40 minutes and on reevaluation he felt markedly better. Other than feeling "loopy" he felt he had no more depression in the moment. I have encouraged the patient to follow closely with his primary care provider in order to determine if he would benefit from referral to an outpatient ketamine infusion clinic for management of his chronic depression. We also discussed the usual return precautions for suicidality. Departure - Departure Disposition: 01 Home, Self Care Clinical Impression: History of hypertension, History of diabetes mellitus Depression Qualifiers: Depression Type: persistent depressive disorder Qualified Code(s): F34.1 - Dysthymic disorder CKD (chronic kidney disease) stage 3, GFR 30-59 ml/min Qualifiers: Chronic kidney disease stage 3 subtype: stage 3b (GFR 30-44) Qualified Code(s): N18.32 - Chronic kidney disease, stage 3b Condition: Stable Comments: James you came to the emergency department today for ketamine infusion as its been about 4 months and you felt your depressive symptoms were worsening. We did administer you 40 mg of ketamine over 40 minutes today in the ER and you are feeling better. I do encourage you to follow up to see if an outpatient ketamine infusion clinic could accept you in treatment. We do note today that you have a modestly elevated blood pressure but this is consistent with other ED visits. We also see that you have an elevated BUN and creatinine. These are markers of kidney function. They are essentially the same as they have been with previous ED visits. However with your history of hypertension and diabetes I encourage you to follow closely with your primary care doctor as further evaluation may be warranted with a nurse midwife or kidney doctor. If at any point you are ever feeling unsafe, have thoughts of self-harm or harm to others please do not hesitate to return immediately to the emergency department for repeat evaluation.
[2022-11-10] MEDS ORDERED: KETAMINE 40 MG in SODIUM CHLORIDE 0.9% 100ML 100 ML IV STA (14:43)
[2022-11-10 16:44] VITALS: BP 161/79
== END 2022-11-10 16:42 | disposition home or self-care (01) ==
LOC: ED 13:29
DX: F34.1 Dysthymic disorder (principal); E11.22 Type 2 diabetes mellitus with diabetic chronic kidney disease; I12.9 Hypertensive chronic kidney disease with stage 1 through stage 4 chronic kidney disease, or unspecified chronic kidney disease; N18.32 Chronic kidney disease, stage 3b; Z79.4 Long term (current) use of insulin; Z79.84 Long term (current) use of oral hypoglycemic drugs
CPT/HCPCS: 36415; 80053; 80306; 80307; 81001; 83690; 84443; 85025; 96365; 99284; G0480; 80320; 80329; 81003; 87086

== ENCOUNTER 2022-11-13 08:25 | Outpatient (CLI) | payer MEDICARE | END 2022-11-13 08:26 | disposition critical access hospital (66) | LOC: EMS 08:25 | DX: R45.851 Suicidal ideations (principal) | CPT/HCPCS: A0425; A0429 ==

== ENCOUNTER 2022-11-13 08:35 | Emergency (ER) | payer MEDICARE ==
[2022-11-13 08:47] VITALS: BP 200/95
--- NOTE | 2022-11-13 08:55 | ED Physician Documentation ---
PD HPI MHE - Stated complaint Stated Complaint: SI - Chief complaint Chief Complaint: MHE - History obtained from History obtained from: Patient - History of Present Illness Primary symptom: Suicidal ideation, Anxiety (about his blood pressure being elevated.) Review of Systems Eyes: denies: Decreased vision Cardiac: denies: Chest pain / pressure, Palpitations, Pedal edema, Calf pain Musculoskeletal: denies: Extremity swelling Neurologic: denies: Focal weakness, Numbness, Headache PD PAST MEDICAL HISTORY - Past Medical History Cardiovascular: Hypertension, High cholesterol Respiratory: None Neuro: None Endocrine/Autoimmune: Type 2 diabetes GI: None : None HEENT: None Psych: Depression, Anxiety Musculoskeletal: None, Gout Derm: None - Past Surgical History Past Surgical History: Yes - Present Medications Home Medications: Ambulatory Orders Medication Instructions Recorded Confirmed Aripiprazole [Abilify] 2 mg PO DAILY 04/12/13 11/10/22 Clonazepam 1 - 2 mg PO DAILY PRN 04/12/13 11/10/22 Insulin Glargine,Hum.rec.anlog 80 unit SQ DAILY 03/07/14 11/10/22 [Lantus] metFORMIN [Glucophage] 1,000 mg ORAL BID 11/10/16 11/10/22 Insulin Lispro [Humalog] 30 unit SQ TIDWM 03/08/17 11/10/22 lisinopriL [Lisinopril] 20 mg DAILY 06/05/17 11/10/22 Atorvastatin [Lipitor] 40 mg PO QPM tablet 06/08/17 11/10/22 DULoxetine [Cymbalta] 40 mg PO DAILY capsule 06/08/17 11/10/22 allopurinoL [Allopurinol] 200 mg PO DAILY 10/20/19 11/10/22 Aspirin [[place] Aspirin] 81 mg PO DAILY 01/19/22 11/10/22 Cholecalciferol (Vitamin D3) 1,250 mcg PO DAILY 01/19/22 11/10/22 [Vitamin D3] Levothyroxine [Synthroid] 50 mcg PO QPM 11/10/22 11/10/22 - Allergies Allergies/Adverse Reactions: Allergies Allergy/AdvReac Type Severity Reaction Status Date / Time Penicillins Allergy Rash Verified 07/15/22 18:52 sertraline HCl * Allergy bladder Verified 07/15/22 18:52 [From Zoloft] infection lorazepam [From Ativan] AdvReac Anxiety Verified 07/15/22 18:52 - Social History Does the pt smoke?: No Smoking Status: Never smoker Does the pt drink ETOH?: No Does the pt have substance abuse?: No - Immunizations Immunizations are current?: Yes - POLST Patient has POLST: No PD ED PE NORMAL - Vitals Vital signs reviewed: Yes (BP elevated here and noted to be high on prior visits lately. ) - General General: Alert and oriented X 3, No acute distress (somewhat anxious and talkative. Pleasant and denies sucidal plan and has not taken any actions. ), Well developed/nourished - Neck Neck: Supple, no meningeal sign, No adenopathy - Cardiac Cardiac: RRR, No murmur - Respiratory Respiratory: Clear bilaterally - Derm Derm: Normal color, Warm and dry - Extremities Extremities: No edema, No calf tenderness / cord - Neuro Neuro: Alert and oriented X 3, No motor deficit, Normal speech Results - Vitals Vitals: Vital Signs - 24 hr 11/13/22 08:42 Temperature 36.9 C Heart Rate 78 Respiratory 18 Rate Blood Pressure 200/95 H O2 Saturation 99 Oxygen O2 Source Room air PD Medical Decision Making - ED course Complexity details: reviewed old records (review of lab results from several days ago showed normal electrolytes. Elevated creatinine of 1.7, showing a gradual trend higher over past several years reviewing prior lab results. As such, I would opt for raising metoprolol dose rather than lisinopril. ), considered differential, d/w patient, d/w technology sales consultant (Social Work Moni talked with the patient and he is feeling more relaxed. Opinion is the patient does not seem at risk for self harm, with just passive ideations, chronic for him. ), other (review of pharmacy records online show he got 90 days supply of metoprolol in mid september, so he would have enough to double dose for the next 1-2 weeks until able to follow up with PCP. ) Social Determinants of Health: chronic suicidal ideation and anxiety. He says his BP has been borderline high for months, and was higher in ER few days ago. He is concerned about that. Wonders if meds need to be adjusted. ED course: reviewed external [facility] report showing multiple visits for similar. Departure - Departure Disposition: Home, Self Care Clinical Impression: Hypertension, Anxiety, Suicidal ideation Condition: Stable Record reviewed to determine appropriate education?: Yes Comments: Continue with your current lisinopril dose. I would increase your metoprolol from 25 mg once daily to twice daily. Continue with your other usual medications. See how your blood pressure and heart rate trend over the next week. Contact your primary care to see if your medications need further adjusting for blood pressure. Discharge Date/Time: 11/13/22 11:58
[2022-11-13] MEDS ORDERED: lisinopriL 5 MG TABLET PO STA (09:13)
[2022-11-13] MEDS ORDERED: clonazePAM 0.5 MG TABLET PO STA (09:14)
[2022-11-13] MEDS ORDERED: METOPROLOL SUCCINATE 50 MG TABLET PO STA (09:17)
== END 2022-11-13 11:58 | disposition home or self-care (01) ==
LOC: EDUNIT# → ED 08:35
DX: R45.851 Suicidal ideations (principal); R41.9 Unspecified symptoms and signs involving cognitive functions and awareness; I10 Essential (primary) hypertension
CPT/HCPCS: 99283; 99284; A9270; 80053; 80307; 80320; 80329; 83690; 84443; 85025

== ENCOUNTER 2022-11-24 13:15 | Outpatient (CLI) | payer MEDICARE | END 2022-11-24 13:16 | disposition critical access hospital (66) | LOC: EMS 13:15 | DX: R45.851 Suicidal ideations (principal) | CPT/HCPCS: A0425; A0429 ==

== ENCOUNTER 2023-01-14 07:33 | Outpatient (CLI) | payer MEDICARE ==
[2023-01-14 07:52] LABS: BASOPHILS % (AUTO) 0.5 %; EOSINOPHILS # (AUTO) 0.3 10^3/uL (0.0-0.7); EOSINOPHILS % (AUTO) 3.6 %; HCT - HEMATOCRIT 36.3 % (42.0-52.0); HGB - HEMOGLOBIN 12.2 g/dL (14.0-18.0); LYMPHOCYTES # (AUTO) 1.1 10^3/uL (1.5-3.5); LYMPHOCYTES % (AUTO) 13.1 %; MEAN CORPUSCULAR HEMOGLOBIN 31.2 pg (27.0-31.0); MEAN CORPUSCULAR HGB CONC 33.6 g/dL (32.0-36.0); MEAN CORPUSCULAR VOLUME 92.8 fL (80.0-94.0); MEAN PLATELET VOLUME 9.6 fL (7.4-11.4); MONOCYTES # (AUTO) 0.5 10^3/uL (0.0-1.0); MONOCYTES % (AUTO) 6.7 %; NEUTROPHILS # (AUTO) 6.1 10^3/uL (1.5-6.6); PLT - PLATELET COUNT 242 10^3/uL (130-450); RED BLOOD COUNT 3.91 10^6/uL (4.70-6.10); RED CELL DISTRIBUTION WIDTH 13.3 % (12.0-15.0)
[2023-01-14 08:10] LABS: ALBUMIN 3.7 g/dL (3.2-5.5); ALBUMIN/GLOBULIN RATIO 1.1 (1.0-2.2); ALKALINE PHOSPHATASE 82 IU/L (42-121); ALT ALANINE AMINOTRANSFERASE 17 IU/L (10-60); AST ASPARTATE AMINOTRANSFERASE 18 IU/L (10-42); BILIRUBIN,TOTAL 0.4 mg/dL (0.2-1.0); BUN - BLOOD UREA NITROGEN 35 mg/dL (6-20); CALCIUM 8.6 mg/dL (8.5-10.3); CARBON DIOXIDE - CO2 19 mmol/L (21-32); CHLORIDE 109 mmol/L (101-111); CHOL/HDL RATIO 5.4 (<5.0); CHOLESTEROL 232 mg/dL; CREATININE 1.9 mg/dL (0.6-1.2); GFR - MDRD 37 (>89); GLUCOSE 183 mg/dL (70-100); HDL CHOLESTEROL 43 mg/dL; LDL CHOLESTEROL,CALCULATED 130 mg/dL; POTASSIUM 5.9 mmol/L (3.5-5.0); SODIUM 135 mmol/L (135-145); TRIGLYCERIDES 296 mg/dL; URIC ACID 6.7 mg/dL (2.6-7.2); VLDL CHOLESTEROL 59 mg/dL
[2023-01-14 08:23] LABS: THYROID STIMULATING HORMONE 6.13 uIU/mL (0.34-5.60)
[2023-01-14 08:28] LABS: CREATININE,URINE 90.7 mg/dL; MICROALBUMIN,URINE 188.2 mg/dL (0-300.0)
[2023-01-14 08:59] LABS: FREE T4 (FREE THYROXINE) 0.69 ng/dL (0.58-1.64)
[2023-01-14 09:34] LABS: ESTIMATED AVERAGE GLUCOSE 174 mg/dL (70-100); HEMOGLOBIN A1c% 7.7 % (4.27-6.07)
== END 2023-01-14 07:34 | disposition home or self-care (01) ==
LOC: LAB 07:33
PROVIDERS: ATTEND Nurse Practitioner Family
DX: E11.8 Type 2 diabetes mellitus with unspecified complications (principal); E78.5 Hyperlipidemia, unspecified; M10.9 Gout, unspecified
CPT/HCPCS: 36415; 80053; 80061; 82043; 82570; 83036; 83721; 84439; 84443; 84550; 85025

== ENCOUNTER 2023-02-11 10:15 | Outpatient (CLI) | payer MEDICARE | END 2023-02-11 10:16 | disposition home or self-care (01) | LOC: LAB 10:15 | PROVIDERS: ATTEND Nurse Practitioner Acute Care | DX: E87.5 Hyperkalemia (principal) | CPT/HCPCS: 36415; 84132 ==

== ENCOUNTER 2023-03-01 04:08 | Outpatient (CLI) | payer MEDICARE | END 2023-03-01 23:59 | disposition critical access hospital (66) | LOC: EMS 04:08 | DX: R45.851 Suicidal ideations (principal) | CPT/HCPCS: A0425; A0429 ==

== ENCOUNTER 2023-03-01 04:16 | Emergency (ER) | payer MEDICARE ==
--- NOTE | 2023-03-01 04:15 | ED Physician Documentation ---
PD HPI MHE - Stated complaint Stated Complaint: SI - History obtained from History obtained from: Patient, EMS - Additional information Additional information: Patient called 911 due to thoughts of self-harm. He says he has no specific plan. This patient has many previous visits to this emergency department for similar issues; specifically, he has longstanding depression and he calls 911 when he feels his thoughts are becoming dark and might lead to acting on his thoughts of self-harm. He denies HI, AH, VH. He says that exacerbating factors include recently being told by his primary care provider that his kidney tests are increasingly abnormal, as well as unsuccessful attempts in trying to reconnect with his sister over the past several months. Review of Systems Neurologic: denies: Confused, Altered mental status, Headache Psychiatric: reports: Depressed. denies: Homicidal, Hallucinations, Delusions PD PAST MEDICAL HISTORY - Past Medical History Past Medical History: Yes Cardiovascular: Hypertension Endocrine/Autoimmune: Type 1 diabetes Psych: Depression - Present Medications Home Medications: Ambulatory Orders Medication Instructions Recorded Confirmed Aripiprazole [Abilify] 2 mg PO DAILY 04/12/13 03/01/23 Clonazepam 1 - 2 mg PO DAILY PRN 04/12/13 03/01/23 Insulin Glargine,Hum.rec.anlog 80 unit SQ DAILY 03/07/14 03/01/23 [Lantus] metFORMIN [Glucophage] 1,000 mg ORAL DAILY 11/10/16 03/01/23 Insulin Lispro [Humalog] 30 unit SQ TIDWM 03/08/17 03/01/23 lisinopriL [Lisinopril] 20 mg DAILY 06/05/17 03/01/23 allopurinoL [Allopurinol] 200 mg PO DAILY 10/20/19 03/01/23 Aspirin [[place] Aspirin] 81 mg PO DAILY 01/19/22 03/01/23 Cholecalciferol (Vitamin D3) 1,250 mcg PO DAILY 01/19/22 03/01/23 [Vitamin D3] Levothyroxine [Synthroid] 50 mcg PO QPM 11/10/22 03/01/23 DULoxetine [Cymbalta] 80 mg PO DAILY 03/01/23 03/01/23 Fenofibrate 54 mg PO DAILY 03/01/23 03/01/23 Ferrous Sulfate [Feosol] 65 mg PO DAILY 03/01/23 03/01/23 Levomefolate/Algal Oil 15 mg PO DAILY 03/01/23 03/01/23 [[place]-Algal Oil 7.5 mg Cap] Linagliptin [Tradjenta] 5 mg PO DAILY 03/01/23 03/01/23 Metoprolol Succinate 100 mg PO DAILY 03/01/23 03/01/23 amLODIPine [Norvasc] 5 mg PO DAILY 03/01/23 03/01/23 - Allergies Allergies/Adverse Reactions: Allergies Allergy/AdvReac Type Severity Reaction Status Date / Time Penicillins Allergy Rash Verified 11/24/22 13:41 sertraline HCl * Allergy bladder Verified 11/24/22 13:41 [From Zoloft] infection alprazolam [From Xanax] AdvReac Unknown Verified 03/01/23 04:30 lorazepam [From Ativan] AdvReac Anxiety Verified 11/24/22 13:41 PD ED PE NORMAL - Vitals Vital signs reviewed: Yes - General General: Alert and oriented X 3, No acute distress, Well developed/nourished - HEENT HEENT: PERRL - Cardiac Cardiac: RRR, No murmur - Respiratory Respiratory: No respiratory distress, Clear bilaterally - Abdomen Abdomen: Soft, Non tender - Neuro Neuro: Alert and oriented X 3 Eye Opening: Spontaneous Motor: Obeys Commands Verbal: Oriented GCS Score: 15 - Psych Psych: Normal mood, Normal affect Results - Vitals Vitals: Vital Signs - 24 hr 03/01/23 11:56 Heart Rate 96 Respiratory 16 Rate Blood Pressure 171/93 H O2 Saturation 98 Oxygen O2 Source Room air - Labs Labs: Laboratory Tests 03/01/23 03/01/23 03/01/23 04:39 04:39 04:39 WBC 6.7 RBC 3.76 L Hgb 11.6 L Hct 35.2 L MCV 93.6 MCH 30.9 MCHC 33.0 RDW 13.7 Plt Count 240 MPV 9.4 Neut # (Auto) 5.4 Lymph # (Auto) 0.7 L [place] # (Auto) 0.5 Eos # (Auto) 0.1 Baso # (Auto) 0.0 Absolute Nucleated RBC 0.00 Nucleated RBC % 0.0 Sodium 138 Potassium 3.9 Chloride 108 Carbon Dioxide 16 L Anion Gap 14.0 H BUN 27 H Creatinine 2.0 H Estimated GFR (MDRD) 35 L Glucose 138 H Calcium 8.4 L Total Bilirubin 1.9 H AST 120 H ALT 173 H Alkaline Phosphatase 122 H Total Protein 7.3 Albumin 3.7 Globulin 3.6 Albumin/Globulin Ratio 1.0 Lipase 73 H TSH 1.70 Urine Color Urine Clarity Urine pH Ur Specific [place] Urine Protein Urine Glucose (UA) Urine Ketones Urine Occult Blood Urine Nitrite Urine Bilirubin Urine Urobilinogen Ur Leukocyte Esterase Urine RBC Urine WBC Ur Squamous Epith Cells Urine Bacteria Urine Mucus Ur Microscopic Review Urine Culture Comments Salicylates < 6.0 Urine Opiates Screen Ur Oxycodone Screen Urine Methadone Screen Ur Propoxyphene Screen Acetaminophen < 10 L Ur Barbiturates Screen Ur Tricyclics Screen Ur Phencyclidine Scrn Ur Amphetamine Screen U Methamphetamines Scrn U Benzodiazepines Scrn Urine Cocaine Screen U Cannabinoids Screen Ethyl Alcohol < 5.0 03/01/23 04:44 WBC RBC Hgb Hct MCV MCH MCHC RDW Plt Count MPV Neut # (Auto) Lymph # (Auto) [place] # (Auto) Eos # (Auto) Baso # (Auto) Absolute Nucleated RBC Nucleated RBC % Sodium Potassium Chloride Carbon Dioxide Anion Gap BUN Creatinine Estimated GFR (MDRD) Glucose Calcium Total Bilirubin AST ALT Alkaline Phosphatase Total Protein Albumin Globulin Albumin/Globulin Ratio Lipase TSH Urine Color YELLOW Urine Clarity CLEAR Urine pH 6.0 Ur Specific [place] 1.020 Urine Protein >=300 H Urine Glucose (UA) 100 H Urine Ketones NEGATIVE Urine Occult Blood SMALL H Urine Nitrite NEGATIVE Urine Bilirubin NEGATIVE Urine Urobilinogen 0.2 (NORMAL) Ur Leukocyte Esterase NEGATIVE Urine RBC 0-5 Urine WBC 0-3 Ur Squamous Epith Cells NONE SEEN Urine Bacteria None Seen Urine Mucus Few Strands Ur Microscopic Review INDICATED Urine Culture Comments NOT INDICATED Salicylates Urine Opiates Screen NEGATIVE Ur Oxycodone Screen NEGATIVE Urine Methadone Screen NEGATIVE Ur Propoxyphene Screen NEGATIVE Acetaminophen Ur Barbiturates Screen NEGATIVE Ur Tricyclics Screen NEGATIVE Ur Phencyclidine Scrn NEGATIVE Ur Amphetamine Screen NEGATIVE U Methamphetamines Scrn NEGATIVE U Benzodiazepines Scrn NEGATIVE Urine Cocaine Screen NEGATIVE U Cannabinoids Screen NEGATIVE Ethyl Alcohol PD Medical Decision Making - ED course Complexity details: reviewed results, re-evaluated patient, considered differential, d/w patient ED course: Patient is brought in by ambulance having called 911 himself for thoughts of self-harm. He does not have a specific plan. I ask him what his desired goal of today's ED visit is, and he expresses interest in talking to a healthcare social worker. Care of patient turned over to oncoming ED physician at end of my shift pending SW consult. Departure - Departure Disposition: Home, Self Care Clinical Impression: Depression Qualifiers: Depression Type: unspecified Qualified Code(s): F32.A - Depression, unspecified Instructions: ED Stress React, ED Depression Comments: Thank you for allowing us to care for you today [facility]. Please continue to follow-up with your primary care doctor and outpatient mental health team. If it anytime you have new or worsening symptoms, thoughts of self-harm or feel unsafe at home please not hesitate to return. Discharge Date/Time: 03/01/23 11:58
[2023-03-01] MEDS ORDERED: amLODIPine 5 MG TABLET PO STA (04:26)
[2023-03-01 04:43] LABS: BASOPHILS % (AUTO) 0.4 %; EOSINOPHILS # (AUTO) 0.1 10^3/uL (0.0-0.7); EOSINOPHILS % (AUTO) 2.1 %; HCT - HEMATOCRIT 35.2 % (42.0-52.0); HGB - HEMOGLOBIN 11.6 g/dL (14.0-18.0); LYMPHOCYTES # (AUTO) 0.7 10^3/uL (1.5-3.5); LYMPHOCYTES % (AUTO) 9.7 %; MEAN CORPUSCULAR HEMOGLOBIN 30.9 pg (27.0-31.0); MEAN CORPUSCULAR VOLUME 93.6 fL (80.0-94.0); MEAN PLATELET VOLUME 9.4 fL (7.4-11.4); MONOCYTES # (AUTO) 0.5 10^3/uL (0.0-1.0); MONOCYTES % (AUTO) 7.4 %; NEUTROPHILS # (AUTO) 5.4 10^3/uL (1.5-6.6); PLT - PLATELET COUNT 240 10^3/uL (130-450); RED BLOOD COUNT 3.76 10^6/uL (4.70-6.10); RED CELL DISTRIBUTION WIDTH 13.7 % (12.0-15.0); WHITE BLOOD COUNT 6.7 x10^3/uL (4.8-10.8)
[2023-03-01 04:57] LABS: ACETAMINOPHEN < 10 ug/mL (10-30); ALBUMIN 3.7 g/dL (3.2-5.5); ALKALINE PHOSPHATASE 122 IU/L (42-121); ALT ALANINE AMINOTRANSFERASE 173 IU/L (10-60); AST ASPARTATE AMINOTRANSFERASE 120 IU/L (10-42); BILIRUBIN,TOTAL 1.9 mg/dL (0.2-1.0); BUN - BLOOD UREA NITROGEN 27 mg/dL (6-20); CALCIUM 8.4 mg/dL (8.5-10.3); CARBON DIOXIDE - CO2 16 mmol/L (21-32); CHLORIDE 108 mmol/L (101-111); ETOH - ETHANOL < 5.0 mg/dL; GFR - MDRD 35 (>89); GLUCOSE 138 mg/dL (70-100); LIPASE 73 U/L (22-51); POTASSIUM 3.9 mmol/L (3.5-5.0); SALICYLATE < 6.0 mg/dL; SODIUM 138 mmol/L (135-145); TOTAL PROTEIN 7.3 g/dL (6.7-8.2)
[2023-03-01 05:01] LABS: MUDS CUTOFF CONCENTRATIONS CUTOFF CONC BELOW:
[2023-03-01 05:06] LABS: BILIRUBIN,URINE NEGATIVE (NEGATIVE); GLUCOSE, URINE (UA) 100 mg/dL (NEGATIVE); KETONES,URINE (UA) NEGATIVE (NEGATIVE); LEUKOCYTE ESTERASE, URINE NEGATIVE (NEGATIVE); NITRITE,URINE NEGATIVE (NEGATIVE); OCCULT BLOOD,URINE SMALL (NEGATIVE); PROTEIN,URINE >=300 mg/dL (NEGATIVE); UROBILINOGEN,URINE 0.2 (NORMAL) E.U./dL (NORMAL)
[2023-03-01 05:07] LABS: CLARITY,URINE CLEAR (CLEAR)
[2023-03-01 05:14] LABS: WBC,URINE 0-3 /HPF (0-3)
[2023-03-01 05:15] LABS: AMPHETAMINE SCREEN,URINE NEGATIVE (NEGATIVE); BACTERIA,URINE None Seen /HPF (None Seen); BARBITURATE SCREEN,UR NEGATIVE (NEGATIVE); BENZODIAZEPINES SCREEN, URINE NEGATIVE (NEGATIVE); COCAINE SCREEN URINE NEGATIVE (NEGATIVE); METHADONE SCREEN, URINE NEGATIVE (NEGATIVE); METHAMPHETAMINES SCREEN, URINE NEGATIVE (NEGATIVE); MUCUS,URINE Few Strands; OPIATE SCREEN, URINE NEGATIVE (NEGATIVE); OXYCODONE SCREEN, URINE NEGATIVE (NEGATIVE); PROPOXYPHENE SCREEN, URINE NEGATIVE (NEGATIVE); RBC,URINE 0-5 /HPF (0-5); SQUAMOUS EPITHELIAL CELL,UR NONE SEEN (<= Few); THC CANNABINOID SCREEN, URINE NEGATIVE (NEGATIVE); TRICYCLIC ANTIDEPRESSANT,URINE NEGATIVE (NEGATIVE)
--- NOTE | 2023-03-01 07:06 | ED Physician Documentation ---
ED Addendum - Addendum Addendum: Patient received as signout from off going physician, please see their documentation for further detail. Patient evaluated independently at bedside, found to be resting comfortably. Reports feeling somewhat better but continues to request evaluation with social work. Was independently evaluated by social work. At this time patient feels comfortable returning home to follow-up with his existing outpatient resources. He denies any thoughts or plan for self-harm or harm to others. He is demonstrating forward thinking and feels safe with the current plan. Clear return precautions given prior to discharge. 03/01/23 07:06 03/01/23 11:40
[2023-03-01 11:58] VITALS: BP 171/93
== END 2023-03-01 11:58 | disposition home or self-care (01) ==
LOC: ED 04:16
DX: F32.A Depression, unspecified (principal); I10 Essential (primary) hypertension; E10.9 Type 1 diabetes mellitus without complications; Z79.899 Other long term (current) drug therapy; Z79.84 Long term (current) use of oral hypoglycemic drugs; Z79.82 Long term (current) use of aspirin
CPT/HCPCS: 36415; 80053; 80306; 80307; 81001; 83690; 84443; 85025; 99283; 99284; A9270; G0480; 80320; 80329; 81003; 87086

== ENCOUNTER 2023-04-25 03:23 | Emergency (ER) | payer MEDICARE ==
[2023-04-25] MEDS ORDERED: hydrOXYzine PAMOATE 25 MG CAPSULE PO STA (03:47)
--- NOTE | 2023-04-25 03:48 | ED Physician Documentation ---
History of Present Illness - Stated complaint Stated Complaint: MHE - Chief complaint Chief Complaint: General - History obtained from History obtained from: Patient - Additonal information Additional information: 52-year-old presents with depressed mood without SI/HI/AVH as well as concerns about his high blood pressure and the fact that he is running out of lisinopril pills. Patient has an appointment with his primary care provider in 8 days. Review of Systems Constitutional: denies: Fever Throat: denies: Sore throat Cardiac: denies: Chest pain / pressure Respiratory: denies: Dyspnea GI: denies: Abdominal Pain, Nausea : denies: Dysuria, Hematuria Musculoskeletal: denies: Back pain Psychiatric: reports: Depressed, Insomnia. denies: Suicidal, Homicidal PD PAST MEDICAL HISTORY - Past Medical History Cardiovascular: Hypertension Respiratory: None Neuro: None Endocrine/Autoimmune: Type 1 diabetes GI: None : None HEENT: None Psych: Depression Musculoskeletal: None, Gout Derm: None - Past Surgical History Past Surgical History: Yes - Present Medications Home Medications: Ambulatory Orders Medication Instructions Recorded Confirmed Aripiprazole [Abilify] 2 mg PO DAILY 04/12/13 03/01/23 Clonazepam 1 - 2 mg PO DAILY PRN 04/12/13 03/01/23 Insulin Glargine,Hum.rec.anlog 80 unit SQ DAILY 03/07/14 03/01/23 [Lantus] metFORMIN [Glucophage] 1,000 mg ORAL DAILY 11/10/16 03/01/23 Insulin Lispro [Humalog] 30 unit SQ TIDWM 03/08/17 03/01/23 lisinopriL [Lisinopril] 20 mg DAILY 06/05/17 03/01/23 allopurinoL [Allopurinol] 200 mg PO DAILY 10/20/19 03/01/23 Aspirin [[place] Aspirin] 81 mg PO DAILY 01/19/22 03/01/23 Cholecalciferol (Vitamin D3) 1,250 mcg PO DAILY 01/19/22 03/01/23 [Vitamin D3] Levothyroxine [Synthroid] 50 mcg PO QPM 11/10/22 03/01/23 DULoxetine [Cymbalta] 80 mg PO DAILY 03/01/23 03/01/23 Fenofibrate 54 mg PO DAILY 03/01/23 03/01/23 Ferrous Sulfate [Feosol] 65 mg PO DAILY 03/01/23 03/01/23 Levomefolate/Algal Oil 15 mg PO DAILY 03/01/23 03/01/23 [[place]-Algal Oil 7.5 mg Cap] Linagliptin [Tradjenta] 5 mg PO DAILY 03/01/23 03/01/23 Metoprolol Succinate 100 mg PO DAILY 03/01/23 03/01/23 amLODIPine [Norvasc] 5 mg PO DAILY 03/01/23 03/01/23 Lisinopril [Zestril] 20 mg PO QDAC #15 tablet 04/25/23 hydrOXYzine pamoate [Hydroxyzine 25 mg PO QPM PRN #10 cap 04/25/23 Pamoate] - Allergies Allergies/Adverse Reactions: Allergies Allergy/AdvReac Type Severity Reaction Status Date / Time Penicillins Allergy Rash Verified 04/25/23 03:35 sertraline HCl * Allergy bladder Verified 04/25/23 03:35 [From Zoloft] infection alprazolam [From Xanax] AdvReac Unknown Verified 04/25/23 03:35 lorazepam [From Ativan] AdvReac Anxiety Verified 04/25/23 03:35 - Social History Does the pt smoke?: No Smoking Status: Never smoker Does the pt drink ETOH?: No Does the pt have substance abuse?: No - Immunizations Immunizations are current?: Yes - POLST Patient has POLST: No PD ED PE NORMAL - Vitals Vital signs reviewed: Yes - General General: Alert and oriented X 3, No acute distress, Well developed/nourished - HEENT HEENT: Atraumatic, PERRL, EOMI - Neck Neck: Supple, no meningeal sign - Cardiac Cardiac: RRR - Respiratory Respiratory: No respiratory distress, Clear bilaterally - Abdomen Abdomen: Non tender, Non distended - Derm Derm: Normal color, Warm and dry - Extremities Extremities: No deformity - Neuro Neuro: Alert and oriented X 3 - Psych Psych: Normal mood, Normal affect Results - Vitals Vitals: Vital Signs - 24 hr 04/25/23 03:31 Temperature 35.4 C L Heart Rate 67 Respiratory 17 Rate Blood Pressure 157/90 H O2 Saturation 100 Oxygen O2 Source Room air PD Medical Decision Making - ED course ED course: 52-year-old man presented to the ED with feelings of depression and insomnia. Also concerned because he's running out of his BP meds and needs refill. Patient states he has had kidney issues in the past as well but still makes normal urine, is not having urinary sx, back pain, abd pain or other concerns. He can f/u routinely for labwork as needed with his PCP in [place] for his appointment in 8 days. return precautions given. Departure - Departure Disposition: Home, Self Care Clinical Impression: Insomnia, Depression Condition: Stable Instructions: ED Depression Prescriptions: hydrOXYzine pamoate [Hydroxyzine Pamoate] 25 mg PO QPM PRN #10 cap PRN Reason: Insomnia Lisinopril [Zestril] 20 mg PO QDAC #15 tablet Comments: You are seen in the emergency department for medical evaluation. Your vital signs were normal aside from mildly high blood pressure. I printed a prescription for your lisinopril until you can see your doctor next week. I also provided hydroxyzine (atarax), an anti-anxiety medicine and sleep aid. For insomnia, you can also try out the melatonin gummies called "ZZZ quill Pure ZZZs", available over the counter. Return to the ED if you have other concerns.
[2023-04-25 04:00] VITALS: BP 148/82
== END 2023-04-25 03:58 | disposition home or self-care (01) ==
LOC: ED 03:23
DX: I10 Essential (primary) hypertension (principal); G47.00 Insomnia, unspecified; F32.A Depression, unspecified; Z76.0 Encounter for issue of repeat prescription
CPT/HCPCS: 99282; 99283; A9270

== ENCOUNTER 2023-06-08 08:33 | Emergency (ER) | payer MEDICARE, OTHER ==
--- NOTE | 2023-06-08 08:33 | ED Physician Documentation ---
PD HPI MHE - Stated complaint Stated Complaint: MHE - History obtained from History obtained from: Patient PD PAST MEDICAL HISTORY - Present Medications Home Medications: Ambulatory Orders Medication Instructions Recorded Confirmed Aripiprazole [Abilify] 2 mg PO DAILY 04/12/13 03/01/23 Clonazepam 1 - 2 mg PO DAILY PRN 04/12/13 03/01/23 Insulin Glargine,Hum.rec.anlog 80 unit SQ DAILY 03/07/14 03/01/23 [Lantus] metFORMIN [Glucophage] 1,000 mg ORAL DAILY 11/10/16 03/01/23 Insulin Lispro [Humalog] 30 unit SQ TIDWM 03/08/17 03/01/23 lisinopriL [Lisinopril] 20 mg DAILY 06/05/17 03/01/23 allopurinoL [Allopurinol] 200 mg PO DAILY 10/20/19 03/01/23 Aspirin [[place] Aspirin] 81 mg PO DAILY 01/19/22 03/01/23 Cholecalciferol (Vitamin D3) 1,250 mcg PO DAILY 01/19/22 03/01/23 [Vitamin D3] Levothyroxine [Synthroid] 50 mcg PO QPM 11/10/22 03/01/23 DULoxetine [Cymbalta] 80 mg PO DAILY 03/01/23 03/01/23 Fenofibrate 54 mg PO DAILY 03/01/23 03/01/23 Ferrous Sulfate [Feosol] 65 mg PO DAILY 03/01/23 03/01/23 Levomefolate/Algal Oil 15 mg PO DAILY 03/01/23 03/01/23 [[place]-Algal Oil 7.5 mg Cap] Linagliptin [Tradjenta] 5 mg PO DAILY 03/01/23 03/01/23 Metoprolol Succinate 100 mg PO DAILY 03/01/23 03/01/23 amLODIPine [Norvasc] 5 mg PO DAILY 03/01/23 03/01/23 Lisinopril [Zestril] 20 mg PO QDAC #15 tablet 04/25/23 hydrOXYzine pamoate [Hydroxyzine 25 mg PO QPM PRN #10 cap 04/25/23 Pamoate] - Allergies Allergies/Adverse Reactions: Allergies Allergy/AdvReac Type Severity Reaction Status Date / Time Penicillins Allergy Rash Verified 04/25/23 03:35 sertraline HCl * Allergy bladder Verified 04/25/23 03:35 [From Zoloft] infection alprazolam [From Xanax] AdvReac Unknown Verified 04/25/23 03:35 lorazepam [From Ativan] AdvReac Anxiety Verified 04/25/23 03:35 Results - Vitals Vitals: Vital Signs - 24 hr 06/08/23 06/08/23 06/08/23 08:34 08:43 12:08 Temperature 36 C L Heart Rate 82 72 73 Respiratory 20 20 20 Rate Blood Pressure 168/76 H 153/75 H 148/70 H O2 Saturation 98 96 97 Oxygen O2 Source Room air - Labs Labs: Laboratory Tests 06/08/23 09:03 Sodium 134 L Potassium 5.4 H Chloride 111 Carbon Dioxide 17 L Anion Gap 6.0 BUN 42 H Creatinine 3.1 H Estimated GFR (MDRD) 21 L Glucose 193 H Calcium 8.6 Total Bilirubin 0.3 AST 17 ALT 15 Alkaline Phosphatase 61 Total Protein 7.0 Albumin 4.1 Globulin 2.9 Albumin/Globulin Ratio 1.4 Lipase 102 H PD Medical Decision Making - ED course Complexity details: reviewed results (apparent acute renal injury presume due to hydration lately and recnetly increased lisinopril. He does not take regular NSAIDs. He has been on allopurinol technician terminal and repeater. No other notable renal toxic meds on his list. ), considered differential (here for depression and requesting Ketamine infusion as that had worked well in past and good effect for many months. I checked some basic chemistry lab and fortunately happened to discover new renal insufficiency. He had had increased BP meds recently of increased lisinopril.), d/w patient ED course: He had IV fluids given for concurrent administration of the Ketamine. He says he felt much better mood and not feeling suicidal at all after the infusion over 1 hour. I talked with him about the elevated creatinine. he says his PMD was getting referral to nephrology already due to persistent creatinine in range of 1.3-2.0. However current is 3.1, with last on record here from just February. He appears well though. I feel we are catching the DEBRA at a time that should be reasonably easily reversed off meds and with hydration. I do not feel he needs hospitalization acutely. However want to ensure improving and so would want repeat labs in just 3-4 days. I would think the recently increased Lisiniopril fromw few weeks ago would be a large part of the effect. Chronis allopurinol use likely as well as is renal toxic potentially. I reviewed his other meds on med list and not obvious other ones with review in [facility] reference at Adverse Effects section. Departure - Departure Disposition: Home, Self Care Clinical Impression: Depression, Passive suicidal ideations, Acute renal injury Condition: Stable Record reviewed to determine appropriate education?: Yes Follow-Up: MARYCRUZ MCKINNEY MD [Primary Care Provider] - Comments: You did receive the ketamine infusion here hopefully this will be helpful and last for a while as it has in the past. Continue with any antidepressant type medicines. Your kidney function is significantly worse than it has been in the recent past. I presume is having or being affected by some of the medication changes. It could also relate to hydration level. Be sure to stay well-hydrated through the day. You are in couple of medications that can be injury to the kidneys. 1 of which is lisinopril that was recently increased. Some of your other longer-term medicines have an effect as well. I would have you hold your lisinopril completely until further discussion with your primary care. I would hold your allopurinol for now as well until your kidney function is improved back to baseline and then discuss with your primary care about restarting it. Call your primary care Saturday and update on these findings. He will presumably want to have your chemistry panel (electrolytes and kidney function) rechecked over the next several days, likely Saturday or Saturday to ensure its improving or not worsening at least. The summary action points: 1. Hold your lisinopril 2. Hold your allopurinol 3. Stay well-hydrated 4. Contact your primary care Saturday to update 5. Get repeat blood tests early this coming week. Forms: PCP List Discharge Date/Time: 06/08/23 12:13
[2023-06-08] MEDS ORDERED: KETAMINE (50MG/ML) 40 MG in SODIUM CHLORIDE 0.9% 100ML 100 ML IV STA (08:39)
[2023-06-08] MEDS ORDERED: SODIUM CHLORIDE 0.9% 1,000 ML IV STA ×2 (08:41→10:29)
[2023-06-08 09:29] LABS: ALBUMIN 4.1 g/dL (3.2-5.5); ALBUMIN/GLOBULIN RATIO 1.4 (1.0-2.2); BILIRUBIN,TOTAL 0.3 mg/dL (0.2-1.0); CALCIUM 8.6 mg/dL (8.5-10.3); CREATININE 3.1 mg/dL (0.6-1.3); POTASSIUM 5.4 mmol/L (3.5-4.5)
[2023-06-08 12:13] VITALS: BP 148/70; O2SAT 97
== END 2023-06-08 12:13 | disposition home or self-care (01) ==
LOC: EDUNIT# → EDBD → ED 08:33
DX: F32.A Depression, unspecified (principal); R45.851 Suicidal ideations; N17.9 Acute kidney failure, unspecified; Z79.899 Other long term (current) drug therapy
CPT/HCPCS: 36415; 80053; 83690; 96365; 99284

== ENCOUNTER 2023-06-22 04:02 | Emergency (ER) | payer MEDICARE, OTHER ==
[2023-06-22 04:14] VITALS: BP 145/71; O2SAT 100
--- NOTE | 2023-06-22 04:32 | ED Physician Documentation ---
History of Present Illness - Stated complaint Stated Complaint: BACK PX - Chief complaint Chief Complaint: MHE - History obtained from History obtained from: Patient - Additonal information Additional information: 52yM with pmh mental illness, recent ed visit with debra, p/w concerns about worsening kidney function and questions about his medications. endorses anxiety, depressed mood, insomnia. denies si/hi/avh. PD PAST MEDICAL HISTORY - Past Medical History Past Medical History: Yes Cardiovascular: Hypertension Respiratory: None Neuro: None Endocrine/Autoimmune: Type 1 diabetes GI: None : None HEENT: None Psych: Depression, Anxiety Musculoskeletal: None, Gout Derm: None - Past Surgical History Past Surgical History: Yes - Present Medications Home Medications: Ambulatory Orders Medication Instructions Recorded Confirmed Aripiprazole [Abilify] 2 mg PO DAILY 04/12/13 06/22/23 Clonazepam 1 - 2 mg PO DAILY PRN 04/12/13 06/22/23 Insulin Glargine,Hum.rec.anlog 80 unit SQ DAILY 03/07/14 06/22/23 [Lantus] metFORMIN [Glucophage] 1,000 mg ORAL DAILY 11/10/16 06/22/23 Insulin Lispro [Humalog] 30 unit SQ TIDWM 03/08/17 06/22/23 lisinopriL [Lisinopril] 20 mg DAILY 06/05/17 06/22/23 allopurinoL [Allopurinol] 200 mg PO DAILY 10/20/19 06/22/23 Aspirin [[place] Aspirin] 81 mg PO DAILY 01/19/22 06/22/23 Cholecalciferol (Vitamin D3) 1,250 mcg PO DAILY 01/19/22 06/22/23 [Vitamin D3] Levothyroxine [Synthroid] 50 mcg PO QPM 11/10/22 06/22/23 DULoxetine [Cymbalta] 80 mg PO DAILY 03/01/23 06/22/23 Fenofibrate 54 mg PO DAILY 03/01/23 06/22/23 Ferrous Sulfate [Feosol] 65 mg PO DAILY 03/01/23 06/22/23 Levomefolate/Algal Oil 15 mg PO DAILY 03/01/23 06/22/23 [[place]-Algal Oil 7.5 mg Cap] Linagliptin [Tradjenta] 5 mg PO DAILY 03/01/23 06/22/23 Metoprolol Succinate 100 mg PO DAILY 03/01/23 06/22/23 amLODIPine [Norvasc] 5 mg PO DAILY 03/01/23 06/22/23 Lisinopril [Zestril] 20 mg PO QDAC #15 tablet 04/25/23 06/22/23 hydrOXYzine pamoate [Hydroxyzine 25 mg PO QPM PRN #10 cap 04/25/23 06/22/23 Pamoate] - Allergies Allergies/Adverse Reactions: Allergies Allergy/AdvReac Type Severity Reaction Status Date / Time Penicillins Allergy Rash Verified 06/22/23 04:14 sertraline HCl * Allergy bladder Verified 06/22/23 04:14 [From Zoloft] infection alprazolam [From Xanax] AdvReac Unknown Verified 06/22/23 04:14 lorazepam [From Ativan] AdvReac Anxiety Verified 06/22/23 04:14 - Social History Does the pt smoke?: No Smoking Status: Never smoker Does the pt drink ETOH?: No Does the pt have substance abuse?: No - Immunizations Immunizations are current?: Yes - POLST Patient has POLST: No PD ED PE NORMAL - Vitals Vital signs reviewed: Yes - General General: Alert and oriented X 3, No acute distress, Well developed/nourished - HEENT HEENT: Atraumatic, PERRL, EOMI - Neck Neck: Supple, no meningeal sign - Derm Derm: Normal color, Warm and dry - Neuro Neuro: Alert and oriented X 3 - Psych Psych: Other (depressed mood and affect) Results - Vitals Vitals: Vital Signs - 24 hr 06/22/23 04:09 Temperature 36.3 C L Heart Rate 90 Respiratory 69 H Rate Blood Pressure 145/71 H O2 Saturation 100 Oxygen O2 Source Room air PD Medical Decision Making - ED course ED course: 52yM presents to the ED with concerns about recent bloodwork showing decreasing kidney function. Patient just had bloodwork 5 days ago with eGFR 29 and states he can't sleep and is worried about his kidney function. He states one of his doctor notes suggested he may need to stop metformin. On review of the literature, since his GFR is <30m recommendaton is to dc metformin. I advised him to follow up with his primary care provider to review alternative antidiabetic medication that is not as nephrotoxic. Patient is agreeable. return precautions given. Departure - Departure Disposition: 01 Home, Self Care Clinical Impression: DEBRA (acute kidney injury), Insomnia Condition: Stable Instructions: ED Insomnia Comments: You were seen in the ED for review of your labwork which showed an eGFR of 29. Since it is <30, you should go ahead and stop metformin. Please follow up with your primary care provider to review a new antidiabetic medication that will not be as toxic on the kidneys. Return to the ED if you have any other concerns.
== END 2023-06-22 04:48 | disposition home or self-care (01) ==
LOC: ED 04:02
DX: N17.9 Acute kidney failure, unspecified (principal); G47.00 Insomnia, unspecified; E10.29 Type 1 diabetes mellitus with other diabetic kidney complication; Z79.4 Long term (current) use of insulin; Z79.84 Long term (current) use of oral hypoglycemic drugs
CPT/HCPCS: 99281; 99283

== ENCOUNTER 2023-07-15 04:45 | Emergency (ER) | payer MEDICARE ==
--- NOTE | 2023-07-15 05:09 | ED Physician Documentation ---
History of Present Illness - Stated complaint Stated Complaint: DEHYDRATION,FATIGUE - Chief complaint Chief Complaint: General - History obtained from History obtained from: Patient - Additonal information Additional information: 52-year-old male with history of CKD stage IV, hypertension, hyperlipidemia, insulin-dependent diabetes, anxiety presents by private vehicle for "not feeling well". Patient states that he recently was diagnosed by nephrology with stage IV CKD and he has a follow up in 2 weeks. 2 days ago he was seen by for a general unwell feeling, and evaluation at that time was unremarkable. Patient states he's still not feeling well and is having shortness of breath with exertion, which he is concerned is a side effect of his CKD. He was told that creatinine can fluctuate with hydration and he is concerned he may possibly be dehydrated. Review of Systems Constitutional: reports: Fatigue. denies: Fever, Chills, Myalgias Cardiac: denies: Chest pain / pressure, Palpitations, Calf pain Respiratory: reports: Dyspnea. denies: Cough, Wheezing GI: denies: Abdominal Pain, Nausea, Vomiting Neurologic: denies: Generalized weakness, Focal weakness, Numbness, Difficulty speaking, Near syncope PD PAST MEDICAL HISTORY - Past Medical History Cardiovascular: Hypertension Respiratory: None Neuro: None Endocrine/Autoimmune: Type 1 diabetes GI: None : None HEENT: None Psych: Depression, Anxiety Musculoskeletal: None, Gout Derm: None - Past Surgical History Past Surgical History: Yes - Present Medications Home Medications: Ambulatory Orders Medication Instructions Recorded Confirmed Aripiprazole [Abilify] 2 mg PO DAILY 04/12/13 07/15/23 Clonazepam 1 - 2 mg PO DAILY PRN 04/12/13 07/15/23 Insulin Glargine,Hum.rec.anlog 80 unit SQ DAILY 03/07/14 07/15/23 [Lantus] metFORMIN [Glucophage] 1,000 mg ORAL DAILY 11/10/16 07/15/23 Insulin Lispro [Humalog] 30 unit SQ TIDWM 03/08/17 07/15/23 allopurinoL [Allopurinol] 200 mg PO DAILY 10/20/19 06/22/23 Aspirin [[place] Aspirin] 81 mg PO DAILY 01/19/22 07/15/23 Cholecalciferol (Vitamin D3) 125 mcg PO DAILY 01/19/22 07/15/23 [Vitamin D3] Levothyroxine [Synthroid] 75 mcg PO QPM 11/10/22 07/15/23 DULoxetine [Cymbalta] 40 mg PO DAILY 03/01/23 07/15/23 Fenofibrate 54 mg PO DAILY 03/01/23 07/15/23 Ferrous Sulfate [Feosol] 325 mg PO DAILY 03/01/23 07/15/23 Levomefolate/Algal Oil 15 mg PO DAILY 03/01/23 06/22/23 [[place]-Algal Oil 7.5 mg Cap] Linagliptin [Tradjenta] 5 mg PO DAILY 03/01/23 07/15/23 Metoprolol Succinate 100 mg PO DAILY 03/01/23 07/15/23 amLODIPine [Norvasc] 10 mg PO DAILY 03/01/23 06/22/23 Lisinopril [Zestril] 20 mg PO QDAC #15 tablet 04/25/23 06/22/23 hydrOXYzine pamoate [Hydroxyzine 25 mg PO QPM PRN #10 cap 04/25/23 06/22/23 Pamoate] Rosuvastatin Calcium [Crestor] 40 mg 07/15/23 glipiZIDE [Glipizide ER] 2.5 mg 07/15/23 - Allergies Allergies/Adverse Reactions: Allergies Allergy/AdvReac Type Severity Reaction Status Date / Time Penicillins Allergy Rash Verified 07/15/23 04:55 sertraline HCl * Allergy bladder Verified 07/15/23 04:55 [From Zoloft] infection alprazolam [From Xanax] AdvReac Unknown Verified 07/15/23 04:55 lorazepam [From Ativan] AdvReac Anxiety Verified 07/15/23 04:55 - Social History Does the pt smoke?: No Smoking Status: Never smoker Does the pt drink ETOH?: No Does the pt have substance abuse?: No - Immunizations Immunizations are current?: Yes - POLST Patient has POLST: No PD ED PE NORMAL - Vitals Vital signs reviewed: Yes - General General: Alert and oriented X 3, No acute distress, Well developed/nourished - HEENT HEENT: Atraumatic - Neck Neck: Supple, no meningeal sign - Cardiac Cardiac: RRR, No murmur, Strong equal pulses - Respiratory Respiratory: No respiratory distress, Clear bilaterally - Abdomen Abdomen: Soft, Non tender, Non distended - Back Back: No CVA TTP, No spinal TTP - Derm Derm: Normal color, Warm and dry, No rash - Extremities Extremities: No deformity, No tenderness to palpate, Normal ROM s pain, No edema - Neuro Neuro: Alert and oriented X 3, 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, No motor deficit, Normal speech - Psych Psych: Normal mood, Normal affect Results - Vitals Vitals: Vital Signs - 24 hr 07/15/23 04:51 Temperature 36.4 C L Heart Rate 77 Respiratory 16 Rate Blood Pressure 163/73 H O2 Saturation 98 Oxygen O2 Source Room air - Labs Labs: Laboratory Tests 07/15/23 07/15/23 05:33 05:33 WBC 8.6 RBC 3.39 L Hgb 10.4 L Hct 30.9 L MCV 91.2 MCH 30.7 MCHC 33.7 RDW 12.5 Plt Count 258 MPV 10.0 Neut # (Auto) 6.4 Lymph # (Auto) 1.0 L [place] # (Auto) 0.8 Eos # (Auto) 0.3 Baso # (Auto) 0.1 Absolute Nucleated RBC 0.00 Nucleated RBC % 0.0 Sodium 135 Potassium 5.2 H Chloride 112 H Carbon Dioxide 15 L Anion Gap 8.0 BUN 50 H Creatinine 3.0 H Estimated GFR (MDRD) 22 L Glucose 99 Calcium 9.1 Total Bilirubin 0.3 AST 24 ALT 16 Alkaline Phosphatase 77 Total Protein 6.9 Albumin 3.9 Globulin 3.0 Albumin/Globulin Ratio 1.3 PD Medical Decision Making - ED course Complexity details: reviewed old records, reviewed results, re-evaluated patient, considered differential, d/w patient ED course: General feeling of malaise, patient reports feeling very concerned about his recent diagnosis of stage IV kidney disease. Patient brought paperwork from recent nephrology visit as well as lab results from 4 days prior. He has already been taken off of all nephrotoxins at his recent nephrology visit. Laboratory work reviewed, virtually unchanged from 4 days ago. Chest x-ray ne gative for acute findings. Vital signs unremarkable. Patient informed of all lab and imaging findings. I suspect at least some component of his malaise may be due to CKD. Patient advised to follow up with PCP and nephrology. Departure - Departure Disposition: 01 Home, Self Care Clinical Impression: Malaise CKD (chronic kidney disease) Qualifiers: Chronic kidney disease stage: stage 4 (severe) Qualified Code(s): N18.4 - [employer] michael kidney disease, stage 4 (severe) Condition: Stable Instructions: Kidney Disease Find Support, Kidney Function Comments: Today your lab results are the same as when you had lab work drawn 4 days ago. Your x-ray today was normal. Continue to avoid all medications that may harm your kidneys. Call your clinical biochemical geneticist office to see if you can schedule an earlier appointment. Forms: PCP List
[2023-07-15 05:15] VITALS: BP 163/73; O2SAT 98
[2023-07-15 05:38] LABS: BASOPHILS # (AUTO) 0.1 10^3/uL (0.0-0.1); BASOPHILS % (AUTO) 0.8 %; EOSINOPHILS # (AUTO) 0.3 10^3/uL (0.0-0.7); EOSINOPHILS % (AUTO) 3.6 %; HCT - HEMATOCRIT 30.9 % (42.0-52.0); HGB - HEMOGLOBIN 10.4 g/dL (14.0-18.0); LYMPHOCYTES % (AUTO) 11.6 %; MEAN CORPUSCULAR HEMOGLOBIN 30.7 pg (27.0-31.0); MEAN CORPUSCULAR HGB CONC 33.7 g/dL (32.0-36.0); MEAN CORPUSCULAR VOLUME 91.2 fL (80.0-94.0); MONOCYTES # (AUTO) 0.8 10^3/uL (0.0-1.0); MONOCYTES % (AUTO) 9.7 %; NEUTROPHILS # (AUTO) 6.4 10^3/uL (1.5-6.6); NEUTROPHILS % (AUTO) 73.8 %; PLT - PLATELET COUNT 258 10^3/uL (130-450); RED BLOOD COUNT 3.39 10^6/uL (4.70-6.10); RED CELL DISTRIBUTION WIDTH 12.5 % (12.0-15.0); WHITE BLOOD COUNT 8.6 x10^3/uL (4.8-10.8)
[2023-07-15 05:50] LABS: ALBUMIN 3.9 g/dL (3.2-5.5)
[2023-07-15 05:52] LABS: ALBUMIN/GLOBULIN RATIO 1.3 (1.0-2.2); BILIRUBIN,TOTAL 0.3 mg/dL (0.2-1.0); CALCIUM 9.1 mg/dL (8.5-10.3); POTASSIUM 5.2 mmol/L (3.5-4.5); TOTAL PROTEIN 6.9 g/dL (6.4-8.9)
--- NOTE | 2023-07-15 08:20 | XRAY Report ---
PROCEDURE: Chest 1 View X-Ray INDICATIONS: dyspnea TECHNIQUE: One view of the chest was acquired. COMPARISON: Chest radiograph 09/08/2021 FINDINGS: Surgical changes and devices: None. Lungs and pleura: No pleural effusions or pneumothorax. Lungs are clear. Mediastinum: Mediastinal contours appear normal. Heart size is normal. Bones and chest wall: No suspicious bony lesions. Overlying soft tissues appear unremarkable. IMPRESSION: No acute cardiopulmonary process. There is no significant discrepancy when compared with the preliminary overnight report. Reviewed by: Josh Paulino MD on 07/15/2023 8:19 AM PDT Approved by: Josh Paulino MD on 07/15/2023 8:19 AM PDT Station ID: [id number]
== END 2023-07-15 06:30 | disposition home or self-care (01) ==
LOC: ED 04:45
DX: R53.81 Other malaise (principal); I12.9 Hypertensive chronic kidney disease with stage 1 through stage 4 chronic kidney disease, or unspecified chronic kidney disease; E10.22 Type 1 diabetes mellitus with diabetic chronic kidney disease; N18.4 Chronic kidney disease, stage 4 (severe); E78.5 Hyperlipidemia, unspecified; Z79.899 Other long term (current) drug therapy; Z79.82 Long term (current) use of aspirin
CPT/HCPCS: 36415; 80053; 85025; 99283; 99284

== ENCOUNTER 2023-08-08 08:16 | Emergency (ER) | payer MEDICARE ==
--- NOTE | 2023-08-08 08:52 | ED Physician Documentation ---
History of Present Illness - Stated complaint Stated Complaint: NOT FEELING WELL - Chief complaint Chief Complaint: General - History obtained from History obtained from: Patient - Additonal information Additional information: Patient is a 53-year-old male with a history of insulin-dependent diabetes, stage IV chronic kidney disease presenting for evaluation of feeling generalized weakness for the past 1 week. Patient states that he has been having difficulties in the past 1 week with getting his Tradjenta prescription filled by the pharmacy. He was also started on Jardiance 1 week ago. Has noticed that his blood sugars have been more elevated over the past few days. Patient feels that his mood has been more down but denies feeling suicidal. He states he wants to feel better but does feel somewhat sad about his declining renal function. Denies recent illness with fever, cough, congestion. Denies chest pain, shortness of air, abdominal pain, vomiting or diarrhea. Denies dysuria. Review of Systems Constitutional: denies: Fever Cardiac: denies: Chest pain / pressure Respiratory: denies: Dyspnea GI: denies: Abdominal Pain, Vomiting : denies: Dysuria Neurologic: denies: Syncope PD PAST MEDICAL HISTORY - Past Medical History Cardiovascular: Hypertension Respiratory: None Neuro: None Endocrine/Autoimmune: Type 1 diabetes GI: None : None HEENT: None Psych: Depression, Anxiety Musculoskeletal: None, Gout Derm: None - Past Surgical History Past Surgical History: Yes - Present Medications Home Medications: Ambulatory Orders Medication Instructions Recorded Confirmed Aripiprazole [Abilify] 2 mg PO DAILY 04/12/13 08/08/23 Clonazepam 1 - 2 mg PO DAILY PRN 04/12/13 08/08/23 Insulin Glargine,Hum.rec.anlog 80 unit SQ DAILY 03/07/14 08/08/23 [Lantus] metFORMIN [Glucophage] 1,000 mg ORAL DAILY 11/10/16 08/08/23 Insulin Lispro [Humalog] 30 unit SQ TIDWM 03/08/17 08/08/23 Aspirin [[place] Aspirin] 81 mg PO DAILY 01/19/22 08/08/23 Cholecalciferol (Vitamin D3) 125 mcg PO DAILY 01/19/22 08/08/23 [Vitamin D3] Levothyroxine [Synthroid] 75 mcg PO QPM 11/10/22 08/08/23 DULoxetine [Cymbalta] 40 mg PO DAILY 03/01/23 08/08/23 Fenofibrate 54 mg PO DAILY 03/01/23 08/08/23 Ferrous Sulfate [Feosol] 325 mg PO DAILY 03/01/23 08/08/23 Linagliptin [Tradjenta] 5 mg PO DAILY 03/01/23 08/08/23 Metoprolol Succinate 100 mg PO DAILY 03/01/23 08/08/23 amLODIPine [Norvasc] 10 mg PO DAILY 03/01/23 08/08/23 Rosuvastatin Calcium [Crestor] 40 mg PO DAILY 07/15/23 08/08/23 glipiZIDE [Glipizide ER] 2.5 mg PO DAILY 07/15/23 08/08/23 Linagliptin [Tradjenta] 5 mg PO DAILY #7 tablet 08/08/23 - Allergies Allergies/Adverse Reactions: Allergies Allergy/AdvReac Type Severity Reaction Status Date / Time Penicillins Allergy Rash Verified 08/08/23 08:40 sertraline HCl * Allergy bladder Verified 08/08/23 08:40 [From Zoloft] infection alprazolam [From Xanax] AdvReac Unknown Verified 08/08/23 08:40 lorazepam [From Ativan] AdvReac Anxiety Verified 08/08/23 08:40 - Social History Does the pt smoke?: No Smoking Status: Never smoker Does the pt drink ETOH?: No Does the pt have substance abuse?: No - Immunizations Immunizations are current?: Yes - POLST Patient has POLST: No PD ED PE NORMAL - General General: Alert and oriented X 3, No acute distress, Well developed/nourished - HEENT HEENT: Atraumatic, Moist mucous membranes, Pharynx benign - Neck Neck: Supple, no meningeal sign - Cardiac Cardiac: RRR, No murmur - Respiratory Respiratory: No respiratory distress, Clear bilaterally - Abdomen Abdomen: Normal bowel sounds, Soft, Non tender, Non distended - Derm Derm: Warm and dry - Extremities Extremities: No calf tenderness / cord - Neuro Neuro: Alert and oriented X 3, No motor deficit, Normal speech Results - Vitals Vitals: Vital Signs - 24 hr 08/08/23 08/08/23 08/08/23 08:37 10:40 11:27 Temperature 37 C Heart Rate 76 68 63 Respiratory 15 18 18 Rate Blood Pressure 145/83 H 140/72 H 134/75 H O2 Saturation 97 100 100 08/08/23 13:09 Temperature Heart Rate 66 Respiratory 18 Rate Blood Pressure 141/72 H O2 Saturation 100 Oxygen O2 Source Room air - EKG (time done) 0913 EKG releavant findings:: EKG personally interpreted by author of this note. Relevant findings are: Rate 67, normal sinus rhythm, no STEMI, no ST depressions - Labs Labs: Laboratory Tests 08/08/23 08/08/23 08/08/23 09:21 10:40 10:40 WBC 7.8 RBC 3.82 L Hgb 11.6 L Hct 34.8 L MCV 91.1 MCH 30.4 MCHC 33.3 RDW 12.9 Plt Count 264 MPV 9.8 Neut # (Auto) 5.4 Lymph # (Auto) 1.3 L [place] # (Auto) 0.7 Eos # (Auto) 0.4 Baso # (Auto) 0.1 Absolute Nucleated RBC 0.00 Nucleated RBC % 0.0 VBG pH VBG pCO2 VBG pO2 VBG HCO3 VBG Total CO2 VBG O2 Saturation VBG Base Excess Sodium Cancelled Potassium Cancelled Chloride Cancelled Carbon Dioxide Cancelled Anion Gap Cancelled BUN Cancelled Creatinine Cancelled Estimated GFR (MDRD) Cancelled Glucose Cancelled POC Whole Bld Glucose 111 H Calcium Cancelled Total Bilirubin Cancelled AST Cancelled ALT Cancelled Alkaline Phosphatase Cancelled Total Protein Cancelled Albumin Cancelled Globulin Cancelled Albumin/Globulin Ratio Cancelled Urine Color Urine Clarity Urine pH Ur Specific [place] Urine Protein Urine Glucose (UA) Urine Ketones Urine Occult Blood Urine Nitrite Urine Bilirubin Urine Urobilinogen Ur Leukocyte Esterase Urine RBC Urine WBC Urine WBC Clumps Ur Epithelial Cells Ur Squamous Epith Cells Urine Bacteria Urine Casts Ur Microscopic Review Urine Culture Comments Serum Ketones Cancelled 08/08/23 08/08/23 08/08/23 10:40 11:45 12:12 WBC RBC Hgb Hct MCV MCH MCHC RDW Plt Count MPV Neut # (Auto) Lymph # (Auto) [place] # (Auto) Eos # (Auto) Baso # (Auto) Absolute Nucleated RBC Nucleated RBC % VBG pH 7.266 L VBG pCO2 43.3 VBG pO2 33.4 VBG HCO3 19.3 L VBG Total CO2 20.6 L VBG O2 Saturation 60.8 VBG Base Excess -7.4 L Sodium 137 Potassium 4.3 Chloride 109 Carbon Dioxide 20 L Anion Gap 8.0 BUN 32 H Creatinine 2.6 H Estimated GFR (MDRD) 26 L Glucose 89 POC Whole Bld Glucose Calcium 8.8 Total Bilirubin 0.3 AST 20 ALT 21 Alkaline Phosphatase 65 Total Protein 6.5 Albumin 3.9 Globulin 2.6 Albumin/Globulin Ratio 1.5 Urine Color YELLOW Urine Clarity CLEAR Urine pH 6.0 Ur Specific [place] 1.020 Urine Protein >=300 H Urine Glucose (UA) >=1000 H Urine Ketones NEGATIVE Urine Occult Blood SMALL H Urine Nitrite NEGATIVE Urine Bilirubin NEGATIVE Urine Urobilinogen 0.2 (NORMAL) Ur Leukocyte Esterase NEGATIVE Urine RBC 0-5 Urine WBC 6-10 H Urine WBC Clumps PRESENT Ur Epithelial Cells FEW Transitional Ur Squamous Epith Cells RARE Squamous Urine Bacteria Few Urine Casts 0-2 Granular Casts Ur Microscopic Review INDICATED Urine Culture Comments NOT INDICATED Serum Ketones NEGATIVE PD Medical Decision Making - ED course Complexity details: reviewed results, re-evaluated patient, d/w patient ED course: Patient is a 53-year-old male presenting for evaluation of generalized weakness. He is an insulin-dependent diabetic and has chronic kidney disease. Vital signs are stable. EKG is reassuring with no signs of acute ischemia. No symptoms to suggest ACS or sepsis. Chest x-ray which I reviewed is negative for pneumonia. Patient has reported having a mildly elevated blood sugars recently. Labs including CBC, chemistry, venous pH and serum ketones was obtained and reviewed. Urine is negative for infection. Patient's venous pH is slightly low and appears to have a slight metabolic acidosis which is likely related to his chronic kidney disease. Clinically is well-appearing and does not appear to be in DKA. Renal function is slightly improved from prior labs with otherwise unremarkable electrolytes. Patient feeling better here with IV fluids. He is requesting a prescription of hisTradjenta to the [facility] until [facility] is able to fill his prescription as they have currently been out of his medication. 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 Departure - Departure Disposition: 01 Home, Self Care Clinical Impression: Generalized weakness, Chronic kidney disease Condition: Stable Instructions: ED Weakness [facility] Prescriptions: Linagliptin [Tradjenta] 5 mg PO DAILY #7 tablet Comments: The exact cause for your symptoms today is a bit unclear but could be related to your chronic kidney disease as well as being off of one of your medications for the past 1 week and starting a new medication. I have sent a small prescription for Tradjenta to [facility] pharmacy until [facility] is able to fill your other prescription. I would recommend close follow-up with your primary care provider as well as your tax compliance manager. Return to the emergency department with any worsening symptoms. Forms: PCP List Discharge Date/Time: 08/08/23 13:13
--- NOTE | 2023-08-08 09:28 | XRAY Report ---
PROCEDURE: Chest 1 View X-Ray INDICATIONS: weak TECHNIQUE: One view of the chest was acquired. COMPARISON: Chest x-ray 1123 FINDINGS: Surgical changes and devices: None. Lungs and pleura: No pleural effusions or pneumothorax. Lungs are clear. Mediastinum: Mediastinal contours appear normal. Heart size is mildly prominent. Bones and chest wall: No suspicious bony lesions. Overlying soft tissues appear unremarkable. IMPRESSION: No acute cardiopulmonary process. Reviewed by: Gayle Jason MD on 08/08/2023 9:27 AM PDT Approved by: Gayle Jason MD on 08/08/2023 9:27 AM PDT Station ID: [id number]
[2023-08-08 10:49] VITALS: O2SAT 100
[2023-08-08 10:59] LABS: BASOPHILS # (AUTO) 0.1 10^3/uL (0.0-0.1); BASOPHILS % (AUTO) 0.6 %; EOSINOPHILS # (AUTO) 0.4 10^3/uL (0.0-0.7); EOSINOPHILS % (AUTO) 4.6 %; HCT - HEMATOCRIT 34.8 % (42.0-52.0); HGB - HEMOGLOBIN 11.6 g/dL (14.0-18.0); LYMPHOCYTES # (AUTO) 1.3 10^3/uL (1.5-3.5); LYMPHOCYTES % (AUTO) 15.9 %; MEAN CORPUSCULAR HEMOGLOBIN 30.4 pg (27.0-31.0); MEAN CORPUSCULAR HGB CONC 33.3 g/dL (32.0-36.0); MEAN CORPUSCULAR VOLUME 91.1 fL (80.0-94.0); MEAN PLATELET VOLUME 9.8 fL (7.4-11.4); MONOCYTES # (AUTO) 0.7 10^3/uL (0.0-1.0); MONOCYTES % (AUTO) 9.3 %; NEUTROPHILS # (AUTO) 5.4 10^3/uL (1.5-6.6); NEUTROPHILS % (AUTO) 69.1 %; PLT - PLATELET COUNT 264 10^3/uL (130-450); RED BLOOD COUNT 3.82 10^6/uL (4.70-6.10); RED CELL DISTRIBUTION WIDTH 12.9 % (12.0-15.0); VBG BASE EXCESS -7.4 mmol/L (-2 - +2); VBG HCO3 19.3 mmol/L (23-28); VBG OXYGEN SATURATION 60.8 % (60-80); VBG PCO2 43.3 mmHg (41-51); VBG PH 7.266 (7.31-7.41); VBG PO2 33.4 mmHg (25-47); VBG TOTAL CO2 20.6 mmol/L (24-29); WHITE BLOOD COUNT 7.8 x10^3/uL (4.8-10.8)
[2023-08-08] MEDS ORDERED: SODIUM CHLORIDE 0.9% 500 ML IV STA (11:00)
[2023-08-08 12:11] LABS: ALBUMIN 3.9 g/dL (3.2-5.5); ALBUMIN/GLOBULIN RATIO 1.5 (1.0-2.2); ALKALINE PHOSPHATASE 65 IU/L (42-121); ALT ALANINE AMINOTRANSFERASE 21 IU/L (10-60); AST ASPARTATE AMINOTRANSFERASE 20 IU/L (10-42); BILIRUBIN,TOTAL 0.3 mg/dL (0.2-1.0); BUN - BLOOD UREA NITROGEN 32 mg/dL (6-20); CALCIUM 8.8 mg/dL (8.5-10.3); CARBON DIOXIDE - CO2 20 mmol/L (21-32); CHLORIDE 109 mmol/L (101-111); CREATININE 2.6 mg/dL (0.6-1.3); GFR - MDRD 26 (>89); GLUCOSE 89 mg/dL (74-104); POTASSIUM 4.3 mmol/L (3.5-4.5); SODIUM 137 mmol/L (135-145); TOTAL PROTEIN 6.5 g/dL (6.4-8.9)
[2023-08-08 12:31] LABS: BILIRUBIN,URINE NEGATIVE (NEGATIVE); GLUCOSE, URINE (UA) >=1000 mg/dL (NEGATIVE); KETONES,URINE (UA) NEGATIVE (NEGATIVE); LEUKOCYTE ESTERASE, URINE NEGATIVE (NEGATIVE); NITRITE,URINE NEGATIVE (NEGATIVE); OCCULT BLOOD,URINE SMALL (NEGATIVE); PROTEIN,URINE >=300 mg/dL (NEGATIVE); UROBILINOGEN,URINE 0.2 (NORMAL) E.U./dL (NORMAL)
[2023-08-08 12:33] LABS: CLARITY,URINE CLEAR (CLEAR)
[2023-08-08 12:35] LABS: KETONES, SERUM (ACETEST) NEGATIVE (NEGATIVE)
[2023-08-08 12:59] LABS: EPITHELIAL CELLS,UR FEW Transitional /HPF (<= Few); RBC,URINE 0-5 /HPF (0-5); SQUAMOUS EPITHELIAL CELL,UR RARE Squamous (<= Few); WBC CLUMPS,URINE PRESENT
[2023-08-08 13:00] LABS: BACTERIA,URINE Few /HPF (None Seen)
[2023-08-08 13:17] VITALS: BP 141/72
== END 2023-08-08 13:13 | disposition home or self-care (01) ==
LOC: ED 08:16
DX: R53.1 Weakness (principal); E10.22 Type 1 diabetes mellitus with diabetic chronic kidney disease; I12.0 Hypertensive chronic kidney disease with stage 5 chronic kidney disease or end stage renal disease; N18.5 Chronic kidney disease, stage 5; Z79.4 Long term (current) use of insulin
CPT/HCPCS: 36415; 80053; 81001; 81003; 82009; 82803; 85025; 87086; 93005; 99284

== ENCOUNTER 2023-09-07 11:26 | Emergency (ER) | payer MEDICARE ==
[2023-09-07] MEDS ORDERED: KETAMINE (50MG/ML) 40 MG in SODIUM CHLORIDE 0.9% 100ML 100 ML IV STA (11:47)
--- NOTE | 2023-09-07 11:48 | ED Physician Documentation ---
History of Present Illness - Stated complaint Stated Complaint: MHE/SI - Chief complaint Chief Complaint: MHE - History obtained from History obtained from: Patient - Additonal information Additional information: 53-year-old gentleman with longstanding depression is here requesting ketamine infusion which she has had success with in the past. States he has no active SI or plan to me. PD PAST MEDICAL HISTORY - Past Medical History Cardiovascular: Hypertension Respiratory: None Neuro: None Endocrine/Autoimmune: Type 1 diabetes GI: None : None HEENT: None Psych: Depression, Anxiety Musculoskeletal: None, Gout Derm: None - Past Surgical History Past Surgical History: Yes - Present Medications Home Medications: Ambulatory Orders Medication Instructions Recorded Confirmed Aripiprazole [Abilify] 2 mg PO DAILY 04/12/13 08/08/23 Clonazepam 1 - 2 mg PO DAILY PRN 04/12/13 08/08/23 Insulin Glargine,Hum.rec.anlog 80 unit SQ DAILY 03/07/14 08/08/23 [Lantus] metFORMIN [Glucophage] 1,000 mg ORAL DAILY 11/10/16 08/08/23 Insulin Lispro [Humalog] 30 unit SQ TIDWM 03/08/17 08/08/23 Aspirin [[place] Aspirin] 81 mg PO DAILY 01/19/22 08/08/23 Cholecalciferol (Vitamin D3) 125 mcg PO DAILY 01/19/22 08/08/23 [Vitamin D3] Levothyroxine [Synthroid] 75 mcg PO QPM 11/10/22 08/08/23 DULoxetine [Cymbalta] 40 mg PO DAILY 03/01/23 08/08/23 Fenofibrate 54 mg PO DAILY 03/01/23 08/08/23 Ferrous Sulfate [Feosol] 325 mg PO DAILY 03/01/23 08/08/23 Linagliptin [Tradjenta] 5 mg PO DAILY 03/01/23 08/08/23 Metoprolol Succinate 100 mg PO DAILY 03/01/23 08/08/23 amLODIPine [Norvasc] 10 mg PO DAILY 03/01/23 08/08/23 Rosuvastatin Calcium [Crestor] 40 mg PO DAILY 07/15/23 08/08/23 glipiZIDE [Glipizide ER] 2.5 mg PO DAILY 07/15/23 08/08/23 Linagliptin [Tradjenta] 5 mg PO DAILY #7 tablet 08/08/23 - Allergies Allergies/Adverse Reactions: Allergies Allergy/AdvReac Type Severity Reaction Status Date / Time Penicillins Allergy Rash Verified 08/08/23 08:40 sertraline HCl * Allergy bladder Verified 08/08/23 08:40 [From Zoloft] infection alprazolam [From Xanax] AdvReac Unknown Verified 08/08/23 08:40 lorazepam [From Ativan] AdvReac Anxiety Verified 08/08/23 08:40 - Social History Does the pt smoke?: No Smoking Status: Never smoker Does the pt drink ETOH?: No Does the pt have substance abuse?: No - Immunizations Immunizations are current?: Yes - POLST Patient has POLST: No PD ED PE NORMAL - Vitals Vital signs reviewed: Yes - General General: Alert and oriented X 3, No acute distress - Neuro Neuro: Alert and oriented X 3 - Psych Psych: Normal mood, Normal affect Results - Vitals Vitals: Vital Signs - 24 hr 09/07/23 11:32 Temperature 36.7 C Heart Rate 64 Respiratory 16 Rate Blood Pressure 151/90 H O2 Saturation 99 Oxygen O2 Source Room air PD Medical Decision Making - ED course ED course: 53-year-old gentleman here with depression that is worse and requesting ketamine infusion. No SI or HI. 40 mg of ketamine over 40 minutes and he was feeling much better and requested discharge. Departure - Departure Disposition: 01 Home, Self Care Clinical Impression: Reactive depression (situational) Condition: Stable Record reviewed to determine appropriate education?: Yes Instructions: ED Depression Comments: Call your doctor to arrange a follow-up appointment, make the next available appointment. In the interim, return anytime if worse or if new symptoms develop. Forms: PCP List
[2023-09-07 14:13] VITALS: BP 130/76; O2SAT 100
== END 2023-09-07 14:12 | disposition home or self-care (01) ==
LOC: ED 11:26
DX: F32.9 Major depressive disorder, single episode, unspecified (principal); I10 Essential (primary) hypertension; E10.9 Type 1 diabetes mellitus without complications; Z79.899 Other long term (current) drug therapy; Z79.84 Long term (current) use of oral hypoglycemic drugs; Z79.82 Long term (current) use of aspirin
CPT/HCPCS: 96365; 99284

== ENCOUNTER 2023-10-04 02:23 | Emergency (ER) | payer MEDICARE ==
[2023-10-04 02:59] LABS: MUDS CUTOFF CONCENTRATIONS CUTOFF CONC BELOW:
[2023-10-04 03:00] LABS: BASOPHILS % (AUTO) 0.5 %; EOSINOPHILS # (AUTO) 0.4 10^3/uL (0.0-0.7); EOSINOPHILS % (AUTO) 5.1 %; HCT - HEMATOCRIT 34.7 % (42.0-52.0); HGB - HEMOGLOBIN 11.1 g/dL (14.0-18.0); LYMPHOCYTES # (AUTO) 1.1 10^3/uL (1.5-3.5); LYMPHOCYTES % (AUTO) 12.9 %; MEAN CORPUSCULAR HEMOGLOBIN 29.8 pg (27.0-31.0); MEAN CORPUSCULAR VOLUME 93.3 fL (80.0-94.0); MEAN PLATELET VOLUME 9.4 fL (7.4-11.4); MONOCYTES # (AUTO) 0.7 10^3/uL (0.0-1.0); MONOCYTES % (AUTO) 8.6 %; NEUTROPHILS # (AUTO) 6.3 10^3/uL (1.5-6.6); NEUTROPHILS % (AUTO) 72.7 %; PLT - PLATELET COUNT 244 10^3/uL (130-450); RED BLOOD COUNT 3.72 10^6/uL (4.70-6.10); RED CELL DISTRIBUTION WIDTH 12.9 % (12.0-15.0); WHITE BLOOD COUNT 8.6 x10^3/uL (4.8-10.8)
[2023-10-04 03:01] LABS: BILIRUBIN,URINE NEGATIVE (NEGATIVE); GLUCOSE, URINE (UA) >=1000 mg/dL (NEGATIVE); KETONES,URINE (UA) NEGATIVE (NEGATIVE); LEUKOCYTE ESTERASE, URINE NEGATIVE (NEGATIVE); NITRITE,URINE NEGATIVE (NEGATIVE); OCCULT BLOOD,URINE SMALL (NEGATIVE); PROTEIN,URINE >=300 mg/dL (NEGATIVE); UROBILINOGEN,URINE 0.2 (NORMAL) E.U./dL (NORMAL)
[2023-10-04 03:03] LABS: CLARITY,URINE CLEAR (CLEAR)
[2023-10-04 03:08] LABS: BACTERIA,URINE None Seen /HPF (None Seen); MUCUS,URINE Few Strands; RBC,URINE 0-5 /HPF (0-5); SQUAMOUS EPITHELIAL CELL,UR NONE SEEN (<= Few); WBC,URINE 0-3 /HPF (0-3)
[2023-10-04 03:11] LABS: AMPHETAMINE SCREEN,URINE NEGATIVE (NEGATIVE); BARBITURATE SCREEN,UR NEGATIVE (NEGATIVE); BENZODIAZEPINES SCREEN, URINE NEGATIVE (NEGATIVE); COCAINE SCREEN URINE NEGATIVE (NEGATIVE); METHADONE SCREEN, URINE NEGATIVE (NEGATIVE); METHAMPHETAMINES SCREEN, URINE NEGATIVE (NEGATIVE); OPIATE SCREEN, URINE NEGATIVE (NEGATIVE); OXYCODONE SCREEN, URINE NEGATIVE (NEGATIVE); PROPOXYPHENE SCREEN, URINE NEGATIVE (NEGATIVE); THC CANNABINOID SCREEN, URINE NEGATIVE (NEGATIVE); TRICYCLIC ANTIDEPRESSANT,URINE NEGATIVE (NEGATIVE)
[2023-10-04 03:30] LABS: THYROID STIMULATING HORMONE 2.06 uIU/mL (0.34-5.60)
[2023-10-04 05:18] LABS: ACETAMINOPHEN 0.1 ug/mL; ALBUMIN 4.5 g/dL (3.2-5.5); ALBUMIN/GLOBULIN RATIO 1.6 (1.0-2.2); ALKALINE PHOSPHATASE 67 IU/L (42-121); ALT ALANINE AMINOTRANSFERASE 13 IU/L (10-60); AST ASPARTATE AMINOTRANSFERASE 12 IU/L (10-42); BILIRUBIN,TOTAL 0.3 mg/dL (0.2-1.0); BUN - BLOOD UREA NITROGEN 43 mg/dL (6-20); CALCIUM 9.2 mg/dL (8.5-10.3); CARBON DIOXIDE - CO2 18 mmol/L (21-32); CHLORIDE 108 mmol/L (101-111); CK- CREATINE KINASE 158 IU/L (30-223); CREATININE 3.1 mg/dL (0.6-1.3); ETOH - ETHANOL < 10.0 mg/dL; GFR - MDRD 21 (>89); GLUCOSE 207 mg/dL (74-104); LIPASE 267 U/L (11-82); MAGNESIUM 1.7 mg/dL (1.7-2.3); POTASSIUM 4.5 mmol/L (3.5-4.5); SODIUM 138 mmol/L (135-145); TOTAL PROTEIN 7.3 g/dL (6.4-8.9)
[2023-10-04 05:24] LABS: SALICYLATE < 1.5 mg/dL
[2023-10-04 06:02] VITALS: O2SAT 100
--- NOTE | 2023-10-04 06:11 | ED Physician Documentation ---
PD HPI MHE - Stated complaint Stated Complaint: SI - Chief complaint Chief Complaint: MHE - History obtained from History obtained from: Patient - History of Present Illness Primary symptom: Suicidal ideation - Additional information Additional information: 53yM with pmh depression and anxiety p/w depressed mood and passive SI tonight. patient has appointment with his counselor this week and has been compliant with meds but has been having invasive suicidal thoughts and states the holidays have been a hard time for him. denies HI/AVH PD PAST MEDICAL HISTORY - Past Medical History Past Medical History: Yes Cardiovascular: Hypertension Respiratory: None Neuro: None Endocrine/Autoimmune: Type 1 diabetes GI: None : None HEENT: None Psych: Depression, Anxiety Musculoskeletal: None, Gout Derm: None - Past Surgical History Past Surgical History: Yes - Present Medications Home Medications: Ambulatory Orders Medication Instructions Recorded Confirmed Aripiprazole [Abilify] 2 mg PO DAILY 04/12/13 08/08/23 Clonazepam 1 - 2 mg PO DAILY PRN 04/12/13 08/08/23 Insulin Glargine,Hum.rec.anlog 80 unit SQ DAILY 03/07/14 08/08/23 [Lantus] metFORMIN [Glucophage] 1,000 mg ORAL DAILY 11/10/16 08/08/23 Insulin Lispro [Humalog] 30 unit SQ TIDWM 03/08/17 08/08/23 Aspirin [[place] Aspirin] 81 mg PO DAILY 01/19/22 08/08/23 Cholecalciferol (Vitamin D3) 125 mcg PO DAILY 01/19/22 08/08/23 [Vitamin D3] Levothyroxine [Synthroid] 75 mcg PO QPM 11/10/22 08/08/23 DULoxetine [Cymbalta] 40 mg PO DAILY 03/01/23 08/08/23 Fenofibrate 54 mg PO DAILY 03/01/23 08/08/23 Ferrous Sulfate [Feosol] 325 mg PO DAILY 03/01/23 08/08/23 Linagliptin [Tradjenta] 5 mg PO DAILY 03/01/23 08/08/23 Metoprolol Succinate 100 mg PO DAILY 03/01/23 08/08/23 amLODIPine [Norvasc] 10 mg PO DAILY 03/01/23 08/08/23 Rosuvastatin Calcium [Crestor] 40 mg PO DAILY 07/15/23 08/08/23 glipiZIDE [Glipizide ER] 2.5 mg PO DAILY 07/15/23 08/08/23 Linagliptin [Tradjenta] 5 mg PO DAILY #7 tablet 08/08/23 - Allergies Allergies/Adverse Reactions: Allergies Allergy/AdvReac Type Severity Reaction Status Date / Time Penicillins Allergy Rash Verified 10/04/23 02:39 sertraline HCl * Allergy bladder Verified 10/04/23 02:39 [From Zoloft] infection alprazolam [From Xanax] AdvReac Unknown Verified 10/04/23 02:39 lorazepam [From Ativan] AdvReac Anxiety Verified 10/04/23 02:39 - Social History Does the pt smoke?: No Smoking Status: Never smoker Does the pt drink ETOH?: No Does the pt have substance abuse?: No - Immunizations Immunizations are current?: Yes - POLST Patient has POLST: No PD ED PE NORMAL - Vitals Vital signs reviewed: Yes - General General: Alert and oriented X 3, No acute distress, Well developed/nourished - HEENT HEENT: Atraumatic, PERRL, EOMI - Neck Neck: Supple, no meningeal sign - Derm Derm: Normal color, Warm and dry - Neuro Neuro: Alert and oriented X 3, Normal speech - Psych Psych: Other (depressed mood and affect) Results - Vitals Vitals: Vital Signs - 24 hr 10/04/23 10/04/23 10/04/23 02:33 02:49 05:53 Temperature 37.0 C 35.5 C L Heart Rate 67 61 67 Respiratory 18 18 14 Rate Blood Pressure 152/78 H 120/71 122/63 O2 Saturation 99 98 100 Oxygen O2 Source Room air - Labs Labs: Laboratory Tests 10/04/23 10/04/23 10/04/23 02:50 02:55 02:55 WBC 8.6 RBC 3.72 L Hgb 11.1 L Hct 34.7 L MCV 93.3 MCH 29.8 MCHC 32.0 RDW 12.9 Plt Count 244 MPV 9.4 Neut # (Auto) 6.3 Lymph # (Auto) 1.1 L [place] # (Auto) 0.7 Eos # (Auto) 0.4 Baso # (Auto) 0.0 Absolute Nucleated RBC 0.00 Nucleated RBC % 0.0 Sodium 138 Potassium 4.5 Chloride 108 Carbon Dioxide 18 L Anion Gap 12.0 BUN 43 H Creatinine 3.1 H Estimated GFR (MDRD) 21 L Glucose 207 H Calcium 9.2 Magnesium 1.7 Total Bilirubin 0.3 AST 12 ALT 13 Alkaline Phosphatase 67 Total Creatine Kinase 158 Total Protein 7.3 Albumin 4.5 Globulin 2.8 Albumin/Globulin Ratio 1.6 Lipase 267 H TSH 2.06 Urine Color YELLOW Urine Clarity CLEAR Urine pH 6.0 Ur Specific [place] 1.020 Urine Protein >=300 H Urine Glucose (UA) >=1000 H Urine Ketones NEGATIVE Urine Occult Blood SMALL H Urine Nitrite NEGATIVE Urine Bilirubin NEGATIVE Urine Urobilinogen 0.2 (NORMAL) Ur Leukocyte Esterase NEGATIVE Urine RBC 0-5 Urine WBC 0-3 Ur Squamous Epith Cells NONE SEEN Urine Bacteria None Seen Urine Mucus Few Strands Ur Microscopic Review INDICATED Urine Culture Comments NOT INDICATED Salicylates < 1.5 Urine Opiates Screen NEGATIVE Ur Oxycodone Screen NEGATIVE Urine Methadone Screen NEGATIVE Ur Propoxyphene Screen NEGATIVE Acetaminophen 0.1 Ur Barbiturates Screen NEGATIVE Ur Tricyclics Screen NEGATIVE Ur Phencyclidine Scrn NEGATIVE Ur Amphetamine Screen NEGATIVE U Methamphetamines Scrn NEGATIVE U Benzodiazepines Scrn NEGATIVE Urine Cocaine Screen NEGATIVE U Cannabinoids Screen NEGATIVE Ethyl Alcohol < 10.0 PD Medical Decision Making - ED course ED course: 83-year-old man with history of depression and anxiety presents with suicidal ideation tonight. He has a history of chronic kidney disease and anemia that is stable on lab work. He is medically cleared at this time. Plan is for him to talk with social work and discuss plan going forward. Patient is voluntary for psychiatric evaluation. Patient endorsed to incoming daytime EDMD at 7 AM shift change. Departure - Departure Clinical Impression: CKD (chronic kidney disease), Anemia, Suicidal thoughts, Depression Forms: PCP List
--- NOTE | 2023-10-04 09:16 | ED Physician Documentation ---
ED Addendum - Addendum Addendum: 10/04/23 09:15 Patient with a history of chronic depression and chronic suicidal ideation. Not aware of prior attempts. He does come to the ER fairly often with exacerbations of the feeling in typically responds well to brief counseling. He had slept for several hours. He is requesting to talk to social work.
[2023-10-04 11:44] VITALS: BP 128/88
== END 2023-10-04 11:44 | disposition home or self-care (01) ==
LOC: ED 02:23
DX: R45.851 Suicidal ideations (principal); F32.A Depression, unspecified; N18.9 Chronic kidney disease, unspecified; D64.9 Anemia, unspecified; I12.9 Hypertensive chronic kidney disease with stage 1 through stage 4 chronic kidney disease, or unspecified chronic kidney disease
CPT/HCPCS: 36415; 80053; 80306; 80307; 81001; 82550; 83690; 83735; 84443; 85025; 99283; G0480; 80320; 80329; 81003; 87086

== ENCOUNTER 2023-11-24 17:11 | Outpatient (CLI) | payer MEDICARE | END 2023-11-24 17:12 | disposition EMS.NT | LOC: EMS 17:11 | DX: R19.7 Diarrhea, unspecified (principal) ==

== ENCOUNTER 2023-11-25 01:53 | Emergency (ER) | payer MEDICARE ==
[2023-11-25] MEDS ORDERED: SODIUM CHLORIDE 0.9% 1,000 ML IV STA (02:26)
--- NOTE | 2023-11-25 02:28 | ED Physician Documentation ---
PD HPI NVD - Stated complaint Stated Complaint: ABD PX/DIARRHEA - Chief complaint Chief Complaint: Abd Pain - History obtained from History obtained from: Patient - History of Present Illness Timing - onset: How many days ago (4) Timing - duration: Days (4) Timing - details: Abrupt onset, Still present Associated symptoms: Abdominal pain Improved by: Vomiting, BM Worsened by: Eating Similar symptoms before: No diagnosis Recently seen: Not recently seen - Additonal information Additional information: James Nuñez is a 53-year-old male with type 2 diabetes and stage IV renal failure who has a history of depression and anxiety. He presents to the emergency department today with a 4-day history of diarrhea. He has had some abdominal cramping associated with this and he has been taking some Imodium. Review of Systems Constitutional: denies: Fever Eyes: denies: Decreased vision Ears: denies: Ear pain Nose: denies: Rhinorrhea / runny nose, Congestion Throat: denies: Sore throat Cardiac: denies: Chest pain / pressure, Palpitations Respiratory: denies: Dyspnea, Cough, Wheezing GI: reports: Abdominal Pain, Nausea, Diarrhea : denies: Dysuria, Frequency Skin: denies: Rash Musculoskeletal: denies: Neck pain, Back pain, Extremity pain PD PAST MEDICAL HISTORY - Past Medical History Past Medical History: Yes Cardiovascular: Hypertension Respiratory: None Neuro: None Endocrine/Autoimmune: Type 1 diabetes GI: None : None HEENT: None Psych: Depression, Anxiety Musculoskeletal: None, Gout Derm: None - Past Surgical History Past Surgical History: Yes - Present Medications Home Medications: Ambulatory Orders Medication Instructions Recorded Confirmed Clonazepam 1 - 2 mg PO DAILY PRN 04/12/13 11/25/23 Insulin Glargine,Hum.rec.anlog 80 unit SQ DAILY 03/07/14 11/25/23 [Lantus] Insulin Lispro [Humalog] 30 unit SQ TIDWM 03/08/17 11/25/23 Aspirin [[place] Aspirin] 81 mg PO DAILY 01/19/22 11/25/23 Levothyroxine [Synthroid] 75 mcg PO QPM 11/10/22 11/25/23 DULoxetine [Cymbalta] 60 mg PO DAILY 03/01/23 11/25/23 Fenofibrate 54 mg PO DAILY 03/01/23 11/25/23 Ferrous Sulfate [Feosol] 325 mg PO DAILY 03/01/23 11/25/23 Metoprolol Succinate 100 mg PO DAILY 03/01/23 11/25/23 amLODIPine [Norvasc] 10 mg PO DAILY 03/01/23 11/25/23 Rosuvastatin Calcium [Crestor] 40 mg PO DAILY 07/15/23 11/25/23 glipiZIDE [Glipizide ER] 2.5 mg PO DAILY 07/15/23 11/25/23 Linagliptin [Tradjenta] 5 mg PO DAILY #7 tablet 08/08/23 11/25/23 Cholecalciferol (Vitamin D3) 1 cap PO DAILY 11/25/23 11/25/23 [Vitamin D3] Diphenoxylate/Atropine [Lomotil] 2 each PO QID PRN #20 tablet 11/25/23 Empagliflozin [Jardiance] 1 tab PO DAILY 11/25/23 11/25/23 Triamcinolone 0.1% Cream [Kenalog 1 applic TOP BID PRN 11/25/23 11/25/23 0.1% Cream] - Allergies Allergies/Adverse Reactions: Allergies Allergy/AdvReac Type Severity Reaction Status Date / Time Penicillins Allergy Rash Verified 11/25/23 02:03 sertraline HCl * Allergy bladder Verified 11/25/23 02:03 [From Zoloft] infection alprazolam [From Xanax] AdvReac Unknown Verified 11/25/23 02:03 lorazepam [From Ativan] AdvReac Anxiety Verified 11/25/23 02:03 - Social History Does the pt smoke?: No Smoking Status: Never smoker Does the pt drink ETOH?: No Does the pt have substance abuse?: No - Immunizations Immunizations are current?: Yes - POLST Patient has POLST: No PD ED PE NORMAL - Vitals Vital signs reviewed: Yes (Hypertensive mild) - General General: Alert and oriented X 3, No acute distress, Well developed/nourished - HEENT HEENT: Atraumatic, PERRL, EOMI - Neck Neck: Supple, no meningeal sign, No bony TTP - Cardiac Cardiac: RRR, No murmur - Respiratory Respiratory: No respiratory distress, Clear bilaterally - Abdomen Abdomen: Normal bowel sounds, Soft, Non tender, Non distended, No organomegaly - Back Back: No CVA TTP, No spinal TTP - Derm Derm: Normal color, Warm and dry, No rash - Extremities Extremities: No deformity, No edema - Neuro Neuro: Alert and oriented X 3, service associate 2-12 intact, No motor deficit, No sensory deficit, Normal speech Eye Opening: Spontaneous Motor: Obeys Commands Verbal: Oriented GCS Score: 15 - Psych Psych: Normal mood, Normal affect Results - Vitals Vitals: Vital Signs - 24 hr 11/25/23 01:55 Temperature 36.4 C L Heart Rate 77 Respiratory 16 Rate Blood Pressure 137/68 H O2 Saturation 100 Oxygen O2 Source Room air - Labs Labs: Laboratory Tests 11/25/23 11/25/23 11/25/23 02:19 03:00 03:00 WBC 10.6 RBC 3.75 L Hgb 11.2 L Hct 34.7 L MCV 92.5 MCH 29.9 MCHC 32.3 RDW 13.1 Plt Count 249 MPV 9.4 Neut # (Auto) 8.0 H Lymph # (Auto) 1.1 L [place] # (Auto) 1.0 Eos # (Auto) 0.3 Baso # (Auto) 0.1 Absolute Nucleated RBC 0.00 Nucleated RBC % 0.0 Sodium 137 Potassium 4.2 Chloride 108 Carbon Dioxide 16 L Anion Gap 13.0 BUN 37 H Creatinine 3.2 H Estimated GFR (MDRD) 20 L Glucose 119 H POC Whole Bld Glucose 92 Lactic Acid Calcium 8.8 Total Bilirubin 0.3 AST 14 ALT 14 Alkaline Phosphatase 70 Total Protein 6.7 Albumin 4.0 Globulin 2.7 Albumin/Globulin Ratio 1.5 Lipase 76 Urine Color Urine Clarity Urine pH Ur Specific [place] Urine Protein Urine Glucose (UA) Urine Ketones Urine Occult Blood Urine Nitrite Urine Bilirubin Urine Urobilinogen Ur Leukocyte Esterase Urine RBC Urine WBC Ur Squamous Epith Cells Urine Bacteria Ur Microscopic Review Urine Culture Comments 11/25/23 11/25/23 03:00 04:08 WBC RBC Hgb Hct MCV MCH MCHC RDW Plt Count MPV Neut # (Auto) Lymph # (Auto) [place] # (Auto) Eos # (Auto) Baso # (Auto) Absolute Nucleated RBC Nucleated RBC % Sodium Potassium Chloride Carbon Dioxide Anion Gap BUN Creatinine Estimated GFR (MDRD) Glucose POC Whole Bld Glucose Lactic Acid 1.0 Calcium Total Bilirubin AST ALT Alkaline Phosphatase Total Protein Albumin Globulin Albumin/Globulin Ratio Lipase Urine Color YELLOW Urine Clarity CLEAR Urine pH 5.5 Ur Specific [place] 1.020 Urine Protein 100 H Urine Glucose (UA) 500 H Urine Ketones NEGATIVE Urine Occult Blood SMALL H Urine Nitrite NEGATIVE Urine Bilirubin NEGATIVE Urine Urobilinogen 0.2 (NORMAL) Ur Leukocyte Esterase NEGATIVE Urine RBC 0-5 Urine WBC 0-3 Ur Squamous Epith Cells NONE SEEN Urine Bacteria None Seen Ur Microscopic Review INDICATED Urine Culture Comments NOT INDICATED Procedures - IVC sono (time) 0222 Bedside IVC sono: IVC measures (cm) (0.82), IVC collapsed c insp (cm) (complete), Dehydration (est 2 liter deficit) PD Medical Decision Making - ED course Complexity details: reviewed old records, reviewed results, re-evaluated patient, considered differential, d/w patient Reviewed Lab Results: We reviewed a complete blood count showing a white blood cell count normal at 10.5 hemoglobin and hematocrit were depressed at 11.2 and 34.7. These are similar to what the patient has had for the past 2 years chemistries showed norm al electrolytes with a BUN of 37 and a creatinine of 3.2 these kidney values are similar to what the patient has had most recently. Lactic acid is normal at 1.0 liver functions are normal. These laboratory test indicate the patient has stable anemia and stable stage IV kidney disease. Does not lead to a specific diagnosis. It does aid in treatment and that no specific electrolyte abnormalities are present currently. ED course: 53-year-old James Nuñez with history of type 2 diabetes is using a continuous glucometer and manage using his diabetes closely. He has developed gastroenteritis and this is currently active in the community. Today I interrogated his inferior vena cava with POCUS and found him to be dehydrated on the order of 2 L. He has complaints of abdominal cramping as well as the diarrhea. He has been using some Imodium and this has not resolved his problem. Today he is administered intravenous saline. We will work on further symptomatic treatment and provide the patient a prescription for Lomotil. Departure - Departure Disposition: 01 Home, Self Care Clinical Impression: Gastroenteritis, Dehydration Condition: Stable Instructions: ED Dehydration, ED Gastroenteritis Viral Follow-Up: Allyssa Sellers ARNP [Credentialed Staff Provider] - Prescriptions: Diphenoxylate/Atropine [Lomotil] 2 each PO QID PRN #20 tablet PRN Reason: diarrhea and abdominal crampin Comments: James, today it looks like you have a viral gastroenteritis causing significant problems with diarrhea. Today we have provided some hydration with saline and my recommendation is to add additional fluids to your usual regimen. To control the diarrhea and abdominal cramping I have E scribed some Lomotil to the pharmacy here in [place]. A culture of stool is pending and results will be available in 2 days.
[2023-11-25 03:06] LABS: BASOPHILS # (AUTO) 0.1 10^3/uL (0.0-0.1); BASOPHILS % (AUTO) 0.5 %; EOSINOPHILS # (AUTO) 0.3 10^3/uL (0.0-0.7); EOSINOPHILS % (AUTO) 2.4 %; HCT - HEMATOCRIT 34.7 % (42.0-52.0); HGB - HEMOGLOBIN 11.2 g/dL (14.0-18.0); LYMPHOCYTES # (AUTO) 1.1 10^3/uL (1.5-3.5); LYMPHOCYTES % (AUTO) 10.7 %; MEAN CORPUSCULAR HEMOGLOBIN 29.9 pg (27.0-31.0); MEAN CORPUSCULAR HGB CONC 32.3 g/dL (32.0-36.0); MEAN CORPUSCULAR VOLUME 92.5 fL (80.0-94.0); MEAN PLATELET VOLUME 9.4 fL (7.4-11.4); MONOCYTES % (AUTO) 9.6 %; PLT - PLATELET COUNT 249 10^3/uL (130-450); RED BLOOD COUNT 3.75 10^6/uL (4.70-6.10); RED CELL DISTRIBUTION WIDTH 13.1 % (12.0-15.0); WHITE BLOOD COUNT 10.6 x10^3/uL (4.8-10.8)
[2023-11-25 03:24] LABS: ALBUMIN/GLOBULIN RATIO 1.5 (1.0-2.2); BILIRUBIN,TOTAL 0.3 mg/dL (0.2-1.0); CALCIUM 8.8 mg/dL (8.5-10.3); CREATININE 3.2 mg/dL (0.6-1.3); POTASSIUM 4.2 mmol/L (3.5-4.5); TOTAL PROTEIN 6.7 g/dL (6.4-8.9)
[2023-11-25 04:36] LABS: BILIRUBIN,URINE NEGATIVE (NEGATIVE); GLUCOSE, URINE (UA) 500 mg/dL (NEGATIVE); KETONES,URINE (UA) NEGATIVE (NEGATIVE); LEUKOCYTE ESTERASE, URINE NEGATIVE (NEGATIVE); NITRITE,URINE NEGATIVE (NEGATIVE); OCCULT BLOOD,URINE SMALL (NEGATIVE); PH,URINE 5.5 PH (5.0-7.5); PROTEIN,URINE 100 mg/dL (NEGATIVE); UROBILINOGEN,URINE 0.2 (NORMAL) E.U./dL (NORMAL)
[2023-11-25 04:48] LABS: BACTERIA,URINE None Seen /HPF (None Seen); CLARITY,URINE CLEAR (CLEAR); RBC,URINE 0-5 /HPF (0-5); SQUAMOUS EPITHELIAL CELL,UR NONE SEEN (<= Few); WBC,URINE 0-3 /HPF (0-3)
[2023-11-25 05:34] VITALS: BP 135/65; O2SAT 94
[2023-11-26 22:08] LABS: ADENOVIRUS F 40/41 Not Detected (Not Detected); ASTROVIRUS Not Detected (Not Detected); C DIFFICILE TOXIN A/B Detected (Not Detected); CAMPYLOBACTER Not Detected (Not Detected); CRYPTOSPORIDIUM Not Detected (Not Detected); CYCLOSPORA CAYETANENSIS Not Detected (Not Detected); ENTAMOEBA HISTOLYTICA Not Detected (Not Detected); ENTEROAGGREGATIVE E COLI Not Detected (Not Detected); ENTEROPATHOGENIC E COLI Not Detected (Not Detected); ENTEROTOXIGENIC E COLI Not Detected (Not Detected); GIARDIA LAMBLIA Not Detected (Not Detected); NOROVIRUS GI/GII Not Detected (Not Detected); PLESIOMONAS SHIGELLOIDES Not Detected (Not Detected); ROTAVIRUS A Not Detected (Not Detected); SALMONELLA Not Detected (Not Detected); SAPOVIRUS Not Detected (Not Detected); SHIGA-TOXIN-PRODUCING E COLI Not Detected (Not Detected); SHIGELLA/ENTEROINVASIVE E COLI Not Detected (Not Detected); VIBRIO Not Detected (Not Detected); VIBRIO CHOLERAE Not Detected (Not Detected); YERSINIA ENTEROCOLITICA Not Detected (Not Detected)
== END 2023-11-25 05:29 | disposition home or self-care (01) ==
LOC: ED 01:53
DX: K52.9 Noninfective gastroenteritis and colitis, unspecified (principal); E86.0 Dehydration; E11.22 Type 2 diabetes mellitus with diabetic chronic kidney disease; I12.9 Hypertensive chronic kidney disease with stage 1 through stage 4 chronic kidney disease, or unspecified chronic kidney disease; Z79.4 Long term (current) use of insulin; D64.9 Anemia, unspecified
CPT/HCPCS: 36415; 80053; 81001; 81003; 83605; 83690; 85025; 87086; 87507; 96360; 96361; 99283

== ENCOUNTER 2023-11-29 03:18 | Emergency (ER) | payer MEDICARE, OTHER ==
[2023-11-29] MEDS ORDERED: SODIUM CHLORIDE 0.9% 1,000 ML IV STA (03:35)
[2023-11-29 03:55] VITALS: BP 146/70; O2SAT 98
[2023-11-29] MEDS ORDERED: FIDAXOMICIN 200 MG TABLET PO STA (03:58)
--- NOTE | 2023-11-29 04:02 | ED Physician Documentation ---
History of Present Illness - Stated complaint Stated Complaint: ABD PX - Chief complaint Chief Complaint: Abd Pain - History obtained from History obtained from: Patient - Additonal information Additional information: 53yM with pmh depression, anxiety, dm1, ckd4, recent ed visit for diarrheal illness, p/w persistent diarrhea and cramping X 4 days. also with decreased po intake. denies fever/chills, back pain, urinary sx. PD PAST MEDICAL HISTORY - Past Medical History Cardiovascular: Hypertension Respiratory: None Neuro: None Endocrine/Autoimmune: Type 1 diabetes GI: None : None HEENT: None Psych: Depression, Anxiety Musculoskeletal: None, Gout Derm: None - Past Surgical History Past Surgical History: Yes - Present Medications Home Medications: Ambulatory Orders Medication Instructions Recorded Confirmed Clonazepam 1 - 2 mg PO DAILY PRN 04/12/13 11/25/23 Insulin Glargine,Hum.rec.anlog 80 unit SQ DAILY 03/07/14 11/25/23 [Lantus] Insulin Lispro [Humalog] 30 unit SQ TIDWM 03/08/17 11/25/23 Aspirin [[place] Aspirin] 81 mg PO DAILY 01/19/22 11/25/23 Levothyroxine [Synthroid] 75 mcg PO QPM 11/10/22 11/25/23 DULoxetine [Cymbalta] 60 mg PO DAILY 03/01/23 11/25/23 Fenofibrate 54 mg PO DAILY 03/01/23 11/25/23 Ferrous Sulfate [Feosol] 325 mg PO DAILY 03/01/23 11/25/23 Metoprolol Succinate 100 mg PO DAILY 03/01/23 11/25/23 amLODIPine [Norvasc] 10 mg PO DAILY 03/01/23 11/25/23 Rosuvastatin Calcium [Crestor] 40 mg PO DAILY 07/15/23 11/25/23 glipiZIDE [Glipizide ER] 2.5 mg PO DAILY 07/15/23 11/25/23 Linagliptin [Tradjenta] 5 mg PO DAILY #7 tablet 08/08/23 11/25/23 Cholecalciferol (Vitamin D3) 1 cap PO DAILY 11/25/23 11/25/23 [Vitamin D3] Diphenoxylate/Atropine [Lomotil] 2 each PO QID PRN #20 tablet 11/25/23 Empagliflozin [Jardiance] 1 tab PO DAILY 11/25/23 11/25/23 Triamcinolone 0.1% Cream [Kenalog 1 applic TOP BID PRN 11/25/23 11/25/23 0.1% Cream] Fidaxomicin [Dificid] 200 mg PO BID #20 tablet 11/29/23 - Allergies Allergies/Adverse Reactions: Allergies Allergy/AdvReac Type Severity Reaction Status Date / Time Penicillins Allergy Rash Verified 11/29/23 03:45 sertraline HCl * Allergy bladder Verified 11/29/23 03:45 [From Zoloft] infection alprazolam [From Xanax] AdvReac Unknown Verified 11/29/23 03:45 lorazepam [From Ativan] AdvReac Anxiety Verified 11/29/23 03:45 - Social History Does the pt smoke?: No Smoking Status: Never smoker Does the pt drink ETOH?: No Does the pt have substance abuse?: No - Immunizations Immunizations are current?: Yes - POLST Patient has POLST: No PD ED PE NORMAL - Vitals Vital signs reviewed: Yes - General General: Alert and oriented X 3, No acute distress, Well developed/nourished - HEENT HEENT: Atraumatic, PERRL, EOMI - Neck Neck: Supple, no meningeal sign - Cardiac Cardiac: RRR - Respiratory Respiratory: No respiratory distress, Clear bilaterally - Abdomen Abdomen: Non tender, Non distended Results - Vitals Vitals: Vital Signs - 24 hr 11/29/23 03:42 Temperature 36.7 C Heart Rate 70 Respiratory 18 Rate Blood Pressure 146/70 H O2 Saturation 98 Oxygen O2 Source Room air - Labs Labs: Laboratory Tests 11/29/23 11/29/23 03:58 03:58 WBC 9.2 RBC 3.56 L Hgb 10.7 L Hct 32.5 L MCV 91.3 MCH 30.1 MCHC 32.9 RDW 13.1 Plt Count 255 MPV 9.3 Neut # (Auto) 7.1 H Lymph # (Auto) 1.1 L [place] # (Auto) 0.8 Eos # (Auto) 0.2 Baso # (Auto) 0.0 Absolute Nucleated RBC 0.00 Nucleated RBC % 0.0 Sodium 136 Potassium 4.8 H Chloride 109 Carbon Dioxide 18 L Anion Gap 9.0 BUN 43 H Creatinine 3.2 H Estimated GFR (MDRD) 20 L Glucose 188 H Calcium 8.7 Total Bilirubin 0.3 AST 10 ALT 11 Alkaline Phosphatase 77 Total Protein 7.0 Albumin 3.9 Globulin 3.1 Albumin/Globulin Ratio 1.3 Lipase 34 PD Medical Decision Making - ED course ED course: 53yM presents with diarrhea X several days, found to have c diff on stool cultu re. Antibiotics rx sent to pharmacy. Fidaxomycin not available in the hospital but he will be able to fill the prescription in a couple hours. cbc, abdominal panel stable. return precautions given. Departure - Departure Disposition: Home, Self Care Clinical Impression: C. difficile colitis, Anemia Condition: Stable Instructions: Clostridium Difficile Infec Prescriptions: Fidaxomicin [Dificid] 200 mg PO BID #20 tablet Comments: You were seen in the emergency department for c diff (clostridium difficile) bacterial diarrhea infection. This is highly contagious. Antibiotics were sent electronically to pharmacy. You can take Gas-X (simethicone) available [id number] for abdominal cramping. Please follow-up with your primary care provider and return to the emergency department if you have any new or worsening symptoms or other concerns. Forms: PCP List
[2023-11-29 04:05] LABS: BASOPHILS % (AUTO) 0.4 %; EOSINOPHILS # (AUTO) 0.2 10^3/uL (0.0-0.7); EOSINOPHILS % (AUTO) 2.2 %; HCT - HEMATOCRIT 32.5 % (42.0-52.0); HGB - HEMOGLOBIN 10.7 g/dL (14.0-18.0); LYMPHOCYTES # (AUTO) 1.1 10^3/uL (1.5-3.5); LYMPHOCYTES % (AUTO) 11.4 %; MEAN CORPUSCULAR HEMOGLOBIN 30.1 pg (27.0-31.0); MEAN CORPUSCULAR HGB CONC 32.9 g/dL (32.0-36.0); MEAN CORPUSCULAR VOLUME 91.3 fL (80.0-94.0); MEAN PLATELET VOLUME 9.3 fL (7.4-11.4); MONOCYTES # (AUTO) 0.8 10^3/uL (0.0-1.0); MONOCYTES % (AUTO) 8.3 %; NEUTROPHILS # (AUTO) 7.1 10^3/uL (1.5-6.6); NEUTROPHILS % (AUTO) 77.3 %; PLT - PLATELET COUNT 255 10^3/uL (130-450); RED BLOOD COUNT 3.56 10^6/uL (4.70-6.10); RED CELL DISTRIBUTION WIDTH 13.1 % (12.0-15.0); WHITE BLOOD COUNT 9.2 x10^3/uL (4.8-10.8)
[2023-11-29 04:23] LABS: ALBUMIN 3.9 g/dL (3.2-5.5); ALBUMIN/GLOBULIN RATIO 1.3 (1.0-2.2); BILIRUBIN,TOTAL 0.3 mg/dL (0.2-1.0); CALCIUM 8.7 mg/dL (8.5-10.3); CREATININE 3.2 mg/dL (0.6-1.3); POTASSIUM 4.8 mmol/L (3.5-4.5)
== END 2023-11-29 04:49 | disposition home or self-care (01) ==
LOC: ED 03:18
DX: A04.72 Enterocolitis due to Clostridium difficile, not specified as recurrent (principal); D64.9 Anemia, unspecified; I10 Essential (primary) hypertension; E10.9 Type 1 diabetes mellitus without complications; Z79.4 Long term (current) use of insulin
CPT/HCPCS: 36415; 80053; 83690; 85025; 99283

== ENCOUNTER 2023-11-30 03:46 | Emergency (ER) | payer MEDICARE, OTHER ==
--- NOTE | 2023-11-30 04:08 | ED Physician Documentation ---
History of Present Illness - Stated complaint Stated Complaint: GI/CHILLS - Chief complaint Chief Complaint: Abd Pain - History obtained from History obtained from: Patient - Additonal information Additional information: HPI from patient. Patient was treated and released from this emergency department November 25 with chief complaint of diarrhea, cramping abdominal discomfort. He was prescribed Lomotil which provided transient, partial relief. Stool sample was sent for analysis on that visit. The patient returned November 29 due to ongoing diarrhea, again with waves of cramping abdominal discomfort. The stool sample from November 25 had resulted and was positive for C. difficile. Blood tests performed November 29 were unremarkable, with normal white blood cell count, and elevated BUN/creatinine that approximates his baseline since last June. He was prescribed Fidaxomicin. Unfortunately, the patient [place] called a number of different pharmacies); the soonest that it will be available will be on Saturday. He thus returns to the emergency department with complaint of ongoing diarrhea and the episodic, generalized cramping abdominal discomfort. He denies nausea, vomiting. He says he is able to tolerate p.o. liquids without problems. He denies fevers. He denies blood in the stool, dark black tarry stool. He says it has been a long time since he has been on antibiotics to the point that he cannot recall the last time he was prescribed any antibiotics. He says he has never had C. difficile before Review of Systems Constitutional: denies: Fever Cardiac: reports: Reviewed and negative Respiratory: reports: Reviewed and negative GI: reports: Abdominal Pain, Diarrhea. denies: Abdominal Swelling, Nausea, Vomiting, Constipation, Bloody / black stool PD PAST MEDICAL HISTORY - Past Medical History Past Medical History: Yes Cardiovascular: Hypertension Respiratory: None Neuro: None Endocrine/Autoimmune: Type 1 diabetes GI: None : None HEENT: None Psych: Depression, Anxiety Musculoskeletal: None, Gout Derm: None Other Past Medical History: c diff - Past Surgical History Past Surgical History: Yes - Present Medications Home Medications: Ambulatory Orders Medication Instructions Recorded Confirmed Clonazepam 1 - 2 mg PO DAILY PRN 04/12/13 11/25/23 Insulin Glargine,Hum.rec.anlog 80 unit SQ DAILY 03/07/14 11/25/23 [Lantus] Insulin Lispro [Humalog] 30 unit SQ TIDWM 03/08/17 11/25/23 Aspirin [[place] Aspirin] 81 mg PO DAILY 01/19/22 11/25/23 Levothyroxine [Synthroid] 75 mcg PO QPM 11/10/22 11/25/23 DULoxetine [Cymbalta] 60 mg PO DAILY 03/01/23 11/25/23 Fenofibrate 54 mg PO DAILY 03/01/23 11/25/23 Ferrous Sulfate [Feosol] 325 mg PO DAILY 03/01/23 11/25/23 Metoprolol Succinate 100 mg PO DAILY 03/01/23 11/25/23 amLODIPine [Norvasc] 10 mg PO DAILY 03/01/23 11/25/23 Rosuvastatin Calcium [Crestor] 40 mg PO DAILY 07/15/23 11/25/23 glipiZIDE [Glipizide ER] 2.5 mg PO DAILY 07/15/23 11/25/23 Linagliptin [Tradjenta] 5 mg PO DAILY #7 tablet 08/08/23 11/25/23 Cholecalciferol (Vitamin D3) 1 cap PO DAILY 11/25/23 11/25/23 [Vitamin D3] Diphenoxylate/Atropine [Lomotil] 2 each PO QID PRN #20 tablet 11/25/23 Empagliflozin [Jardiance] 1 tab PO DAILY 11/25/23 11/25/23 Triamcinolone 0.1% Cream [Kenalog 1 applic TOP BID PRN 11/25/23 11/25/23 0.1% Cream] Fidaxomicin [Dificid] 200 mg PO BID #20 tablet 11/29/23 Vancomycin [Vancocin] 125 mg PO QID #16 cap 11/30/23 - Allergies Allergies/Adverse Reactions: Allergies Allergy/AdvReac Type Severity Reaction Status Date / Time Penicillins Allergy Rash Verified 11/29/23 03:45 sertraline HCl * Allergy bladder Verified 11/29/23 03:45 [From Zoloft] infection alprazolam [From Xanax] AdvReac Unknown Verified 11/29/23 03:45 lorazepam [From Ativan] AdvReac Anxiety Verified 11/29/23 03:45 - Social History Does the pt smoke?: No Smoking Status: Never smoker Does the pt drink ETOH?: No Does the pt have substance abuse?: No - Immunizations Immunizations are current?: Yes - POLST Patient has POLST: No PD ED PE NORMAL - Vitals Vital signs reviewed: Yes - General General: Alert and oriented X 3, No acute distress, Well developed/nourished - HEENT HEENT: Moist mucous membranes - Cardiac Cardiac: RRR, No murmur - Respiratory Respiratory: No respiratory distress, Clear bilaterally - Abdomen Abdomen: Normal bowel sounds, Soft, Non tender, Non distended - Derm Derm: Normal color, Warm and dry Results - Vitals Vitals: Vital Signs - 24 hr 11/30/23 11/30/23 03:59 07:05 Temperature 36.5 C 36.8 C Heart Rate 108 H 97 Respiratory 18 16 Rate Blood Pressure 163/84 H 186/72 H O2 Saturation 98 100 Oxygen O2 Source Room air - Labs Labs: Laboratory Tests 11/30/23 11/30/23 05:20 05:20 WBC 13.8 H RBC 3.72 L Hgb 11.1 L Hct 33.8 L MCV 90.9 MCH 29.8 MCHC 32.8 RDW 13.3 Plt Count 301 MPV 9.8 Neut # (Auto) 11.9 H Lymph # (Auto) 0.7 L [place] # (Auto) 1.0 Eos # (Auto) 0.1 Baso # (Auto) 0.0 Absolute Nucleated RBC 0.00 Nucleated RBC % 0.0 Sodium 138 Potassium 5.0 H Chloride 111 Carbon Dioxide 17 L Anion Gap 10.0 BUN 43 H Creatinine 3.0 H Estimated GFR (MDRD) 22 L Glucose 137 H Calcium 8.9 Total Bilirubin 0.3 AST 15 ALT 12 Alkaline Phosphatase 70 Total Protein 7.2 Albumin 4.1 Globulin 3.1 Albumin/Globulin Ratio 1.3 Lipase 43 PD Medical Decision Making - ED course Complexity details: reviewed results, re-evaluated patient, considered differential, d/w patient ED course: Mild leukocytosis on CBC (WBC 13.8). Mild hyperkalemia noted with potassium of 5.0. BUN and creatinine are comparable to yesterday's results and approximate the patient's baseline since June of last year (BUN tonight is 43 with creatinine 3.0). Patient is given 1 L normal saline IV as well as 125 mg of Vancocin p.o. He is in NAD. Results discussed with patient. As noted in HPI, the patient says that [facility] will have the fidaxomicin in stock by day this coming Saturday. Thus, I am providing him a prescription for 4 times daily Vancocin (125 mg per dose), 4-day supply. Per patient's request, I have electronically submitted this prescription to [facility]. The plan is as follows. The patient is to take the Vancocin 4 times daily until the fidaxomicin is available. I instructed him to take the fidaxomicin as soon as he gets the prescription regardless of when he last took the vancocin, but to stop the vancocin once he has started the fidaxomicin. Departure - Departure Disposition: 01 Home, Self Care Clinical Impression: Clostridium difficile colitis Condition: Good Instructions: Clostridium Difficile Infec Follow-Up: MARYCRUZ MCKINNEY MD [Primary Care Provider] - Prescriptions: Vancomycin [Vancocin] 125 mg PO QID #16 cap Comments: Your white blood cell count was slightly elevated outside of the normal range today, but not high enough to cause concern. Your kidney function tests are about the same as they have been since June 2023; is reassuring that your kidney function tests are about the same as they were yesterday. You were given a dose of vancomycin orally. This is one of the antibiotics of choice in treating Clostridium difficile colitis. I have electronically submitted a prescription for this antibiotic to the [facility] pharmacy in [place]. The prescription I am providing is only for 4 days worth of the medication (the typical course is ten days). You have indicated that the [facility] should have the other antibiotic (fidaxomicin) in stock on Saturday. In case there is a delay, I am providing you with enough of the vancomycin to get you through until (but not including) Saturday, if needed. Since the fidaxomicin has a slight advantage in treating C. difficile over vancomycin, I recommend that you shrimp picker the fidaxomicin as soon as it is available, take the first dose as soon as you get that medication regardless of when the last dose of the vancomycin was, and then stop taking the vancomycin. Take the full 10-day course of fidaxomicin regardless of how many days of vancomycin you have taken. Discharge Date/Time: 11/30/23 07:11
[2023-11-30] MEDS ORDERED: SODIUM CHLORIDE 0.9% 1,000 ML IV STA (04:38)
[2023-11-30] MEDS ORDERED: VANCOMYCIN 125 MG CAPSULE PO STA (04:39)
[2023-11-30 05:32] LABS: BASOPHILS % (AUTO) 0.3 %; EOSINOPHILS # (AUTO) 0.1 10^3/uL (0.0-0.7); EOSINOPHILS % (AUTO) 0.7 %; HCT - HEMATOCRIT 33.8 % (42.0-52.0); HGB - HEMOGLOBIN 11.1 g/dL (14.0-18.0); LYMPHOCYTES # (AUTO) 0.7 10^3/uL (1.5-3.5); MEAN CORPUSCULAR HEMOGLOBIN 29.8 pg (27.0-31.0); MEAN CORPUSCULAR HGB CONC 32.8 g/dL (32.0-36.0); MEAN CORPUSCULAR VOLUME 90.9 fL (80.0-94.0); MEAN PLATELET VOLUME 9.8 fL (7.4-11.4); MONOCYTES % (AUTO) 7.5 %; NEUTROPHILS # (AUTO) 11.9 10^3/uL (1.5-6.6); NEUTROPHILS % (AUTO) 86.1 %; PLT - PLATELET COUNT 301 10^3/uL (130-450); RED BLOOD COUNT 3.72 10^6/uL (4.70-6.10); RED CELL DISTRIBUTION WIDTH 13.3 % (12.0-15.0); WHITE BLOOD COUNT 13.8 x10^3/uL (4.8-10.8)
[2023-11-30 06:32] LABS: ALBUMIN 4.1 g/dL (3.2-5.5); ALBUMIN/GLOBULIN RATIO 1.3 (1.0-2.2); BILIRUBIN,TOTAL 0.3 mg/dL (0.2-1.0); CALCIUM 8.9 mg/dL (8.5-10.3); TOTAL PROTEIN 7.2 g/dL (6.4-8.9)
[2023-11-30 07:19] VITALS: BP 186/72; O2SAT 100
== END 2023-11-30 07:11 | disposition home or self-care (01) ==
LOC: ED 03:46
DX: A04.72 Enterocolitis due to Clostridium difficile, not specified as recurrent (principal); I10 Essential (primary) hypertension; E10.9 Type 1 diabetes mellitus without complications; Z79.4 Long term (current) use of insulin; Z79.84 Long term (current) use of oral hypoglycemic drugs
CPT/HCPCS: 36415; 80053; 83690; 85025; 99283; 99284; J8499

== ENCOUNTER 2023-12-20 01:47 | Outpatient (CLI) | payer MEDICARE, MEDICAID | END 2023-12-20 23:59 | disposition critical access hospital (66) | LOC: EMS 01:47 | DX: R45.851 Suicidal ideations (principal) | CPT/HCPCS: A0425; A0429 ==

== ENCOUNTER 2023-12-20 02:03 | Emergency (ER) | payer MEDICARE, MEDICAID ==
--- NOTE | 2023-12-20 02:23 | ED Physician Documentation ---
History of Present Illness - Stated complaint Stated Complaint: SI - History obtained from History obtained from: Patient, EMS - Additonal information Additional information: 53yM with pmh mdd presents to the ED requesting ketamine treatment. Patient states he suffers from fci depression, feelings of hopelessness and not wanting to live. denies active plan to kill himself. denies HI or AVH. states he has many reasons to live and is hoping to volunteer for peer support for those dealing with mental illness. Patient has f/u appointment this Saturday with pcp. PD PAST MEDICAL HISTORY - Past Medical History Cardiovascular: Hypertension Respiratory: None Neuro: None Endocrine/Autoimmune: Type 1 diabetes GI: None : None HEENT: None Psych: Depression, Anxiety Musculoskeletal: None, Gout Derm: None - Past Surgical History Past Surgical History: Yes - Present Medications Home Medications: Ambulatory Orders Medication Instructions Recorded Confirmed Clonazepam 1 mg PO DAILY 04/12/13 12/20/23 Insulin Glargine,Hum.rec.anlog 70 - 80 unit SQ BID 03/07/14 12/20/23 [Lantus] Insulin Lispro [Humalog] 30 unit SQ TIDWM 03/08/17 12/20/23 Aspirin [[place] Aspirin] 81 mg PO DAILY 01/19/22 12/20/23 Fenofibrate 54 mg PO DAILY 03/01/23 12/20/23 Ferrous Sulfate [Feosol] 325 mg PO DAILY 03/01/23 12/20/23 Metoprolol Succinate 100 mg PO DAILY 03/01/23 12/20/23 amLODIPine [Norvasc] 10 mg PO DAILY 03/01/23 12/20/23 Rosuvastatin Calcium [Crestor] 40 mg PO DAILY 07/15/23 12/20/23 glipiZIDE [Glipizide ER] 2.5 mg PO DAILY 07/15/23 12/20/23 Linagliptin [Tradjenta] 5 mg PO DAILY #7 tablet 08/08/23 12/20/23 Cholecalciferol (Vitamin D3) 1 cap PO DAILY 11/25/23 12/20/23 [Vitamin D3] Empagliflozin [Jardiance] 10 mg PO DAILY 11/25/23 12/20/23 Triamcinolone 0.1% Cream [Kenalog 1 applic TOP BID PRN 11/25/23 12/20/23 0.1% Cream] DULoxetine [Cymbalta] 120 mg PO DAILY 12/20/23 12/20/23 Levothyroxine [Synthroid] 75 mcg PO QDAC 12/20/23 12/20/23 - Allergies Allergies/Adverse Reactions: Allergies Allergy/AdvReac Type Severity Reaction Status Date / Time Penicillins Allergy Rash Verified 12/20/23 02:17 sertraline HCl * Allergy bladder Verified 12/20/23 02:17 [From Zoloft] infection alprazolam [From Xanax] AdvReac Unknown Verified 12/20/23 02:17 lorazepam [From Ativan] AdvReac Anxiety Verified 12/20/23 02:17 - Social History Does the pt smoke?: No Smoking Status: Never smoker Does the pt drink ETOH?: No Does the pt have substance abuse?: No - Immunizations Immunizations are current?: Yes - POLST Patient has POLST: No PD ED PE NORMAL - Vitals Vital signs reviewed: Yes - General General: Alert and oriented X 3, No acute distress, Well developed/nourished - HEENT HEENT: Atraumatic, PERRL, EOMI, Moist mucous membranes, Pharynx benign - Neck Neck: Supple, no meningeal sign - Derm Derm: Normal color, Warm and dry - Psych Psych: Other (depressed mood. normal affect) Results - Vitals Vitals: Vital Signs - 24 hr 12/20/23 02:03 Temperature 36.5 C Heart Rate 63 Respiratory 18 Rate Blood Pressure 146/64 H O2 Saturation 100 Oxygen O2 Source Room air PD Medical Decision Making - ED course ED course: 53yM with pmh depression and frequent use of the ED p/w depressed mood and request for ketamine treatment, stating it helped him 4 months previous. Patient is not actively suicidal, denies HI or AVH. Feeling better s/p 40mg ketamine over 40 minutes. plan is to discharge home. He can follow up with his primary care provider. at this time he denies si/hi/avh and has protective factors including plan to volunteer to help others in need. return precautions discussed. Departure - Departure Clinical Impression: Depression Condition: Stable Instructions: ED Depression Comments: You were seen in the emergency department for depressed mood. You received a one time ketamine infusion for treatment of depression. Please follow-up with your primary care provider and return to the emergency department if you have any new or worsening symptoms or other concerns. Forms: PCP List
[2023-12-20] MEDS ORDERED: KETAMINE 500 MG/10 ML VIAL ONE (03:23)
[2023-12-20] MEDS: KETAMINE (50MG/ML) 40 MG in SODIUM CHLORIDE 0.9% 100ML 100 ML IV STA (03:39)
[2023-12-20 05:33] VITALS: BP 176/88; O2SAT 98
== END 2023-12-20 05:40 | disposition home or self-care (01) ==
LOC: EDUNIT# → ED 02:03
DX: F32.A Depression, unspecified (principal); I10 Essential (primary) hypertension; E10.9 Type 1 diabetes mellitus without complications; Z79.4 Long term (current) use of insulin
CPT/HCPCS: 96365; 99284

== ENCOUNTER 2024-03-22 02:06 | Outpatient (CLI) | payer MEDICARE, MEDICAID | END 2024-03-22 23:59 | disposition critical access hospital (66) | LOC: EMS 02:06 | DX: E11.8 Type 2 diabetes mellitus with unspecified complications (principal); F41.9 Anxiety disorder, unspecified; Z79.4 Long term (current) use of insulin; Z60.8 Other problems related to social environment | CPT/HCPCS: A0425; A0429 ==

== ENCOUNTER 2024-03-22 02:15 | Emergency (ER) | payer MEDICARE, MEDICAID ==
--- NOTE | 2024-03-22 03:14 | ED Physician Documentation ---
History of Present Illness - Stated complaint Stated Complaint: INSULIN ISSUE - Chief complaint Chief Complaint: General - History obtained from History obtained from: Patient - Additonal information Additional information: BIBA. HPI from patient. Patient is insulin-dependent diabetic. He has a continuous glucose monitor that is set to alarm parameters of below 70, above 300. Patient is asymptomatic. His concern is that over the past 3 to 4 days, his blood sugars have been more difficult to control than previous. He says they have been higher than usual and, although they respond to his sliding scale of insulin, they return to unusually elevated range (mid-upper 200s) faster than usual. He denies change in diet, says he has been carefully adhering to diabetic-appropriate diet. Has felt well; no infectious signs/symptoms such as cough, fever, dysuria. Review of Systems Constitutional: denies: Fever, Chills, Myalgias, Fatigue, Sweats Cardiac: reports: Reviewed and negative Respiratory: reports: Reviewed and negative GI: reports: Reviewed and negative : denies: Dysuria, Frequency Neurologic: denies: Generalized weakness PD PAST MEDICAL HISTORY - Past Medical History Past Medical History: Yes Cardiovascular: Hypertension Respiratory: None Neuro: None Endocrine/Autoimmune: Type 1 diabetes, HyPOthyroidism GI: None : None HEENT: None Psych: Depression, Anxiety Musculoskeletal: None, Gout Derm: None - Past Surgical History Past Surgical History: Yes - Present Medications Home Medications: Ambulatory Orders Medication Instructions Recorded Confirmed Clonazepam 1 mg PO DAILY 04/12/13 03/22/24 Insulin Glargine,Hum.rec.anlog 70 - 80 unit SQ BID 03/07/14 03/22/24 [Lantus] Insulin Lispro [Humalog] 30 unit SQ TIDWM 03/08/17 03/22/24 Aspirin [[place] Aspirin] 81 mg PO DAILY 01/19/22 03/22/24 Fenofibrate 54 mg PO DAILY 03/01/23 03/22/24 Ferrous Sulfate [Feosol] 325 mg PO DAILY 03/01/23 03/22/24 Metoprolol Succinate 100 mg PO DAILY 03/01/23 03/22/24 amLODIPine [Norvasc] 10 mg PO DAILY 03/01/23 03/22/24 Rosuvastatin Calcium [Crestor] 40 mg PO DAILY 07/15/23 03/22/24 glipiZIDE [Glipizide ER] 2.5 mg PO DAILY 07/15/23 03/22/24 Linagliptin [Tradjenta] 5 mg PO DAILY #7 tablet 08/08/23 03/22/24 Empagliflozin [Jardiance] 10 mg PO DAILY 11/25/23 03/22/24 Triamcinolone 0.1% Cream [Kenalog 1 applic TOP BID PRN 11/25/23 03/22/24 0.1% Cream] DULoxetine [Cymbalta] 120 mg PO DAILY 12/20/23 03/22/24 Levothyroxine [Synthroid] 75 mcg PO QDAC 12/20/23 03/22/24 Calcium Carbonate/Vitamin D3 1 tab PO BID 03/22/24 03/22/24 [Calcium 500 mg-Vit D3 600 Unit] Hyoscyamine Sulfate 0.125 mg PO QID 03/22/24 03/22/24 buPROPion HCL [Bupropion HCl Sr] 150 mg PO DAILY 03/22/24 03/22/24 - Allergies Allergies/Adverse Reactions: Allergies Allergy/AdvReac Type Severity Reaction Status Date / Time Penicillins Allergy Rash Verified 03/22/24 02:32 sertraline HCl * Allergy bladder Verified 03/22/24 02:32 [From Zoloft] infection alprazolam [From Xanax] AdvReac Unknown Verified 03/22/24 02:32 lorazepam [From Ativan] AdvReac Anxiety Verified 03/22/24 02:32 - Social History Does the pt smoke?: No Smoking Status: Never smoker Does the pt drink ETOH?: No Does the pt have substance abuse?: No - Immunizations Immunizations are current?: Yes - POLST Patient has POLST: No PD ED PE NORMAL - Vitals Vital signs reviewed: Yes - General General: Alert and oriented X 3, No acute distress, Well developed/nourished - HEENT HEENT: Moist mucous membranes - Cardiac Cardiac: RRR, No murmur - Respiratory Respiratory: No respiratory distress, Clear bilaterally - Abdomen Abdomen: Soft, Non tender - Derm Derm: Normal color, Warm and dry - Neuro Neuro: Alert and oriented X 3 Results - Vitals Vitals: Vital Signs - 24 hr 03/22/24 03/22/24 02:17 04:55 Temperature 36.1 C L 36.5 C Heart Rate 66 59 L Respiratory 16 16 Rate Blood Pressure 149/75 H 141/66 H O2 Saturation 100 99 Oxygen O2 Source Room air - Labs Labs: Laboratory Tests 03/22/24 03/22/24 03/22/24 02:21 04:00 04:00 WBC 8.8 RBC 3.81 L Hgb 11.2 L Hct 35.4 L MCV 92.9 MCH 29.4 MCHC 31.6 L RDW 12.8 Plt Count 227 MPV 9.6 Neut # (Auto) 6.4 Lymph # (Auto) 1.1 L [place] # (Auto) 1.0 Eos # (Auto) 0.3 Baso # (Auto) 0.0 Absolute Nucleated RBC 0.00 Nucleated RBC % 0.0 Sodium 138 Potassium 4.8 H Chloride 111 Carbon Dioxide 17 L Anion Gap 10.0 BUN 49 H Creatinine 3.2 H Estimated GFR (MDRD) 20 L Glucose 124 H POC Whole Bld Glucose 153 H Calcium 9.1 Total Bilirubin 0.2 AST 12 ALT 12 Alkaline Phosphatase 68 Total Protein 7.2 Albumin 4.5 Globulin 2.7 Albumin/Globulin Ratio 1.7 Lipase 84 H Urine Color Urine Clarity Urine pH Ur Specific [place] Urine Protein Urine Glucose (UA) Urine Ketones Urine Occult Blood Urine Nitrite Urine Bilirubin Urine Urobilinogen Ur Leukocyte Esterase Urine RBC Urine WBC Ur Squamous Epith Cells Urine Bacteria Ur Microscopic Review Urine Culture Comments Serum Ketones NEGATIVE 03/22/24 04:30 WBC RBC Hgb Hct MCV MCH MCHC RDW Plt Count MPV Neut # (Auto) Lymph # (Auto) [place] # (Auto) Eos # (Auto) Baso # (Auto) Absolute Nucleated RBC Nucleated RBC % Sodium Potassium Chloride Carbon Dioxide Anion Gap BUN Creatinine Estimated GFR (MDRD) Glucose POC Whole Bld Glucose Calcium Total Bilirubin AST ALT Alkaline Phosphatase Total Protein Albumin Globulin Albumin/Globulin Ratio Lipase Urine Color YELLOW Urine Clarity CLEAR Urine pH 6.0 Ur Specific [place] 1.015 Urine Protein 100 H Urine Glucose (UA) >=1000 H Urine Ketones NEGATIVE Urine Occult Blood TRACE-INTA Urine Nitrite NEGATIVE Urine Bilirubin NEGATIVE Urine Urobilinogen 0.2 (NORMAL) Ur Leukocyte Esterase NEGATIVE Urine RBC 0-5 Urine WBC 0-3 Ur Squamous Epith Cells NONE SEEN Urine Bacteria None Seen Ur Microscopic Review INDICATED Urine Culture Comments NOT INDICATED Serum Ketones PD Medical Decision Making - ED course Complexity details: reviewed results, re-evaluated patient, considered di fferential, d/w patient ED course: No particularly concerning findings on tonight's tests. His fingerstick on arrival is 153. On his ER abdominal panel, it is 124. His kidney function tests are abnormal (BUN 49, creatinine 3.2), but these results approximate his baseline dating back to last June. Patient is aware he has CKD. Mild hyperkalemia noted (4.8). Serum ketones are not present. Urinalysis is unremarkable. The patient is well-appearing, unremarkable physical exam. Further testing is not indicated at this time. I advised him to contact his primary care provider when the office is next open to arrange for next available appointment to review his blood sugar trends and reevaluate his medication regimen to determine if any changes are needed. Also advised him to mention his high potassium level to the primary care provider when he follows up, as well. Departure - Departure Disposition: 01 Home, Self Care Clinical Impression: Hyperglycemia Condition: Good Instructions: ED Hyperglycemia Diabetic Follow-Up: ANUJ DAVE MD [Primary Care Provider] - Comments: There were a few abnormalities on allan's blood tests, none of which would explain why her blood sugars have been higher than usual lately. Your kidney function tests were abnormal, but comparable to previous results dating back to June of last year. Your potassium level was slightly above normal range; mention this to your primary care provider, as they might want to recheck your potassium level within the next week or 2. The potassium was 4.8. You should contact your primary care provider when the office is next open to arrange for the next available appointment for reevaluation and reappraisal of your current medication regiment. Forms: PCP List Discharge Date/Time: 03/22/24 05:15
[2024-03-22 04:04] LABS: BASOPHILS % (AUTO) 0.5 %; EOSINOPHILS # (AUTO) 0.3 10^3/uL (0.0-0.7); EOSINOPHILS % (AUTO) 3.2 %; HCT - HEMATOCRIT 35.4 % (42.0-52.0); HGB - HEMOGLOBIN 11.2 g/dL (14.0-18.0); LYMPHOCYTES # (AUTO) 1.1 10^3/uL (1.5-3.5); LYMPHOCYTES % (AUTO) 11.9 %; MEAN CORPUSCULAR HEMOGLOBIN 29.4 pg (27.0-31.0); MEAN CORPUSCULAR HGB CONC 31.6 g/dL (32.0-36.0); MEAN CORPUSCULAR VOLUME 92.9 fL (80.0-94.0); MEAN PLATELET VOLUME 9.6 fL (7.4-11.4); MONOCYTES % (AUTO) 11.2 %; NEUTROPHILS # (AUTO) 6.4 10^3/uL (1.5-6.6); NEUTROPHILS % (AUTO) 72.7 %; PLT - PLATELET COUNT 227 10^3/uL (130-450); RED BLOOD COUNT 3.81 10^6/uL (4.70-6.10); RED CELL DISTRIBUTION WIDTH 12.8 % (12.0-15.0); WHITE BLOOD COUNT 8.8 x10^3/uL (4.8-10.8)
[2024-03-22 04:11] LABS: KETONES, SERUM (ACETEST) NEGATIVE (NEGATIVE)
[2024-03-22 04:23] LABS: ALBUMIN 4.5 g/dL (3.2-5.5); ALBUMIN/GLOBULIN RATIO 1.7 (1.0-2.2); ALKALINE PHOSPHATASE 68 IU/L (42-121); ALT ALANINE AMINOTRANSFERASE 12 IU/L (10-60); AST ASPARTATE AMINOTRANSFERASE 12 IU/L (10-42); BILIRUBIN,TOTAL 0.2 mg/dL (0.2-1.0); BUN - BLOOD UREA NITROGEN 49 mg/dL (6-20); CALCIUM 9.1 mg/dL (8.5-10.3); CARBON DIOXIDE - CO2 17 mmol/L (21-32); CHLORIDE 111 mmol/L (101-111); CREATININE 3.2 mg/dL (0.6-1.3); GFR - MDRD 20 (>89); GLUCOSE 124 mg/dL (74-104); LIPASE 84 U/L (11-82); POTASSIUM 4.8 mmol/L (3.5-4.5); SODIUM 138 mmol/L (135-145); TOTAL PROTEIN 7.2 g/dL (6.4-8.9)
[2024-03-22 04:58] LABS: BILIRUBIN,URINE NEGATIVE (NEGATIVE); GLUCOSE, URINE (UA) >=1000 mg/dL (NEGATIVE); KETONES,URINE (UA) NEGATIVE (NEGATIVE); LEUKOCYTE ESTERASE, URINE NEGATIVE (NEGATIVE); NITRITE,URINE NEGATIVE (NEGATIVE); OCCULT BLOOD,URINE TRACE-INTA (NEGATIVE); PROTEIN,URINE 100 mg/dL (NEGATIVE); UROBILINOGEN,URINE 0.2 (NORMAL) E.U./dL (NORMAL)
[2024-03-22 05:02] VITALS: BP 141/66; O2SAT 99
[2024-03-22 05:06] LABS: CLARITY,URINE CLEAR (CLEAR)
[2024-03-22 05:07] LABS: BACTERIA,URINE None Seen /HPF (None Seen); RBC,URINE 0-5 /HPF (0-5); SQUAMOUS EPITHELIAL CELL,UR NONE SEEN (<= Few); WBC,URINE 0-3 /HPF (0-3)
[2024-03-22 08:05] LABS: ESTIMATED AVERAGE GLUCOSE 163 mg/dL (70-100); HEMOGLOBIN A1c% 7.3 % (4.27-6.07)
== END 2024-03-22 05:15 | disposition home or self-care (01) ==
LOC: ED 02:15
DX: E10.22 Type 1 diabetes mellitus with diabetic chronic kidney disease (principal); I12.9 Hypertensive chronic kidney disease with stage 1 through stage 4 chronic kidney disease, or unspecified chronic kidney disease; E10.65 Type 1 diabetes mellitus with hyperglycemia; N18.9 Chronic kidney disease, unspecified; E87.5 Hyperkalemia; Z79.4 Long term (current) use of insulin; Z79.84 Long term (current) use of oral hypoglycemic drugs
CPT/HCPCS: 36415; 80053; 81001; 81003; 82009; 83036; 83690; 85025; 87086; 99283; 99284

== ENCOUNTER 2024-04-09 05:21 | Emergency (ER) | payer MEDICARE, MEDICAID ==
--- NOTE | 2024-04-09 05:38 | ED Physician Documentation ---
History of Present Illness - Stated complaint Stated Complaint: MHE - Chief complaint Chief Complaint: General - History obtained from History obtained from: Patient - Additonal information Additional information: 53yM with pmh depression p/w request for ketamine infusion since it's been 4 months since his last treatment. patient states he's been feeling really good, denies si/hi/avh. PD PAST MEDICAL HISTORY - Past Medical History Past Medical History: Yes Cardiovascular: Hypertension Respiratory: None Neuro: None Endocrine/Autoimmune: Type 1 diabetes, HyPOthyroidism GI: None : None HEENT: None Psych: Depression, Anxiety Musculoskeletal: None, Gout Derm: None - Past Surgical History Past Surgical History: Yes - Present Medications Home Medications: Ambulatory Orders Medication Instructions Recorded Confirmed Clonazepam 1 mg PO DAILY 04/12/13 03/22/24 Insulin Glargine,Hum.rec.anlog 70 - 80 unit SQ BID 03/07/14 03/22/24 [Lantus] Insulin Lispro [Humalog] 30 unit SQ TIDWM 03/08/17 03/22/24 Aspirin [[place] Aspirin] 81 mg PO DAILY 01/19/22 03/22/24 Fenofibrate 54 mg PO DAILY 03/01/23 03/22/24 Ferrous Sulfate [Feosol] 325 mg PO DAILY 03/01/23 03/22/24 Metoprolol Succinate 100 mg PO DAILY 03/01/23 03/22/24 amLODIPine [Norvasc] 10 mg PO DAILY 03/01/23 03/22/24 Rosuvastatin Calcium [Crestor] 40 mg PO DAILY 07/15/23 03/22/24 glipiZIDE [Glipizide ER] 2.5 mg PO DAILY 07/15/23 03/22/24 Linagliptin [Tradjenta] 5 mg PO DAILY #7 tablet 08/08/23 03/22/24 Empagliflozin [Jardiance] 10 mg PO DAILY 11/25/23 03/22/24 Triamcinolone 0.1% Cream [Kenalog 1 applic TOP BID PRN 11/25/23 03/22/24 0.1% Cream] DULoxetine [Cymbalta] 120 mg PO DAILY 12/20/23 03/22/24 Levothyroxine [Synthroid] 75 mcg PO QDAC 12/20/23 03/22/24 Calcium Carbonate/Vitamin D3 1 tab PO BID 03/22/24 03/22/24 [Calcium 500 mg-Vit D3 600 Unit] Hyoscyamine Sulfate 0.125 mg PO QID 03/22/24 03/22/24 buPROPion HCL [Bupropion HCl Sr] 150 mg PO DAILY 03/22/24 03/22/24 - Allergies Allergies/Adverse Reactions: Allergies Allergy/AdvReac Type Severity Reaction Status Date / Time Penicillins Allergy Rash Verified 04/09/24 05:33 sertraline HCl * Allergy bladder Verified 04/09/24 05:33 [From Zoloft] infection alprazolam [From Xanax] AdvReac Unknown Verified 04/09/24 05:33 lorazepam [From Ativan] AdvReac Anxiety Verified 04/09/24 05:33 - Social History Does the pt smoke?: No Smoking Status: Never smoker Does the pt drink ETOH?: No Does the pt have substance abuse?: No - Immunizations Immunizations are current?: Yes - POLST Patient has POLST: No PD ED PE NORMAL - Vitals Vital signs reviewed: Yes - General General: Alert and oriented X 3, No acute distress, Well developed/nourished - HEENT HEENT: Atraumatic, PERRL, EOMI - Derm Derm: Normal color, Warm and dry - Neuro Neuro: Alert and oriented X 3, No motor deficit, No sensory deficit - Psych Psych: Normal mood, Normal affect, Other (denies si/hi/avh) Results - Vitals Vitals: Vital Signs - 24 hr 04/09/24 05:29 Temperature 36.3 C L Heart Rate 68 Respiratory 16 Rate Blood Pressure 140/72 H O2 Saturation 100 Oxygen O2 Source Room air PD Medical Decision Making - ED course ED course: 53yM p/w request for ketamine treatment. patient had treatment 4 months ago and found it to be very effective treatment for his depression. denies si/hi/avh at this time and is well appearing. d/w patient that he can schedule outpatient ketamine treatment in [place] as needed and provided referral. patient has an appointment with his counselor tomorrow. return precautions given. Departure - Departure Disposition: 01 Home, Self Care Clinical Impression: Depression Condition: Stable Instructions: ED Depression Comments: You were seen in the emergency department for management of depression. Please follow-up with outpatient mental health and return to the emergency department if you have any new or worsening symptoms or other concerns. [email or web address]
[2024-04-09 05:39] VITALS: BP 140/72; O2SAT 100
== END 2024-04-09 05:40 | disposition home or self-care (01) ==
LOC: ED 05:21
DX: F32.A Depression, unspecified (principal)
CPT/HCPCS: 99281; 99282

== ENCOUNTER 2024-04-10 17:29 | Emergency (ER) | payer MEDICARE, MEDICAID ==
--- NOTE | 2024-04-10 17:40 | ED Physician Documentation ---
PD HPI MHE - Stated complaint Stated Complaint: SI - Chief complaint Chief Complaint: MHE - History obtained from History obtained from: Patient - Additional information Additional information: 53-year-old gentleman here hopeful to get a ketamine infusion. He had it previously and found it very helpful for his depression. He is depressed with vague SI but no plan. He says his last infusion was 4 months ago, I actually show that it was back in December at which time he got a 40 mg infusion which looks like that has been the dose he has been getting for the most part. PD PAST MEDICAL HISTORY - Past Medical History Cardiovascular: Hypertension Respiratory: None Neuro: None Endocrine/Autoimmune: Type 1 diabetes, HyPOthyroidism GI: None : None HEENT: None Psych: Depression, Anxiety Musculoskeletal: None, Gout Derm: None - Past Surgical History Past Surgical History: Yes - Present Medications Home Medications: Ambulatory Orders Medication Instructions Recorded Confirmed Clonazepam 1 mg PO DAILY 04/12/13 03/22/24 Insulin Glargine,Hum.rec.anlog 70 - 80 unit SQ BID 03/07/14 03/22/24 [Lantus] Insulin Lispro [Humalog] 30 unit SQ TIDWM 03/08/17 03/22/24 Aspirin [[place] Aspirin] 81 mg PO DAILY 01/19/22 03/22/24 Fenofibrate 54 mg PO DAILY 03/01/23 03/22/24 Ferrous Sulfate [Feosol] 325 mg PO DAILY 03/01/23 03/22/24 Metoprolol Succinate 100 mg PO DAILY 03/01/23 03/22/24 amLODIPine [Norvasc] 10 mg PO DAILY 03/01/23 03/22/24 Rosuvastatin Calcium [Crestor] 40 mg PO DAILY 07/15/23 03/22/24 glipiZIDE [Glipizide ER] 2.5 mg PO DAILY 07/15/23 03/22/24 Linagliptin [Tradjenta] 5 mg PO DAILY #7 tablet 08/08/23 03/22/24 Empagliflozin [Jardiance] 10 mg PO DAILY 11/25/23 03/22/24 Triamcinolone 0.1% Cream [Kenalog 1 applic TOP BID PRN 11/25/23 03/22/24 0.1% Cream] DULoxetine [Cymbalta] 120 mg PO DAILY 12/20/23 03/22/24 Levothyroxine [Synthroid] 75 mcg PO QDAC 12/20/23 03/22/24 Calcium Carbonate/Vitamin D3 1 tab PO BID 03/22/24 03/22/24 [Calcium 500 mg-Vit D3 600 Unit] Hyoscyamine Sulfate 0.125 mg PO QID 03/22/24 03/22/24 buPROPion HCL [Bupropion HCl Sr] 150 mg PO DAILY 03/22/24 03/22/24 - Allergies Allergies/Adverse Reactions: Allergies Allergy/AdvReac Type Severity Reaction Status Date / Time Penicillins Allergy Rash Verified 04/10/24 17:38 sertraline HCl * Allergy bladder Verified 04/10/24 17:38 [From Zoloft] infection alprazolam [From Xanax] AdvReac Unknown Verified 04/10/24 17:38 lorazepam [From Ativan] AdvReac Anxiety Verified 04/10/24 17:38 - Social History Does the pt smoke?: No Smoking Status: Never smoker Does the pt drink ETOH?: No Does the pt have substance abuse?: No - Immunizations Immunizations are current?: Yes - POLST Patient has POLST: No PD ED PE NORMAL - Vitals Vital signs reviewed: Yes - General General: Alert and oriented X 3, No acute distress, Other (He appears generally happy, good historian, forward thinking.) - HEENT HEENT: Pharynx benign - Neuro Neuro: Alert and oriented X 3 - Psych Psych: Normal mood, Normal affect Results - Vitals Vitals: Vital Signs - 24 hr 04/10/24 04/10/24 17:35 19:03 Heart Rate 71 65 Respiratory 18 18 Rate Blood Pressure 136/84 H 147/108 H O2 Saturation 98 98 Oxygen O2 Source Room air PD Medical Decision Making - ED course ED course: He was administered 40 mg ketamine drip with improvement in his symptoms. After which she denied SI and plans to go home with parents. Departure - Departure Disposition: 01 Home, Self Care Clinical Impression: Depression Qualifiers: Depression Type: major depressive disorder Major depression recurrence: recurrent Active/Remission status: currently active Major depression episode severity: moderate Qualified Code(s): F33.1 - Major depressive disorder, recurrent, moderate Condition: Good Record reviewed to determine appropriate education?: Yes Instructions: ED Depression Comments: Call your doctor to arrange a follow-up appointment, make the next available appointment. In the interim, return anytime if worse or if new symptoms develop. Forms: PCP List Discharge Date/Time: 04/10/24 19:13
[2024-04-10 17:46] VITALS: O2SAT 98
[2024-04-10] MEDS: KETAMINE (50MG/ML) 40 MG in SODIUM CHLORIDE 0.9% 100ML 100 ML IV STA (18:03)
[2024-04-10 19:09] VITALS: BP 147/108
== END 2024-04-10 19:13 | disposition home or self-care (01) ==
LOC: ED 17:29
DX: F33.1 Major depressive disorder, recurrent, moderate (principal); R45.851 Suicidal ideations
CPT/HCPCS: 96365; 99284

== ENCOUNTER 2024-04-19 13:51 | Emergency (ER) | payer MEDICARE, MEDICAID ==
[2024-04-19 14:11] VITALS: O2SAT 100
--- NOTE | 2024-04-19 14:29 | ED Physician Documentation ---
History of Present Illness - Stated complaint Stated Complaint: SI - Chief complaint Chief Complaint: MHE - Additonal information Additional information: 53-year-old male well-known to this emergency department for ongoing suicidal ideation and depression. Patient reports that he got in a fight with his family today he lives with his mom and dad and is dependent on him because of his mental health issues and says that he got into conflict with his brother as well as his parents and ended up driving away from the house. Patient said that he went to the park and started feeling increased suicidal ideation and following a safety plan to call the retail stock clerk who then brought him into the emergency department for further evaluation. Patient says that he is feeling a lot better he does want to talk to social work to see how to help navigate his interpersonal conflicts and his family issues. No homicidal ideation no visual hallucinations no audible hallucinations no tactile hallucinations. PD PAST MEDICAL HISTORY - Past Medical History Cardiovascular: Hypertension Respiratory: None Neuro: None Endocrine/Autoimmune: Type 1 diabetes, HyPOthyroidism GI: None : None HEENT: None Psych: Depression, Anxiety Musculoskeletal: None, Gout Derm: None - Past Surgical History Past Surgical History: Yes - Present Medications Home Medications: Ambulatory Orders Medication Instructions Recorded Confirmed Clonazepam 1 mg PO DAILY 04/12/13 04/19/24 Insulin Glargine,Hum.rec.anlog 20 - 25 unit SQ BID 03/07/14 04/19/24 [Lantus] Insulin Lispro [Humalog] 30 unit SQ TIDWM 03/08/17 04/19/24 Aspirin [[place] Aspirin] 81 mg PO DAILY 01/19/22 04/19/24 Fenofibrate 54 mg PO DAILY 03/01/23 04/19/24 Ferrous Sulfate [Feosol] 325 mg PO DAILY 03/01/23 04/19/24 Metoprolol Succinate 100 mg PO DAILY 03/01/23 04/19/24 amLODIPine [Norvasc] 10 mg PO DAILY 03/01/23 04/19/24 Rosuvastatin Calcium [Crestor] 40 mg PO DAILY 07/15/23 04/19/24 glipiZIDE [Glipizide ER] 2.5 mg PO DAILY 07/15/23 04/19/24 Linagliptin [Tradjenta] 5 mg PO DAILY #7 tablet 08/08/23 04/19/24 Empagliflozin [Jardiance] 10 mg PO DAILY 11/25/23 04/19/24 Triamcinolone 0.1% Cream [Kenalog 1 applic TOP BID PRN 11/25/23 04/19/24 0.1% Cream] DULoxetine [Cymbalta] 120 mg PO DAILY 12/20/23 04/19/24 Levothyroxine [Synthroid] 75 mcg PO QDAC 12/20/23 04/19/24 Calcium Carbonate/Vitamin D3 1 tab PO BID 03/22/24 04/19/24 [Calcium 500 mg-Vit D3 600 Unit] Hyoscyamine Sulfate 0.125 mg PO QID PRN 03/22/24 04/19/24 buPROPion HCL [Bupropion HCl Sr] 150 mg PO DAILY 03/22/24 04/19/24 - Allergies Allergies/Adverse Reactions: Allergies Allergy/AdvReac Type Severity Reaction Status Date / Time Penicillins Allergy Rash Verified 04/19/24 14:04 sertraline HCl * Allergy bladder Verified 04/19/24 14:04 [From Zoloft] infection alprazolam [From Xanax] AdvReac Unknown Verified 04/19/24 14:04 lorazepam [From Ativan] AdvReac Anxiety Verified 04/19/24 14:04 - Social History Does the pt smoke?: No Smoking Status: Never smoker Does the pt drink ETOH?: No Does the pt have substance abuse?: No - Immunizations Immunizations are current?: Yes - POLST Patient has POLST: No PD ED PE NORMAL - Vitals Vital signs reviewed: Yes - General General: Alert and oriented X 3, No acute distress, Well developed/nourished - HEENT HEENT: Atraumatic - Neck Neck: Supple, no meningeal sign - Cardiac Cardiac: RRR - Respiratory Respiratory: No respiratory distress - Abdomen Abdomen: Normal bowel sounds, Soft PD ED PE EXPANDED - Psych Psych: Normal, Depressed, Suicidal, Anxious. No: Homicidal, Tearful, Withdrawn, Poor eye contact, Combative, Manic, Pressured speech, Auditory hallucinations, Visual hallucinations, Tactile hallucinations, Delusions Results - Vitals Vitals: Vital Signs - 24 hr 04/19/24 04/19/24 13:58 17:53 Temperature 36.2 C L 36.5 C Heart Rate 63 60 Respiratory 18 16 Rate Blood Pressure 148/76 H 130/78 O2 Saturation 100 100 Oxygen O2 Source Room air - Labs Labs: Laboratory Tests 04/19/24 04/19/24 04/19/24 14:37 14:37 15:25 WBC 10.3 RBC 3.78 L Hgb 11.2 L Hct 33.6 L MCV 88.9 MCH 29.6 MCHC 33.3 RDW 12.9 Plt Count 289 MPV 9.3 Neut # (Auto) 7.8 H Lymph # (Auto) 1.2 L [place] # (Auto) 1.0 Eos # (Auto) 0.3 Baso # (Auto) 0.1 Absolute Nucleated RBC 0.00 Nucleated RBC % 0.0 Sodium 135 Potassium 4.5 Chloride 107 Carbon Dioxide 17 L Anion Gap 11.0 BUN 53 H Creatinine 3.6 H Estimated GFR (MDRD) 18 L Glucose 71 L Calcium 9.3 Total Bilirubin 0.3 AST 13 ALT 13 Alkaline Phosphatase 70 Total Protein 7.5 Albumin 4.5 Globulin 3.0 Albumin/Globulin Ratio 1.5 Lipase 73 Urine Opiates Screen NEGATIVE Ur Buprenorphine Scrn NEGATIVE Ur Oxycodone Screen NEGATIVE Urine Methadone Screen NEGATIVE Ur Barbiturates Screen NEGATIVE Ur Tricyclics Screen NEGATIVE Ur Phencyclidine Scrn NEGATIVE Ur Amphetamine Screen NEGATIVE U Methamphetamines Scrn NEGATIVE U Benzodiazepines Scrn NEGATIVE Urine Cocaine Screen NEGATIVE U Cannabinoids Screen NEGATIVE Ur Drug Screen Comment CUTOFF CONC BELOW: Ethyl Alcohol < 10.0 PD Medical Decision Making - ED course ED course: 53-year-old male presents emergency department for suicidal ideation. Patient says that his main goal in coming into the emergency department today was to see if social worker health services to help facilitate a conversation for him to help with his father and his mother. Labs are complete and CBC shows mild anemia, hemoglobin 11.2, no electrolyte abnormalities, urine is negative for all drugs. Departure - Departure Disposition: 01 Home, Self Care Clinical Impression: Suicidal ideations, Interpersonal problem, Depression Instructions: ED Stress React Comments: .Thank you for trusting us with your care, we have evaluated you for your suicidal ideation. You met with our social worker health services and it sounds like you have a good safety plan going home. With, to the ER if you are starting develop any worsening suicidal ideation with a plan or any other concerning emergent symptoms. Continue with your therapist Forms: PCP List Discharge Date/Time: 04/19/24 17:55
[2024-04-19 14:42] LABS: BASOPHILS # (AUTO) 0.1 10^3/uL (0.0-0.1); BASOPHILS % (AUTO) 0.5 %; EOSINOPHILS # (AUTO) 0.3 10^3/uL (0.0-0.7); EOSINOPHILS % (AUTO) 3.3 %; HCT - HEMATOCRIT 33.6 % (42.0-52.0); HGB - HEMOGLOBIN 11.2 g/dL (14.0-18.0); LYMPHOCYTES # (AUTO) 1.2 10^3/uL (1.5-3.5); LYMPHOCYTES % (AUTO) 11.4 %; MEAN CORPUSCULAR HEMOGLOBIN 29.6 pg (27.0-31.0); MEAN CORPUSCULAR HGB CONC 33.3 g/dL (32.0-36.0); MEAN CORPUSCULAR VOLUME 88.9 fL (80.0-94.0); MEAN PLATELET VOLUME 9.3 fL (7.4-11.4); MONOCYTES % (AUTO) 9.2 %; NEUTROPHILS # (AUTO) 7.8 10^3/uL (1.5-6.6); NEUTROPHILS % (AUTO) 75.3 %; PLT - PLATELET COUNT 289 10^3/uL (130-450); RED BLOOD COUNT 3.78 10^6/uL (4.70-6.10); RED CELL DISTRIBUTION WIDTH 12.9 % (12.0-15.0); WHITE BLOOD COUNT 10.3 x10^3/uL (4.8-10.8)
[2024-04-19 15:00] LABS: ALBUMIN 4.5 g/dL (3.2-5.5); ALBUMIN/GLOBULIN RATIO 1.5 (1.0-2.2); ALKALINE PHOSPHATASE 70 IU/L (42-121); ALT ALANINE AMINOTRANSFERASE 13 IU/L (10-60); AST ASPARTATE AMINOTRANSFERASE 13 IU/L (10-42); BILIRUBIN,TOTAL 0.3 mg/dL (0.2-1.0); BUN - BLOOD UREA NITROGEN 53 mg/dL (6-20); CALCIUM 9.3 mg/dL (8.5-10.3); CARBON DIOXIDE - CO2 17 mmol/L (21-32); CHLORIDE 107 mmol/L (101-111); CREATININE 3.6 mg/dL (0.6-1.3); ETOH - ETHANOL < 10.0 mg/dL; GFR - MDRD 18 (>89); GLUCOSE 71 mg/dL (74-104); LIPASE 73 U/L (11-82); POTASSIUM 4.5 mmol/L (3.5-4.5); SODIUM 135 mmol/L (135-145); TOTAL PROTEIN 7.5 g/dL (6.4-8.9)
[2024-04-19 15:46] LABS: AMPHETAMINE SCREEN,URINE NEGATIVE (NEGATIVE); BARBITURATE SCREEN,UR NEGATIVE (NEGATIVE); BENZODIAZEPINES SCREEN, URINE NEGATIVE (NEGATIVE); BUPRENORPHINE SCREEN, URINE NEGATIVE (NEGATIVE); COCAINE SCREEN URINE NEGATIVE (NEGATIVE); METHADONE SCREEN, URINE NEGATIVE (NEGATIVE); METHAMPHETAMINES SCREEN, URINE NEGATIVE (NEGATIVE); OPIATE SCREEN, URINE NEGATIVE (NEGATIVE); OXYCODONE SCREEN, URINE NEGATIVE (NEGATIVE); THC CANNABINOID SCREEN, URINE NEGATIVE (NEGATIVE); TRICYCLIC ANTIDEPRESSANT,URINE NEGATIVE (NEGATIVE)
[2024-04-19 17:57] VITALS: BP 130/78
== END 2024-04-19 17:55 | disposition home or self-care (01) ==
LOC: ED 13:51
DX: R45.851 Suicidal ideations (principal); F32.A Depression, unspecified; Z63.8 Other specified problems related to primary support group
CPT/HCPCS: 36415; 80053; 80306; 83690; 85025; 99283; 99284; G0480; 82077

== ENCOUNTER 2024-04-20 04:55 | Emergency (ER) | payer MEDICARE, MEDICAID ==
[2024-04-20 05:17] VITALS: BP 167/93; O2SAT 99
--- NOTE | 2024-04-20 05:17 | ED Physician Documentation ---
History of Present Illness - Stated complaint Stated Complaint: SI - Chief complaint Chief Complaint: General - Additonal information Additional information: 53-year-old male with longstanding history of depression presents to the emergency department for mental health evaluation. Endorses for feeling unsafe at home. States has had multiple stressors including recent arguments with his parents. On arrival to the emergency department requests ketamine infusion and states that this helps him with his anxiety and helps him feel more safe. Denies suicidal ideation but states has considered suicide in the past. Denies illicit substance abuse, homicidal ideation, auditory or visual hallucinations. Review of Systems Constitutional: denies: Fever Eyes: denies: Loss of vision Ears: denies: Loss of hearing Nose: denies: Rhinorrhea / runny nose Throat: denies: Dental pain / toothache Cardiac: denies: Chest pain / pressure Respiratory: denies: Dyspnea GI: denies: Abdominal Pain : denies: Dysuria Skin: denies: Rash Musculoskeletal: denies: Neck pain PD PAST MEDICAL HISTORY - Past Medical History Past Medical History: Yes Cardiovascular: Hypertension Respiratory: None Neuro: None Endocrine/Autoimmune: Type 1 diabetes, HyPOthyroidism GI: None : None HEENT: None Psych: Depression, Anxiety Musculoskeletal: None, Gout Derm: None - Past Surgical History Past Surgical History: Yes - Present Medications Home Medications: Ambulatory Orders Medication Instructions Recorded Confirmed Clonazepam 1 mg PO DAILY 04/12/13 04/19/24 Insulin Glargine,Hum.rec.anlog 20 - 25 unit SQ BID 03/07/14 04/19/24 [Lantus] Insulin Lispro [Humalog] 30 unit SQ TIDWM 03/08/17 04/19/24 Aspirin [[place] Aspirin] 81 mg PO DAILY 01/19/22 04/19/24 Fenofibrate 54 mg PO DAILY 03/01/23 04/19/24 Ferrous Sulfate [Feosol] 325 mg PO DAILY 03/01/23 04/19/24 Metoprolol Succinate 100 mg PO DAILY 03/01/23 04/19/24 amLODIPine [Norvasc] 10 mg PO DAILY 03/01/23 04/19/24 Rosuvastatin Calcium [Crestor] 40 mg PO DAILY 07/15/23 04/19/24 glipiZIDE [Glipizide ER] 2.5 mg PO DAILY 07/15/23 04/19/24 Linagliptin [Tradjenta] 5 mg PO DAILY #7 tablet 08/08/23 04/19/24 Empagliflozin [Jardiance] 10 mg PO DAILY 11/25/23 04/19/24 Triamcinolone 0.1% Cream [Kenalog 1 applic TOP BID PRN 11/25/23 04/19/24 0.1% Cream] DULoxetine [Cymbalta] 120 mg PO DAILY 12/20/23 04/19/24 Levothyroxine [Synthroid] 75 mcg PO QDAC 12/20/23 04/19/24 Calcium Carbonate/Vitamin D3 1 tab PO BID 03/22/24 04/19/24 [Calcium 500 mg-Vit D3 600 Unit] Hyoscyamine Sulfate 0.125 mg PO QID PRN 03/22/24 04/19/24 buPROPion HCL [Bupropion HCl Sr] 150 mg PO DAILY 03/22/24 04/19/24 - Allergies Allergies/Adverse Reactions: Allergies Allergy/AdvReac Type Severity Reaction Status Date / Time Penicillins Allergy Rash Verified 04/20/24 05:08 sertraline HCl * Allergy bladder Verified 04/20/24 05:08 [From Zoloft] infection alprazolam [From Xanax] AdvReac Unknown Verified 04/20/24 05:08 lorazepam [From Ativan] AdvReac Anxiety Verified 04/20/24 05:08 - Social History Does the pt smoke?: No Smoking Status: Never smoker Does the pt drink ETOH?: No Does the pt have substance abuse?: No - Immunizations Immunizations are current?: Yes - POLST Patient has POLST: No PD ED PE NORMAL - Vitals Vital signs reviewed: Yes - General General: Alert and oriented X 3 - HEENT HEENT: Atraumatic - Neck Neck: Supple, no meningeal sign - Cardiac Cardiac: RRR - Respiratory Respiratory: No respiratory distress - Abdomen Abdomen: Normal bowel sounds - Male Male : Deferred - Rectal Rectal: Deferred - Back Back: No CVA TTP - Derm Derm: Normal color - Extremities Extremities: No deformity - Neuro Neuro: Alert and oriented X 3, digital marketing specialist 2-12 intact, No motor deficit, Normal speech Results - Vitals Vitals: Vital Signs - 24 hr 04/20/24 05:05 Temperature 36.2 C L Heart Rate 88 Respiratory 18 Rate Blood Pressure 167/93 H O2 Saturation 99 Oxygen O2 Source Room air PD Medical Decision Making - ED course Complexity details: considered differential, d/w patient ED course: 53-year-old male presents to the emergency department reporting feeling unsafe at home. Endorsed for longstanding history of depression. Endorsed for previous suicidality but denied plan for suicide on this ER evaluation. Requested ketamine shortly after arrival to the emergency department stating that he has received in the past and it has helped him with his feelings of depression and anxiety. I explained that I do not feel comfortable providing him with an infusion of ketamine and that my preference would be to go through a full and formal evaluation in the emergency department including lab work for medical clearance and evaluation by one of our telemetry behavioral health professionals. He declined this stating "I do not want to waste the resources" and repeatedly stated that he felt significantly better and wished to leave the emergency room. He denied SI, HI at that time and demonstrated decisional capacity. He reported that he does have a plan for follow-up with his behavioral health team in the morning. This does demonstrate forward thinking. I do not believe he represents an imminent threat of harm to himself or others at this time and I do not see sufficient cause to detain him against his will or contact police for wellness check. He was encouraged to continue following up with his outpatient mental health resources and to promptly return to the emergency department for any new or worsening symptoms. Departure - Departure Disposition: 01 Home, Self Care Clinical Impression: Mental health assessment declined, Drug-seeking behavior Comments: Thank you for allowing us the opportunity to care for you today at [facility]. I know we discussed medical tests as well as evaluation by one of our mental health professionals here in the emergency department at this time this is not something that you are interested in. I alone to strongly encourage you to keep your follow-up appointment with your behavioral health specialist later this morning. Please know that if it anytime in the future you feel unwell or unsafe or believe that you could do your self gravis or bodily harm please return to the emergency department immediately for reevaluation. Forms: PCP List
== END 2024-04-20 05:17 | disposition home or self-care (01) ==
LOC: ED 04:55
DX: Z76.5 Malingerer [conscious simulation] (principal)
CPT/HCPCS: 99281; 99283

== ENCOUNTER 2024-04-23 03:37 | Outpatient (CLI) | payer MEDICARE, MEDICAID | END 2024-04-23 23:59 | disposition critical access hospital (66) | LOC: EMS 03:37 | DX: R45.851 Suicidal ideations (principal) | CPT/HCPCS: A0425; A0429 ==

== ENCOUNTER 2024-04-23 03:45 | Emergency (ER) | payer MEDICARE, MEDICAID ==
--- NOTE | 2024-04-23 06:54 | ED Physician Documentation ---
History of Present Illness - Stated complaint Stated Complaint: SI - Chief complaint Chief Complaint: MHE - History obtained from History obtained from: Patient - Additonal information Additional information: 53yM with pmh long standing depression, frequent ED use, p/w passive SI tonight. patient denies plan. He has been seen several times this week and just received 40mg ketamine infusion in the ED for depression. lives with mother and father and states he has had many stressors recently due to working on his end of life care plan and POA paperwork. denies HI/AVH. PD PAST MEDICAL HISTORY - Past Medical History Cardiovascular: Hypertension Respiratory: None Neuro: None Endocrine/Autoimmune: Type 1 diabetes, HyPOthyroidism GI: None : None HEENT: None Psych: Depression, Anxiety Musculoskeletal: None, Gout Derm: None - Past Surgical History Past Surgical History: Yes - Present Medications Home Medications: Ambulatory Orders Medication Instructions Recorded Confirmed Clonazepam 1 mg PO DAILY 04/12/13 04/19/24 Insulin Glargine,Hum.rec.anlog 20 - 25 unit SQ BID 03/07/14 04/19/24 [Lantus] Insulin Lispro [Humalog] 30 unit SQ TIDWM 03/08/17 04/19/24 Aspirin [[place] Aspirin] 81 mg PO DAILY 01/19/22 04/19/24 Fenofibrate 54 mg PO DAILY 03/01/23 04/19/24 Ferrous Sulfate [Feosol] 325 mg PO DAILY 03/01/23 04/19/24 Metoprolol Succinate 100 mg PO DAILY 03/01/23 04/19/24 amLODIPine [Norvasc] 10 mg PO DAILY 03/01/23 04/19/24 Rosuvastatin Calcium [Crestor] 40 mg PO DAILY 07/15/23 04/19/24 glipiZIDE [Glipizide ER] 2.5 mg PO DAILY 07/15/23 04/19/24 Linagliptin [Tradjenta] 5 mg PO DAILY #7 tablet 08/08/23 04/19/24 Empagliflozin [Jardiance] 10 mg PO DAILY 11/25/23 04/19/24 Triamcinolone 0.1% Cream [Kenalog 1 applic TOP BID PRN 11/25/23 04/19/24 0.1% Cream] DULoxetine [Cymbalta] 120 mg PO DAILY 12/20/23 04/19/24 Levothyroxine [Synthroid] 75 mcg PO QDAC 12/20/23 04/19/24 Calcium Carbonate/Vitamin D3 1 tab PO BID 03/22/24 04/19/24 [Calcium 500 mg-Vit D3 600 Unit] Hyoscyamine Sulfate 0.125 mg PO QID PRN 03/22/24 04/19/24 buPROPion HCL [Bupropion HCl Sr] 150 mg PO DAILY 03/22/24 04/19/24 - Allergies Allergies/Adverse Reactions: Allergies Allergy/AdvReac Type Severity Reaction Status Date / Time Penicillins Allergy Rash Verified 04/23/24 03:54 sertraline HCl * Allergy bladder Verified 04/23/24 03:54 [From Zoloft] infection alprazolam [From Xanax] AdvReac Unknown Verified 04/23/24 03:54 lorazepam [From Ativan] AdvReac Anxiety Verified 04/23/24 03:54 - Social History Does the pt smoke?: No Smoking Status: Never smoker Does the pt drink ETOH?: No Does the pt have substance abuse?: No - Immunizations Immunizations are current?: Yes - POLST Patient has POLST: No PD ED PE NORMAL - Vitals Vital signs reviewed: Yes - General General: Alert and oriented X 3, No acute distress, Well developed/nourished - HEENT HEENT: Atraumatic, PERRL, EOMI - Neck Neck: Supple, no meningeal sign - Cardiac Cardiac: RRR - Respiratory Respiratory: No respiratory distress, Clear bilaterally - Abdomen Abdomen: Non tender, Non distended - Derm Derm: Normal color, Warm and dry - Neuro Neuro: Alert and oriented X 3, No motor deficit, No sensory deficit - Psych Psych: Other (depressed mood) Results - Vitals Vitals: Vital Signs - 24 hr 04/23/24 03:50 Temperature 36.4 C L Heart Rate 60 Respiratory 16 Rate Blood Pressure 128/62 O2 Saturation 100 Oxygen O2 Source Room air PD Medical Decision Making - ED course ED course: 53yM with history of depression p/w depressed mood and inability to sleep tonight. Denies active SI, HI or avh and states he feels safe at home but just needs someone to talk to. I talked with him at length and he is requesting counselor or medical social worker as well. he just had labwork 3 days ago therefore I d/w him the options of repeat labs and telepsych vs social work in AM. he opted for the latter. Plan to endorse to Dr. Hampton at 7am shift change. Departure - Departure Clinical Impression: Depression Condition: Stable
--- NOTE | 2024-04-23 13:02 | ED Physician Documentation ---
ED Addendum - Addendum Addendum: 04/23/24 13:00 The patient was comfortable through the morning. He had some breakfast. He has been pleasant talking with staff. Social work Moni was subsequently finally able to come out of talk with the patient. Since he has been here multiple times in the last 2 to 3 weeks, the offer was extended to see if we might be able to do hospitalization if he thought that was useful. He does have a psychiatrist that has gotten him admitted to psychiatric facilities on direct admit in the past and would like to work with his psychiatrist that way rather than through the ER. The patient has had poor experiences with some facilities and his preference is [facility]. He feels okay going home at this point and would prefer working through his psychiatrist for possible admission versus close follow-up. Social work did talk with his counselor I believe. The [facility] or his counselor will call him tomorrow and again on Saturday outpatient to talk with him that way. He certainly is welcome to return to the ER if needed. He has vague suicidal ideation without any plan. He is forward-looking with things for the future. Social work and myself feel that he is safe for discharge at this time. Disposition: Patient discharged home in stable condition. Diagnoses: 1. Chronic depression and mood disorder 2. Passive suicidal ideation
[2024-04-23 13:18] VITALS: BP 146/82; O2SAT 99
== END 2024-04-23 13:12 | disposition home or self-care (01) ==
LOC: EDUNIT# → ED 03:45
DX: F32.A Depression, unspecified (principal); F39 Unspecified mood [affective] disorder; R45.851 Suicidal ideations; G47.9 Sleep disorder, unspecified; I10 Essential (primary) hypertension; E10.9 Type 1 diabetes mellitus without complications
CPT/HCPCS: 99283; 99284

== ENCOUNTER 2024-06-29 14:20 | Outpatient (CLI) | payer MEDICARE, MEDICAID | END 2024-06-29 23:59 | disposition critical access hospital (66) | LOC: EMS 14:20 | DX: F32.A Depression, unspecified (principal); R45.89 Other symptoms and signs involving emotional state | CPT/HCPCS: A0425; A0429 ==

== ENCOUNTER 2024-06-29 14:40 | Emergency (ER) | payer MEDICARE, MEDICAID | END 2024-06-29 16:11 | disposition left against medical advice (07) | LOC: ED 14:40 | DX: Z53.21 Procedure and treatment not carried out due to patient leaving prior to being seen by health care provider (principal) ==

== ENCOUNTER 2024-07-04 07:17 | Emergency (ER) | payer MEDICARE, MEDICAID ==
--- NOTE | 2024-07-04 07:31 | ED Physician Documentation ---
History of Present Illness - Stated complaint Stated Complaint: - Chief complaint Chief Complaint: Abd Pain - History obtained from History obtained from: Patient - Additonal information Additional information: This is a 53-year-old gentleman with history of depression, diabetes, and hypertension who presents with a multitude of complaints. He initially complained to me about his outpatient psychiatry clinic. He says they have been yelling at him for overusing their services. He tried to go inpatient for depression twice in the last week but it sounds like he did not fit acuity. He actually says that somewhat better now but would benefit from ketamine drip which she has had in the past. Subsequently he says his blood pressure and blood sugars have been labile with hypertension or at least feeling like he is hypertensive not having checked his blood pressure, and his blood sugars have been going up to 300 or so. Also for a week he has a sensation of difficulty starting his urine stream and difficulty emptying. No SI or HI. PD PAST MEDICAL HISTORY - Past Medical History Cardiovascular: Hypertension Respiratory: None Neuro: None Endocrine/Autoimmune: Type 1 diabetes, HyPOthyroidism GI: None : None HEENT: None Psych: Depression, Anxiety Musculoskeletal: None, Gout Derm: None - Past Surgical History Past Surgical History: Yes - Present Medications Home Medications: Ambulatory Orders Medication Instructions Recorded Confirmed Clonazepam 1 mg PO DAILY 04/12/13 04/19/24 Insulin Glargine,Hum.rec.anlog 20 - 25 unit SQ BID 03/07/14 04/19/24 [Lantus] Insulin Lispro [Humalog] 30 unit SQ TIDWM 03/08/17 04/19/24 Aspirin [[place] Aspirin] 81 mg PO DAILY 01/19/22 04/19/24 Fenofibrate 54 mg PO DAILY 03/01/23 04/19/24 Ferrous Sulfate [Feosol] 325 mg PO DAILY 03/01/23 04/19/24 Metoprolol Succinate 100 mg PO DAILY 03/01/23 04/19/24 amLODIPine [Norvasc] 10 mg PO DAILY 03/01/23 04/19/24 Rosuvastatin Calcium [Crestor] 40 mg PO DAILY 07/15/23 04/19/24 glipiZIDE [Glipizide ER] 2.5 mg PO DAILY 07/15/23 04/19/24 Linagliptin [Tradjenta] 5 mg PO DAILY #7 tablet 08/08/23 04/19/24 Empagliflozin [Jardiance] 10 mg PO DAILY 11/25/23 04/19/24 Triamcinolone 0.1% Cream [Kenalog 1 applic TOP BID PRN 11/25/23 04/19/24 0.1% Cream] DULoxetine [Cymbalta] 120 mg PO DAILY 12/20/23 04/19/24 Levothyroxine [Synthroid] 75 mcg PO QDAC 12/20/23 04/19/24 Calcium Carbonate/Vitamin D3 1 tab PO BID 03/22/24 04/19/24 [Calcium 500 mg-Vit D3 600 Unit] Hyoscyamine Sulfate 0.125 mg PO QID PRN 03/22/24 04/19/24 buPROPion HCL [Bupropion HCl Sr] 150 mg PO DAILY 03/22/24 04/19/24 - Allergies Allergies/Adverse Reactions: Allergies Allergy/AdvReac Type Severity Reaction Status Date / Time Penicillins Allergy Rash Verified 07/04/24 07:30 sertraline HCl * Allergy bladder Verified 07/04/24 07:30 [From Zoloft] infection alprazolam [From Xanax] AdvReac Unknown Verified 07/04/24 07:30 lorazepam [From Ativan] AdvReac Anxiety Verified 07/04/24 07:30 - Social History Does the pt smoke?: No Smoking Status: Never smoker Does the pt drink ETOH?: No Does the pt have substance abuse?: No - Immunizations Immunizations are current?: Yes - POLST Patient has POLST: No PD ED PE NORMAL - Vitals Vital signs reviewed: Yes - General General: Alert and oriented X 3, No acute distress - Neck Neck: Supple, no meningeal sign - Cardiac Cardiac: RRR, No murmur - Respiratory Respiratory: No respiratory distress, Clear bilaterally - Abdomen Abdomen: Non tender - Back Back: No CVA TTP - Neuro Neuro: Alert and oriented X 3 Results - Vitals Vitals: Vital Signs - 24 hr 07/04/24 07/04/24 07/04/24 07:24 09:07 09:57 Temperature 35.7 C L Heart Rate 81 77 76 Respiratory 18 16 18 Rate Blood Pressure 157/92 H 166/82 H 180/96 H O2 Saturation 100 100 95 Oxygen O2 Source Room air - EKG (time done) 0804 EKG releavant findings:: EKG personally interpreted by author of this note. Relevant findings are: Rate: Rate (enter#) (74) Rhythm: NSR [place] Gap: Normal Intervals: Normal CT QRS: Normal Ischemia: Non specific changes. No: ST elevation c/w ischemia, ST depression - Labs Labs: Laboratory Tests 07/04/24 07/04/24 07/04/24 07:36 08:05 08:05 WBC 10.3 RBC 4.24 L Hgb 12.6 L Hct 39.1 L MCV 92.2 MCH 29.7 MCHC 32.2 RDW 12.9 Plt Count 265 MPV 9.7 Neut # (Auto) 8.6 H Lymph # (Auto) 0.8 L [place] # (Auto) 0.7 Eos # (Auto) 0.1 Baso # (Auto) 0.1 Absolute Nucleated RBC 0.00 Nucleated RBC % 0.0 Sodium 135 Potassium 5.1 H Chloride 108 Carbon Dioxide 17 L Anion Gap 10.0 BUN 57 H Creatinine 3.6 H Estimated GFR (MDRD) 18 L Glucose 185 H Calcium 9.4 Total Bilirubin 0.3 AST 14 ALT 11 Alkaline Phosphatase 68 Total Protein 7.6 Albumin 4.4 Globulin 3.2 Albumin/Globulin Ratio 1.4 Urine Color YELLOW Urine Clarity CLEAR Urine pH 6.0 Ur Specific [place] 1.020 Urine Protein 100 H Urine Glucose (UA) >=1000 H Urine Ketones NEGATIVE Urine Occult Blood SMALL H Urine Nitrite NEGATIVE Urine Bilirubin NEGATIVE Urine Urobilinogen 0.2 (NORMAL) Ur Leukocyte Esterase NEGATIVE Urine RBC 0-5 Urine WBC 0-3 Ur Squamous Epith Cells RARE Squamous Urine Bacteria Few Ur Microscopic Review INDICATED Urine Culture Comments NOT INDICATED PD Medical Decision Making - ED course ED course: He presents with multiple complaints, first and foremost he is depressed but no longer wanting inpatient treatment, but is amenable to a ketamine infusion. 40 mg over 40 minutes was administered. Otherwise he complains of labile blood sugars, today's blood sugar is 185. Further review of his labs shows that he has a mild chronic normocytic anemia on CBC, and CMP demonstrates chronic renal insufficiency which is generally slowly worsening. Urinalysis has glucose and some protein. He had a negligible postvoid bladder scan. He felt better from his depression after a ketamine infusion. We discussed the lab findings and especially the need for nephrology follow-up. Departure - Departure Disposition: Home, Self Care Clinical Impression: Depressive disorder Type II diabetes mellitus Qualifiers: Diabetes mellitus care home insulin use: with superintendent container terminal use Diabetes mellitus complication status: with hyperglycemia Qualified Code(s): E11.65 - Type 2 diabetes mellitus with hyperglycemia CKD (chronic kidney disease) Qualifiers: Chronic kidney disease stage: stage 3 (moderate) Condition: Stable Instructions: ED Insufficiency Renal Comments: Followup with your PCP and kidney specialist as your renal function continues to slowly worsen. Return for new or worse symptoms Forms: PCP List Discharge Date/Time: 07/04/24 09:57
[2024-07-04 07:45] LABS: BILIRUBIN,URINE NEGATIVE (NEGATIVE); GLUCOSE, URINE (UA) >=1000 mg/dL (NEGATIVE); KETONES,URINE (UA) NEGATIVE (NEGATIVE); LEUKOCYTE ESTERASE, URINE NEGATIVE (NEGATIVE); NITRITE,URINE NEGATIVE (NEGATIVE); OCCULT BLOOD,URINE SMALL (NEGATIVE); PROTEIN,URINE 100 mg/dL (NEGATIVE); UROBILINOGEN,URINE 0.2 (NORMAL) E.U./dL (NORMAL)
[2024-07-04 07:55] LABS: CLARITY,URINE CLEAR (CLEAR)
[2024-07-04] MEDS: KETAMINE (50MG/ML) 40 MG in SODIUM CHLORIDE 0.9% 100ML 100 ML IV STA (08:14)
[2024-07-04 08:17] LABS: BASOPHILS # (AUTO) 0.1 10^3/uL (0.0-0.1); BASOPHILS % (AUTO) 0.5 %; EOSINOPHILS # (AUTO) 0.1 10^3/uL (0.0-0.7); EOSINOPHILS % (AUTO) 0.9 %; HCT - HEMATOCRIT 39.1 % (42.0-52.0); HGB - HEMOGLOBIN 12.6 g/dL (14.0-18.0); LYMPHOCYTES # (AUTO) 0.8 10^3/uL (1.5-3.5); MEAN CORPUSCULAR HEMOGLOBIN 29.7 pg (27.0-31.0); MEAN CORPUSCULAR HGB CONC 32.2 g/dL (32.0-36.0); MEAN CORPUSCULAR VOLUME 92.2 fL (80.0-94.0); MEAN PLATELET VOLUME 9.7 fL (7.4-11.4); MONOCYTES # (AUTO) 0.7 10^3/uL (0.0-1.0); MONOCYTES % (AUTO) 6.4 %; NEUTROPHILS # (AUTO) 8.6 10^3/uL (1.5-6.6); NEUTROPHILS % (AUTO) 83.9 %; PLT - PLATELET COUNT 265 10^3/uL (130-450); RED BLOOD COUNT 4.24 10^6/uL (4.70-6.10); RED CELL DISTRIBUTION WIDTH 12.9 % (12.0-15.0); WHITE BLOOD COUNT 10.3 x10^3/uL (4.8-10.8)
[2024-07-04 08:29] LABS: ALBUMIN 4.4 g/dL (3.2-5.5); BILIRUBIN,TOTAL 0.3 mg/dL (0.2-1.0); CALCIUM 9.4 mg/dL (8.5-10.3); CREATININE 3.6 mg/dL (0.6-1.3); POTASSIUM 5.1 mmol/L (3.5-4.5); TOTAL PROTEIN 7.6 g/dL (6.4-8.9)
[2024-07-04 08:29] LABS: BACTERIA,URINE Few /HPF (None Seen); RBC,URINE 0-5 /HPF (0-5); SQUAMOUS EPITHELIAL CELL,UR RARE Squamous (<= Few); WBC,URINE 0-3 /HPF (0-3)
[2024-07-04 08:30] LABS: ALBUMIN/GLOBULIN RATIO 1.4 (1.0-2.2)
[2024-07-04 10:03] VITALS: BP 180/96; O2SAT 95
== END 2024-07-04 09:57 | disposition home or self-care (01) ==
LOC: ED 07:17
DX: F32.A Depression, unspecified (principal); E11.22 Type 2 diabetes mellitus with diabetic chronic kidney disease; E11.65 Type 2 diabetes mellitus with hyperglycemia; I12.9 Hypertensive chronic kidney disease with stage 1 through stage 4 chronic kidney disease, or unspecified chronic kidney disease; N18.30 Chronic kidney disease, stage 3 unspecified; Z79.4 Long term (current) use of insulin; Z79.82 Long term (current) use of aspirin; D64.9 Anemia, unspecified
CPT/HCPCS: 36415; 51798; 80053; 81001; 81003; 85025; 87086; 93005; 96365; 99285

== ENCOUNTER 2024-07-20 08:00 | Outpatient (CLI) | payer MEDICARE, MEDICAID | END 2024-07-20 23:59 | disposition home or self-care (01) | LOC: LAB.N 08:00 | PROVIDERS: ATTEND Family Medicine | DX: J06.9 Acute upper respiratory infection, unspecified (principal) ==

== ENCOUNTER 2024-07-25 08:00 | Outpatient (CLI) | payer MEDICARE | END 2024-07-25 23:59 | disposition home or self-care (01) | LOC: LAB.N 08:00 | PROVIDERS: ATTEND Physician Assistant Medical | DX: J06.9 Acute upper respiratory infection, unspecified (principal) ==

== ENCOUNTER 2024-07-27 05:10 | Emergency (ER) | payer MEDICAID, MEDICARE ==
[2024-07-27 05:28] VITALS: BP 128/77; O2SAT 100
--- NOTE | 2024-07-27 05:39 | ED Physician Documentation ---
PD HPI URI - Stated complaint Stated Complaint: UNABLE TO TASTE - Chief complaint Chief Complaint: Heent - History obtained from History obtained from: Patient - Additional information Additional information: 53-year-old male with history of stage IV CKD, anxiety, insulin-dependent diabetes presents for lack of taste for the last week. Patient states he is able to smell but unable to taste anything. He went to the walk-in clinic twice and tested negative for COVID, but he is concerned that his taste is not returning. He is here today to ask if he can take an antihistamine spray with his medications to see if it will not affect his kidneys. Reports associated sensation that his ears are "stuffed with cotton" Review of Systems Constitutional: denies: Fever, Chills Ears: reports: Loss of hearing. denies: Ear pain, Drainage/discharge Nose: denies: Rhinorrhea / runny nose, Congestion, Foreign Body Throat: reports: Other (unable to taste). denies: Dental pain / toothache, Oral lesions / sores, Sore throat PD PAST MEDICAL HISTORY - Past Medical History Past Medical History: Yes Cardiovascular: Hypertension Respiratory: None Neuro: None Endocrine/Autoimmune: Type 1 diabetes, HyPOthyroidism GI: None : None HEENT: None Psych: Depression, Anxiety Musculoskeletal: None, Gout Derm: None - Past Surgical History Past Surgical History: Yes - Present Medications Home Medications: Ambulatory Orders Medication Instructions Recorded Confirmed Insulin Glargine,Hum.rec.anlog 20 - 25 unit SQ BID 03/07/14 07/27/24 [Lantus] Insulin Lispro [Humalog] 30 unit SQ TIDWM 03/08/17 07/27/24 Aspirin [[place] Aspirin] 81 mg PO DAILY 01/19/22 07/27/24 Fenofibrate 54 mg PO DAILY 03/01/23 07/27/24 Ferrous Sulfate [Feosol] 325 mg PO DAILY 03/01/23 07/27/24 Metoprolol Succinate 100 mg PO DAILY 03/01/23 07/27/24 amLODIPine [Norvasc] 10 mg PO DAILY 03/01/23 07/27/24 Rosuvastatin Calcium [Crestor] 40 mg PO DAILY 07/15/23 07/27/24 glipiZIDE [Glipizide ER] 2.5 mg PO DAILY 07/15/23 07/27/24 Empagliflozin [Jardiance] 10 mg PO DAILY 11/25/23 07/27/24 Triamcinolone 0.1% Cream [Kenalog 1 applic TOP BID PRN 11/25/23 07/27/24 0.1% Cream] Levothyroxine [Synthroid] 75 mcg PO QDAC 12/20/23 07/27/24 Calcium Carbonate/Vitamin D3 1 tab PO BID 03/22/24 07/27/24 [Calcium 500 mg-Vit D3 600 Unit] Hyoscyamine Sulfate 0.125 mg PO QID PRN 03/22/24 07/27/24 buPROPion HCL [Bupropion HCl Sr] 150 mg PO DAILY 03/22/24 07/27/24 Mirtazapine [Remeron] 7.5 mg PO QPM 07/27/24 07/27/24 Simethicone [Gas Relief] 180 mg PO DAILY PRN 07/27/24 07/27/24 - Allergies Allergies/Adverse Reactions: Allergies Allergy/AdvReac Type Severity Reaction Status Date / Time Penicillins Allergy Rash Verified 07/27/24 05:21 sertraline HCl * Allergy bladder Verified 07/27/24 05:21 [From Zoloft] infection alprazolam [From Xanax] AdvReac Unknown Verified 07/27/24 05:21 lorazepam [From Ativan] AdvReac Anxiety Verified 07/27/24 05:21 - Social History Does the pt smoke?: No Smoking Status: Never smoker Does the pt drink ETOH?: No Does the pt have substance abuse?: No - Immunizations Immunizations are current?: Yes - POLST Patient has POLST: No PD ED PE NORMAL - Vitals Vital signs reviewed: Yes - General General: Alert and oriented X 3, No acute distress, Well developed/nourished - HEENT HEENT: Atraumatic, PERRL, EOMI, Ears normal, Moist mucous membranes, Pharynx benign, Dentition benign, Other (mild nasal turbinate erythema) - Cardiac Cardiac: RRR, Strong equal pulses - Respiratory Respiratory: No respiratory distress, Clear bilaterally - Derm Derm: Normal color, Warm and dry, No rash - Neuro Neuro: Alert and oriented X 3, college advisor 2-12 intact, No motor deficit, Normal speech Results - Vitals Vitals: Vital Signs - 24 hr 07/27/24 05:17 Temperature 36.2 C L Heart Rate 66 Respiratory 16 Rate Blood Pressure 128/77 O2 Saturation 100 Oxygen O2 Source Room air PD Medical Decision Making - ED course Complexity details: considered differential, d/w patient ED course: Well-appearing patient with 1 week of loss of taste. Tested negative for COVID- 19 earlier in the week. Mild nasal turbinate erythema, tympanic membrane's normal, pharynx normal. Patient is here to ask if any decongestants can be taken with his medicine and with his kidneys. Patient is counseled that he may use an [id number] decongestant spray, recommended Mucinex without Sudafed or phenylephrine to protect his kidneys. Patient counseled to monitor his symptoms and return to his primary care doctor if he does not have a return of taste. Departure - Departure Disposition: 01 Home, Self Care Clinical Impression: Taste impairment Condition: Stable Instructions: Sinuses Comments: You may use the Benadryl with antihistamine spray as needed. You may also use Mucinex with the active ingredient guaifenesin to help relieve sinus congestion and pressure. Do not use Mucinex with pseudoephedrine as this can harm your kidneys. Forms: PCP List
== END 2024-07-27 05:43 | disposition home or self-care (01) ==
LOC: ED 05:10
DX: R43.9 Unspecified disturbances of smell and taste (principal); I12.9 Hypertensive chronic kidney disease with stage 1 through stage 4 chronic kidney disease, or unspecified chronic kidney disease; N18.4 Chronic kidney disease, stage 4 (severe); E10.22 Type 1 diabetes mellitus with diabetic chronic kidney disease; Z79.84 Long term (current) use of oral hypoglycemic drugs; Z79.4 Long term (current) use of insulin
CPT/HCPCS: 99282; 99283